=== PATIENT | male | born 1965 | race Caucasian/White ===

== ENCOUNTER 2019-05-13 14:09 | Emergency (ER) | payer BC, SELFPAY ==
[2019-05-13 14:10] VITALS: BP 140/105; PULSE 79; RESP 15; TEMP 36.8; O2SAT 96; BMI 26.4
[2019-05-13 14:17] VITALS: BP 140/105; PULSE 73; RESP 15; O2SAT 98
--- NOTE | 2019-05-13 14:34 | ED.VIS.GEN ---
History of Present Illness Chief Complaint: Laceration Informant: Patient Onset: Today Narrative: Patient presents to the ED with scalp laceration. Prior to arrival, he was mowing his lawn when the top of his head was hit with a tree branch. He denies LOC. He denies any pain. Tetanus status is unknown. He denies any other injury. Denies any headache or neck pain. Past Medical History - Allergies and Home Meds Allergies/Adverse Reactions: Allergies No Known Allergies Allergy (Verified 05/13/19 14:17) Primary Care Physician: Jeet Prince MD [Primary Care Provider] - Smoking Status: Never smoker Review of Systems General: Denies: Chills, Fever, Sweats Eyes: Denies: Visual changes - bilaterally, Diplopia ENT: Denies: Rhinorrhea, Sore throat Cardiovascular: Denies: Chest pain, Palpitations Respiratory: Denies: Dyspnea, Cough, Dyspnea on exertion Gastrointestinal: Denies: Abdominal pain, Nausea, Vomiting, Diarrhea, Melena, Hematochezia Genitourinary: Denies: Dysuria, Hematuria, Frequency Musculoskeletal: Denies: Back pain, Extremity Pain Skin: Reports: Wounds. Denies: Rash, Abscess, Abrasions Neurological: Denies: Headache, Weakness, Numbness Physical Exam Vital Signs/Narrative: Vital Signs Temp Pulse Resp BP Pulse Ox 05/13/19 14:17 73 15 140/105 H 98 05/13/19 14:10 98.2 F 79 15 140/105 H 96 General: Well nourished, Well developed, No Acute Distress Head: Normocephalic, Atraumatic Eyes: Perrl, EOMI ENT: Moist mucous membranes, No rhinorrhea Neck: Supple, Nontender Cardiovascular: Regular rate, Regular rhythm, No murmurs Respiratory: No distress, CTA bilaterally, Chest nontender Abdomen: Soft, Nontender, Nondistended, Normal bowel sounds Back: Nontender, Normal Inspection Extremities: Nontender, No edema Skin: Normal color, No rash, - - 4 cm linear laceration to the scalp. No evidence of foreign body. No active bleeding. Neurological: Alert, Oriented x3, Cranial nerves II-XII grossly intact, Normal Strength, Normal Sensation Psychological: Normal affect, Normal Mood Diagnostic/Tx/Re-eval - Medical Decision Making Patient presents to the ED with scalp laceration. Physical exam indicates 4 cm laceration to the scalp. Patient has no focal neurological deficits. Tetanus is updated. I did discuss various repair options including suture versus staple with the patient and his and patient elected staple repair. Procedure note: Approximately 5 mL of lidocaine 1% with epinephrine was locally infiltrated into the wound for anesthesia. Wound was irrigated with normal saline and cleansed with Betadine. 4 astrid were placed. Patient tolerated procedure well. Nonadherent dressing was placed over the wound. Patient and were educated on signs/symptoms to return to the ED. Provided discharge instructions. They were agreeable to plan Impression: Scalp laceration. Tetanus updated. Closed head injury. Disposition: Home stable. ED Disposition - Plan for ED Patient: Disposition: Home or Assisted Living Diagnosis: Laceration of scalp Instructions: LACERATION, Scalp Referrals: Jeet Prince MD [Primary Care Provider] -
[2019-05-13] MEDS: Diphth,Pertuss(Acell),Tet Vac 0.5 ML Vial IM (14:52)
[2019-05-13 15:36] VITALS: BP 135/94; PULSE 62; RESP 15
== END 2019-05-13 15:38 | disposition home or self-care (01) ==
LOC: ED 15:13
PROVIDERS: Emergency Provider Physician Assistant; Family Provider Family Medicine; PCP Family Medicine
DX: S01.01XA Laceration without foreign body of scalp, initial encounter (principal); W22.8XXA Striking against or struck by other objects, initial encounter; Y93.H9 Activity, other involving exterior property and land maintenance, building and construction; Y92.007 Garden or yard of unspecified non-institutional (private) residence as the place of occurrence of the external cause
CPT/HCPCS: 12002; 90715; 99282

== ENCOUNTER 2020-06-01 08:50 | Inpatient (IN) | payer BC, SELFPAY ==
[2020-06-01] VITALS (14 sets, daily range): BP systolic 111–184; BP diastolic 81–112; PULSE 57–72; RESP 16–20; TEMP 36.3–36.9; O2SAT 96–100; BMI 26.8
--- NOTE | 2020-06-01 08:53 | NURSING ---
NO OLD EKGS
--- NOTE | 2020-06-01 08:57 | EKG12_ITS ---
Test Reason : REPEAT Blood Pressure : / mmHG Vent. Rate : 062 BPM Atrial Rate : 062 BPM P-R Int : 172 ms QRS Dur : 106 ms QT Int : 398 ms P-R-T Axes : 052 -07 042 degrees QTc Int : 403 ms Normal sinus rhythm Inferior infarct , age undetermined , cannot be excluded Abnormal ECG Confirmed by LEEANN ALDANA, CHARLEEN ([id number]), general expeditor JOSIE GALINDO ([id number]) on 06/05/2020 10:02:04 AM Referred By: JAMES Confirmed By:CHARLEEN BRADSHAW MD
--- NOTE | 2020-06-01 08:57 | RAD_ITS ---
STUDY: X-RAY CHEST REASON FOR EXAM: Male, 55 years old. Chest pain TECHNIQUE: Single AP portable view of the chest. COMPARISON: None. FINDINGS: The lungs are clear and expanded. There is no demonstrated pleural abnormality. Normal size heart. Normal mediastinum and kostas. Normal visualized pulmonary arteries. Normal visualized aortic arch and descending thoracic aorta. Normal visualized thoracic spine. Normal visualized ribs, clavicles, and shoulders. There is no demonstrated abnormality of the visualized soft tissue structures of the upper abdomen. RAD/Chest 1 View (Portable) IMPRESSION: No active pulmonary disease. Electronically Signed: Tyler Alvarado MD at 9:41 EDT Tel , Service support ,
--- NOTE | 2020-06-01 09:00 | ED.DCSUM_ITS ---
History of Present Illness Informant: Patient Onset: Days Context: Gradual Onset Timing: Intermittent Current Severity: Moderate Maximum Severity: Severe Worsened by: walking, deep breathing Narrative: 55-year-old male with no significant past medical history presents with intermittent chest pain over the last week. Pain is substernal and sometimes radiates to his right shoulder. Denies nausea, vomiting, or diaphoresis. It can be worse with deep breathing or with exertion. His right shoulder pain is worse with movement. No cardiopulmonary history. Non-smoker. He has extensive family history of CAD/[place]. No recent surgery or travel, leg pain or swelling, cough, hemoptysis, or history of DVT/PE. Prior similar symptoms: No <Katarzyna Cuevas - Last Filed: 06/01/20 11:56> <Hiral Mota - Last Filed: 06/01/20 17:07> Chief Complaint: Chest Pain Past Medical History Past Medical History: - - kidney stones Surgical History: noncontributory Smoking Status: Never smoker - Family History Maternal Family History: Reports: No pertinent history Paternal Family History: Reports: Heart Disease, - - Father because of massive heart attack at age of 70. <Katarzyna Cuevas - Last Filed: 06/01/20 11:56> <Hiral Mota - Last Filed: 06/01/20 17:07> - Allergies and Home Meds Allergies/Adverse Reactions: Allergies shellfish derived Allergy (Verified 06/01/20 08:51) Hives Review of Systems General: Denies: Chills, Fever, Sweats Eyes: Denies: Visual changes - bilaterally, Diplopia ENT: Denies: Rhinorrhea, Sore throat Cardiovascular: Reports: Chest pain. Denies: Palpitations Respiratory: Denies: Dyspnea, Cough, Dyspnea on exertion Gastrointestinal: Denies: Abdominal pain, Nausea, Vomiting, Diarrhea, Melena, Hematochezia Genitourinary: Denies: Dysuria, Hematuria, Frequency Musculoskeletal: Denies: Back pain, Extremity Pain Skin: Denies: Rash, Wounds Neurological: Denies: Headache, Weakness, Numbness <Katarzyna Cuevas - Last Filed: 06/01/20 11:56> Physical Exam Vital Signs/Narrative: Vital Signs Temp Pulse Resp BP Pulse Ox 06/01/20 08:52 97.6 F L 63 17 184/108 H 99 General: Well nourished, Well developed, No Acute Distress Head: Normocephalic, Atraumatic Eyes: Perrl, EOMI ENT: Moist mucous membranes, No rhinorrhea Neck: Supple, Nontender Cardiovascular: Regular rate, Regular rhythm, No murmurs Respiratory: No distress, CTA bilaterally, Chest nontender Abdomen: Soft, Nontender, Nondistended, Normal bowel sounds Back: - - tender over right trapezius muscle, no bony tenderness of the shoulder, full ROM Extremities: Nontender, No edema Skin: Normal color, No rash Neurological: Alert, Oriented x3, Cranial nerves II-XII grossly intact, Normal Strength, Normal Sensation Psychological: Normal affect, Normal Mood <Katarzyna Cuevas - Last Filed: 06/01/20 11:56> Diagnostic/Tx/Re-eval Clinical Impression(s) from Imaging Studies Chest X-Ray 06/01/20 08:57 IMPRESSION: No active pulmonary disease. Electronically Signed: Tyler Alvarado MD at 9:41 EDT Tel , Service support , Laboratory Data 06/01/20 06/01/20 06/01/20 08:58 08:58 08:58 WBC 7.5 RBC 5.05 Hgb 15.8 Hct 45.1 MCV 89.3 MCH 31.3 MCHC 35.0 RDW Std Deviation 39.0 RDW Coeff of Caesar 12.0 Plt Count 212 MPV 9.4 Immature Gran % (Auto) 0.300 Neut % (Auto) 59.9 Lymph % (Auto) 27.6 [place] % (Auto) 9.9 Eos % (Auto) 1.6 Baso % (Auto) 0.7 Absolute Neuts (auto) 4.5 Absolute Lymphs (auto) 2.06 Nucleated RBC % 0 D-Dimer Quant (PE/DVT) <= 0.27 Sodium 140 Potassium 4.4 Chloride 107 Carbon Dioxide 30.0 Anion Gap 3 L BUN 11 Creatinine 0.93 Estim Creat Clear Calc 103.81 Est GFR (MDRD) Af Amer 109 Est GFR (MDRD) Non-Af 90 BUN/Creatinine Ratio 11.8 Glucose 97 Calcium 8.8 Troponin I 2.490 H* - Rhythm Strip Rhythm Strip: Sinus Rhythm Rate: 60 Ectopy: None - EKG Initial EKG Interpretation: Sinus Rhythm, - - AK interval 176 ms QRS duration 110 ms QTc [address] changes Follow-up EKG Interpretation: Sinus Rhythm, No Acute Injury Pattern Prior: Unchanged - Medical Decision Making Patient presented with intermittent chest pain x5-6 days. Vital signs remarkable for BP of 168/112, otherwise within normal limits. EKG shows NSR with no signs of ischemia. Initial troponin is 2.5. Other labs and d-dimer are normal. Chest x-ray shows no acute process. Repeat EKG unchanged. 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 Case was discussed with hospitalist and he was admitted to PCU. OSWALDO score -2 <Katarzyna Cuevas - Last Filed: 06/01/20 11:56> - Medical Decision Making Patient seen and evaluated with PA. I perform my own independent HPI and physical exam. Patient has presenting with intermittent chest pain as well as right shoulder pain however it was radiating down his left arm last night. He is a poor historian and cannot really give me a good story about the exact timing of onset of his symptoms. Patient has a strong family history of coronary artery disease and is hypertensive in the emergency room. The pain is not reproducible with any palpation of the muscle groups. EKG is largely normal. Troponin significantly elevated 2.5. Case is discussed with cardiology on-call, Dr. Harris, who recommends Brilinta, heparin drip and will evaluate the patient on the floor. Patient does not require emergent cath at this time. Patient is informed of these findings multiple times however he seems to be c onfused about his plan of care despite multiple discussions with him. He is neuro vastly intact. Admit to hospital service. Patient is agreeable with plan. Hemodynamically stable in the emergency room. <Hiral Mota - Last Filed: 06/01/20 17:07> ED Disposition <Katarzyna Cuevas - Last Filed: 06/01/20 11:56> <Hiral Mota - Last Filed: 06/01/20 17:07> - Plan for ED Patient: Disposition: Acute Care Hospital [facility] Diagnosis: NSTEMI (non-ST elevated myocardial infarction), Chest pain
[2020-06-01] MEDS: Aspirin 81 MG TAB.CHEW 324 MG PO (09:09)
--- NOTE | 2020-06-01 09:10 | ED.RN ---
IV ATTEMPT UNSUCCESSFUL. BLOOD DRAWN
[2020-06-01 09:15] LABS: Absolute Lymphocyte Count 2.06 X10^3/uL (0.83-4.51); Absolute Neutrophil Count 4.5 X10^3/uL (2.0-7.7); Basophil# 0.05 X10^3/uL; Basophil% 0.7 % (0-1); Eosinophil# 0.12 X10^3/uL; Eosinophils% 1.6 % (0-5); Hematocrit 45.1 % (40-54); Hemoglobin 15.8 g/dL (13.0-16.5); Lymphocyte # 2.06 X10^3/ul (4.0); Lymphocyte % 27.6 % (19-41); Mean Corpuscular Hgb 31.3 pg (27.0-32.0); Mean Corpuscular Volume 89.3 fL (80-94); Mean Platelet Vol. 9.4 fl (6.2-12.0); Monocyte# 0.74 X10^3/uL; Monocyte% 9.9 % (0-10); NRBC Flagged by Analyzer 0 % (0-5); Neutrophil # 4.48 X10^3/uL (2.7-7.7); Neutrophil % 59.9 % (47-70); Platelet Count 212 K/mm3 (150-450); Red Blood Count 5.05 M/mm3 (4.6-6.2); White Blood Count 7.5 K/mm3 (4.4-11.0)
[2020-06-01 09:36] LABS: D-Dimer Quantitative (DVT/PE) <= 0.27 FEU/ug/m (0.27-0.49)
[2020-06-01] MEDS: Ibuprofen 600 MG Tablet PO (10:33)
[2020-06-01 11:01] LABS: Anion Gap 3 (5-15); BUN 11 mg/dL (7-18); BUN/Creat Ratio 11.8 RATIO (10-20); Calcium,Total 8.8 mg/dL (8.5-10.1); Chloride 107 mmol/L (98-107); Creatinine, Serum 0.93 mg/dL (0.70-1.30); EST Glomerular Filtration Rate 90 mL/min (>60); Est Glom Filt Rate - Afr Amer 109 mL/min (>60); Estimated Creatinine Clearance 103.81 ml/min; Glucose 97 mg/dL (74-106); Potassium 4.4 mmol/L (3.5-5.1); Sodium Level 140 mmol/L (136-145)
[2020-06-01] MEDS: TICAGRELOR 90 MG TABLET 180 MG PO (11:17)
[2020-06-01] MEDS: Morphine 4 MG/ML Syringe IV (11:18)
--- NOTE | 2020-06-01 11:26 | EKG12_ITS ---
Test Reason : CP Blood Pressure : / mmHG Vent. Rate : 060 BPM Atrial Rate : 060 BPM P-R Int : 176 ms QRS Dur : 110 ms QT Int : 390 ms P-R-T Axes : 056 011 081 degrees QTc Int : 390 ms Normal sinus rhythm Normal ECG Confirmed by LEEANN ALDANA, CHARLEEN ([id number]), editor department JOSIE GALINDO ([id number]) on 06/05/2020 10:02:25 AM Referred By: JAMES Confirmed By:CHARLEEN BRADSHAW MD
[2020-06-01 11:27] LABS: Partial Thromboplast Time 29.2 Seconds (24.1-36.2)
--- NOTE | 2020-06-01 11:42 | PCM.HP.STD ---
Problem List (1) Depression Status: Chronic (2) NSTEMI (non-ST elevated myocardial infarction) Status: Acute History of Present Illness Date of Admission: 06/01/20 Chief Complaint: Chest pain. The patient is a 55 year old M with no significant past medical history apart from depression presented to the emergency room because of chest pain. Her symptoms started this past Wednesday which is 7 days ago with chest pain, right-sided chest pain, dull aching pain, intermittent, brought up by exertion, 8 out of 10 in severity when it comes up, radiates to the right shoulder and sometimes aggravated by taking a deep breath. He mentioned that on Wednesday, he feels better and pain is almost gone. This morning, he woke up and shortly after, his pain got worse, was more constant and he decided to come to the emergency department. He denied diaphoresis, nausea or vomiting. He denied dizziness, syncope or presyncope. In the emergency department, his blood pressure was slight elevated, other vital signs were stable. Routine blood work was unremarkable. Chest x-ray showed no acute findings. EKG revealed normal sinus rhythm, normal CT interval, normal QRS, normal QTC, no acute segment changes. Troponin was elevated at 2.49. D-dimer was negative. Patient is being admitted for acute non-ST elevation MO. Past Medical History Past Medical History (Chronic Problems): Chronic Problems Depression (Chronic) Allergies shellfish derived Allergy (Verified 06/01/20 08:51) Hives Home Medications: Ambulatory Orders Medication Instructions Recorded NK 06/01/20 Surgical History: no surgical history Psychiatric History: No pertinent psych hx Lives: Spouse/ Significant Other Smoking Status: Never smoker Tobacco Use: Non-smoker Alcohol: None Drugs: None - *Family History Maternal History Items: No pertinent history Paternal History Items: Heart Disease, - - Father because of massive heart attack at age of 70. Review of Systems Constitutional: Denies: Anorexia, Chills, Fever, Weakness Eyes: Denies: Blurred vision, Double vision, Drainage, Redness HEENT: Denies: Ear Pain, Eye Pain, Nasal Congestion, Sore Throat Cardiovascular: Reports: Chest Pain. Denies: Edema, Heaviness, Light Headedness, Palpitations, Syncope Respiratory: Reports: Shortness of Breath. Denies: Cough, Hemoptysis, Pleuritic Pain, Sputum production, Wheezing Gastrointestinal: Denies: Abdominal Pain, Constipation, Diarrhea, Nausea, Vomiting Genitourinary: Denies: Dysuria, Frequency, Hematuria Musculoskeletal: Reports: Shoulder Pain. Denies: Arm Pain, Back Pain, Foot Pain Skin: Denies: Dryness, Rash Neurological: Denies: Balance problems, Double vision, Change in Speech, Confusion, Headaches, Incoordination, Numbness Psychiatric: Reports: Depression. Denies: Anxiety Endocrine: Denies: Change in Body Habitus, Polydipsia, Polyuria VTE Information - Inpt Only VTE Present on Admission: No VTE Mechan Device Prophylaxis: None VTE Pharm Prophylaxis ordered?: No Patient Problems: Active and Suspected Problems NSTEMI (non-ST elevated myocardial infarction) (Acute) - Physical Exam Vitals/I&O's: Vital Signs Temp Pulse Resp BP Pulse Ox 97.6 F L 72 17 168/112 H 98 06/01/20 08:52 06/01/20 11:02 06/01/20 11:02 06/01/20 11:02 06/01/20 11:02 Oxygen Delivery Method Room Air Weight: 203 lb 4.259 oz Body Mass Index (BMI) 26.8 General: Alert, Oriented x3, Cooperative, No apparent distress HEENT: Atraumatic, PERRLA, EOMI, Normocephalic Oral: Moist Mucosa, No Gingival or Mucosal Lesions/ Ulcerations Neck: Supple, No JVD, Negative Carotid Bruits Lungs: Clear to auscultation, Normal air movement, No rhonchi, No wheeze, No rales Cardiovascular: Regular rate, Regular Rhythm, Normal S1, Normal S2, No murmurs, PMI Normal Abdomen: Bowel Sounds Present, Soft, Non Tender, Non-Distended, No Hepato-splenomegaly Extremities: No clubbing, No cyanosis, No edema Skin: No rashes, No breakdown Lymphatic: No Cervical, Supraclavicular, or Inguinal Adenopathy Neurological: Cranial nerves II-XII grossly intact, Motor Exam 5/5 strength throughout Psych/Mental Status: Normal Affect, Appropriate, Alert and oriented to time, place, person, mood and affect Laboratory Results 06/01/20 08:58: WBC 7.5, RBC 5.05, Hgb 15.8, Hct 45.1, MCV 89.3, MCH 31.3, MCHC 35.0, RDW Std Deviation 39.0, RDW Coeff of Caesar 12.0, Plt Count 212, MPV 9.4, Immature Gran % (Auto) 0.300, Neut % (Auto) 59.9, Lymph % (Auto) 27.6, [place] % (Auto) 9.9, Eos % (Auto) 1.6, Baso % (Auto) 0.7, Absolute Neuts (auto) 4.5, Absolute Lymphs (auto) 2.06, Nucleated RBC % 0 06/01/20 08:58: Sodium 140, Potassium 4.4, Chloride 107, Carbon Dioxide 30.0, Anion Gap 3 L, BUN 11, Creatinine 0.93, Estim Creat Clear Calc 103.81, Est GFR (MDRD) Af Amer 109, Est GFR (MDRD) Non-Af 90, BUN/Creatinine Ratio 11.8, Glucose 97, Calcium 8.8, Troponin I 2.490 H* 06/01/20 08:58: D-Dimer Quant (PE/DVT) <= 0.27 06/01/20 09:58: APTT 29.2 Clinical Impression(s) from Imaging Studies Chest X-Ray 06/01/20 08:57 IMPRESSION: No active pulmonary disease. Electronically Signed: Tyler Alvarado MD at 9:41 EDT Tel , Service support , Current Medications Heparin Sodium (Porcine) (Heparin Na) 0 unit IV UD PRN; Protocol PRN Reason: DOSAGE ADJUSTMENT NOMOGRAM Heparin Sodium/Sodium Chloride () 25,000 unit in 250 mls @ 10 mls/hr IV .Q[facility]H [facility]; Protocol Last Admin: 06/01/20 11:41 Dose: 10 mls/hr Documented by: Assessment/Plan All Active Problems NSTEMI (non-ST elevated myocardial infarction) (Acute) This is a 55 years old male patient presented to the emergency room because of chest pain, found to have elevated troponin without acute ischemic changes on EKG consistent with acute non-ST elevation MO and he is being admitted for evaluation and treatment. #1 acute non-ST elevation MO: EKG reviewed, no acute ischemic changes. Troponin is 2.49. Chest x-ray showed no acute findings. D-dimer was normal. Patient was given IV morphine and started on IV heparin drip and received loading dose of Brilinta. Currently, still complaining of right shoulder pain, chest pain eased up a little bit. Plan: Admit to PCU, cardiac monitoring, serial cardiac enzymes, repeat EKG tomorrow morning, lipid profile, LFT, pro time with INR, TSH, continue IV heparin drip, 2D echocardiogram, cardiology consult, start aspirin, Coreg, Lipitor and lisinopril, gentle IV fluids for hydration, IV morphine PRN for pain, sublingual nitro as needed, repeat CBC and BMP tomorrow morning. #2 depression: Continue home medication 1 home medication list updated. #3 DVT prophylaxis: He is on IV heparin drip. This note was generated with [employer] dictation software. It may contain incorrect words, spelling, and punctuation that were not noted in checking the note before signing. Inpatient E&M: [id number] Init Hosp L3
[2020-06-01] MEDS: Nitroglycerin SL (ED/IMG/CATH) 0.4 MG TABLET SUBLINGUAL (11:43)
[2020-06-01 12:37] LABS: International Normalized Ratio 1.1; Prothrombin Time (Protime)PT. 13.3 SECONDS (11.7-14.9)
[2020-06-01] MEDS: Nitroglycerin (INPATIENT USE) 0.4 MG TAB.SUBL SUBLINGUAL ×2 (12:38→12:52)
[2020-06-01 13:27] LABS: AST(SGOT) 40 U/L (15-37); Alanine Aminotransfer ALT/SGPT 29 U/L (16-61); Albumin, Serum 3.7 g/dL (3.2-5.0); Alkaline Phosphatase 81 U/L (45-117); Bilirubin, Direct 0.15 mg/dL (0.00-0.30); Cholesterol 188 mg/dL (200); Globulin 3.5 g/dL (2.2-4.2); High Density Lipoprotein 26 mg/dL; Protein, Total 7.2 g/dL (6.4-8.2); Thyroid Stim Hormone (TSH) 1.69 uIU/mL (0.358-3.74); Triglycerides 131 mg/dL; Very Low Density Lipoprotein 26 mg/dL (5-40)
--- NOTE | 2020-06-01 14:44 | CON.PCM_ITS ---
Reason for Consult Date of Consultation: 06/01/20 Reason for Consultation: Non-STEMI History of Present Illness: The patient is a 55 year old M with no significant past medical history apart from depression presented to the emergency room because of chest pain. Her symptoms started this past Wednesday which is 7 days ago with chest pain, right- sided chest pain, dull aching pain, intermittent, brought up by exertion, 8 out of 10 in severity when it comes up, radiates to the right shoulder and sometimes aggravated by taking a deep breath. He mentioned that on Wednesday, he feels better and pain is almost gone. This morning, he woke up and shortly after, his pain got worse, was more constant and he decided to come to the emergency department. He denied diaphoresis, nausea or vomiting. He denied dizziness, syncope or presyncope. In the emergency department, his blood pressure was slight elevated, other vital signs were stable. Routine blood work was unremarkable. Chest x-ray showed no acute findings. EKG revealed normal sinus rhythm, normal MN interval, normal QRS, normal QTC, no acute segment changes. Troponin was elevated at 2.49. D-dimer was negative. Patient is being admitted for acute non-ST elevation [place]. Patient's troponin is trending down. His chest pain has improved since arrival. Review of systems: All systems reviewed. All this is negative except that in the HPI Past Medical History Allergies/Adverse Reactions: Allergies shellfish derived Allergy (Verified 06/01/20 08:51) Hives Home Medications: Ambulatory Orders Medication Instructions Recorded Citalopram Hydrobromide 40 mg PO DAILY 06/01/20 [Citalopram HBr] Past Medical History (Chronic Problems): Chronic Problems Depression (Chronic) Surgical History: no surgical history Psychiatric History: No pertinent psych hx - *Family History Maternal History Items: No pertinent history Paternal History Items: Heart Disease, - - Father because of massive heart attack at age of 70. Lives: Spouse/ Significant Other Smoking Status: Never smoker Tobacco Use: Non-smoker Alcohol: None Drugs: None Objective: Vital Signs Temp Pulse Resp BP Pulse Ox 97.4 F L 61 16 131/84 H 100 06/01/20 13:18 06/01/20 13:18 06/01/20 13:18 06/01/20 13:18 06/01/20 13:18 Oxygen Flow Rate (L/min) 2 Oxygen Delivery Method Nasal Cannula Weight: 203 lb 4.259 oz Body Mass Index (BMI) 26.8 Intake and Output for Last 24 Hours 05/30/20 05/31/20 06/01/20 23:59 23:59 23:59 Intake Total 7.33 / 7.33 Balance 7.33 / 7.33 General: Awake, Alert, Oriented x 3 HEENT: Atraumatic Oral: Moist Mucosa Neck: Supple Lungs: Clear to auscultation Cardiovascular: Regular Rhythm Abdomen: Soft Extremities: No edema Skin: No Rashes Psych/Mental Status: Appropriate 06/01/20 08:58: WBC 7.5, RBC 5.05, Hgb 15.8, Hct 45.1, MCV 89.3, MCH 31.3, MCHC 35.0, Plt Count 212, MPV 9.4, Immature Gran % (Auto) 0.300, Neut % (Auto) 59.9, Lymph % (Auto) 27.6, [place] % (Auto) 9.9, Eos % (Auto) 1.6, Baso % (Auto) 0.7, Absolute Neuts (auto) 4.5, Nucleated RBC % 0 06/01/20 08:58: Sodium 140, Potassium 4.4, Chloride 107, Carbon Dioxide 30.0, Anion Gap 3 L, BUN 11, Creatinine 0.93, Est GFR (MDRD) Af Amer 109, Est GFR (MDRD) Non-Af 90, BUN/Creatinine Ratio 11.8, Glucose 97, Calcium 8.8, Troponin I 2.490 H* 06/01/20 08:58: D-Dimer Quant (PE/DVT) <= 0.27 06/01/20 09:58: APTT 29.2 06/01/20 12:16: Troponin I 1.690 H* 06/01/20 12:16: PT 13.3, INR 1.1 06/01/20 12:16: Total Bilirubin 0.60, Direct Bilirubin 0.15, Triglycerides 131, Cholesterol 188, LDL Cholesterol 136 H, VLDL Cholesterol 26, HDL Cholesterol 26 L Rhythm: EKG: ECHO: Stress Test: Cardiac Cath: PCI: CT Surgery: Holter monitor: EPS: PPM: CXR: Chest CT Scan: Assessment/Plan 1. Non-STEMI: We will keep the patient on dual antiplatelet therapy, statin, beta-bobby and heparin. Possible heart cath tomorrow.
[2020-06-01] MEDS: Acetaminophen 325 MG Tablet 650 MG PO ×2 (16:27→23:09)
--- NOTE | 2020-06-01 16:38 | CM.UR ---
RAYNA MACIAS assessment: Face to Face with patient for initial transition planning/care coordination assessment. RAYNA MACIAS introduced self and role at [facility], pt voices understanding and consents to assessment at this time. Pt is lying in bed in no distress at this time. is at bedside. Pt is A/Ox3 at this time and answers questions appropriately at this time. Care providers, pharmacy, and demographics verified/updated at this time at this time. Presentation: Chest pain Admitting dx: NSTEMI PCP: Jeet Prince Specialists: Pt states no current specialists. [facility]erred [facility] Insurance: [employer] Prescription Benefit: [employer] Living Will/HPOA: States has both LW and HCPOA however they are not on file. Joana is HCPOA LNOK: Joana Living Arrangements: Lives in 2 story home. Steps to get in and out however denies any problems with accessibility. Transportation: Self DME: None HHC/SNF: Denies Pt Goal: Home, denies any needs. Herminio Hong RN, CCM.
--- NOTE | 2020-06-01 16:45 | CM.UR ---
In-network providers according to sheri BC/BS website noted on scanned insurance card (not limited to): [facility] Contact Case mgmt department with any additional questions.
[2020-06-01 18:53] LABS: Partial Thromboplast Time 58.6 Seconds (24.1-36.2)
[2020-06-01] MEDS: Carvedilol 6.25 MG Tablet PO (21:49)
[2020-06-01] MEDS: oxyCODONE 5 MG Tablet PO (21:49)
[2020-06-01] MEDS: Atorvastatin Calcium 40 MG Tablet PO (21:49)
[2020-06-01] MEDS: TICAGRELOR 90 MG TABLET PO (21:49)
[2020-06-02] VITALS (16 sets, daily range): BP systolic 95–142; BP diastolic 60–87; PULSE 65–87; RESP 12–18; TEMP 36.6–36.9; O2SAT 94–100
[2020-06-02 00:59] LABS: Partial Thromboplast Time 61.2 Seconds (24.1-36.2)
[2020-06-02] MEDS: oxyCODONE 5 MG Tablet PO (03:53)
--- NOTE | 2020-06-02 05:55 | EKG12_ITS ---
Test Reason : POST CATH Blood Pressure : / mmHG Vent. Rate : 068 BPM Atrial Rate : 068 BPM P-R Int : 172 ms QRS Dur : 100 ms QT Int : 378 ms P-R-T Axes : 052 -29 021 degrees QTc Int : 401 ms Normal sinus rhythm Inferior infarct , age undetermined Abnormal ECG When compared with ECG of 02-JUN-2020 05:06, MANUAL COMPARISON REQUIRED, DATA IS UNCONFIRMED Confirmed by MARIELA ALDANA, MICHELLE ([id number]), marketing editor JOSIE GALINDO ([id number]) on 06/06/2020 9:42:13 AM Referred By: OLIVIA Confirmed By:MICHELLE SIERRA MD
[2020-06-02] MEDS: Carvedilol 6.25 MG Tablet PO (06:36)
[2020-06-02] MEDS: Aspirin E.C. 81 MG Tablet PO (06:36)
[2020-06-02] MEDS: TICAGRELOR 90 MG TABLET PO (06:36)
[2020-06-02] MEDS: Lisinopril 20 MG Tablet PO (06:36)
[2020-06-02 07:19] LABS: Absolute Lymphocyte Count 1.26 X10^3/uL (0.83-4.51); Absolute Neutrophil Count 5.6 X10^3/uL (2.0-7.7); Basophil# 0.04 X10^3/uL; Basophil% 0.5 % (0-1); Eosinophil# 0.08 X10^3/uL; Hematocrit 38.2 % (40-54); Hemoglobin 13.3 g/dL (13.0-16.5); Lymphocyte # 1.26 X10^3/ul (4.0); Lymphocyte % 15.8 % (19-41); Mean Corp Hgb Conc 34.8 g/dL (32-36); Mean Platelet Vol. 9.8 fl (6.2-12.0); Monocyte# 0.95 X10^3/uL; Monocyte% 11.9 % (0-10); NRBC Flagged by Analyzer 0 % (0-5); Neutrophil # 5.64 X10^3/uL (2.7-7.7); Neutrophil % 70.5 % (47-70); Platelet Count 196 K/mm3 (150-450); RBC Distribution Width CV 12.2 % (11.6-14.6); RBC Distribution Width SD 39.3 fl (35.1-43.9); Red Blood Count 4.29 M/mm3 (4.6-6.2)
[2020-06-02 07:41] LABS: Anion Gap 5 (5-15); BUN 11 mg/dL (7-18); Calcium,Total 8.2 mg/dL (8.5-10.1); Chloride 107 mmol/L (98-107); Creatinine, Serum 0.74 mg/dL (0.70-1.30); EST Glomerular Filtration Rate 119 mL/min (>60); Est Glom Filt Rate - Afr Amer 143 mL/min (>60); Estimated Creatinine Clearance 130.47 ml/min; Glucose 118 mg/dL (74-106); Potassium 3.9 mmol/L (3.5-5.1); Sodium Level 138 mmol/L (136-145)
--- NOTE | 2020-06-02 07:46 | PCM.PROGNOTE ---
Patient Problems: Active and Suspected Problems Chest pain (Acute) NSTEMI (non-ST elevated myocardial infarction) (Acute) Subjective: Chief complaint: Follow-up after admission for acute non-ST elevation SD. Patient seen and examined. No acute events overnight. Today, he is feeling better. Chest pain improved as well as right shoulder pain. No shortness of breath, dizziness or lightheadedness. His vital signs are stable. - Physical Exam Vitals/I&O's: Vital Signs Temp Pulse Resp BP Pulse Ox 97.9 F 65 16 131/78 H 94 06/02/20 06:35 06/02/20 07:39 06/02/20 06:35 06/02/20 06:35 06/02/20 06:35 Oxygen Flow Rate (L/min) 2 Oxygen Delivery Method Room Air Weight: 203 lb 4.259 oz Body Mass Index (BMI) 26.8 Intake and Output for Last 24 Hours 05/31/20 06/01/20 06/02/20 23:59 23:59 23:59 Intake Total 987.33 / 987.33 122.5 / 122.5 Balance 987.33 / 987.33 122.5 / 122.5 General: Alert, Oriented x3, Cooperative, No apparent distress HEENT: Atraumatic, PERRLA, EOMI, Normocephalic Oral: Moist Mucosa, No Gingival or Mucosal Lesions/ Ulcerations Neck: Supple, No JVD, Negative Carotid Bruits, Trachea Midline, Thyroid Normal Size and Texture Lungs: Clear to auscultation, Normal air movement, No rhonchi, No wheeze, No rales Cardiovascular: Regular rate, Regular Rhythm, Normal S1, Normal S2, PMI Normal Abdomen: Bowel Sounds Present, Soft, Non Tender, Non-Distended, No Hepato-splenomegaly Extremities: No clubbing, No cyanosis, No edema Skin: No rashes, No breakdown Lymphatic: No Cervical, Supraclavicular, or Inguinal Adenopathy Neurological: Cranial nerves II-XII grossly intact, Neuro grossly intact Psych/Mental Status: Normal Affect, Appropriate, Alert and oriented to time, place, person, mood and affect Laboratory Results 06/01/20 08:58: WBC 7.5, RBC 5.05, Hgb 15.8, Hct 45.1, MCV 89.3, MCH 31.3, MCHC 35.0, RDW Std Deviation 39.0, RDW Coeff of Caesar 12.0, Plt Count 212, MPV 9.4, Immature Gran % (Auto) 0.300, Neut % (Auto) 59.9, Lymph % (Auto) 27.6, Swisher % (Auto) 9.9, Eos % (Auto) 1.6, Baso % (Auto) 0.7, Absolute Neuts (auto) 4.5, Absolute Lymphs (auto) 2.06, Nucleated RBC % 0 06/01/20 08:58: Sodium 140, Potassium 4.4, Chloride 107, Carbon Dioxide 30.0, Anion Gap 3 L, BUN 11, Creatinine 0.93, Estim Creat Clear Calc 103.81, Est GFR (MDRD) Af Amer 109, Est GFR (MDRD) Non-Af 90, BUN/Creatinine Ratio 11.8, Glucose 97, Calcium 8.8, Troponin I 2.490 H* 06/01/20 08:58: D-Dimer Quant (PE/DVT) <= 0.27 06/01/20 09:58: APTT 29.2 06/01/20 12:16: Troponin I 1.690 H* 06/01/20 12:16: PT 13.3, INR 1.1 06/01/20 12:16: Total Bilirubin 0.60, Direct Bilirubin 0.15, AST 40 H, ALT 29, Alkaline Phosphatase 81, Total Protein 7.2, Albumin 3.7, Globulin 3.5, Triglycerides 131, Cholesterol 188, LDL Cholesterol 136 H, VLDL Cholesterol 26, HDL Cholesterol 26 L, TSH 1.69 06/01/20 15:00: Troponin I 2.690 H* 06/01/20 18:37: APTT 58.6 H 06/02/20 00:40: APTT 61.2 H 06/02/20 06:17: WBC 8.0, RBC 4.29 L, Hgb 13.3, Hct 38.2 L, MCV 89.0, MCH 31.0, MCHC 34.8, RDW Std Deviation 39.3, RDW Coeff of Caesar 12.2, Plt Count 196, MPV 9.8, Immature Gran % (Auto) 0.300, Neut % (Auto) 70.5 H, Lymph % (Auto) 15.8 L, Swisher % (Auto) 11.9 H, Eos % (Auto) 1.0, Baso % (Auto) 0.5, Absolute Neuts (auto) 5.6, Absolute Lymphs (auto) 1.26, Nucleated RBC % 0 06/02/20 06:17: Sodium 138, Potassium 3.9, Chloride 107, Carbon Dioxide 26.0, Anion Gap 5, BUN 11, Creatinine 0.74, Estim Creat Clear Calc 130.47, Est GFR (MDRD) Af Amer 143, Est GFR (MDRD) Non-Af 119, BUN/Creatinine Ratio 15.0, Glucose 118 H, Calcium 8.2 L 06/02/20 06:17: APTT Pending Current Medications Acetaminophen (Tylenol) 650 mg PO Q6H PRN PRN PRN Reason: Pain Score 1-10/Temp > 100.7 F Last Admin: 06/01/20 23:09 Dose: 650 mg Documented by: Aspirin (Ecotrin) 81 mg PO DAILY@0800 [facility] Last Admin: 06/02/20 06:36 Dose: 81 mg Documented by: Atorvastatin Calcium (Lipitor) 40 mg PO QHS [facility] Last Admin: 06/01/20 21:49 Dose: 40 mg Documented by: Carvedilol (Coreg) 6.25 mg PO BID [facility] Last Admin: 06/02/20 06:36 Dose: 6.25 mg Documented by: Heparin Sodium (Porcine) (Heparin Na) 0 unit IV UD PRN; Protocol PRN Reason: DOSAGE ADJUSTMENT NOMOGRAM Heparin Sodium/Sodium Chloride () 25,000 unit in 250 mls @ 10 mls/hr IV .Q25H [facility]; Protocol Last Titration: 06/02/20 00:40 Dose: 10 mls/hr Documented by: Lisinopril (Zestril) 20 mg PO DAILY [facility] Last Admin: 06/02/20 06:36 Dose: 20 mg Documented by: Morphine Sulfate () 2 mg IV Q4H PRN PRN PRN Reason: Pain Score 6-10/10 Nitroglycerin (Nitrostat) 0.4 mg SUBLINGUAL Q5M PRN PRN Reason: CHEST PAIN Last Admin: 06/01/20 12:52 Dose: 0.4 mg Documented by: Ondansetron HCl (Zofran) 4 mg IV Q8H PRN PRN PRN Reason: NAUSEA/VOMITING Oxycodone HCl (Oxyir) 5 mg PO Q6H PRN PRN PRN Reason: Pain Score 6-10/10 Last Admin: 06/02/20 03:53 Dose: 5 mg Documented by: Senna/Docusate Sodium (Senokot-S, Irene-Colace) 2 tablet PO BID PRN PRN PRN Reason: Constipation Sodium Chloride () 10 - 40 ml IV UD PRN PRN Reason: SALINE FLUSH Ticagrelor (Brilinta) 90 mg PO BID [facility] Last Admin: 06/02/20 06:36 Dose: 90 mg Documented by: Zolpidem Tartrate (Ambien (Generic)) 5 mg PO QHS PRN PRN PRN Reason: INSOMNIA Medical Necessity - Tobacco Use Smoking Status: Never smoker Tobacco Use: Non-smoker Assessment/Plan All Active Problems Chest pain (Acute) NSTEMI (non-ST elevated myocardial infarction) (Acute) This is a 55 years old male patient presented to the emergency room because of chest pain, found to have elevated troponin without acute ischemic changes on EKG consistent with acute non-ST elevation SD and he is being admitted for evaluation and treatment. #1 acute non-ST elevation SD: He is on aspirin, Brilinta, statins, Coreg and lisinopril as well as IV heparin drip. Chest pain improved. Troponins was elevated, trended down and then went back up again. Chest x-ray showed no acute findings. D-dimer was normal. Lipid profile revealed total cholesterol of 188, LDL cholesterol of 136 and HDL cholesterol of 26. TSH was normal. LFT was unremarkable. Cardiology on the case, plan for possible cardiac catheterization today. #2 depression: Continue citalopram. #3 DVT prophylaxis: Continue IV heparin drip. This note was generated with [employer] dictation software. It may contain incorrect words, spelling, and punctuation that were not noted in checking the note before signing. Inpatient E&M: 92170 Subs Hosp L2
[2020-06-02 08:26] LABS: Partial Thromboplast Time 46.7 Seconds (24.1-36.2)
--- NOTE | 2020-06-02 13:30 | EKG12_ITS ---
Test Reason : MORNING EKG Blood Pressure : / mmHG Vent. Rate : 066 BPM Atrial Rate : 066 BPM P-R Int : 176 ms QRS Dur : 100 ms QT Int : 382 ms P-R-T Axes : 052 -33 -06 degrees QTc Int : 400 ms Normal sinus rhythm Left axis deviation Inferior infarct , age undetermined Abnormal ECG When compared with ECG of 01-JUN-2020 11:07, MANUAL COMPARISON REQUIRED, DATA IS UNCONFIRMED Confirmed by MARIELA ALDANA, MICHELLE ([id number]), photo editor JOSIE GALINDO ([id number]) on 06/06/2020 9:42:48 AM Referred By: RAJIV Confirmed By:MICHELLE SIERRA MD
[2020-06-02] MEDS: Acetaminophen 325 MG Tablet 650 MG PO (13:44)
--- NOTE | 2020-06-02 13:50 | CL.I_ITS ---
Patient Name: DEJAN LAZCANO Study Date: 06/02/2020 Performing: Radha Harris MD Ht: 73 inches 185 cm : 1965 Wt: 203.1 lbs 92 kg Age: 55 Gender: male BSA: 2.16 PROCEDURE(S) PERFORMED IX24-AVM/COR/LV [id number], SINGLE CORONARY ARTERY CLINICAL PROFILE AND CO-MORBIDITIES Indications: ACS > 24 hrs Heart Failure: None Stress/Imaging Stress/Image Study Performed: No CAD Presentations: Non-STEMI. Symptom onset Date/Time: 05/26/20 Time Not Available. Pt. was having ongoing CP on and off. Last episode was on the way to the senior label specialist CONCLUSIONS Multivessel CAD as described. EF is 50-55% with inferior hypokinesis. No significant or MR. Succes sful PTCA alone of mRCA. RECOMMENDATIONS Refer for possible CABG. DESCRIPTION OF PROCEDURE The patient arrived to the procedure lab. The risks and benefits of the procedure as well as a full d escription of our services here and lack of surgical backup were fully explained to the patient and/o r their significant other prior to the catheterization. The Timeout was completed, verifying the guanako ect patient and procedure. The patient's procedural site was prepped and draped in the usual fashion. Local anesthetic was given subcutaneously to right radial region with Lidocaine 2%. Using a modified Seldinger technique, arterial access was obtained via the right radial artery, a 6Fr sheath was inse rted.. Left Coronary Artery selective angiography was performed in multiple views using a 5 Fr. JL3. 5 catheter. Left Ventriculography was performed in CAMPBELL projection using a 5 Fr. JR4. LV to AO pullbac k pressures were then recorded. Right Coronary Artery selective angiography was then performed in mul tiple views using a 5 Fr. JR 4 catheterThe images were reviewed and options discussed. A decision was then made to proceed with an Intervention, IVUS or other adjunct procedure. JR4 Guide catheter was inserted and engaged into the RCA. [employer] [place] Guide wire was advanced t o the RCA. Priority One inserted Pass # 1 Priority One Removed Euphora 2.5 x 12 Balloon catheter was inserted. Balloon catheter was advanced across lesion in the right coronary, mid. PTCA balloon inflat ed at 8 atms for 19 secs. Priority One inserted Pass # 2 Priority One Removed The arterial sheath w as pulled and a TR Band was applied for hemostasis CORONARY ANGIOGRAPHY DOMINANCE: Right Dominant LEFT HEART ASSESSMENT Left Ventricular Ejection Fraction: by LV Gram 50-55 % Inferior Hypokinesis - Mild LEFT MAIN: No significant disease noted LEFT ANTERIOR DESCENDING ARTERY: PROX LAD: 70 % Stenosis DIAGONAL 1: Ostial - 80 % Stenosis (small vessel) DIAGONAL 2: Ostial - 80 % Stenosis (small vessel) CIRCUMFLEX ARTERY: OSTIAL CIRC: 95 % Stenosis PROX CIRC: 80 % Stenosis OM 1: Proximal - 80 % Stenosis RIGHT CORONARY ARTERY: MID RCA: 99 % Stenosis VALVE FINDINGS: No Aortic Valve Stenosis No Mitral Insufficency INTERVENTION INFORMATION LESION SITE: RCA (Mid) Lesion Complexity: High/C, chronic total occlusion: No, lesion at bifurcation: No, thrombus present: Yes, lesion length: 12 mm, culprit lesion: Yes, Previously treated lesion: No Pre Stenosis: 99 % Pre intervention OSWALDO flow: 2 PROCEDURE: Thrombectomy, Balloon Angioplasty PTCA alone was done to improve flow a patient had CP on his way to the lab. We didn't stent the lesio n as he may be better treated with CABG due to the disease in his other vessels. Post Stenosis: 70 % Post intervention OSWALDO flow: 3 Lesion Devices: Cardinal 6 Fr JR4 100cm Guide Catheter Smith .014 [employer] [place] Straight 190cm Terumo Priority One Aspiration Catheter [employer]tr[employer] SC EUPHORA RX 2.5x12 BALLOON COMPLICATIONS No Complications PROCEDURE MEDICATIONS Fentanyl 50 mcg IV Versed 1 mg IV Oxygen: 2 L/min via nasal cannula Heparin given IA 06/02/2020 12:10:28 Heparin 4000 unit(s) IV 06/02/2020 12:30:44 Verapamil 2.5mg, Ntg 100mcgs, 3000 units of Heparin given IA 06/02/2020 12:10:28 IV Bolus: .9 NaCl 250 ml total 06/02/2020 12:53:52 SUMMARY OF HEMODYNAMIC DATA Time AIR REST ECG 12:00:43 AO 76/60 (68) SA 12:11:09 AO 81/62 (72) 12:15:11 LV 117/-12, 8 12:19:00 LV 114/0, 1 12:19:07 LV 101/-2, 16 12:20:03 LVp 101/0, 15 12:20:22 AO 93/59 (74) 12:20:27 AO 97/62 (77) 12:20:33 Signed By Radha Harris MD On 06/02/2020 1:49:08 PM Radha Harris MD
[2020-06-02] MEDS: 0.9% Normal Saline 1,000 ML 60 ML IV (14:00)
[2020-06-02] MEDS: Citalopram 40 MG TABLET PO (14:00)
--- NOTE | 2020-06-02 15:08 | DS.PCM_ITS ---
Discharge Date and Diagnosis Date of Admission: 06/01/20 Date of Discharge: 06/02/20 - Primary Discharge Diagnosis Acute Problems: Active Problems #1 acute non-ST elevation ND. #2 multivessel coronary artery disease with 70% stenosis of proximal LAD, 99% stenosis of the mid RCA, 95% stenosis of ostial left circumflex, 80% stenosis of proximal circumflex, CABG indicated. Status post balloon angioplasty of mid RCA. - Secondary Discharge Diagnosis Chronic Problems: Chronic Problems Depression (Chronic) Hospital Course and Treatment Imaging Results: Clinical Impression(s) from Imaging Studies Chest X-Ray 06/01/20 08:57 IMPRESSION: No active pulmonary disease. Electronically Signed: Tyler Alvarado MD at 9:41 EDT Tel , Service support , Dr. Harris, cardiology. Operations: None Procedures: Cardiac catheterization, EKG Summary of Care Provided: The patient is a 55 year old M presented to the emergency room because of 1 week history of intermittent chest pain and he was found to have acute non-ST elevation ND. Initial EKG revealed no acute ischemic changes. Chest x-ray showed no acute findings. Troponin was elevated and highest was 2.69. Patient was treated with IV heparin drip, aspirin, Brilinta, statins, Coreg and lisinopril. His routine blood work was unremarkable. LFT and TSH were unremarkable. Lipid profile revealed triglyceride of 131, total cholesterol of 188, LDL cholesterol of 136 and HDL cholesterol of 26. His pro time and INR were normal. Cardiology consulted and patient underwent cardiac catheterization. Patient was found to have 70% stenosis of the proximal LAD, 80% stenosis of the first and second diagonal branch, 95% stenosis of the ostial circumflex, mid RCA with 99% stenosis, status post balloon angioplasty of the mid RCA. His ejection fraction was 50 to 55%. There was no evidence of acute CHF. Cardiology stated that patient is appropriate for evaluation by cardiothoracic surgery for CABG. I made a call to [facility] cardiology department and they accepted the patient in transfer for evaluation for CABG. Patient transferred to [facility] in a stable condition. - Physical Exam Vitals/I&O's: Vital Signs Temp Pulse Resp BP Pulse Ox 98.4 F 68 16 97/61 95 06/02/20 14:25 06/02/20 14:55 06/02/20 14:55 06/02/20 14:55 06/02/20 14:55 Oxygen Flow Rate (L/min) 2 Oxygen Delivery Method Room Air Weight: 203 lb 4.259 oz Body Mass Index (BMI) 26.8 Intake and Output for Last 24 Hours 05/31/20 06/01/20 06/02/20 23:59 23:59 23:59 Intake Total 987.33 / 987.33 234.63 / 234.63 Balance 987.33 / 987.33 234.63 / 234.63 General: Alert, Oriented x3, Cooperative, No apparent distress HEENT: Atraumatic, PERRLA, EOMI, Normocephalic Oral: Moist Mucosa, No Gingival or Mucosal Lesions/ Ulcerations Neck: Supple, No JVD, Negative Carotid Bruits Lungs: Clear to auscultation, No rhonchi, No wheeze, No rales Cardiovascular: Regular rate, Regular Rhythm, Normal S1, Normal S2, PMI Normal Abdomen: Bowel Sounds Present, Soft, Non Tender, Non-Distended, No Hepato- splenomegaly Extremities: No clubbing, No cyanosis, No edema Skin: No rashes, No breakdown Lymphatic: No Cervical, Supraclavicular, or Inguinal Adenopathy Neurological: Cranial nerves II-XII grossly intact, Motor Exam 5/5 strength throughout Psych/Mental Status: Normal Affect, Appropriate Laboratory Results 06/01/20 15:00: Troponin I 2.690 H* 06/01/20 18:37: APTT 58.6 H 06/02/20 00:40: APTT 61.2 H 06/02/20 06:17: WBC 8.0, RBC 4.29 L, Hgb 13.3, Hct 38.2 L, MCV 89.0, MCH 31.0, MCHC 34.8, RDW Std Deviation 39.3, RDW Coeff of Caesar 12.2, Plt Count 196, MPV 9.8, Immature Gran % (Auto) 0.300, Neut % (Auto) 70.5 H, Lymph % (Auto) 15.8 L, [place] % (Auto) 11.9 H, Eos % (Auto) 1.0, Baso % (Auto) 0.5, Absolute Neuts (auto) 5.6, Absolute Lymphs (auto) 1.26, Nucleated RBC % 0 06/02/20 06:17: Sodium 138, Potassium 3.9, Chloride 107, Carbon Dioxide 26.0, Anion Gap 5, BUN 11, Creatinine 0.74, Estim Creat Clear Calc 130.47, Est GFR (MDRD) Af Amer 143, Est GFR (MDRD) Non-Af 119, BUN/Creatinine Ratio 15.0, Gl ucose 118 H, Calcium 8.2 L 06/02/20 06:17: APTT 46.7 H Current Medications Acetaminophen (Tylenol) 650 mg PO Q6H PRN PRN PRN Reason: Pain Score 1-10/Temp > 100.7 F Last Admin: 06/02/20 13:44 Dose: 650 mg Documented by: Aspirin (Ecotrin) 81 mg PO DAILY@0800 [facility] Last Admin: 06/02/20 06:36 Dose: 81 mg Documented by: Atorvastatin Calcium (Lipitor) 40 mg PO QHS [facility] Last Admin: 06/01/20 21:49 Dose: 40 mg Documented by: Atropine Sulfate () 0.5 mg IV UD PRN PRN Reason: HR <50 bpm Carvedilol (Coreg) 6.25 mg PO BID [facility] Last Admin: 06/02/20 06:36 Dose: 6.25 mg Documented by: Citalopram Hydrobromide (Celexa) 40 mg PO DAILY [facility] Last Admin: 06/02/20 14:00 Dose: 40 mg Documented by: Heparin Sodium (Porcine) (Heparin Na) 0 unit IV UD PRN; Protocol PRN Reason: DOSAGE ADJUSTMENT NOMOGRAM Heparin Sodium/Sodium Chloride () 25,000 unit in 250 mls @ 10 mls/hr IV .Q25H [facility]; Protocol Last Titration: 06/02/20 11:35 Dose: 0 mls/hr Documented by: Sodium Chloride () 1,000 mls @ 60 mls/hr IV .[id number] [facility] Last Admin: 06/02/20 14:00 Dose: 60 mls/hr Documented by: Labetalol HCl (Trandate) 5 mg IV X1 PRN PRN Reason: SBP > 160 when pulling sheath Stop: 06/04/20 13:21 Lisinopril (Zestril) 20 mg PO DAILY [facility] Last Admin: 06/02/20 06:36 Dose: 20 mg Documented by: Morphine Sulfate () 2 mg IV Q4H PRN PRN PRN Reason: Pain Score 6-10/10 Nitroglycerin (Nitrostat) 0.4 mg SUBLINGUAL Q5M PRN PRN Reason: CHEST PAIN Last Admin: 06/01/20 12:52 Dose: 0.4 mg Documented by: Ondansetron HCl (Zofran) 4 mg IV Q8H PRN PRN PRN Reason: NAUSEA/VOMITING Oxycodone HCl (Oxyir) 5 mg PO Q6H PRN PRN PRN Reason: Pain Score 6-10/10 Last Admin: 06/02/20 03:53 Dose: 5 mg Documented by: Senna/Docusate Sodium (Senokot-S, Irene-Colace) 2 tablet PO BID PRN PRN PRN Reason: Constipation Sodium Chloride () 10 - 40 ml IV UD PRN PRN Reason: SALINE FLUSH Sodium Chloride () 500 ml IV BOLUS PRN PRN Reason: VASO-VAGAL PROTOCOL Zolpidem Tartrate (Ambien (Generic)) 5 mg PO QHS PRN PRN PRN Reason: INSOMNIA Home Medications: Medications to take at Discharge Citalopram Hydrobromide [Citalopram HBr] 40 mg PO DAILY 06/01/20 Primary Care Physician: Jeet Prince MD [Primary Care Provider] - Disposition: Acute care Hospital Minutes spent on discharge:: 32 Medical Necessity - Tobacco Use Smoking Status: Never smoker Tobacco Use: Non-smoker Meaningful Use Info Meaningful Use Diagnoses (Choose all that apply): None applicable Inpatient E&M: [id number] [facility] Hosp
--- NOTE | 2020-06-02 16:48 | NURSING ---
Report called to nurse Reich for pt transfer to [facility].
== END 2020-06-02 18:02 | disposition short-term general hospital (02) | DRG 251 ==
LOC: ED 11:15 → PCU 11:27
PROVIDERS: Physician Assistant; Admitting Provider Hospitalist; Emergency Provider Emergency Medicine; PCP Family Medicine; Visit Provider Hospitalist
DX: I21.4 Non-ST elevation (NSTEMI) myocardial infarction (principal); I25.10 Atherosclerotic heart disease of native coronary artery without angina pectoris; F32.9 Major depressive disorder, single episode, unspecified
CPT/HCPCS: 36415; 71045; 80048; 80061; 80076; 84443; 84484; 85025; 85379; 85610; 85730; 92920; 93005; 93458; 99152; 99153; 99251; 99284; C1757; J7030; J7040; A4216; C1725; C1769; C1887; C1894; G0463; Q9967

== ENCOUNTER → 2020-08-06 07:43 | Outpatient (CLI) | payer BC, SELFPAY ==
[2020-06-01 08:52] VITALS: BMI 26.8
--- NOTE | 2020-08-06 07:50 | PCM.CR.ITP ---
Diagnosis - General Information Admitting Diagnosis: S/P CABG x 5 VESSEL Personal Learning Style:: Written Barriers to Learning: No Barriers Gave educational material for:: Treating Heart Disease, Emotions & Heart Disease, Stress Management & Relaxation, Sleep Disorders & Heart Disease, How The Heart Works, What it means to have Heart Disease, How Coronary Artery Disease is Diagnosed, Heart Procedures, What Heart Medications Do, Risk Factors & Modifications, Living an Active Life, Nutrition - Education/Goals Individual Counseling: Initial Assessment: Abnormal Cholesterol Levels, High Blood Pressure Cardiac Rehabilitation Goals: 1. Maintain the individual as the primary focus of care. 2. To improve the patient's quality of life. 3. Identification of cardiac risk factors and provide cardiac risk factor management. 4. Enhance the psychosocial status of the patient. 5. Reconditioning enough to allow the patient to resume customary activities. 6. Control symptoms of cardiac disease Personal Goals: Initial Assessment: Improve management of stress and emotions, Improve energy level, Participate in home exercise program, Get back to work, or to resume activities faster, Improve muscle strength and endurance Scale for measuring improvement of personal goals: Enter appropriate number in Comments. 2 = Unchanged. 3 = Slightly Better. 4 = Moderate Improvement. 5 = Met my Goal - Diagnosis & Disease Process Outcomes/Goals: Pt IDs own risk factors & lifestyle modifications by Session 10, Verbalizes symptoms of angina & response by session 3., Pt independently manages Plan/Interventions: Assist Pt to ID & engage in lifestyle modification to reduce CVD risk, Instruct on individual risk factors, Review symptoms of angina & emergency actions, Review secondary diagnosis & identify educational needs. - Safety Referral to Physical Therapy: No Referral to [facility] Case Management: No Fall Risk Assessed:: Yes Assistive Devices:: None Exercise - Initial Assessment - Visit Date of Eval: 08/06/20 Session #:: 0 - PRE-CARDIAC REHAB Mets: Pre-: >7 METS for 30 minutes by discharge - Physician Prescribed Exercise Modalities: Treadmill, Airdyne, NuStep Frequency: 3x/week for 12 weeks [36 sessions] Intensity: 60-80% of age predicted maximum heart rate reserve Current METSs:: 4.0 Target Heart Rate:: 108-142 Resting Blood Pressure: 138/86 EKG Type: RESTING EKG TO BE DONE - Outcomes & Goals Goals:: Verbalizes understanding of THR, RPE & goal METS by session 6, Documents in home exercise log/reports 30 min aerobic 5 day/wk by DC, Demonstrates accurate pulse taking by DC - Intervention & Plan Exercise Program Goals: Instruct on personal THR & RPE, Instruct on MET level & personal MET goal, Show patient to take own pulse /validate performance until accurate, Instruct on home exercise - Physical Activity Home Exercise Physical Activity - Home Exercise: Safe Exercise, Warm-up, Self-monitoring, Cool-Down, Home Exercise > 30 min Daily, Sitting Time <3 hours/daily - Outcomes & Goals Outcomes/Goals: Demonstrates correct Warm-up/exercise Cool-Down (S3) if = 2.5 METs, Verbalizes symptoms of exercise intolerance by Session 3 (S3), Demonstrate safe equipment use (S3) & follows exercise prescrition (6) - Intervention & Plan Plan/Intervention: Instruct warm-up & cool-down if exercising at > 2 METs, Instruct on symptoms of exercise intolerance & actions to take, Instruct & monitor on saf, Assess intial functional capacity & safety risk Nutrition - Initial Assessment - Program Goals Nutrition Program Goals: LDL <100 optimal. 100 - 129 Near optimal. 130 - 159 Borderline High. 160 - 189 High. Total Cholesterol <200 desirable. 200 - 239 Borderline High. >/= 240 High. HDL < 40 Low >/=60 High. Triglycerides <150 desirable. <199 optimal. VlDL 5 - 40. HgbA1C <7%. BMI <25 Patient has diagnosis of Hyperlipidemia (ICD E78)?: Yes - Visit Date of Assessment:: 08/06/20 Session #:: 0 - PRE-CARDIAC REHAB - Cholesterol/Lipids Triglycerides (mg/dL): 108 - 07/30/2020 Total Cholesterol (mg/dL): 89 LDL Cholesterol (mg/dL): 43 HDL Cholesterol (mg/dL): 65 Determine presence & major risk factors that modify LDL goal: Hypertension or hypertensive medication, Age men > 45 years; women >/= 55 years Outcomes/Goals: Pt IDs own risk factors & lifestyle modifications by Session 10, Verbalizes symptoms of angina & response by session 3., Pt independently manages Intervention/Plan: Advocate for lipid panel cholesterol medication if applicable, Instruct on personal lipid levels & lipid goals/NCEP guidelines, Instruct on cholesterol Referral to dietitian:: No - Diabetes (Other Core Measures) Diabetes Type: Not Applicable - Weight Mgt (Other Care) Not Applicable: Yes Height: 6 ft 1 in Weight:: 181 lb BMI: 23.8 Diagnosis Overweight/Obesity BMI> 30% ICD-10 E66: No Diagnosis High BMI/Morbid Obesity BMI> 35% ICD-10 Z68: No Intervention/Plan: Instruct on ideal BMI & set weight loss goal w/patient - Healthy Eating Habits Will attend diet classes:: Yes Outcomes/Goals:: Consume diet rich in vegs,fruits,whole grain/high fiber,fish,lean meat, Limit sat/trans fats,cholesterol & added salts & sugars Intervention/Plan:: Assess current eating habits - Education Gave educational materials for:: Healthy eating Medical - Initial Assessment - Visit Date of Eval: 08/06/20 Session #:: 0 - PRE-CARDIAC REHAB - Medication Compliance Preventative Medication(s):: Aspirin, Beta bobby H/O mental health issues: depression, anxiety, or addiction?: No Doesn?t believe in the benefits of treatment?: No Believes medications are unnecessary or harmful?: No Has a concern about medication side effects?: No Expresses concern over the cost of medications?: No Outcomes/Goals: Verbalizes medications,desired effect & common side effects @ DC, Pt self-reports following medication regimen, Keeps card in wallet w/medications listed by DC Interventions/plans: Instruct on medication effects & side effects, Review medication list w/patient every two weeks, Instruct importance of taking meds as ordered & assist problem solving - Tobacco Use Tobacco Use: Non-smoker - Hypertension Hypertension Diagnosis:: Hypertension ICD-10 I10 Resting Blood Pressure:: 138/86 [place] [employer] Hypertension Guidelines: [place] [employer] Hypertension Guidelines. Normal BP Less than 120/80. Elevated BP 120/80. Hypertension Stage 1: BP 130-139/80-89. Hypertesnion Stage 2: BP 140 or higher/90 or higher. Hypertension Crisis: BP higher than 180/120 - Tobacco Cessation Referral Smoking Cessation Referral:: No Individual Education/Counseling:: No Education Schedule Given:: Yes Psychosocial - Initial Assess - VIsit Date of Eval: 08/06/20 Session #:: 0 - PRE-CARDIAC REHAB Not Applicable: Yes History of previous Mental disease:: No - Target Goals Target Goals: Assess presence or absence of depression. Using a valid screening tool, maximizes coping skills. Positive support system - Psychosocial Test phq-9 Severity: Severity. 1-4 Minimal Depression. 5-9 Mild Depression. 10-14 Moderate Depression. 15-19 Moderately Sever Depression. 20-27 Severe Depression. Rule: - Referral to Behavioral Health PS - Interventions: Yes Attend Stress Management Classes, No Referral to Behavioral Health if PHQ-9 score >9:, No Referral to [facility] - Outcomes/Goals: See list Psychosocial Outcomes/Goals:: ID's personal stressors & 2 strategies to manage stress by discharge - Intervention/Plan: See List Interventions/Plan:: Assess stressors,coping strategies & signs of derpression on admission, Instruct/assist pt to develop coping & personal stress Mgt strategies, Instruct patient to recognize signs & symptoms of depression, Instruct patient to recog Patient Health Questionnaire Initial Assessment 1. Little interest or pleasure in doing things: Several days 2. Feeling down, depressed, or hopeless: Several days 3. Trouble falling or staying asleep, or sleeping too much: Not at all 4. Feeling tired or having little energy: Several days 5. Poor appetite or overeating: Not at all 6. Feeling bad about yourself -- or that you are a failure or have let yourself or your family down: Not at all 7. Trouble concentrating on things, such as reading the newspaper or watching television: Not at all 8. Moving or speaking so slowly that other people could have noticed. Or the opposite - being so fidgety or restless that you have been moving around a lot more than usual: Several days 9. Thoughts that you would be better off , or of hurting yourself in some way: Not at all How difficult have these problems made it for you to do your work, take care of things at home, or get along with other people?: Somewhat difficult Total Score: 4 MARCIA-Q SV Test - Statements CAD is a disease of the arteries in the heart: False Examples of risk factors for heart disease: True Angina is chest pain or discomfort: True The benefits of resistance training include: I Don't Know Eating more meat and dairy products: False Anti-platelet medications such as aspirin are important: True The only effective way to manage stress: False An exercise warm-up slowly increases heart rate: I Don't Know Prepared, processed foods usually have high sodium: True Depression is common after a heart attack: I Don't Know The statin medications lower cholesterol: True To control blood pressure, lower the amount of sodium: True If someone gets chest discomfort during walking: I Don't Know Transfats are partially hydrogenated vegetable oils: True Sleep apnea that is not treated increases the risk: False To control cholesterol, one should become a vegetarian: False Someone knows if he/she is exercising at the right level: True Diabetes cannot be prevented with exercise & health eating: False Stress is a large risk for heart attack: I Don't Know A diet that can help lower blood pressure is rich in: True - Total Score Total Correct Responses: 15 Self-Efficacy Initial Assessment We would like to know how confident you are in doing certain activities. Please select your confidence level for:: Select your confidence level for the following using the scale 1-10 where 1 is not at all confident and 10 is totally confident. Your score is the average of all 6 responses. Fatigue: How confident are you that you can keep the fatigue caused by your disease from interfering with the things you want to do? Select Number: 9 Physical Discomfort or Pain: How confident are you that you can keep the physical discomfort or pain of your disease from interfering with the things you want to do? Select Number: 8 Emotional Distress: How confident are you that you can keep the emotional distress caused by your disease from interfering with the things you want to do? Select Number: 9 Other Symptoms or Health Problems: How confident are you that you can keep other symptoms or health problems from interfering with the things you want to do? Select Number: 8 Different Tasks and Activities: How confident are you that you can do the different tasks and activities needed to manage your health condition so as to reduce your need to see a doctor? Select Number: 9 Medication: How confident are you that you can do things other than just taking medication to reduce how much your illness affects your everyday life? Select Number: 9 Total Score:: 8 Nutrition Survey - Nutrition Survey Instructions Scoring Instructions: Scoring is as follows: Yes = 1 points. No = 0 point. Patient score that is >/=12 is considered to be at potential nutritional risk and could benefit from a referral to a registered dietitian. - Nutrition Survey Initial Have you lost >10 lbs over the past 2 months without trying?: Yes Are you following a special diet at home for diabetes, low fat, or low salt?: Yes Are you interested in meeting with a dietitian for help understanding your diet?: No Do you eat less than 3 meals a day?: Yes Do you eat fatty meats (teixeira, sausage, ribs, etc), fried foods, desserts, large amounts of salad dressings, margarine, butter, or cheese most days?: No Do you have food allergies? [Enter types in comment field]: Yes Do you eat in restaurants more than 3 times a week?: No Do you season food with salt, seasoning salt, or garlic salt?: No Do you used canned, boxed, frozen meals, or soups, seasoning packets?: No Total Score:: 4
--- NOTE | 2020-08-06 07:51 | CR.HP_ITS ---
CR - History & Physical - General Arrival date:: 08/06/20 Arrival time:: 07:45 Date of Referral:: 07/26/20 Date of CR Evaluation:: 08/06/20 Referring Physician: DR. MALLORY MCCONNELL @ [facility]; establishing care with Dr. Baker Primary Diagnosis: S/P CABG x 5 vessel - History of Present Cardiac Event Onset Date: Enter Onset Date of cardiac illnesses in Comment field below Coronary Artery Bypass Graft:: Yes - 06/10/2020 Type of Symptoms:: BASIALLY DIZZINESS AND WEAKNESSI NTHE LEGS OVER PERIOD OF T MATTIE, THEN LATER DEVELOPED CHEST PAIN AND THE LEFT SHOULDER, NO SHORTNESS OF BREATH. OCCURRED EVEN AFTER WALKING ON THE SHOP FLOOR ABOUT 100 YARDS BECOME VERY DIZZY AND HAD TO GO BACK TO MY OFFICE. Interventions with present event:: HEART CATH, REMOVED SOME PLAQUE AND SENT TO [facility] Were there any complications?: NONE - Medications Home Medications: Ambulatory Orders Medication Instructions Recorded Citalopram Hydrobromide 40 mg PO DAILY 06/01/20 [Citalopram HBr] Acetaminophen [Tylenol Extra 500 mg PO Q6H PRN PRN 08/06/20 Strength] Amlodipine Besylate [Norvasc] 2.5 mg PO 08/06/20 Aspirin [Aspirin EC] 81 mg PO 08/06/20 Atorvastatin Calcium [Lipitor] 40 mg PO QHS 08/06/20 Citalopram [Celexa] 40 mg PO DAILY 08/06/20 - Allergies Allergies/Adverse Reactions: Allergies shellfish derived Allergy (Verified 06/01/20 08:51) Hives WHITE FISH Allergy (Uncoded 08/06/20 08:13) Hives - Sleep Disorder Evaluation Hx of Sleep Apnea: Yes Do you snore loudly (louder than talking or can be heard through closed doors)?: Yes - REALLY BAD SNORING; CLAIMS SNORING HAS IMPROVED SINCE SURGERY DONE. Do you often feel tired/ fatigued/ sleepy during daytime?: No Has anyone observed you stop breathing during sleep?: No History of Hypertension (for STOP score): Yes STOP Results: Positive Advanced Directives - Advanced Directives Power of Independent Living Advisor: Yes - IS POA FOR HEALTH CARE Living Will: Yes Advance Directives Information Provided: No Advance Directives on File: No DNR Order?:: No - MOLST See MOLST form: No Past Medical History - Covid-19 Screening Fever: No Unexplained muscle aches: No Current respiratory symptoms: No Upper respiratory infections symptoms: No Gastro-intestinal symptoms: No [id number] symptoms: No Has tested positive for COVID-19 in last 30 days: No Had contact w/person w/symptoms or Covid-19 (+) last 14 days: No Has High Risk Exposures ID'd by Health dept/Inf Control team: No 65 years or older:: No Lives in Assisted Living facility:: No Has a chronic lung disease or moderate to severe asthma:: No Has a serious heart condition:: No Immunocompromised:: No Severely obese (Body Mass Index of 40 or higher):: No Diabetic:: No Has chronic kidney disease undergoing dialysis:: No - Past Medical Illness Medical History: Past Medical History (Last Updated 08/06/20 @ 08:15 by Jamie Stone, EAR[employer] OBSERVATIONS CHIEF SCIENTIST, FOOD SELECTOR, BS) Atherosclerosis of coronary artery of [place] heart without angina pectoris (Acute) I25.10 INGUINAL HERNIA - RIGHT - Past Surgical History Surgical History: Past Surgical History (Last Updated 06/10/20 @ 10:25 by Krista Singh) History of left heart catheterization (Acute) Onset Date: 06/02/20 Z98.890 PTCA alone to mRCA Surgical History: no surgical history Social History - Smoking History Smoking Status: Never smoker Hx Tobacco Use: No Hx Smoking Exposure: No - Alcohol Use Alcohol Usage: No - RARELY EVEN SOCIAL DRINK - Substance Abuse Hx Substance Use: No - Occupation Occupation (List type of work in comments):: Employed Hours worked per day:: 8 - Hobbies, Recreation, Social Activities Hobbies: Sports - SNOW MOBILE, 4-WHEEL, HUNTING, FISHING, Other Recreational Activities: I am able to engage in all my recreational activities, I am able to engage in a few activities - BECAUSE OF WEIGHT LIFT RESTRICTIONS Social Environment - Status Marital Status: - Current Living Arrangements Living Environment:: Spouse - Children How many children do you have?: 3 - 1 GRANDSHILD Do any of your children live nearby?: Yes - Safety Do you feel safe in your surroundings?: Yes - Assistance Do you need any assistance at home?: NONE Review of Systems - Review of Systems Hints: Right click = Denies ([place]ash). Left click = Reports ([place]) Review of Present Symptoms: Reports: Operative Discomfort - SOME SORENESS IN THE CHEST REMAINS AND THE LEFT HAND FLEXION, Wound Healing, Appetite - Normal, Appetite - Special Diet - LOW-FAT, LOW SODIUM CARDIAC DIET., Sleep - Normal. Denies: Shortness of Breath at Rest, Shortness of Breath with Exertion - NOT NEARLY LIKE BEFORE, Fatigue, Sexual Changes - Pain Is Patient Pain Free?: Yes Pain Location: none Pain Level: 0/10 Risk Factor Assessment - Chief Complaint Chief Complaint: THIS IS A 55 MALE PATIENT WHO PRESENTS TO CARDIAC REHAB FOLLOWING RECENT S/P CABG x 5 VESSEL AT THE [facility]. THE PATIENT IS LOOKING TO ESTABLISH FOLLOW-UP CARE WITH DR. BAKER IN THE [facility] AND HAS RECENTLY CHANGED HIS PCP. - Vital Signs Temperature: 97.3 F Respiratory Rate: 12 Pulse Ox: 98 Blood Pressure: 138/86 Nailbeds:: PINK - Pulse Pulse Rate: 74 Pulse Rhythm: Regular - Hypertension Blood Pressure Sitting - Left Arm: 138/86 - Stress Stress: Recent - DEALING WITH THE TRANSITION OF CARE FROM THE [facility] HAS BEEN MORE DIFFICULT THAN THE SURGERY ITSELF. - Blood Cholesterol/Lipids Total Cholesterol (mg/dL) Goal = less than 200 mg/dL: 89 - 07/30/2020 HDL Cholesterol (mg/dL) Goal = less than 40 mg/dL: 65 LDL Cholesterol (mg/dL) Goal = less than 70 mg/dL: 43 Triglycerides (mg/dL) Goal = less than 150 mg/dL: 108 - Diabetes Nutrition Referral for Diabetes: No - Obesity Height: 6 ft 1 in Weight:: 181 lb Weight in Pounds: 181.0 lbs Weight Source: Standing Scale Body Mass Index (BMI): 23.8 Nutritional Referral for Obesity: No - Physical Inactivity Physical Inactivity: Reg Exercise 30 min/day - Risk Stratification Risk Guidelines: Lowest Risk: Risk Factor for Smoking, Risk Factor for Dyslipidemia, Risk Factor for Diabetes, Risk Factor for Obesity, Risk Factor for Sedentary Lifestyle, Risk Factor for Depression, Moderate Risk: Risk Factor for Hypertension - For Smoking Smoking Risk Guidelines: Smoking Low Risk: None or quit greater than 6 months ago. Smoking Moderate Risk: Smoker or quit 6 months or less ago. Smoking High Risk: Smoker - For Dyslipidemia Dyslipidemia Risk Guidelines: Low Risk: Moderate Risk: High Risk: 15-25% fat 25.1-29% fat >/= 30% fat. <7% sat fat 7-9% sat fat >9% sat fat. <150 mg chol 150-299 mg chol >/= 300 mg chol. LDL <100 LDL 100-129 LDL >/= 130. Chol/HDL ratio <5.0 Chol/HDL ratio 5.0-6.0 Chol/HDL ratio >6.0. Triglycerides <100 Triglycerides 100- 149 Triglycerides >/= 150 - For Diabetes Mellitus Diabetes Risk Guidelines: Diabetes Low Risk: HgA1c <6.5% and/or FBG <120. Diabetes Moderate Risk: HgA1c 6.6-7.9% and/or FBG 120-180. Diabetes High Risk: HgA1c >/= 8% and/or FBG >180 - For Obesity/Overweight Obesity/Overweight Risk Guidelines: Obesity Low Risk: BMI <25.0. Obesity Moderate Risk: BMI 25-29.9. Obesity High Risk: BMI >/= 30.0 - For Hypertension Hypertension Risk Guidelines: Hypertension Low Risk: Systolic <120 and Diastolic <80. Hypertension Moderate Risk: Systolic 120-139 and Di astolic 80-89. Hypertension High Risk: Systolic >/= 140 and Diastolic >/= 90 - For Sedentary Lifestyle Sedentary Lifestyle Risk Guidelines: Sedentary Lifestyle Low Risk: >/= 1,500 kcal/week. Sedentary Lifestyle Moderate Risk: 700-1,499 kcal/week. Sedentary Lifestyle High Risk: < 700 kcal/week - For Depression Depression Risk Guidelines: Depression Low Risk: Not clinically depressed. Depression Moderate Risk: Mildly depressed. Depression High Risk: Clinically depressed Motivation - Motivation to Participate On a scale of 1 to 10, how prepared are you to commit to attending program?: 10 What do you see as barriers to successfully being able to complete the program?: MAYBE WORK RELATED TRAVEL IN LATE AUGUST. What do you see as the benefits of succesfully completing the program? In other words, what do you hope to get out of participating in the program?: HEALTHIER, REASSURANCE OF BEING ABLE TO PERFORM. Are there issues you are dealing with that will interfere with completing the program?: NONE Do you have a spouse or signficant other, family or friends who will help support you to complete the program?: YES
[2020-08-06 08:20] VITALS: BP 138/86; PULSE 74; RESP 12; TEMP 36.3; O2SAT 98; BMI 23.8
[2020-08-06 08:56] VITALS: BP 138/86; BMI 23.8
== END ==
PROVIDERS: PCP Family Medicine
DX: I25.10 Atherosclerotic heart disease of native coronary artery without angina pectoris (principal); I10 Essential (primary) hypertension; E78.5 Hyperlipidemia, unspecified; Z95.1 Presence of aortocoronary bypass graft

== ENCOUNTER 2020-08-26 15:15 | Outpatient (RCR) | payer BC, SELFPAY ==
[2020-08-06 08:20] VITALS: BMI 23.8
[2020-08-06 08:56] VITALS: BMI 23.8
== END 2020-08-26 23:59 ==
LOC: CR 15:15
PROVIDERS: PCP Family Medicine; Referring Provider Specialist; Visit Provider Specialist
DX: I25.118 Atherosclerotic heart disease of native coronary artery with other forms of angina pectoris (principal)
CPT/HCPCS: 93798

== ENCOUNTER 2020-09-25 15:15 | Outpatient (RCR) | payer BC, SELFPAY ==
[2020-08-06 08:20] VITALS: BMI 23.8
[2020-08-06 08:56] VITALS: BMI 23.8
--- NOTE | 2020-09-04 09:06 | CR.ITP_ITS ---
Exercise - 30-day Assessment - Visit Date of Eval: 09/04/20 Session #:: 5 - Physician Prescribed Exercise Modalities: Treadmill, Airdyne, NuStep Frequency: 3x/week for 12 weeks [36 sessions] Intensity: 60-80% of age predicted maximum heart rate reserve Current METSs:: 5.2 Target Heart Rate:: 108-142 Current RPE:: 12-14.5 Maximum Excercise HR:: 150 Resting Blood Pressure: 98/70 Maximum Exercise Blood Pressure: 128/72 EKG Type: NSR to sinus tachy - Outcomes & Goals Goals:: Verbalizes understanding of THR, RPE & goal METS by session 6, Documents in home exercise log/reports 30 min aerobic 5 day/wk by DC, Demonstrates accurate pulse taking by DC, Other additional outcome/goals: see below - Intervention & Plan Exercise Program Goals: Instruct on personal THR & RPE, Instruct on MET level & personal MET goal, Show patient to take own pulse /validate performance until accurate, Instruct on home exercise, Other additional plan/int - 30-day Reassessments 30 day Reassessments:: Progressing - Physical Activity Home Exercise Physical Activity - Home Exercise: Safe Exercise, Warm-up, Self-monitoring, Cool-Down, Home Exercise > 30 min Daily, Sitting Time <3 hours/daily - Outcomes & Goals Outcomes/Goals: Demonstrates correct Warm-up/exercise Cool-Down (S3) if = 2.5 METs, Verbalizes symptoms of exercise intolerance by Session 3 (S3), Demonstrate safe equipment use (S3) & follows exercise prescrition (6), Other: See below - Intervention & Plan Plan/Intervention: Instruct warm-up & cool-down if exercising at > 2 METs, Instruct on symptoms of exercise intolerance & actions to take, Instruct & monitor on saf, Assess intial functional capacity & safety risk, Other See below - 30-day Reassessments 30 day Reassessments:: Progressing Nutrition - 30-Day Assessment - Program Goals Nutrition Program Goals: LDL <100 optimal. 100 - 129 Near optimal. 130 - 159 Borderline High. 160 - 189 High. Total Cholesterol <200 desirable. 200 - 239 Borderline High. >/= 240 High. HDL < 40 Low >/=60 High. Triglycerides <150 desirable. <199 optimal. VlDL 5 - 40. HgbA1C <7%. BMI <25 Patient has diagnosis of Hyperlipidemia (ICD E78)?: Yes - Visit Date of Assessment:: 09/04/20 Session #:: 5 - Cholesterol/Lipids Determine presence & major risk factors that modify LDL goal: Hypertension or hypertensive medication, Low HDL cholesterol <40 mg/dL*, Family history of premature CHD in Male < 55 years: female <65 yearsFa, Age men > 45 years; women >/= 55 years Outcomes/Goals: Pt IDs own risk factors & lifestyle modifications by Session 10, Verbalizes symptoms of angina & response by session 3., Pt independently manages, Other Additional Outcomes/Goals: Intervention/Plan: Advocate for lipid panel cholesterol medication if applicable, Instruct on personal lipid levels & lipid goals/NCEP guidelines, Instruct on cholesterol, Other additional plan/int 30-day Reassessments:: Progressing - Diabetes (Other Core Measures) Diabetes Type: Not Applicable - Weight Mgt (Other Care) Height: 6 ft 1 in Weight:: 86.409 kg BMI: 25.1 Diagnosis Overweight/Obesity BMI> 30% ICD-10 E66: No Diagnosis High BMI/Morbid Obesity BMI> 35% ICD-10 Z68: No Outcomes/Goals: Pt sets, maintains & shows weight loss goal & trend during rehab, Other additional outcomes/goals Intervention/Plan: Instruct on ideal BMI & set weight loss goal w/patient, Assist pt to ID & incorporate diet changes for weight loss by S9, Refer to Structured Weight Loss program as appropriate, Encourage goal of using 250- 300dcal per session for weight loss, Other additional plan/interventions 30 day Reassessments:: Progressing - Healthy Eating Habits Will attend diet classes:: No Outcomes/Goals:: Consume diet rich in vegs,fruits,whole grain/high fiber,fish,lean meat, Limit sat/trans fats,cholesterol & added salts & sugars, Other additional outcome/goals: 30-day Reassessments:: Progressing - Education Gave educational materials for:: Signs & symptoms of hypoglycemia, Signs & symptoms of hyperglycemia, Relate diabetes to coronary artery disease, Healthy eating Medical- 30-Day Assessment - Visit Date of Eval: 09/04/20 Session #:: 5 - Medication Compliance Preventative Medication(s):: Aspirin, Beta bobby H/O mental health issues: depression, anxiety, or addiction?: No Doesn?t believe in the benefits of treatment?: No Believes medications are unnecessary or harmful?: No Has a concern about medication side effects?: No Expresses concern over the cost of medications?: No Outcomes/Goals: Verbalizes medications,desired effect & common side effects @ DC, Pt self-reports following medication regimen, Keeps card in wallet w/medications listed by DC, Other additional outcome/goals: Interventions/plans: Instruct on medication effects & side effects, Review medication list w/patient every two weeks, Instruct importance of taking meds as ordered & assist problem solving, Other additional 30-day Reassessments:: Progressing - Tobacco Use Tobacco Use: Non-smoker - Hypertension Hypertension Diagnosis:: Hypertension ICD-10 I10 Resting Blood Pressure:: 98/70 [place] [employer] Hypertension Guidelines: [place] [employer] Hypertension Guidelines. Normal BP Less than 120/80. Elevated BP 120/80. Hypertension Stage 1: BP 130-139/80-89. Hypertesnion Stage 2: BP 140 or higher/90 or higher. Hypertension Crisis: BP higher than 180/120 Outcomes/Goals: Able to verbalize/achieve optimal blood pressure <130/80, Incorporates diet changes & exercise for blood pressure control by DC, Other additional outcomes/goals Interventions/plan: Instruct on optimal blood pressure, hypertension & medications, Instruct on effects of sodium, alcohol, stress, exercise &hypertension, Other additional plan/interventions 30 day Reassessments:: Progressing - Tobacco Cessation Referral Smoking Cessation Referral:: No Individual Education/Counseling:: No Education Schedule Given:: Yes Psychosocial - 30-Day Assess - VIsit Date of Eval: 09/04/20 Session #:: 5 History of previous Mental disease:: No - Target Goals Target Goals: Assess presence or absence of depression. Using a valid screening tool, maximizes coping skills. Positive support system - Psychosocial Test phq-9 Severity: Severity. 1-4 Minimal Depression. 5-9 Mild Depression. 10-14 Moderate Depression. 15-19 Moderately Sever Depression. 20-27 Severe Depr ession. Rule: - Outcomes/Goals: See list Psychosocial Outcomes/Goals:: ID's personal stressors & 2 strategies to manage stress by discharge, Other Additional outcome/goals: - Intervention/Plan: See List Interventions/Plan:: Assess stressors,coping strategies & signs of derpression on admission, Instruct/assist pt to develop coping & personal stress Mgt strategies, Refer to Behavioral Health if appropriate, Refer to Physician if appropriate, Instruct patient to recognize signs & symptoms of depression, Instruct patient to recog, Other additional plan/intervention - 30-day Reassessments: 30 day Reassessments:: Progressing Patient Health Questionnaire 30-Day Re-eval Assessment 1. Little interest or pleasure in doing things: Several days 2. Feeling down, depressed, or hopeless: Several days 3. Trouble falling or staying asleep, or sleeping too much: Not at all 4. Feeling tired or having little energy: Several days 5. Poor appetite or overeating: Not at all 6. Feeling bad about yourself -- or that you are a failure or have let yourself or your family down: Not at all 7. Trouble concentrating on things, such as reading the newspaper or watching television: Not at all 8. Moving or speaking so slowly that other people could have noticed. Or the opposite - being so fidgety or restless that you have been moving around a lot more than usual: Several days 9. Thoughts that you would be better off , or of hurting yourself in some way: Not at all How difficult have these problems made it for you to do your work, take care of things at home, or get along with other people?: Somewhat difficult Total Score: 4 Self-Efficacy 30-Day Re-eval Assessment We would like to know how confident you are in doing certain activities. Please select your confidence level for:: Select your confidence level for the following using the scale 1-10 where 1 is not at all confident and 10 is totally confident. Your score is the average of all 6 responses. Fatigue: How confident are you that you can keep the fatigue caused by your disease from interfering with the things you want to do? Select Number: 9 Physical Discomfort or Pain: How confident are you that you can keep the physical discomfort or pain of your disease from interfering with the things you want to do? Select Number: 8 Emotional Distress: How confident are you that you can keep the emotional distress caused by your disease from interfering with the things you want to do? Select Number: 9 Other Symptoms or Health Problems: How confident are you that you can keep other symptoms or health problems from interfering with the things you want to do? Select Number: 8 Different Tasks and Activities: How confident are you that you can do the different tasks and activities needed to manage your health condition so as to reduce your need to see a doctor? Select Number: 9 Medication: How confident are you that you can do things other than just taking medication to reduce how much your illness affects your everyday life? Select Number: 9 Total Score:: 8
[2020-09-04 09:16] VITALS: BP 98/70; BMI 25.1
== END 2020-09-26 23:59 ==
LOC: CR 15:15
PROVIDERS: PCP Family Medicine; Referring Provider Specialist; Visit Provider Specialist
DX: I25.118 Atherosclerotic heart disease of native coronary artery with other forms of angina pectoris (principal)
CPT/HCPCS: 93798

== ENCOUNTER 2020-10-23 15:15 | Outpatient (RCR) | payer BC, SELFPAY ==
[2020-08-06 08:20] VITALS: BMI 23.8
[2020-09-04 09:16] VITALS: BMI 25.1
[2020-09-27 00:34] VITALS: BP 98/70
--- NOTE | 2020-10-04 11:35 | CR.ITP_ITS ---
Exercise - 30-day Assessment - Visit Date of Eval: 10/04/20 Session #:: 16 Comments:: 100% compliance to date - Physician Prescribed Exercise Modalities: Treadmill, Rower, Airdyne, NuStep Frequency: 3x/week for 12 weeks [36 sessions] Intensity: 60-80% of age predicted maximum heart rate reserve Current METSs:: 6.0 increase from 5.0 Target Heart Rate:: 108-142 Current RPE:: 11-12 Maximum Excercise HR:: 136 Resting Blood Pressure: 118/62 Maximum Exercise Blood Pressure: 188/100 EKG Type: NSR to sinus tachycardia without ectopy. - Outcomes & Goals Goals:: Verbalizes understanding of THR, RPE & goal METS by session 6, Documents in home exercise log/reports 30 min aerobic 5 day/wk by DC, Demonstrates accurate pulse taking by DC - Intervention & Plan Exercise Program Goals: Instruct on personal THR & RPE, Instruct on MET level & personal MET goal, Show patient to take own pulse /validate performance until accurate, Instruct on home exercise - 30-day Reassessments 30 day Reassessments:: Progressing - Physical Activity Home Exercise Physical Activity - Home Exercise: Safe Exercise, Warm-up, Self-monitoring, Cool-Down, Home Exercise > 30 min Daily, Sitting Time <3 hours/daily - Outcomes & Goals Outcomes/Goals: Demonstrates correct Warm-up/exercise Cool-Down (S3) if = 2.5 METs, Verbalizes symptoms of exercise intolerance by Session 3 (S3), Demonstrate safe equipment use (S3) & follows exercise prescrition (6) - Intervention & Plan Plan/Intervention: Instruct warm-up & cool-down if exercising at > 2 METs, Instruct on symptoms of exercise intolerance & actions to take, Instruct & monitor on saf, Assess intial functional capacity & safety risk - 30-day Reassessments 30 day Reassessments:: Progressing Nutrition - 30-Day Assessment - Program Goals Nutrition Program Goals: LDL <100 optimal. 100 - 129 Near optimal. 130 - 159 Borderline High. 160 - 189 High. Total Cholesterol <200 desirable. 200 - 239 Borderline High. >/= 240 High. HDL < 40 Low >/=60 High. Triglycerides <150 desirable. <199 optimal. VlDL 5 - 40. HgbA1C <7%. BMI <25 Patient has diagnosis of Hyperlipidemia (ICD E78)?: Yes - Visit Date of Assessment:: 10/04/20 Session #:: 16 - no update labs in the psat 30-days - Cholesterol/Lipids Determine presence & major risk factors that modify LDL goal: Hypertension or hypertensive medication, Family history of premature CHD in Male < 55 years: female <65 yearsFa, Age men > 45 years; women >/= 55 years Outcomes/Goals: Pt IDs own risk factors & lifestyle modifications by Session 10, Verbalizes symptoms of angina & response by session 3., Pt independently manages Intervention/Plan: Instruct on personal lipid levels & lipid goals/NCEP guidelines, Instruct on cholesterol Referral to dietitian:: Yes - Medical Nutrition therapy 30-day Reassessments:: Progressing - Diabetes (Other Core Measures) Diabetes Type: Not Applicable - Weight Mgt (Other Care) Not Applicable: Yes Height: 6 ft 1 in Weight:: 187 lb 8 oz BMI: 24.7 Diagnosis Overweight/Obesity BMI> 30% ICD-10 E66: No Diagnosis High BMI/Morbid Obesity BMI> 35% ICD-10 Z68: No Outcomes/Goals: Pt sets, maintains & shows weight loss goal & trend during rehab Intervention/Plan: Instruct on ideal BMI & set weight loss goal w/patient 30 day Reassessments:: Met Medical- 30-Day Assessment - Visit Date of Eval: 10/04/20 Session #:: 16 - Medication Compliance Preventative Medication(s):: Aspirin, Statin/lipid, Beta bobby H/O mental health issues: depression, anxiety, or addiction?: No Doesn?t believe in the benefits of treatment?: No Believes medications are unnecessary or harmful?: No Has a concern about medication side effects?: No Expresses concern over the cost of medications?: No Outcomes/Goals: Verbalizes medications,desired effect & common side effects @ DC, Pt self-reports following medication regimen, Keeps card in wallet w/medications listed by DC Interventions/plans: Instruct on medication effects & side effects, Review medication list w/patient every two weeks, Instruct importance of taking meds as ordered & assist problem solving 30-day Reassessments:: Progressing - Tobacco Use Tobacco Use: Non-smoker - Hypertension Hypertension Diagnosis:: Hypertension ICD-10 I10 Resting Blood Pressure:: 118/62 [place] [employer] Hypertension Guidelines: [place] [employer] Hypertension Guidelines. Normal BP Less than 120/80. Elevated BP 120/80. Hypertension Stage 1: BP 130-139/80-89. Hypertesnion Stage 2: BP 140 or higher/90 or higher. Hypertension Crisis: BP higher than 180/120 Peak Exercise Blood Pressure:: 188/100 Outcomes/Goals: Able to verbalize/achieve optimal blood pressure <130/80, Incorporates diet changes & exercise for blood pressure control by DC Interventions/plan: Instruct on optimal blood pressure, hypertension & medications, Instruct on effects of sodium, alcohol, stress, exercise &hypertension 30 day Reassessments:: Progressing - Tobacco Cessation Referral Smoking Cessation Referral:: No Individual Education/Counseling:: No Education Schedule Given:: Yes Psychosocial - 30-Day Assess - VIsit Date of Eval: 10/04/20 Session #:: 16 Not Applicable: Yes History of previous Mental disease:: No - Target Goals Target Goals: Assess presence or absence of depression. Using a valid screening tool, maximizes coping skills. Positive support system - Psychosocial Test Tool Used:: PHQ-9 Questionnaire phq-9 Severity: Severity. 1-4 Minimal Depression. 5-9 Mild Depression. 10-14 Moderate Depression. 15-19 Moderately Sever Depression. 20-27 Severe Depression. Rule: - Referral to Behavioral Health PS - Interventions: Yes Attend Stress Management Classes, No Referral to Behavioral Health if PHQ-9 score >9:, No Referral to [facility], No Referral to Physician if PHQ-9 if score is 5-9: - Outcomes/Goals: See list Psychosocial Outcomes/Goals:: ID's personal stressors & 2 strategies to manage stress by discharge - Intervention/Plan: See List Interventions/Plan:: Assess stressors,coping strategies & signs of derpression on admission, Instruct/assist pt to develop coping & personal stress Mgt strategies, Instruct patient to recognize signs & symptoms of depression, Instruct patient to recog - 30-day Reassessments: 30 day Reassessments:: Met Patient Health Questionnaire 30-Day Re-eval Assessment 1. Little interest or pleasure in doing things: Not at all 2. Feeling down, depressed, or hopeless: Not at all 3. Trouble falling or staying asleep, or sleeping too much: Not at all 4. Feeling tired or having little energy: Not at all 5. Poor appetite or overeating: Not at all 6. Feeling bad about yourself -- or that you are a failure or have let yourself or your family down: Not at all 7. Trouble concentrating on things, such as reading the newspaper or watching television: Not at all 8. Moving or speaking so slowly that other people could have noticed. Or the opposite - being so fidgety or restless that you have been moving around a lot more than usual: Not at all 9. Thoughts that you would be better off , or of hurting yourself in some way: Not at all Total Score: 0 Self-Efficacy 30-Day Re-eval Assessment We would like to know how confident you are in doing certain activities. Please select your confidence level for:: Select your confidence level for the following using the scale 1-10 where 1 is not at all confident and 10 is totally confident. Your score is the average of all 6 responses. Fatigue: How confident are you that you can keep the fatigue caused by your disease from interfering with the things you want to do? Select Number: 10 Physical Discomfort or Pain: How confident are you that you can keep the physical discomfort or pain of your disease from interfering with the things you want to do? Select Number: 10 Emotional Distress: How confident are you that you can keep the emotional distress caused by your disease from interfering with the things you want to do? Select Number: 10 Other Symptoms or Health Problems: How confident are you that you can keep other symptoms or health problems from interfering with the things you want to do? Select Number: 10 Different Tasks and Activities: How confident are you that you can do the different tasks and activities needed to manage your health condition so as to reduce your need to see a doctor? Select Number: 10 Medication: How confident are you that you can do things other than just taking medication to reduce how much your illness affects your everyday life? Select Number: 10 Total Score:: 10
[2020-10-04 11:41] VITALS: BP 118/62; BP 188/100; BMI 24.7
== END 2020-10-27 23:59 ==
LOC: CR 15:15
PROVIDERS: PCP Family Medicine; Referring Provider Specialist; Visit Provider Specialist
DX: I25.118 Atherosclerotic heart disease of native coronary artery with other forms of angina pectoris (principal)
CPT/HCPCS: 93798

== ENCOUNTER 2020-11-04 15:15 | Outpatient (RCR) | payer BC, SELFPAY ==
[2020-08-06 08:20] VITALS: BMI 23.8
[2020-10-04 11:41] VITALS: BMI 24.7
[2020-10-28 00:30] VITALS: BP 118/62; BP 188/100
--- NOTE | 2020-11-05 09:54 | PCM.CR.ITP ---
Exercise - 90-day Assessment - Visit Date of Eval: 11/05/20 Session #:: 26 Comments:: Patient's insurance authorization expires on 11/12/2020. - Physician Prescribed Exercise Modalities: Treadmill, Rower, Airdyne Frequency: 3x/week for 12 weeks [36 sessions] Intensity: 60-80% of age predicted maximum heart rate reserve Current METSs:: 7.5 Target Heart Rate:: 108-142 Current RPE:: 13-14 Maximum Excercise HR:: 134 Resting Blood Pressure: 110/84 Maximum Exercise Blood Pressure: 186/92 EKG Type: NSR to sinus tachycardia with rare PVC. - Outcomes & Goals Goals:: Verbalizes understanding of THR, RPE & goal METS by session 6, Documents in home exercise log/reports 30 min aerobic 5 day/wk by DC, Demonstrates accurate pulse taking by DC - Intervention & Plan Exercise Program Goals: Instruct on personal THR & RPE, Instruct on MET level & personal MET goal, Show patient to take own pulse /validate performance until accurate, Instruct on home exercise - 30-day Reassessments 30 day Reassessments:: Met - Physical Activity Home Exercise Physical Activity - Home Exercise: Safe Exercise, Warm-up, Self-monitoring, Cool-Down, Home Exercise > 30 min Daily, Sitting Time <3 hours/daily - Outcomes & Goals Outcomes/Goals: Demonstrates correct Warm-up/exercise Cool-Down (S3) if = 2.5 METs, Verbalizes symptoms of exercise intolerance by Session 3 (S3), Demonstrate safe equipment use (S3) & follows exercise prescrition (6) - Intervention & Plan Plan/Intervention: Instruct warm-up & cool-down if exercising at > 2 METs, Instruct on symptoms of exercise intolerance & actions to take, Instruct & monitor on saf, Assess intial functional capacity & safety risk - 30-day Reassessments 30 day Reassessments:: Met Nutrition - 90-Day Assessment - Program Goals Nutrition Program Goals: LDL <100 optimal. 100 - 129 Near optimal. 130 - 159 Borderline High. 160 - 189 High. Total Cholesterol <200 desirable. 200 - 239 Borderline High. >/= 240 High. HDL < 40 Low >/=60 High. Triglycerides <150 desirable. <199 optimal. VlDL 5 - 40. HgbA1C <7%. BMI <25 Patient has diagnosis of Hyperlipidemia (ICD E78)?: Yes - Visit Date of Assessment:: 11/05/20 Session #:: 26 - Cholesterol/Lipids Determine presence & major risk factors that modify LDL goal: Hypertension or hypertensive medication, Age men > 45 years; women >/= 55 years Outcomes/Goals: Pt IDs own risk factors & lifestyle modifications by Session 10, Verbalizes symptoms of angina & response by session 3., Pt independently manages Intervention/Plan: Instruct on personal lipid levels & lipid goals/NCEP guidelines, Instruct on cholesterol 30-day Reassessments:: Progressing - Diabetes (Other Core Measures) Diabetes Type: Not Applicable - Weight Mgt (Other Care) Not Applicable: Yes Height: 6 ft 1 in Weight:: 186 lb BMI: 24.5 Diagnosis Overweight/Obesity BMI> 30% ICD-10 E66: No Diagnosis High BMI/Morbid Obesity BMI> 35% ICD-10 Z68: No Outcomes/Goals: Pt sets, maintains & shows weight loss goal & trend during rehab Intervention/Plan: Instruct on ideal BMI & set weight loss goal w/patient 30 day Reassessments:: Met - Healthy Eating Habits Will attend diet classes:: Yes Outcomes/Goals:: Consume diet rich in vegs,fruits,whole grain/high fiber,fish,lean meat, Limit sat/trans fats,cholesterol & added salts & sugars Intervention/Plan:: Assess current eating habits 30-day Reassessments:: Met Medical- 90-Day Assessment - Visit Date of Eval: 11/05/20 Session #:: 26 - Medication Compliance Preventative Medication(s):: Aspirin, Statin/lipid, Beta bobby H/O mental health issues: depression, anxiety, or addiction?: No Doesn?t believe in the benefits of treatment?: No Believes medications are unnecessary or harmful?: No Has a concern about medication side effects?: No Expresses concern over the cost of medications?: No Outcomes/Goals: Verbalizes medications,desired effect & common side effects @ DC, Pt self-reports following medication regimen, Keeps card in wallet w/medications listed by DC Interventions/plans: Instruct on medication effects & side effects, Review medication list w/patient every two weeks, Instruct importance of taking meds as ordered & assist problem solving 30-day Reassessments:: Met - Tobacco Use Tobacco Use: Non-smoker - Hypertension Hypertension Diagnosis:: Hypertension ICD-10 I10 Resting Blood Pressure:: 110/84 - well controlled on medications [employer] Hypertension Guidelines: [employer] Association Hypertension Guidelines. Normal BP Less than 120/80. Elevated BP 120/80. Hypertension Stage 1: BP 130-139/80-89. Hypertesnion Stage 2: BP 140 or higher/90 or higher. Hypertension Crisis: BP higher than 180/120 Peak Exercise Blood Pressure:: 186/92 - full exercise Outcomes/Goals: Able to verbalize/achieve optimal blood pressure <130/80, Incorporates diet changes & exercise for blood pressure control by DC Interventions/plan: Instruct on optimal blood pressure, hypertension & medications, Instruct on effects of sodium, alcohol, stress, exercise &hypertension 30 day Reassessments:: Met - Tobacco Cessation Referral Smoking Cessation Referral:: No Individual Education/Counseling:: No Education Schedule Given:: Yes Psychosocial - 90-Day Assess - VIsit Date of Eval: 11/05/20 Session #:: 26 Not Applicable: Yes History of previous Mental disease:: No - Target Goals Target Goals: Assess presence or absence of depression. Using a valid screening tool, maximizes coping skills. Positive support system - Psychosocial Test Tool Used:: PHQ-9 Questionnaire phq-9 Severity: Severity. 1-4 Minimal Depression. 5-9 Mild Depression. 10-14 Moderate Depression. 15-19 Moderately Sever Depression. 20-27 Severe Depression. Rule: - Referral to Behavioral Health PS - Interventions: Yes Attend Stress Management Classes, No Referral to Behavioral Health if PHQ-9 score >9:, No Referral to [facility], No Referral to Physician if PHQ-9 if score is 5-9: - Outcomes/Goals: See list Psychosocial Outcomes/Goals:: ID's personal stressors & 2 strategies to manage stress by discharge - Intervention/Plan: See List Interventions/Plan:: Assess stressors,coping strategies & signs of derpression on admission, Instruct/assist pt to develop coping & personal stress Mgt strategies, Instruct patient to recognize signs & symptoms of depression, Instruct patient to recog - 30-day Reassessments: 30 day Reassessments:: Met Patient Health Questionnaire 90-Day Re-eval Assessment 1. Little interest or pleasure in doing things: Not at all 2. Feeling down, depressed, or hopeless: Not at all 3. Trouble falling or staying asleep, or sleeping too much: Not at all 4. Feeling tired or having little energy: Not at all 5. Poor appetite or overeating: Not at all 6. Feeling bad about yourself -- or that you are a failure or have let yourself or your family down: Not at all 7. Trouble concentrating on things, such as reading the newspaper or watching television: Not at all 8. Moving or speaking so slowly that other people could have noticed. Or the opposite - being so fidgety or restless that you have been moving around a lot more than usual: Not at all 9. Thoughts that you would be better off , or of hurting yourself in some way: Not at all How difficult have these problems made it for you to do your work, take care of things at home, or get along with other people?: Not difficult at all Total Score: 0 Self-Efficacy 90-Day Re-eval Assessment We would like to know how confident you are in doing certain activities. Please select your confidence level for:: Select your confidence level for the following using the scale 1-10 where 1 is not at all confident and 10 is totally confident. Your score is the average of all 6 responses. Fatigue: How confident are you that you can keep the fatigue caused by your disease from interfering with the things you want to do? Select Number: 10 Physical Discomfort or Pain: How confident are you that you can keep the physical discomfort or pain of your disease from interfering with the things you want to do? Select Number: 10 Emotional Distress: How confident are you that you can keep the emotional distress caused by your disease from interfering with the things you want to do? Select Number: 10 Other Symptoms or Health Problems: How confident are you that you can keep other symptoms or health problems from interfering with the things you want to do? Select Number: 10 Different Tasks and Activities: How confident are you that you can do the different tasks and activities needed to manage your health condition so as to reduce your need to see a doctor? Select Number: 10 Medication: How confident are you that you can do things other than just taking medication to reduce how much your illness affects your everyday life? Select Number: 10 Total Score:: 10
[2020-11-05 10:00] VITALS: BP 110/84; BP 186/92; BMI 24.5
== END 2020-11-24 23:59 ==
LOC: CR 15:15
PROVIDERS: PCP Family Medicine; Referring Provider Specialist; Visit Provider Specialist
DX: I25.118 Atherosclerotic heart disease of native coronary artery with other forms of angina pectoris (principal)
CPT/HCPCS: 93798

== ENCOUNTER → 2022-01-13 | Outpatient (CLI) | payer BC, SELFPAY ==
--- NOTE | 2022-01-13 06:57 | ECHOD_ITS ---
Reason For Study: CAD/ASHD Procedure This was a 2D Doppler, Color Flow transthoracic echocardiogram. The study was technically difficult. Exam performed in department. Left Ventricle Normal LV size. Segmental dysfunction with preserved ejection fraction (see wall motion). The estimated ejection fraction is 65 %. Diastolic function is indeterminate. Infero-Basal: Hypokinetic. Right Ventricle Normal RV size. Normal systolic function. Atria Normal left atrium. Normal right atrium. No doppler evidence for ASD. Mitral Valve There is mild mitral annular calcification. Extension of the mitral annular calcification onto the base of the posterior mitral valve leaflet. Mild-Moderate (1-2+) mitral valve insufficiency. Tricuspid Valve Normal tricuspid valve. Mild tricuspid valve insufficiency. Unable to estimate RV systolic pressure/pulmonary artery pressure due to technically difficult study. Aortic Valve Trisinus/trileaflet aortic valve. Mild focal aortic valve calcification. Pulmonic Valve The pulmonic valve is not well visualized. Great Vessels The aortic root is not well visualized. Pericardium/Pleural No pericardial effusion. MMode/2D Measurements & Calculations LVIDd: 4.0 cm IVSd: 1.4 cm LAV(MOD-sp4): 35.0 ml LVIDs: 2.8 cm LVPWd: 0.83 cm FS: 31.1 % LVAd ap4: 28.8 cm2 SV(MOD-sp4): 43.6 ml SV(sp4-el): 50.4 ml LVLd ap4: 8.0 cm EDV(MOD-sp4): 82.8 ml EDV(sp4-el): 87.4 ml LVAs ap4: 17.7 cm2 LVLs ap4: 7.2 cm ESV(MOD-sp4): 39.2 ml ESV(sp4-el): 37.1 ml EF(MOD-sp4): 52.6 % EF(sp4-el): 57.6 % LA A4 area: 13.5 cm2 LA dimension(2D): 3.8 cm RA A4 area: 15.0 cm2 Doppler Measurements & Calculations MV E max kaushik: 78.2 cm/sec Lat Peak E' Kaushik: 9.7 cm/sec Med Peak E' Kaushik: 6.3 cm/sec MV A max kaushik: 66.6 cm/sec E/E' lat: 8.0 E/E' med: 12.5 MV E/A: 1.2 Ao V2 max: 111.7 cm/sec LV V1 max: 102.4 cm/sec PA V2 max: 83.6 cm/sec Ao max P.0 mmHg LV V1 max P.2 mmHg ECHO/Echo Complete Interpretation Summary The study was technically difficult. Segmental dysfunction with preserved ejection fraction (see wall motion). The estimated ejection fraction is 65 %. There is mild mitral annular calcification. Extension of the mitral annular calcification onto the base of the posterior mi tral valve leaflet. Mild-Moderate (1-2+) mitral valve insufficiency. Mild tricuspid valve insufficiency. Mild focal aortic valve calcification. Unable to estimate RV systolic pressure/pulmonary artery pressure due to techni marielos difficult study. Diastolic function is indeterminate. Ordering Physician: Sushil Forrest Referring Physician: Sushil Forrest Performed By: Jelly Chu RCS
--- NOTE | 2022-01-13 08:24 | STRESSREP_ITS ---
Stress Test Report Date: 01-13-2022 Procedure: Exercise tolerance test/imaging study Indications: Chest pain; CAD; PCI; CABG Consent: Per the patient Procedure: The patient exercised on a Octaviano protocol for 9 minutes completing Stage III achieving a peak heart rate of 148 bpm (89% predicted maximal heart rate) with a peak blood pressure 150/84 mmHg and a peak MET capacity of 10 METs. The baseline ECG demonstrated normal sinus rhythm; incomplete right bundle branch block pattern; inferior MD of indeterminate age cannot be excluded. The peak exercise ECG demonstrated no obvious ECG changes. There was an isolated PVC during recovery. The functional capacity was considered good. There was no complaint of chest discomfort during exercise or recovery. The examination was discontinued secondary to dyspnea. Impression: 1. Technically adequate (percent predicted maximal heart rate greater than 85%) exercise tolerance test 2. Peak exercise ECG no obvious ECG changes 3. There was an isolated PVC during recovery 4. Nuclear images pending Myocardial perfusion imaging study: Technique: The patient was injected with 12.0 mCi of technetium 99m Cardiolite and subsequently rest SPECT Cardiolite nuclear imaging was obtained in the horizontal long, vertical long, and short axis views. The patient exercised on a Octaviano protocol for 9 minutes completing Stage III achieving a peak heart rate of 148 bpm (89% predicted maximal heart rate) with a peak blood pressure 150/84 mmHg and a peak MET capacity of 10 METs. The patient was injected with 32.5 mCi of technetium 99m Cardiolite and subsequently stress SPECT Cardiolite nuclear imaging was obtained in the horizontal long, vertical long, and short axis views. A gated Cardiolite study at peak stress was obtained. Interpretation: Rest and stress SPECT Cardiolite nuclear imaging status post realignment, normalization, and attenuation correction, demonstrates status post-rest the appearance of diminished absence of myocardial perfusion/tracer uptake in portions of the basal to distal inferior/inferoapical segments. There are similar type findings on the stress polar map images. There is diminished end- systolic thickening and brightening in the aforementioned area. The gated Cardiolite study demonstrates myocardial thickening and inward wall motion. The reported LVEF is 61%. Impression: 1. Rest and stress SPECT Cardiolite nuclear imaging demonstrate myocardial perfusion changes concerning for an area of stress-induced myocardial ischemia in the inferior/inferoapical segments. 2. The gated Cardiolite study reports an LVEF of 61%. This note was generated with Dragon dictation software. It may contain incorrect words, spelling, and punctuation that were not noted in checking the note before signing.
== END | disposition home or self-care (01) ==
LOC: CVS 06:56
PROVIDERS: PCP Family Medicine; Referring Provider Nurse Practitioner Family; Visit Provider Nurse Practitioner Family
DX: I25.10 Atherosclerotic heart disease of native coronary artery without angina pectoris (principal); I10 Essential (primary) hypertension; E78.5 Hyperlipidemia, unspecified; Z98.61 Coronary angioplasty status; Z95.1 Presence of aortocoronary bypass graft
CPT/HCPCS: 78452; 93017; 93306; A9500; A4216

== ENCOUNTER 2022-02-10 08:27 | Day surgery (SDC) | payer BC, SELFPAY ==
--- NOTE | 2022-02-04 15:50 | RAD_ITS ---
STUDY: X-RAY CHEST REASON FOR EXAM: Male, 56 years old. Pre-op. TECHNIQUE: PA and lateral views of the chest. COMPARISON: 06/01/2020. FINDINGS: The lungs are clear and expanded. There is no demonstrated pleural abnormality. Sternal cerclage wires are present from a prior sternotomy. The heart is normal in size. Normal mediastinum and kostas. Normal visualized pulmonary arteries. There is atherosclerotic calcification of the aortic arch with tortuosity. There are diffuse degenerative changes of the visualized thoracic spine. There is degenerative osteoarthritis of the bilateral shoulders. There is no demonstrated abnormality of the visualized soft tissue structures of the upper abdomen. RAD/Chest PA and Lateral IMPRESSION: No acute cardiopulmonary disease or major interval change. Electronically Signed: Ralph Worley DO at 23:11 EDT ,
[2022-02-04 16:19] LABS: Absolute Lymphocyte Count 2.22 X10^3/uL (0.83-4.51); Absolute Neutrophil Count 4.2 X10^3/uL (2.0-7.7); Basophil# 0.06 X10^3/uL; Basophil% 0.8 % (0-1); Eosinophil# 0.21 X10^3/uL; Eosinophils% 2.8 % (0-5); Hematocrit 42.4 % (40-54); Hemoglobin 14.7 g/dL (13.0-16.5); Lymphocyte # 2.22 X10^3/ul (0.83-4.51); Mean Corp Hgb Conc 34.7 g/dL (32-36); Mean Corpuscular Hgb 31.9 pg (27.0-32.0); Mean Platelet Vol. 9.3 fl (6.2-12.0); Monocyte# 0.65 X10^3/uL; Monocyte% 8.8 % (0-10); NRBC Flagged by Analyzer 0 % (0-5); Neutrophil # 4.24 X10^3/uL (2.7-7.7); Neutrophil % 57.3 % (47-70); Platelet Count 221 K/mm3 (150-450); RBC Distribution Width CV 12.2 % (11.6-14.6); RBC Distribution Width SD 40.4 fl (35.1-43.9); Red Blood Count 4.61 M/mm3 (4.6-6.2); White Blood Count 7.4 K/mm3 (4.4-11.0)
[2022-02-04 16:37] LABS: Prothrombin Time (Protime)PT. 12.7 SECONDS (11.7-14.9)
[2022-02-04 17:01] LABS: Anion Gap 3 (5-15); BUN 19 mg/dL (7-18); BUN/Creat Ratio 18.4 RATIO (10-20); Calcium,Total 9.1 mg/dL (8.5-10.1); Chloride 108 mmol/L (98-107); Creatinine, Serum 1.03 mg/dL (0.70-1.30); EST Glomerular Filtration Rate 80 mL/min (>60); Est Glom Filt Rate - Afr Amer 97 mL/min (>60); Glucose 83 mg/dL (74-106); Potassium 4.2 mmol/L (3.5-5.1); Sodium Level 143 mmol/L (136-145)
[2022-02-09 09:48] VITALS: BMI 25.2
--- NOTE | 2022-02-09 12:53 | PCM.HP.BLA ---
Documented by User: Sushil Forrest NP, HEAD MILLER-C 02/09/22 13:00 History and Physical Date of Admission: 02/10/22 This is a 56-year-old white male who presents today for a [facility] based upon a history of underlying premature CAD resulting in RCA PTCA (no stent) and subsequent CABG performed at [facility] on 06-10-2020 with a report of a BENÍTEZ to the LAD, a CHARLIE to the OM 1, and a left radial artery to the PDA superimposed upon hyperlipidemia. He states that overall he is not complaining of the same right sided chest discomfort that he did prior to his cardiovascular diagnosis. He has not had orthopnea or PND or peripheral pitting edema. There is been no near syncope or syncope. At last office visit, patient acknowledged chest pain with sudden onset and lasts for minutes. This was located midsternal and does not radiate. This was rated a 6-7/10. Precipitating factors included stretching and moving different positions. Relieving factors included changing position. The pain was not associated with secondary symptoms. On account of such symptoms, he underwent a stress test on 01/13/2022 that showed changes concerning for an area of stress-induced myocardial ischemia in the inferior/inferoapical segments. Thus, he will proceed with heart catheterization to assess further. He denies palpitations, shortness of breath with activity, shortness of breath at rest, orthopnea, or cough. He acknowledges occasional bilateral lower extreme edema when standing for long periods of time. He acknowledges some lightheadedness today that he attributes to diet. He denies dizziness, near-syncope, or CVA. He denies fatigue. Intake Vital Signs: See EMR Intake Visit Reasons: [facility] Pot Maker Required: No Is patient in pain?: No Allergies codeine Allergy (Unknown, Verified 11/19/21 15:24) Unknown shellfish derived Allergy (Verified 11/19/21 15:24) Hives WHITE FISH Allergy (Uncoded 11/19/21 15:24) Hives Medications See EMR Ejection fraction %: 55 to 59 [facility] Medical History Atherosclerosis of coronary artery of [place] heart without angina pectoris Essential hypertension HLD (hyperlipidemia) INGUINAL HERNIA - RIGHT Lung nodule Stenosis of right carotid artery Surgical History History of coronary artery bypass graft x 3 (~06/10/20) History of percutaneous transluminal coronary angioplasty (~06/02/20) Family History Mother Breast cancer Hypertension Father Hypertension Ischemic heart disease Grandfather CAD (coronary artery disease) Grandfather Ischemic heart disease Grandmother CVA (cerebral vascular accident) Social History Smoking Status: Never smoker alcohol intake: never substance use type: does not use caffeine: Yes ROS Const Const: Negative for fatigue, weakness, headache(s), frequent falls, difficulty sleeping or excessive sweating Eyes Eyes: Negative for loss of peripheral vision, transient loss of vision, blurry vision, double vision or tunnel vision ENT ENT: Negative for headache(s), dizziness, Nosebleed/epistaxis or balance problems Cardio Chest Pain: Yes Character: sharp Onset: positional (with stretching and moving different positions) Location: mid sternal Duration: minutes Palpitations: No Edema: Bilateral (Occasionally when on his feet for long periods of time) Muscle aches with walking: None Resp Respiratory: Negative for SOB with activity, SOB at rest, SOB orthopnea\SOB lying down, Cough or paroxysmal nocturnal dyspnea GI GI: Negative nausea, vomiting, heartburn or black,tarry stools : Negative for hematuria Musc Musc: Negative for muscle aches/ myalgia, muscle weakness, joint pain or balance problems Skin Skin: Negative non-healing lesions, rash or unusual bruising Neuro Neuro: Positive for lightheadedness (Some today, feels like he hasn't eaten enough today); Negative for dizziness, near syncope, syncope, frequent falls, headache(s), weakness, blurry vision, double vision or lack of coordination Haroldo Hematologic/Lymphatic: Negative for easy bleeding or easy bruising Endo Endo: Negative for fatigue, excessive sweating or increased thirst/drinking Psych Psych: Negative for anxiety or depression Allergy Allergy/Immunology: Negative for hives and Negative for rash Cardiology Exam Const Appearance: cooperative, healthy appearing, comfortable and no acute distress Nutritional Appearance: well nourished and overweight Orientation: alert, awake and oriented x3 Head Head: normal to inspection Ears: hearing grossly normal bilaterally Nose: external nose normal Face and Sinus: face symmetric Mouth: oral mucosae normal Eyes General: appearance normal, both eyes and all related structures Eyelids: eyelids normal EOM: EOM intact bilaterally Neck Neck: normal visual inspection and no JVD Carotids: normal carotid upstroke Chest Chest inspection: normal inspection of the chest, symmetric chest movement and normal respiratory effort; Negative cough Auscultation: Bilateral: Diminished Lung Sounds Cardio Rate: regular rate Rhythm: regular rhythm Heart sounds: S1 normal and S2 normal; Negative rub, gallop or murmur GI GI: normal to inspection Neuro General: patient alert, patient awake, patient oriented x3 and CN's II-XI intact bilaterally Skin Skin: no rashes or lesions noted Extremities Pulses: Normal: Right Posterior Tibial Pulse, Left Posterior Tibial Pulse, Right Radial Pulse and Left Radial Pulse Lower Extremity Edema: None: Bilateral Psych Psychological: normal affect Supplemental Info Supplemental Information Echocardiogram from 01/13/2022: Interpretation Summary The study was technically difficult. Segmental dysfunction with preserved ejection fraction (see wall motion). The estimated ejection fraction is 65 %. There is mild mitral annular calcification. Extension of the mitral annular calcification onto the base of the posterior mitral valve leaflet. Mild-Moderate (1-2+) mitral valve insufficiency. Mild tricuspid valve insufficiency. Mild focal aortic valve calcification. Unable to estimate RV systolic pressure/pulmonary artery pressure due to technically difficult study. Diastolic function is indeterminate. Echocardiogram from 06/04/2020: Conclusions: ?Exam medication: Chest pain ?The left ventricle is normal in size. There is mild concentric left ventricular perjury. Left ventricular systolic function is normal. EF equal 59?5% (2D biplane) grade 2 left ventricular diastolic dysfunction. ?The right ventricle is normal in size. Right ventricular systolic function is normal. ?The patient has not had a prior CC echocardiographic exam for comparison. Cardiac catheterization/PCI: 06-02-2020 CONCLUSIONS Multivessel CAD as described. EF is 50-55% with inferior hypokinesis. No significant or MR. Successful PTCA alone of mRCA. RECOMMENDATIONS Refer for possible CABG. CORONARY ANGIOGRAPHY DOMINANCE: Right Dominant LEFT HEART ASSESSMENT Left Ventricular Ejection Fraction: by LV Gram 50-55 % Inferior Hypokinesis - Mild LEFT MAIN: No significant disease noted LEFT ANTERIOR DESCENDING ARTERY: PROX LAD: 70 % Stenosis DIAGONAL 1: Ostial - 80 % Stenosis (small vessel) DIAGONAL 2: Ostial - 80 % Stenosis (small vessel) CIRCUMFLEX ARTERY: OSTIAL CIRC: 95 % Stenosis PROX CIRC: 80 % Stenosis OM 1: Proximal - 80 % Stenosis RIGHT CORONARY ARTERY: MID RCA: 99 % Stenosis VALVE FINDINGS: No Aortic Valve Stenosis No Mitral Insufficency INTERVENTION INFORMATION LESION SITE: RCA (Mid) Lesion Complexity: High/C, chronic total occlusion: No, lesion at bifurcation: No, thrombus present: Yes, lesion length: 12 mm, culprit lesion: Yes, Previously treated lesion: No Pre Stenosis: 99 % Pre intervention OSWALDO flow: 2 PROCEDURE: Thrombectomy, Balloon Angioplasty PTCA alone was done to improve flow a patient had CP on his way to the lab. We didn't stent the lesion as he may be better treated with CABG due to the disease in his other vessels. Post Stenosis: 70 % Post intervention OSWALDO flow: 3 Lesion Devices: Cardinal 6 Fr JR4 100cm Guide Catheter Smith .014 [employer] [place] Straight 190cm Terumo Priority One Aspiration Catheter [employer] SC EUPHORA RX 2.5x12 BALLOON Stress Test Report Date: 01-13-2022 Procedure: Exercise tolerance test/imaging study Indications: Chest pain; CAD; PCI; CABG Consent: Per the patient Procedure: The patient exercised on a Octaviano protocol for 9 minutes completing Stage III achieving a peak heart rate of 148 bpm (89% predicted maximal heart rate) with a peak blood pressure 150/84 mmHg and a peak MET capacity of 10 METs. The baseline ECG demonstrated normal sinus rhythm; incomplete right bundle branch block pattern; inferior ID of indeterminate age cannot be excluded. The peak exercise ECG demonstrated no obvious ECG changes. There was an isolated PVC during recovery. The functional capacity was considered good. There was no complaint of chest discomfort during exercise or recovery. The examination was discontinued secondary to dyspnea. Impression: 1. Technically adequate (percent predicted maximal heart rate greater than 85%) exercise tolerance test 2. Peak exercise ECG no obvious ECG changes 3. There was an isolated PVC during recovery 4. Nuclear images pending Myocardial perfusion imaging study: Technique: The patient was injected with 12.0 mCi of technetium 99m Cardiolite and subsequently rest SPECT Cardiolite nuclear imaging was obtained in the horizontal long, vertical long, and short axis views. The patient exercised on a Octaviano protocol for 9 minutes completing Stage III achieving a peak heart rate of 148 bpm (89% predicted maximal heart rate) with a peak blood pressure 150/84 mmHg and a peak MET capacity of 10 METs. The patient was injected with 32.5 mCi of technetium 99m Cardiolite and subsequently stress SPECT Cardiolite nuclear imaging was obtained in the horizontal long, vertical long, and short axis views. A gated Cardiolite study at peak stress was obtained. Interpretation: Rest and stress SPECT Cardiolite nuclear imaging status post realignment, normalization, and attenuation correction, demonstrates status post-rest the appearance of diminished absence of myocardial perfusion/tracer uptake in portions of the basal to distal inferior/inferoapical segments. There are similar type findings on the stress polar map images. There is diminished end-systolic thickening and brightening in the aforementioned area. The gated Cardiolite study demonstrates myocardial thickening and inward wall motion. The reported LVEF is 61%. Impression: 1. Rest and stress SPECT Cardiolite nuclear imaging demonstrate myocardial perfusion changes concerning for an area of stress-induced myocardial ischemia in the inferior/inferoapical segments. 2. The gated Cardiolite study reports an LVEF of 61%. Labs: LDL Cholesterol 136 mg/dL (0-130) H HDL Cholesterol 26 mg/dL (40-) L Triglycerides 131 mg/dL (-199) VLDL Cholesterol 26 mg/dL (5-40) Diagnostics: Electrocardiogram Chest X-Ray Pulmonary: No Data to Display Assessment and Plan Assessment and Plan (1) Atherosclerosis of coronary artery of [place] heart without angina pectoris: Status: Acute Qualifiers: Coronary Disease-Associated Artery/Lesion type: [place] artery Qualified Code(s): I25.10 - Atherosclerotic heart disease of [place] coronary artery without angina pectoris Plan: Given patient's abnormal stress test, he will proceed with heart catheterization. Based on results, further recommendation will be made. (2) History of percutaneous transluminal coronary angioplasty: Status: Acute Comment[facility] Plan: He will continue current medical therapy with aspirin, atorvastatin, and lisinopril. He is currently not on beta-bobby due to preserved ejection fraction and low normal heart rate. We will consider beta-bobby on an ongoing basis. (3) History of coronary artery bypass graft x 3: Status: Acute Comment: BENÍTEZ in situ mammary end to side distal LAD; CHARLIE in situ mammary end to side OM1; Left radial artery ascending aorta end to side PDA 06/10/20 @ [facility] Dr. Tacho Manjarrez Plan: He will continue risk factor and lifestyle modification. (4) HLD (hyperlipidemia): Status: Chronic Qualifiers: Hyperlipidemia type: unspecified Qualified Code(s): E78.5 - Hyperlipidemia, unspecified Plan: He was asked undergo repeat lipid and liver profile at his earliest convenience in a fasting state. He will continue atorvastatin 80 mg p.o. nightly. He was also asked undergo screening laboratory testing to ensure stability as this has not been evaluated recently. This includes a CBC, CMP, and TSH. (5) Essential hypertension: Status: Chronic Plan: Patient's blood pressure is well-controlled. We will continue to monitor. We will not make any medication regimen changes. Plan Details Additional Comments: Thank you for allowing me to participate in the care of your patient. Please don't hesitate to call if any issues arise. This note was generated using a voice recognition system and there may be incorrect words, spelling or punctuation that were not noted when reviewing the office note prior to saving. Documented by User: Dr. Arturo Masterson MD 02/10/22 08:55 Assessment & Plan Addt'l Comments I have re-examined the patient. There are no clinical changes since date of exam
--- NOTE | 2022-02-10 11:29 | CL.D_ITS ---
Patient Name: DEJAN LAZCANO Study Date: 02/10/2022 Performing: Arturo Masterson MD Ht: 74.01 inches 188 cm : 1965 Wt: 196.21 lbs 89 kg Age: 56 Gender: male BSA: 2.16 PROCEDURE(S) PERFORMED DC03-([id number])LHC/COR/LV/CABG CLINICAL PROFILE AND INDICATIONS Indications: Worsening Angina, Suspected CAD Heart Failure: None Stress/Imaging Date: 01/13/2022tress Test with SPECT MPI: Positive Intermediate Risk Angina Classification Anginal Classification w/in 2 Weeks: CCS III CAD Presentations: Stable angina. CONCLUSIONS Elevated Left Ventricular End Diastolic Pressure (mild) Normal LV size, wall motion,and systolic function LVEF: by LV gram 55 % [place] Multivessel CAD BENÍTEZ to LAD: patent CHARLIE to OM1: patent Radial artery graft to RPDA: proximally occluded Left to right collateral flow RECOMMENDATIONS Risk factor modification Medical therapy Case discussed / reviewed with Dr. Harris of interventional cardiology DESCRIPTION OF PROCEDURE The patient arrived to the procedure lab. The risks and benefits of the procedure as well as a full d escription of our services here and current unavailability of surgical backup were fully explained to the patient and/or their significant other prior to the catheterization. The Timeout was completed, verifying the correct patient and procedure. The patient's procedural site was prepped and draped in the usual fashion. Local anesthetic was given subcutaneously to right groin region with Lidocaine 2%. Using a modified Seldinger technique, arterial access was obtained via the right femoral artery, a 4 Fr sheath was inserted Left Coronary Artery selective angiography was performed in multiple views us ing a 4 Fr. JL5 catheter. Right Coronary Artery selective angiography was then performed in multiple views using a 4 Fr. 3DRC catheter. Right internal mammary artery graft to the OM 1 selective angiogra phy was performed in multiple views using a 4 Fr. 3DRC catheter. Left internal mammary artery graft to the LAD selective angiography was performed in multiple views using a 4 Fr. 3DRC cath eter. Lt radial arterial graft to the RPDA selective angiography was performed in multiple views usin g a 4 Fr. JR4 catheter, unable to engage. Lt radial arterial graft to the RPDA selective angiography was performed in multiple views using a 4 Fr. MPA 2 catheter, occluded. Left Ventriculography was per formed in CAMPBELL projection using a 5 Fr. Pigtail catheter. LV to AO pullback pressures were then record ed.The arterial sheath was pulled and manual compression applied until hemostasis is achieved. CORONARY ANGIOGRAPHY DOMINANCE: Right Dominant LEFT HEART ASSESSMENT Left Ventricular Ejection Fraction: by LV Gram 55 % Normal LV wall motion Elevated Left Ventricular End Diastolic Pressure LVEDP: 13 mmHg LEFT MAIN: Angiographically normal LEFT ANTERIOR DESCENDING ARTERY: PROX LAD: Mild calcification, 50 % Stenosis MID LAD: subtotally occluded and fills predominantly from BENÍTEZ graft flow DIAGONAL 1: Ostial - very small caliber vessel with ostial 85 % Stenosis DIAGONAL 2: Ostial - small caliber vessel with ostial 90 % Stenosis CIRCUMFLEX ARTERY: OSTIAL CIRC: 90 % Stenosis PROX CIRC: 85 % Stenosis OM 1: Proximal - 90 % Stenosis RIGHT CORONARY ARTERY: PROX RCA: is occluded GRAFTS: BENÍTEZ graft to the Mid LAD is patent with no angiogrraphically significant appearing disease distal t o the graft attachment CHARLIE graft to the CHARLIE to the OM1 is patent with no angiographically significant appearing disease di stal to the graft attachment Radial graft to the RPDA is totally occluded COLLATERAL FLOW: Collateral flow from Left to Right AORTIC ROOT: Angiographically normal COMPLICATIONS No Complications PROCEDURE MEDICATIONS Fentanyl 50 mcg IV Versed 1 mg IV Fentanyl 50 mcg IV Versed 1 mg IV Oxygen: 2 L/min via nasal cannula SUMMARY OF HEMODYNAMIC DATA Time AIR REST ECG 08:51:24 AO 127/82 (105) SA 10:05:44 LV 117/-8, 15 10:33:22 LV 117/-10, 13 10:33:29 LV 115/-6, 16 10:34:21 LVp 118/-8, 13 10:34:27 AOp 120/70 (92) 10:34:32 AO 131/68 (92) 10:35:28 RM AIR REST 11:15:57 Arturo Masterson MD
== END 2022-02-10 15:15 | disposition home or self-care (01) ==
PROVIDERS: Nurse Practitioner Family; PCP Family Medicine; Referring Provider Internal Medicine Cardiovascular Disease; Visit Provider Internal Medicine Cardiovascular Disease
DX: I25.118 Atherosclerotic heart disease of native coronary artery with other forms of angina pectoris (principal); E78.5 Hyperlipidemia, unspecified; I10 Essential (primary) hypertension; Z79.82 Long term (current) use of aspirin; Z79.899 Other long term (current) drug therapy; Z95.5 Presence of coronary angioplasty implant and graft
CPT/HCPCS: 36415; 71046; 80048; 85025; 85610; 85730; 93459; 99152; J7030; Q9967; C1769; C1894

== ENCOUNTER → 2022-11-20 | Outpatient (CLI) | payer BC, SELFPAY | END | disposition home or self-care (01) | LOC: SL 20:54 | PROVIDERS: PCP Family Medicine; Referring Provider Nurse Practitioner Family; Visit Provider Nurse Practitioner Family | DX: G47.10 Hypersomnia, unspecified (principal) | CPT/HCPCS: 95810 ==

== ENCOUNTER → 2023-01-01 | Outpatient (CLI) | payer BC, SELFPAY | END | disposition home or self-care (01) | LOC: SL 10:56 | PROVIDERS: PCP Family Medicine; Visit Provider Nurse Practitioner Acute Care | DX: Z46.89 Encounter for fitting and adjustment of other specified devices (principal) ==

== ENCOUNTER → 2024-02-25 | Outpatient (CLI) | payer BC, SELFPAY ==
--- NOTE | 2024-02-25 15:55 | STRESSREP ---
Stress Test Report Treadmill myocardial perfusion study/Octaviano protocol Indication; 58-year-old patient with symptoms of chest pain fatigue described intermittent chest pressure Cardiac history with prior KY/non-ST elevation [place] in 2019 Last nuclear stress test was in December 2021. Patient has extensive cardiac history with CABG in 2019. With the PTCA at [facility] Last echocardiogram in 2019 showed EF around 59%. Stress protocol: Patient exercised according to standard Octavaino protocol, resting EKG revealed normal sinus Q waves noted in the inferior leads with ST change As well as Q waves noted in V1 for R wave progression across the chest. Patient exercised for a total of 7 minutes and 10 seconds Achieving a work level of maximum METS 10.10 The resting heart rate of 66 bpm, ayah to a maximum heart rate of 139 bpm This value represented 84% of the maximal age-predicted heart rate. Resting blood pressure of 122/82 mmHg. Rest of maximal blood pressure of 140/72 mmHg. Exercise test was stopped due to target heart rate achieved patient complained of mild symptoms of chest pain described as pressure and heaviness in the chest. 14.7 mCi of sestamibi was given at rest Following maximal stress patient received 44.2 mCi. Stress EKG showed[, no significant change from the resting EKG, with maximum heart rate of 139 bpm. Arrhythmia: No arrhythmia demonstrated Symptoms: Patient had no symptoms of chest pain Blood pressure at rest: 122/82 mmHg blood pressure at the end of stress: 140/72 mmHg Myocardial perfusion protocol. 14.7 mCi ]of Technetium 99m Sestamibi was injected at rest. Following maximal stress, 44.2 mCi ]of Technetium 99m sestamibi was injected. Stress images were obtained stress and rest images were reconstructed and compared in the short axis vertical and horizontal long axis. Gated images were also obtained Perfusion SPECT analysis: Review of the images demonstrate normal uptake of sestamibi at rest, post stress images demonstrate similar uptake of sestamibi to the resting images, homogeneous tracer uptake With no evidence of reversible myocardial ischemia. Gated SPECT analysis: The gated ejection fraction is 70%. Hyperdynamic left ventricle with no wall motion abnormality noted. Conclusion: Negative treadmill sestamibi myocardial perfusion study for reversible myocardial ischemia Hyperdynamic left ventricle. Aisha Carranza MD,FACC,[facility]
== END | disposition home or self-care (01) ==
LOC: CVS 06:13
PROVIDERS: PCP Family Medicine; Referring Provider Internal Medicine Cardiovascular Disease; Visit Provider Internal Medicine Cardiovascular Disease
DX: R07.9 Chest pain, unspecified (principal)
CPT/HCPCS: 78452; 93017; A9500; A4216

== ENCOUNTER → 2025-05-21 | Outpatient (CLI) | payer BC, SELFPAY ==
[2025-05-21 15:08] LABS: Hematocrit 41.1 % (40-54); Hemoglobin 14.5 g/dL (13.0-16.5); Immature Granulocytes Count 0.020 X10^3/uL (0.0-0.0); Mean Corp Hgb Conc 35.3 g/dL (32-36); Mean Corpuscular Volume 90.5 fL (80-94); Mean Platelet Vol. 9.6 fl (6.2-12.0); NRBC Flagged by Analyzer 0 % (0-5); Platelet Count 182 K/mm3 (150-450); RBC Distribution Width CV 12.1 % (11.6-14.6); RBC Distribution Width SD 39.7 fl (35.1-43.9); Red Blood Count 4.54 M/mm3 (4.6-6.2); White Blood Count 5.2 K/mm3 (4.4-11.0)
[2025-05-21 16:16] LABS: Anion Gap 10 (5-15); BUN 10 mg/dL (4-19); BUN/Creat Ratio 10.1 RATIO (10-20); Calcium,Total 8.9 mg/dL (7.6-11.0); Carbon Dioxide 25.7 mmol/L (21.0-32.0); Chloride 106 mmol/L (98-108); Glucose 87 mg/dL (70-99); Potassium 4.5 mmol/L (3.3-5.1); Pro- Brain NATRIURETIC PEPTIDE 56 pg/mL (<=900)
== END | disposition home or self-care (01) ==
LOC: LAB 13:51
PROVIDERS: PCP Family Medicine; Referring Provider Nurse Practitioner Gerontology; Visit Provider Nurse Practitioner Gerontology
DX: R06.09 Other forms of dyspnea (principal); R53.83 Other fatigue
CPT/HCPCS: 36415; 80048; 83880; 84443; 85025

== ENCOUNTER → 2025-06-22 | Outpatient (CLI) | payer BC, SELFPAY ==
--- NOTE | 2025-06-22 06:13 | ECHOCS_ITS ---
Reason For Study Reason For Study: GORE Procedure This was a 2D Doppler, Color Flow transthoracic echocardiogram. Contrast injection was performed. Exam performed in department. Left Ventricle Normal LV size. Segmental dysfunction with preserved ejection fraction (see wall motion). The left ventricular ejection fraction is 60 %. Stage 1 diastolic dysfunction. Infero-Basal: Hypokinetic. Basal inferoseptal: Hypokinetic. The rest of the wall segments are normal. Right Ventricle Normal RV size. Normal systolic function. Atria Normal left atrium. Normal right atrium. Mitral Valve The mitral valve is structurally normal. No prolapse or stenosis seen. Mild- Moderate (1-2+) mitral valve insufficiency. Tricuspid Valve Normal tricuspid valve. Trivial tricuspid valve insufficiency. Pulmonary artery systolic pressure is 14 mmHg. Aortic Valve Trisinus/trileaflet aortic valve. Mild focal aortic valve thickening. There is no aortic stenosis. Pulmonic Valve Normal pulmonic valve. Mild (1+) pulmonic valve insufficiency. Great Vessels Normal sized aortic root. Pericardium/Pleural No pericardial effusion. Medication Diluted definity 1.5ml given slow IV push to enhance endocardial definition. MMode/2D Measurements & Calculations LVIDd: 4.6 cm IVSd: 0.90 cm Ao root diam: 3.3 cm LVIDs: 2.5 cm LVPWd: 0.97 cm RVDd: 3.4 cm FS: 45.5 % LAV(MOD-bp): 30.2 ml LVAd ap4: 32.2 cm2 SV(MOD-sp4): 63.8 ml LAV(MOD-bp) Indexed: 13.9 ml/m2 LVLd ap4: 8.7 cm SI(MOD-sp4): 29.4 ml/m2 LAV(MOD-sp2): 36.4 ml EDV(MOD-sp4): 97.1 ml LAV(MOD-sp4): 23.3 ml EDV(sp4-el): 101.8 ml LVAs ap4: 17.0 cm2 LVLs ap4: 7.2 cm ESV(MOD-sp4): 33.3 ml ESV(sp4-el): 33.9 ml EF(MOD-sp4): 65.7 % EF(sp4-el): 66.7 % SV(sp4-el): 67.9 ml LA A4 area: 11.2 cm2 LA dimension(2D): 3.8 cm RA A4 area: 10.3 cm2 TAPSE: 1.6 cm Time Measurements MV dec time: 0.25 sec Doppler Measurements & Calculations MV E max kaushik: 88.2 cm/sec Lat Peak E' Kaushik: 8.7 cm/sec Med Peak E' Kaushik: 4.8 cm/sec MV A max kaushik: 69.8 cm/sec E/E' lat: 10.1 E/E' med: 18.3 MV E/A: 1.3 MV dec slope: 358.7 cm/sec2 Ao V2 max: 155.0 cm/sec LV V1 max: 134.8 cm/sec Ao max P.6 mmHg LV V1 max P.3 mmHg Ao V2 mean: 115.7 cm/sec LV V1 mean P.8 mmHg Ao mean P.0 mmHg LV V1 mean: 104.7 cm/sec Ao V2 VTI: 36.4 cm LV V1 VTI: 30.3 cm AV (velocity ratio): 0.83 PA V2 max: 134.3 cm/sec PI end-d kaushik: 105.2 cm/sec TR max kaushik: 168.8 cm/sec TR max P.4 mmHg ECHO/Echo Complete W/ Contrast Interpretation Summary The left ventricular ejection fraction is 60 %. Stage 1 diastolic dysfunction. Segmental dysfunction with preserved ejection fraction (see wall motion). Mild-Moderate (1-2+) mitral valve insufficiency. Contrast injection was performed. Compared to prior study, there is no signific ant change. Ordering Physician: Sandhya García Referring Physician: Lambert Paniagua Performed By: Malena Forrest, YEN, RVT
--- OUTSIDE RECORDS SUMMARY | 2025-06-22 06:14 | XMS RPT_ITS | CCD ---
Author Organization [facility] Care Team Providers Care Visitor Service Assistant Name Role Phone Dr. Mike Paniagua Primary Care Provider Dr. Mike Paniagua Referring Provider [facility], SUDHA Campbell Attending Provider Dr. Arturo Masterson Attending Provider Dr. Arturo Masterson Referring Provider Dr. Arturo Masterson Other Provider Dr. Mike Paniagua Primary Care Provider [phone] Dr. Mike Paniagua Referring Provider [facility], SUDHA Campbell Attending Provider No, Referral Unavailable Unavailable Moy Paniagua MD Primary Care Provider Moy Paniauga MD Primary Care Provider Podlogar DIRECTOR ENVIRONMENTAL.Sarai LAN Unavailable Knoble DIRECTOR ENVIRONMENTAL.Anu LAN Unavailable MOY PANIAGUA Primary Care Unavailab MOY Looney Attending Unavailab MOY Looney Referring Unavailab MOY Looney Primary Care Unavailab MOY Looney Attending Unavailab MOY Looney Primary Care Unavailab le Knoble DIRECTOR ENVIRONMENTAL.Anu LAN Unavailable Knoble DIRECTOR ENVIRONMENTAL.Anu LAN Unavailable Dr. Mike Paniagua MD Primary Care Provider Dr. Mike Paniagua MD Referring Provider Sandhya Ni Attending Provider Sandhya Ni Referring Provider [phone] Mike Paniagua Primary Care Unavailable Ricky SIDDIQI, Sandhya Attending Unavailable Sandhya García NP Referring Unavailable Sandhya García NP Referring Unavailable Mike Paniagua Primary Care Unavailable Ricky SIDDIQI, Sandhya Attending Unavailable Mike Paniagua Primary Care Unavailable Mike Paniagua Referring Unavailable Sandhya García NP Attending Unavailable Mike Paniagua Primary Care Unavailable Mike Paniagua Referring Unavailable Sylvie Willis Attending Unavail able Allergies Allergy Classification Reported Allergen(s) Allergy Type Date of Onset Reaction(s) Facility (20 sources) Codeine; Translations: [CODEINE] Drug Allergy 02-17-2008 GI Upset [facility] (5 sources) Shellfish; Translations: [shellfish derived] Allergy to substance 02-09-2022 [facility] (2 sources) White fish Allergy to substance 02-09-2022 [facility] (2 sources) Fish Containing Products Allergy to substance 05-21-2025 [facility] (1 source) Codeine Drug Allergy 05-21-2025 [facility] (1 source) Fish Containing Products Drug allergy (disorder) 05-21-2025 [facility] Medications Current Medications Medication Drug Class(es) Dates Sig (Normalized) Sig (Original) acetaminophen 500 mg oral tablet (20 sources) Start: 06-15-2020 take 1 tablet by mouth every six hours as needed Acetaminophen 500 MG tablet Active 500 mg PO EVERY 6 HOURS NEEDED as needed for Not Specified August 06, 2020 1:00am Comment on above: Take 1-2 tablets by mouth every 6 hours as needed. [id number] 200 actuat albuterol 0.09 mg/actuat metered dose inhaler (16 sources) beta2-Adrenergic Agonist Start: 10-23-2020 take 2 puff(s) by inhalation every four hours as needed for wheezing albuterol HFA (VENTOLIN HFA) 90 mcg/actuation inhaler Inhale 2 Puffs as instructed every 4 hours as needed for Wheezing/Shortness of Breath. 18 g 1 10/23/2020 Active Comment on above: Inhale 2 Puffs as in structed every 4 hours as needed for Wheezing/Shortness of Breath. aspirin 81 mg delayed release oral tablet (19 sources) Platelet Aggregation Inhibitor, Nonsteroidal Anti-inflammatory Drug Start: 08-06-2020 take 1 tablet by mouth once daily Aspirin 81 MG tablet,delayed release (DR/EC) Active 81 mg PO DAILY August 06, 2020 1:00am Start: 06-16-2020 take 1 tablet by milly once daily aspirin 81 mg chewable tablet 1 tablet by ORAL/FEEDING TUBE route once daily. 30 tablet 06/16/2020 Active Comment on above: 1 tablet by ORAL/FEE DING TUBE route once daily. nitroglycerin 0.4 mg sublingual tablet (8 sources) Nitrate Vasodilator Start: 12-15-2024 nitroglycerin sublingual (NITROQUICK) 0.4 mg SL tablet Indications: Coronary artery disease of [place] artery of [place] heart with stable angina pectoris Take 1 tablet by mouth every 5 minutes as needed for chest pain. FOR CHEST PAIN. IF NO PAIN RELIEF, CALL 911 25 tablet 12/15/2024 Active Start: 01-19-2022 Nitroglycerin (Nitrostat) 0.4 mg tablet, sublingual Active 0.4 mg SL every 5 to 15 minutes as needed for chest pain 19 12January 19, 2022 12:00am do not exceed 3 doses per episode Start: 01-19-2022 Nitroglycerin (Nitrostat) 0.4 mg tablet, sublingual Active 0.4 MG SL every 5 to 15 minutes January 19, 2022 4:44pm do not exceed 3 doses per episode valACYclovir 1000 mg oral tablet (1 source) Herpesvirus Nucleoside Analog DNA Polymerase Inhibitor, Herpes Simplex Virus Nucleoside Analog DNA Polymerase Inhibitor, Herpes Zoster Virus Nucleoside Analog DNA Polymerase Inhibitor Start: 04-11-2024 End: 04-18-2024 take 1 tablet by mouth three times daily valACYclovir (VALTREX) 1 gram tablet Indications: Herpes zoster without complication Take 1 tablet by mouth three times a day for 7 days. 21 tablet 0 04/11/2024 04/18/2024 Active Completed/Discontinued Medications Medication Drug Class(es) Dates Sig (Normalized) Sig (Original) amLODIPine 2.5 mg oral tablet (4 sources) Dihydropyridine Calcium Channel Geo Start: 08-06-2020 End: 05-16-2021 Amlodipine 2.5 MG tablet Discontinued 2.5 mg PO August 06, 2020 1:00am May 16, 2021 11:37am atorvastatin 80 mg oral tablet (20 sources) HMG-CoA Reductase Inhibitor Start: 05-16-2021 End: 12-11-2025 take 1 tablet by mouth at bedtime Atorvastatin 80 mg tablet Discontinued 80 mg PO AT BEDTIME 90 September 04, 2022 9:43am May 21, 2025 1:31pm Start: 08-06-2020 End: 05-16-2021 take 1 tablet by mouth at bedtime Atorvastatin 40 MG tablet Discontinued 40 mg PO AT BEDTIME August 06, 2020 1:00am May 16, 2021 11:36am Comment on above: Take 1 tablet by milly th daily at bedtime. citalopram 40 mg oral tablet (20 sources) Serotonin Reuptake Inhibitor Start: 0 End: take 1 tablet by mouth once daily Citalopram 40 MG tablet Discontinued 40 mg PO DAILY August 06, 2020 1:00am May 16, 2021 11:36am Comment on above: Take 1 tablet by milly th once daily. 24 hr isosorbide mononitrate 60 mg extended release oral tablet (20 sources) Nitrate Vasodilator Start: 3 End: 5 take 1 tablet by mouth once daily, then take 1 tablet by mouth every twenty-four hours Isosorbide Mononitrate 60 mg tablet extended release 24 hr Discontinued 60 mg PO DAILY 90 March 26, 2025 12:52pm May 21, 2025 1:31pm Start: 02-10-2022 End: 11-06-2022 take 1 tablet by mouth once daily, then take 1 tablet by mouth every twenty-four hours Isosorbide Mononitrate 30 mg tablet extended release 24 hr Discontinued 30 mg PO DAILY 30 February 10, 2022 12:07pm November 06, 2022 1:15pm Comment on above: Take 1 tablet by milly th every afternoon. lisinopril 5 mg oral tablet (20 sources) Angiotensin Converting Enzyme Inhibitor Start: End: 6 take 1 tablet by mouth once daily Lisinopril 5 mg tablet Discontinued 5 mg PO DAILY 90 May 17, 2023 11:42am May 21, 2025 1:31pm Comment on above: Take 1 tablet by milly th once daily. metoprolol tartrate 25 mg oral tablet (20 sources) beta-Adrenergic Geo Start: End: Metoprolol Tartrate 25 mg tablet Discontinued 0 .ROUTE daily July 17, 2024 11:44am July 17, 2024 11:49am daily; Start: 07-17-2024 End: 05-21-2025 take 1 tablet by mouth once daily Metoprolol Succinate 25 mg tablet extended release 24 hr Active 25 mg PO daily 90 3 May 21, 2025 1:31pm Start: 04-26-2023 End: 12-15-2024 take 1 tablet by mouth once daily metoprolol tartrate, short acting, (LOPRESSOR) 25 mg tablet Take 1 tablet by mouth once daily. 04/26/2023 12/15/2024 Discontinued (Course of therapy completed) Start: 04-26-2023 take 1 tablet by milly th every twelve hours metoprolol tartrate, short acting, (LOPRESSOR) 25 mg tablet Take 1 tablet by mouth every 12 hours. 0 04/26/2023 Active Start: 02-10-2022 End: 07-17-2024 take 1 tablet by mouth twice daily Metoprolol Tartrate 25 mg tablet Discontinued 0 .ROUTE .COMPLEX 180 3 February 14, 2024 12:01pm July 17, 2024 11:45am TAKE 1 TABLET BY MOUTH TWICE A DAY Start: 08-06-2020 End: 08-06-2020 take 1 tablet by mouth twice daily Metoprolol Tartrate 50 MG tablet Discontinued 50 mg PO TWICE A DAY August 06, 2020 1:00am August 06, 2020 9:12am Comment on above: Take 1 tablet by milly th every 12 hours. Problems Active Problems Problem Classification Problem Date Documented Da te Episodic/Chronic Acute myocardial infarction (19 sources) Myocardial infarction; Translations: [Non-ST elevation (NSTEMI) myocardial infarction] Onset: 06-04-2020 Resolved: 06-10-2020 06-01-2020 Chronic Asthma (16 sources) Asthma; Translations: [Unspecified asthma, uncomplicated] 06-15-2020 Chronic Coronary atherosclerosis and other heart disease (20 sources) Coronary atherosclerosis; Translations: [Atherosclerotic heart disease of [place] coronary artery without angina pectoris] Onset: 06-02-2020 Chronic Coronary atherosclerosis and other heart disease (4 sources) Presence of aortocoronary bypass graft; Translations: [Personal history of surgery to heart and great vessels, presenting hazards to health] Onset: 05-28-2020 Episodic Disorders of lipid metabolism (11 sources) Hyperlipidemia; Translations: [Hyperlipidemia, unspecified] Onset: 10-21-2024 Chronic Essential hypertension (20 sources) Essential hypertension; Translations: [Essential (primary) hypertension] Onset: 06-10-2020 Chronic Malaise and fatigue (4 sources) Fatigue; Translations: [Other fatigue] Onset: 05-21-2025 08-27-2023 Episodic Mood disorders (19 sources) Depressive disorder; Translations: [Depression] Onset: 04-11-2024 06-01-2020 Chronic Nonspecific chest pain (5 sources) Chest pain; Translations: [Chest pain, unspecified] Onset: 05-21-2025 06-01-2020 Episodic Comment on above: The patient's chest discomfort is somewhat atypical and it seems to be times when he is stressed. We did like coronary artery with an occluded graft. He does have collaterals from the left system to the right ejection fraction of 55% on cath in 2021. He has not had much of a change in his exercise tolerance although he is limited himself by direction. He has been walking still without significant restrictions he denies any anginal type symptoms when he is exerting himself. He is concerned about his coronary anatomy. Occlusion or stenosis of precerebral arteries (20 sources) Right carotid artery stenosis; Translations: [Occlusion and stenosis of right carotid artery] Onset: 06-06-2020 05-16-2021 Chronic Open wounds of head; neck; and trunk (4 sources) Scalp laceration; Translations: [Laceration without foreign body of scalp, initial encounter] 05-14-2019 Episodic Other lower respiratory disease (4 sources) Nodule of lung; Translations: [Solitary pulmonary nodule] 05-16-2021 Episodic Comment on above: Smooth non calcified 3mm nodule right middle lung lobe Other lower respiratory disease (5 sources) Dyspnea on exertion; Translations: [Other forms of dyspnea] 11-06-2022 Episodic Other lower respiratory disease (3 sources) Other forms of dyspnea; Translations: [Other respiratory abnormalities] Onset: 05-25-2025 11-06-2022 Episodic Other nutritional; endocrine; and metabolic disorders (2 sources) Overweight in adulthood with body mass index of 25 or more but less than 30; Translations: [Body mass index (BMI) 25.0-25.9, adult] 12-25-2022 Episodic Other screening for suspected conditions (not mental disorders or infectious disease) (7 sources) Cardiovascular stress test abnormal; Translations: [Abnormal result of other cardiovascular function study] Onset: 12-15-2024 01-19-2022 Episodic Other upper respiratory disease (16 sources) Allergic rhinitis; Translations: [Other allergic rhinitis] 12-03-2008 Chronic Residual codes; unclassified (3 sources) Hypersomnia; Translations: [Hypersomnia, unspecified] 11-06-2022 Chronic Residual codes; unclassified (1 source) Hypersomnia, unspecified; Translations: [Hypersomnia, unspecified] 11-06-2022 Chronic Residual codes; unclassified (16 sources) Obstructive sleep apnea syndrome; Translations: [Obstructive sleep apnea (adult) (pediatric)] Onset: 04-11-2024 04-11-2024 Chronic Residual codes; unclassified (1 source) Obstructive sleep apnea (adult) (pediatric); Translations: [BEE on CPAP] Onset: 04-11-2024 Chronic Residual codes; unclassified (2 sources) Sleep apnea; Translations: [Sleep apnea, unspecified] 12-25-2022 Chronic Comment on above: AHI noted to be 38.6 Unclassified (1 source) Patient encounter status 12-17-2024 Past or Other Problems Problem Classification Problem Date Documented Date Episodic/Chronic Administrative/socia l admission (16 sources) Patient encounter status; Translations: [Persons encountering health services in other specified circumstances] Onset: 06-13-2020 06-15-2020 Episodic Diabetes mellitus without complication (15 sources) Metabolic stress hyperglycemia; Translations: [Hyperglycemia, unspecified] Onset: 06-10-2020 Resolved: 06-13-2020 06-13-2020 Episodic Fluid and electrolyte disorders (15 sources) Respiratory acidosis; Translations: [Respiratory acidosis] Onset: 06-11-2020 Resolved: 06-13-2020 06-13-2020 Episodic Other nervous system disorders (16 sources) Postoperative pain ; Translations: [Other acute postprocedural pain] Onset: 06-11-2020 06-15-2020 Episodic Residual codes; unclassified (4 sources) History of cardiac catheterization; Translations: [Other specified postprocedural states] Onset: 01-25-2022 02-10-2022 Episodic Comment on above: LEFT MAIN: Angiograp hically normal; LEFT ANTERIOR DESCENDING ARTERY: PROX LAD: Mild calcification, 50 % Stenosis; MID LAD: subtotally occluded and fills predominantly from BENÍTEZ graft flow; DIAGONAL 1: Ostial - very small caliber vessel with ostial 85 % StenosisDIAGONAL 2: Ostial - small caliber vessel with ostial 90 % Stenosis; CIRCUMFLEX ARTERY:OSTIAL CIRC: 90 % Stenosis; PROX CIRC: 85 % Stenosis; OM 1: Proximal - 90 % Stenosis; RIGHT CORONARY ARTERY: PROX RCA: is occluded; GRAFTS: BENÍTEZ graft to the Mid LAD is patent with no angiogrraphically significant appearing disease distal to the graft attachmentRIMA graft to the CHARLIE to the OM1 is patent with no angiographically significant appearing disease distal to the graft attachmentRadial graft to the RPDA is totally occluded; COLLATERAL FLOW: Collateral flow from Left to Right; AORTIC ROOT: Angiographically normal per cardiac cath Dr. Masterson 02/10/22 Unclassified (3 sources) INGUINAL HERNIA - RIGHT 04-26-2022 Viral infection (2 sources) Herpes zoster without complication; Translations: [Zoster without complications] Onset: 04-11-2024 04-11-2024 Episodic Results Test Name Value Interpretation Reference Range Facility Absolute lymphocyte countOrd ered By: Sandhya García on 05-21-2025 Lymphocytes Auto (Unsp spec) [#/Vol] 1.97 10*3/uL 0.83-4.51 [facility] Absolute neutrophil countOrd ered By: Sandhya García on 05-21-2025 Neutrophils (Bld) [#/Vol] 2.4 10*3/uL 2.0-7.7 [facility] Anion gap in Serum or Plasma Ordered By: Sandhya García on 05-21-2025 Anion gap [Moles/Vol] 10 mmol/L 5-15 [facility] Automated lymphocyte count a s percentage of total leukocytesOrdered By: Sandhya García on 05-21-2025 Lymphocytes/100 WBC Auto (Unsp spec) 38.1 % - [facility] BUN/creatinine ratioOrdered By: Sandhya García on 05-21-2025 Urea nitrogen/Creatinine [Mass ratio] 10.1 mg/mg 10- [facility] Basic Metabolic Profile (BMP )on 05-21-2025 BUN/CRE 10.1 RATIO Normal -20 [facility] Comment on above: Performed By: #### L 100.0100, L501.9520, L500.2500, [id number] #### [facility] [address] [place], [address] Calcium [Mass/Vol] 8.9 mg/dL Normal 7.6-11.0 [facility] Comment on above: Performed By: #### L 100.0100, L501.9520, L500.2500, [id number] #### [facility] [address] [place], [address] Chloride [Moles/Vol] 106 mmol/L Normal 98-108 [facility] Comment on above: Performed By: #### L 100.0100, L501.9520, L500.2500, [id number] #### [facility] [address] [place], [address] CO2 [Moles/Vol] 25.7 mmol/L Normal 21.0-32.0 [facility] Comment on above: Performed By: #### L 100.0100, L501.9520, L500.2500, [id number] #### [facility] [address] [place], [address] Creatinine [Mass/Vol] 0.98 mg/dL Normal 0.70-1.20 [facility] Comment on above: Performed By: #### L 100.0100, L501.9520, L500.2500, [id number] #### [facility] [address] [place], [address] GAP 10 Normal 5-15 [facility] Comment on above: Performed By: #### L 100.0100, L501.9520, L500.2500, [id number] #### [facility] [address] [place], [address] GFR/1.73 sq M.predicted among non-blacks MDRD (S/P/Bld) [Vol rate/Area] 90 mL/min/{1.73_m2} Normal >60 [facility] Comment on above: Result Comment: mL/m in/1.73m2 CKD-EPI Creatinine Equation (2020) Performed By: #### L 100.0100, L501.9520, L500.2500, [id number] #### [facility] [address] [place], [address] Glucose [Mass/Vol] 87 mg/dL Normal 70-99 [facility] Comment on above: Performed By: #### L 100.0100, L501.9520, L500.2500, [id number] #### [facility] [address] [place], [address] Potassium [Moles/Vol] 4.5 mmol/L Normal 3.3-5.1 [facility] Comment on above: Performed By: #### L 100.0100, L501.9520, L500.2500, [id number] #### [facility] [address] [place], [address] Sodium [Moles/Vol] 141 mmol/L Normal 133-145 [facility] Comment on above: Performed By: #### L 100.0100, L501.9520, L500.2500, [id number] #### [facility] [address] [place], [address] Urea nitrogen [Mass/Vol] 10 mg/dL Normal 4-19 [facility] Comment on above: Performed By: #### L 100.0100, L501.9520, L500.2500, [id number] #### [facility] [address] [place], [address] Basophil percentageOrdered B y: Sandhya García on 05-21-2025 Basophils/100 WBC (Bld) 1.2 % High 0-1 [facility] CBC W/Diff, Automatedon 04-28 Absolute Lymph 1.97 X10 3/uL Normal 0.83-4.51 [facility] Comment on above: Performed By: #### L 100.0100, L501.9520, L500.2500, [id number] #### [facility] [address] [place], [address] Absolute Neut 2.4 X10 3/uL Normal 2.0-7.7 [facility] Comment on above: Performed By: #### L 100.0100, L501.9520, L500.2500, [id number] #### [facility] [address] [place], [address] Basophils/100 WBC (Bld) 1.2 % High 0-1 [facility] Comment on above: Performed By: #### L 100.0100, L501.9520, L500.2500, [id number] #### [facility] [address] [place], [address] Eosinophils/100 WBC (Bld) 3.3 % Normal 0-5 [facility] Comment on above: Performed By: #### L 100.0100, L501.9520, L500.2500, [id number] #### [facility] [address] [place], [address] Erythrocyte distribution width (RBC) [Ratio] 12.1 % Normal 11.6-14.6 [facility] Comment on above: Performed By: #### L 100.0100, L501.9520, L500.2500, [id number] #### [facility] [address] [place], [address] Hematocrit (Bld) [Volume fraction] 41.1 % Normal 40-54 [facility] Comment on above: Performed By: #### L 100.0100, L501.9520, L500.2500, [id number] #### [facility] [address] [place], [address] Hemoglobin (Bld) [Mass/Vol] 14.5 g/dL Normal 13.0-16.5 [facility] Comment on above: Performed By: #### L 100.0100, L501.9520, L500.2500, [id number] #### [facility] [address] [place], [address] IG% 0.400 Normal 0.0-0.9 [facility] Comment on above: Result Comment: IG% - Immature Granulocytes (promyelocytes, myelocytes and metamyelocytes) > 1% indicates that a LEFT SHIFT is Present. Performed By: #### L 100.0100, L501.9520, L500.2500, [id number] #### [facility] [address] [place], [address] Lymphocytes/100 WBC (Bld) 38.1 % Normal 19-41 [facility] Comment on above: Performed By: #### L 100.0100, L501.9520, L500.2500, [id number] #### [facility] [address] [place], [address] MCH (RBC) [Entitic mass] 31.9 pg Normal 27.0-32.0 [facility] Comment on above: Performed By: #### L 100.0100, L501.9520, L500.2500, [id number] #### [facility] [address] [place], [address] MCHC (RBC) [Mass/Vol] 35.3 g/dL Normal 32-36 [facility] Comment on above: Performed By: #### L 100.0100, L501.9520, L500.2500, [id number] #### [facility] [address] [place] [place], [address] MCV (RBC) [Entitic vol] 90.5 fL Normal 80-94 [facility] Comment on above: Performed By: #### L 100.0100, L501.9520, L500.2500, [id number] #### [facility] [address] [place], [address] Monocytes/100 WBC (Bld) 11.6 % High 0-10 [facility] Comment on above: Performed By: #### L 100.0100, L501.9520, L500.2500, [id number] #### [facility] [address] [place], [address] Neutrophils/100 WBC (Bld) 45.4 % Low 47-70 [facility] Comment on above: Performed By: #### L 100.0100, L501.9520, L500.2500, [id number] #### [facility] [address] [place], [address] Nucleated RBC (Bld) [#/Vol] 0 10*3/uL Normal 0-5 [facility] Comment on above: Performed By: #### L 100.0100, L501.9520, L500.2500, [id number] #### [facility] [address] [place], [address] Platelet mean volume (Bld) [Entitic vol] 9.6 fL Normal 6.2-12.0 [facility] Comment on above: Performed By: #### L 100.0100, L501.9520, L500.2500, [id number] #### [facility] [address] [place], [address] Platelets (Bld) [#/Vol] 182 10*3/uL Normal 150-450 [facility] Comment on above: Performed By: #### L 100.0100, L501.9520, L500.2500, [id number] #### [facility] [address] [place], [address] RBC (Bld) [#/Vol] 4.54 10*6/uL Low 4.6-6.2 [facility] Comment on above: Performed By: #### L 100.0100, L501.9520, L500.2500, [id number] #### [facility] [address] [place], [address] RDW SD 39.7 fl Normal 35.1-43.9 [facility] Comment on above: Performed By: #### L 100.0100, L501.9520, L500.2500, [id number] #### [facility] [address] [place], [address] WBC (Bld) [#/Vol] 5.2 10*3/uL Normal 4.4-11.0 [facility] Comment on above: Performed By: #### L 100.0100, L501.9520, L500.2500, [id number] #### [facility] [address] [place], [address] Carbon dioxide, total [Moles /volume] in Central venous bloodOrdered By: Sandhya García on 05-21-2025 CO2 [Moles/Vol] 25.7 mmol/L 21.0-32.0 [facility] Cardiology Visit Reporton Cardiology Visit Report [facility] [address] [place] [address] OFFICE VISIT Date of Service: 05/21/25 MR#: [id number] Acct: [id number] Name: DEJAN LAZCANO TRACY Rep #: [id number] : 1965 Provider: SUDHA murphy Age/Sex: 60/M Location: [facility] Status: Signed HPI HPI History of Present Illness Details: Dejan Lazcano is a 60-year-old white male who presents today for an outpatient cardiovascular follow-up visit. He has a history of underlying premature CAD resulting in RCA PTCA (no stent) and subsequent CABG performed at [facility] on 06-10-2020 with a report of a BENÍTEZ to the LAD, a CHARLIE to the OM 1, and a left radial artery to the PDA superimposed upon hyperlipidemia. I cannot find documentation this was a free CHARLIE. Patient's cardiac catheterization from January 2022 demonstrated ejection fraction of 55%, [place] multivessel coronary artery disease, BENÍTEZ to the LAD is patent, CHARLIE to OM1 is patent, radial artery graft to RPDA proximately occluded, and tcto-xd-[id number] collateral flow. From a cardiac standpoint, the patient is doing well. He does acknowledge occasional palpitations. He does acknowledge occasional right sided chest pain with exertion and at rest. He denies pressure or heaviness. He does acknowledge SOB with exertion-climbing up steps. He states this is newer. He denies Orthopnea, and PND. He does not have bleeding issues; no blood in urine, stool, or nosebleeds. He denies any decrease in energy level, myalgias, or claudication. He does not have edema, or sudden weight gain. He does acknowledge weight gain-feels like his upper abdomen is distended, and tight. He denies lightheadedness, dizziness, syncopal or near syncopal episodes, and headaches. Intake Vital Signs 07/17/24 11:13 05/21/25 10:34 05/21/25 13:13 Height 6 ft 2 in 6 ft 2 in 6 ft 2 in Weight: 217 lb BMI 27.8 BP 125/79 H Blood Pressure Location Lt brachial Position Sitting Respiration 18 Pulse 67 Pulse Source Monitor Pulse Oximetry (%) 97 Intake Visit Reasons: SOB, hx CABG w collaterals. 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 Is patient in pain?: No Allergies codeine Allergy (Unknown, Verified 05/21/25 13:19) Unknown Fish Containing Products Allergy (Verified 05/21/25 13:19) Hives shellfish derived Allergy (Verified 05/21/25 13:19) Hives Medications ???Medication ???Instructions ???Recorded ???Confirmed ???Type citalopram 40 mg tablet 40 mg PO DAILY Depression 06/01/20 05/21/25 History acetaminophen 500 mg tablet 500 mg PO Q6H PRN PRN Not Specifie d 08/06/20 05/21/25 History aspirin 81 mg tablet,delayed 81 mg PO DAILY 08/06/20 05/21/25 H istory release nitroglycerin 0.4 mg sublingual 0.4 mg sublingual Q5-15M PRN chest 01/19/22 05/21/25 Rx tablet (Nitrostat) pain #25 tabs atorvastatin 80 mg tablet 80 mg PO QHS #90 tabs 05/21/25 Rx isosorbide mononitrate 60 mg 60 mg PO DAILY #90 tabs 05/21/25 0 05/21/25 Rx tablet,extended release 24 hr lisinopril 5 mg tablet 5 mg PO DAILY #90 tabs 05/21/25 Rx metoprolol succinate 25 mg 25 mg PO QDAY #90 tabs 05/21/25 Rx tablet,extended release 24 hr Have you fallen in the past year?: No PFSH Medical History History of left heart catheterization (LHC) ( 02/10/22) HLD (hyperlipidemia) Essential hypertension Stenosis of right carotid artery Lung nodule INGUINAL HERNIA - RIGHT Atherosclerosis of coronary artery of [place] heart without angina pectoris Surgical History History of percutaneous transluminal coronary angioplasty ( 06/02/20) History of coronary artery bypass graft x 3 ( 06/10/20) Family History Mother Breast cancer Hypertension Father Hypertension Ischemic heart disease Grandfather CAD (coronary artery disease) Grandfather Ischemic heart disease Grandmother CVA (cerebral vascular accident) Social History Smoking Status: Never smoker alcohol intake: never substance use type: does not use caffeine: Yes ROS Const Const: Positive for fatigue; Negative for weakness, headache(s) or frequent falls Eyes Eyes: Negative for blurry vision ENT ENT: Negative for headache(s), dizziness or Nosebleed/epistaxis Cardio Chest Pain: Yes Frequency: other Location: right chest Palpitations: Yes Edema: None Muscle aches with walking: None Resp Respiratory: Positive for SOB with activity and SOB at rest; Negative for SOB orthopnea SOB lying down GI GI: Negative nausea, vomiting, heartburn, bright, red blood in stools or black,tarry stools : Negative for hematuria Neur (more content not included)... Normal [facility] Chloride assayOrdered By: Sim García on 05-21-2025 Chloride [Moles/Vol] 106 mmol/L 98-108 [facility] Eosinophil percentageOrdered By: Sandhya García on 05-21-2025 Eosinophils/100 WBC (Bld) 3.3 % 0-5 [facility] Erythrocyte distribution wid th ratioOrdered By: Sandhya García on 05-21-2025 Erythrocyte distribution width (RBC) [Ratio] 12.1 % 11.6-14.6 [facility] Erythrocyte distribution wid th standard deviationOrdered By: Sandhya García on 05-21-2025 Erythrocyte distribution width (RBC) [Ratio] 39.7 fl 35.1-43.9 [facility] Glomerular filtration rate ( GFR) estimation/1.73 sq m using serum, plasma, or whole bOrdered By: Sandhya García on 05-21-2025 GFR/1.73 sq M.predicted among non-blacks MDRD (S/P/Bld) [Vol rate/Area] 90 mL/min/{1.73_m2} >60 [facility] Comment on above: mL/min/1.73m2 CKD-EP I Creatinine Equation (2020) Hematocrit Auto (Bld) [Volum e fraction]Ordered By: Sandhya García on 05-21-2025 Hematocrit (Bld) [Volume fraction] 41.1 % 40-54 [facility] Hemoglobin measurementOrdere d By: Sandhya García on 05-21-2025 Hemoglobin (Bld) [Mass/Vol] 14.5 g/dL 13.0-16.5 [facility] Immature granulocytes/100 WB C Auto (Bld)Ordered By: Sandhya García on 05-21-2025 Immature granulocytes/100 WBC (Bld) 0.400 % 0.0-0.9 [facility] Comment on above: IG% - Immature Granu locytes (promyelocytes, myelocytes and metamyelocytes) > 1% indicates that a LEFT SHIFT is Present. MCV (mean corpuscular volume ) determinationOrdered By: Sandhya García on 05-21-2025 MCV (RBC) [Entitic vol] 90.5 fL 80-94 [facility] Mean corpuscular hemoglobin (MCH) determinationOrdered By: Sandhya García on 05-21-2025 MCH (RBC) [Entitic mass] 31.9 pg 27.0-32.0 [facility] Mean corpuscular hemoglobin concentration (MCHC) determinationOrdered By: Sandhya García on 05-21-2025 MCHC (RBC) [Mass/Vol] 35.3 g/dL 32-36 [facility] Mean platelet volume determi nationOrdered By: Sandhya García on 05-21-2025 Platelet mean volume (Bld) [Entitic vol] 9.6 fL 6.2-12.0 [facility] Monocyte percentageOrdered B y: Sandhya García on 05-21-2025 Monocytes/100 WBC (Bld) 11.6 % High 0-10 [facility] Natriuretic peptide.B prohor kerrie N-Terminal [Mass/volume] in Serum or PlasmaOrdered By: Sandhya García on 05-21-2025 Natriuretic peptide.B prohormone N-Terminal [Mass/Vol] 56 pg/mL <900 [facility] Comment on above: Heart Failure Unlike ly: < 300 pg/mLHeart Failure Likely< 50 Years: > 450 pg/mL50-75 Years: > 900 pg/mL>75 Years: > 1800 pg/mL Neutrophil percentageOrdered By: Sandhya García on 05-21-2025 Neutrophils/100 WBC (Bld) 45.4 % Low 47-70 [facility] Nucleated red blood cell per centageOrdered By: Sandhya García on 05-21-2025 Nucleated RBC/100 WBC (Bld) [Ratio] 0 % 0-5 [facility] Platelet countOrdered By: Sim García on 05-21-2025 Platelets (Bld) [#/Vol] 182 10*3/uL 150-450 [facility] Potassium measurement (mass/ volume)Ordered By: Sandhya García on 05-21-2025 Potassium (Unsp spec) [Mass/Vol] 4.5 mmol/L 3.3-5.1 [facility] Pro- Brain NATRIURETIC PEPTI Danny 05-21-2025 Natriuretic peptide B (Bld) [Mass/Vol] 56 pg/mL Normal <=900 [facility] Comment on above: Result Comment: Hear t Failure Unlikely: < 300 pg/mL Heart Failure Likely < 50 Years: > 450 pg/mL 50-75 Years: > 900 pg/mL >75 Years: > 1800 pg/mL Performed By: #### L 100.0100, L501.9520, L500.2500, L503.7505 #### [facility] [address] [place], [address] RBC Auto (Bld) [#/Vol]Ordere d By: Sandhya García on 05-21-2025 RBC (Bld) [#/Vol] 4.54 10*6/uL Low 4.6-6.2 [facility] Serum creatinine measurement (mass/volume)Ordered By: Sandhya García on 05-21-2025 Creatinine [Mass/Vol] 0.98 mg/dL 0.70-1.20 [facility] Serum glucose measurement (m ass/volume)Ordered By: Sandhya García on 05-21-2025 Glucose [Mass/Vol] 87 mg/dL 70-99 [facility] Serum or plasma calcium sheryl urement (mass/volume)Ordered By: Sandhya García on 05-21-2025 Calcium [Mass/Vol] 8.9 mg/dL 7.6-11.0 [facility] Serum or plasma urea nitroge n measurement (mass/volume)Ordered By: Sandhya García on 05-21-2025 Urea nitrogen [Mass/Vol] 10 mg/dL 4-19 [facility] Sodium levelOrdered By: Kylee García on 05-21-2025 Sodium [Moles/Vol] 141 mmol/L 133-145 [facility] TSH DL <= 0.005 mIU/L QnOrde red By: Sandhya García on 05-21-2025 TSH Qn 2.000 uIU/mL 0.300-4.200 [facility] Thyroid Stim Hormone (TSH)on 05-21-2025 TSH 2.000 uIU/mL Normal 0.300-4.200 [facility] Comment on above: Performed By: #### L 100.0100, L501.9595, L500.2500, L503.7505 #### [facility] [address] [place], [address] White blood cell (WBC) count Ordered By: Sandhay García on 05-21-2025 WBC (Bld) [#/Vol] 5.2 10*3/uL 4.4-11.0 [facility] CNOVon 12-15-2024 CNOV Office Visit (FAMPWS) ---- DEJAN LAZCANO ([id number]) 1965 M Date Time Provider Department 12/15/24 8:00 AM [facility] During your visit today, we recorded the following information about you: Pulse Respiration Blood pressure Weight 66/minute 16/minute 114/82 96.9 kg Moy Paniagua MD 12/17/2024 7:05 AM Signed Chief Complaint Patient presents with: Physical: Refills for all medications HPI Dejan Lazcano is a 59 year old male who presents here today for annual physical. Patient has been in good health without recent hospitalizations, ER visits. No concerns today. CAD s/p CABG x 3: managed by [facility] cardiology with last OV in June. Changed his metoprolol to ER because he was only taking it once per day. Had recent stress test in January 2024 which was negative. Recommended f/u in 1 year. Notes that he has only 2 pills of nitro at home and needs a refill. Gets some mild pain in his chest when stressed, but not with exertion. Denies radiation to neck/jaw, SOB, palpitations, LE, nausea, sweating, lightheadedness. LDL at goal <70. Asthma: has albuterol inhaler which he has not needed in more than 1 year. Usually gets symptoms with exertion, but is able to rest and symptoms resolve. Celexa working well to control depression symptoms and has improved anger. Denies SI/HI. BEE: Patient only using his CPAP about 3 times per week. Attributes this to his dog wanting him to sleep on the couch instead of in bed. On the nights when he uses it, his apneic episodes are almost 0, but still feels tired during the day. Denies snoring or apneic episodes. Refusing vaccinations today. Past medical history, appointments, medications, allergies reviewed. Previous Medical History PAST MEDICAL HISTORY Diagnosis Date Allergic rhinitis due to other allergen Asthma History: Dx'd in elementary school; Mild, intermittent Assessment: Intubated Plan: WTE, add PRN albuterol CAD (coronary artery disease) 06/02/2020 3 vessel CAD, sp POBA RCA 06/01/20 Last dose Ticagrelor 06/02/20 Awaiting CABG evaluation w Dr Manjarrez 06/07/20 Depression BEE on CPAP Unspecified asthma(493.90) Previous Surgical History PAST SURGICAL HISTORY Procedure Laterality Date CABG (3) VEIN GRAFTS AND ARTERIAL GRAFT(S) 05/2020 MIDLINE INSERTION/CONSULT 06/05/2020 PAST SURGICAL HISTORY OF 2004 inguinal hernia, right; [facility] Family History FAMILY HISTORY Problem Relation Age of Onset Breast Cancer Mother Hypertension Mother Hypertension Father Ischemic Heart Disease Father Coronary Artery Disease Paternal Grandfather age 72 Multiple Sclerosis Sister Ischemic Heart Disease Maternal Grandfather other (black lung) Maternal Grandfather other (CVA) Paternal Grandmother Patient Allergies ALLERGIES Allergen Reactions Codeine GI Upset Severe vomiting Current Medications Current Outpatient Medications on File Prior to Visit Medication Sig atorvastatin (LIPITOR) 80 mg tablet Take 1 tablet by mouth daily at bedtime. atorvastatin (LIPITOR) 80 mg tablet Take 1 tablet by mouth daily at bedtime. citalopram (CELEXA) 40 mg tablet Take 1 tablet by mouth once daily. lisinopril (ZESTRIL) 5 mg tablet Take 1 tablet by mouth once daily. isosorbide mononitrate ER (IMDUR) 60 mg 24 hr tablet Take 1 tablet by mouth every afternoon. metoprolol tartrate, short acting, (LOPRESSOR) 25 mg tablet Take 1 tablet by mouth once daily. albuterol HFA (VENTOLIN HFA) 90 mcg/actuation inhaler Inhale 2 Puffs as instructed every 4 hours as needed for Wheezing/Shortness of Breath. acetaminophen (TYLENOL) 500 mg tablet Take 1-2 tablets by mouth every 6 hours as needed. aspirin 81 mg chewable tablet 1 tablet by ORAL/FEEDING TUBE route once daily. (Patient taking differently: Take 81 mg by mouth once daily.) No current facility-administer ed medications on file prior to visit. Social History Social History Tobacco Use Smoking status: Never Smokeless tobacco: Never Vaping Use Vaping status: Never Used Substance Use Topics Alcohol use: No Drug use: No Review of Symptoms REVIEW OF SYSTEMS GENERAL: No weight loss, malaise or fevers HEENT: Negative for frequent or significant headaches, No changes in hearing or vision, no nose bleeds or other nasal problems NECK: Negative for lumps, goiter, pain and significant neck swelling RESPIRATORY: Negative for cough, hemoptysis, wheezing, COPD, dyspnea or shortness of breath CARDIOVASCULAR: See HPI GI: No nausea, vomiting, or diarrhea : No history of dysuria, frequency or incontinence, No difficulty urinating, nocturia > 1 time per night or hematuria MUSCULOSKELETAL: Negative for joint pain or swelling, back pain or muscle pain SKIN: Negative for lesions, rash, and itching PSYCH: See HPI HEMATOLOGY/LYMPHOLO GY: Negative for prolonged bleeding, bruising easily or swollen node (more content not included)... Normal [facility] CNPNon 10-30-2024 RIKYN Telephone (MERVAT) ---- DEJAN LAZCANO ([id number]) 1965 M Date Time Provider Department 10/30/24 SARAI SHAH During your visit today, we recorded the following information about you: Mar Rubin MA 10/30/2024 10:50 AM Signed ----- Message from Sarai Shah APRN.[employer] sent at 10/30/2024 7:13 AM EST ----- Blood work is in acceptable ranges. Continue medication, diet and exercise. Recommend rescheduling appointment since he canceled. Sarai Hammerloggloria, DIRECTOR ENVIRONMENTAL.Mar Choudhury MA 10/30/2024 10:50 AM Signed Pt notified of results via [employer]. Mar Rubin Ma Allergies As of Date: 10/30/2024 Noted Allergy Reaction CODEINE 02/17/2008 8 - GI Upset Comments: Severe vomiting Date Reviewed: 04/11/2024 Reviewed by: Lor Garcia LPN - Fully Assessed Reason for Visit: Results [95] Prescriptions as of 10/30/2024 - lisinopril (ZESTRIL) 5 mg tablet Take 1 tablet by mouth once daily. - citalopram (CELEXA) 40 mg tablet Take 1 tablet by mouth once daily. - atorvastatin (LIPITOR) 80 mg tablet Take 1 tablet by mouth daily at bedtime. - isosorbide mononitrate ER (IMDUR) 60 mg 24 hr tablet Take 1 tablet by mouth every afternoon. - metoprolol tartrate, short acting, (LOPRESSOR) 25 mg tablet Take 1 tablet by mouth once daily. - albuterol HFA (VENTOLIN HFA) 90 mcg/actuation inhaler Inhale 2 Puffs as instructed every 4 hours as needed for Wheezing/Shortness of Breath. - acetaminophen (TYLENOL) 500 mg tablet Take 1-2 tablets by mouth every 6 hours as needed. - aspirin 81 mg chewable tablet 1 tablet by ORAL/FEEDING TUBE route once daily. Problem List As Of Date 10/30/2024 Noted Resolved Asthma [J45.909] ALLERGIC RHINITIS NEC [J30.89] Coronary artery disease involving [place] ko*06/02/2020 NSTEMI (non-ST elevated myocardial infarction) *06/04/2020 06/10/2020 Pre-op testing [Z01.818] 06/04/2020 Stenosis of right carotid artery [I65.21] 06/06/2020 Hypertension [I10] 06/10/2020 Stress hyperglycemia [R73.9] 06/10/2020 06/13/2020 Respiratory acidosis [E87.29] 06/11/2020 06/13/2020 Post-op pain [G89.18] 06/11/2020 Encounter for support and coordination of trans*06/13/2020 Depression [F32.A] 04/11/2024 BEE on CPAP [G47.33] 04/11/2024 Encounter Status:Closed by MAR RUBIN on 10/30/24 Normal [facility] CBC W Auto Differential pane l (Bld)on 10-21-2024 Basophils (Bld) [#/Vol] 0.05 10*3/uL Normal <0.11 [facility] Comment on above: Order Comment: Speci men Type: BLOOD SPECIMEN Ordering Facility: [facility] Address: [address] [place] [address] Performed By: #### 5 7021-8 #### [facility] CLIA [id number] [address] [place] [address] [place] Basophils/100 WBC (Bld) 0.8 % Normal [facility] Comment on above: Order Comment: Speci men Type: BLOOD SPECIMEN Ordering Facility: [facility] Address: [address] [place] [address] Performed By: #### 5 7021-8 #### [facility] CLIA [id number] [address] [place] [address] [place] Differential cell count method Nom (Bld) Auto Normal [facility] Comment on above: Order Comment: Speci men Type: BLOOD SPECIMEN Ordering Facility: [facility] Address: [address] [place] [address] Performed By: #### 5 7021-8 #### [facility] CLIA [id number] [address] [place] [address] [place] Eosinophils (Bld) [#/Vol] 0.16 10*3/uL Normal <0.46 [facility] Comment on above: Order Comment: Speci men Type: BLOOD SPECIMEN Ordering Facility: [facility] Address: [address] [place] [address] Performed By: #### 5 7021-8 #### [facility] CLIA [id number] [address] [place] [place] [address] [place] Eosinophils/100 WBC (Bld) 2.6 % Normal [facility] Comment on above: Order Comment: Speci men Type: BLOOD SPECIMEN Ordering Facility: [facility] Address: [address] [place] [address] Performed By: #### 5 7021-8 #### [facility] CLIA [id number] [address] [place] [address] [place] Erythrocyte distribution width (RBC) [Ratio] 12.3 % Normal 11.5-15.0 [facility] Comment on above: Order Comment: Speci men Type: BLOOD SPECIMEN Ordering Facility: [facility] Address: [address] [place] [address] Performed By: #### 5 7021-8 #### [facility] CLIA [id number] [address] [place] [address] [place] Hematocrit (Bld) [Volume fraction] 46.1 % Normal 39.0-51.0 [facility] Comment on above: Order Comment: Speci men Type: BLOOD SPECIMEN Ordering Facility: [facility] Address: [address] [place] [address] Performed By: #### 5 7021-8 #### [facility] CLIA [id number] [address] [place] [address] [place] Hemoglobin (Bld) [Mass/Vol] 15.8 g/dL Normal 13.0-17.0 [facility] Comment on above: Order Comment: Speci men Type: BLOOD SPECIMEN Ordering Facility: [facility] Address: [address] [place] [address] Performed By: #### 5 7021-8 #### [facility] CLIA [id number] [address] [place] [address] [place] Immature granulocytes (Bld) [#/Vol] 10*3/uL Normal <0.10 [facility] Comment on above: Order Comment: Speci men Type: BLOOD SPECIMEN Ordering Facility: [facility] Address: [address] [place] [address] Performed By: #### 5 7021-8 #### [facility] CLIA [id number] [address] [place] [address] [place] Immature granulocytes/100 WBC (Bld) 0.2 % Normal [facility] Comment on above: Order Comment: Speci men Type: BLOOD SPECIMEN Ordering Facility: [facility] Address: [address] [place] [address] Performed By: #### 5 7021-8 #### [facility] CLIA [id number] [address] [place] [address] [place] Lymphocytes (Bld) [#/Vol] 1.95 10*3/uL Normal 1.00-4.0 0 [facility] Comment on above: Order Comment: Speci men Type: BLOOD SPECIMEN Ordering Facility: [facility] Address: [address] [place] [address] Performed By: #### 5 7021-8 #### [facility] CLIA [id number] [address] [place] [address] [place] Lymphocytes/100 WBC (Bld) 31.1 % Normal [facility] Comment on above: Order Comment: Speci men Type: BLOOD SPECIMEN Ordering Facility: [facility] Address: [address] [place] [address] Performed By: #### 5 7021-8 #### [facility] CLIA [id number] [address] [place] [address] [place] MCH (RBC) [Entitic mass] 31.2 pg Normal 26.0-34.0 [facility] Comment on above: Order Comment: Speci men Type: BLOOD SPECIMEN Ordering Facility: [facility] Address: [address] [place] [address] Performed By: #### 5 7021-8 #### [facility] CLIA [id number] [address] [place] [address] [place] MCHC (RBC) [Mass/Vol] 34.3 g/dL Normal 30.5-36.0 [facility] Comment on above: Order Comment: Speci men Type: BLOOD SPECIMEN Ordering Facility: [facility] Address: [address] [place] [address] Performed By: #### 5 7021-8 #### [facility] CLIA [id number] [address] [place] [address] [place] MCV (RBC) [Entitic vol] 90.9 fL Normal 80.0-100.0 [facility] Comment on above: Order Comment: Speci men Type: BLOOD SPECIMEN Ordering Facility: [facility] Address: [address] [place] [address] Performed By: #### 5 7021-8 #### [facility] CLIA [id number] [address] [place] [address] [place] Monocytes (Bld) [#/Vol] 0.73 10*3/uL Normal <0.87 [facility] Comment on above: Order Comment: Speci men Type: BLOOD SPECIMEN Ordering Facility: [facility] Address: [address] [place] [address] Performed By: #### 5 7021-8 #### [facility] CLIA [id number] [address] [place] [address] [place] Monocytes/100 WBC (Bld) 11.6 % Normal [facility] Comment on above: Order Comment: Speci men Type: BLOOD SPECIMEN Ordering Facility: [facility] Address: [address] [place] [address] Performed By: #### 5 7021-8 #### [facility] CLIA [id number] [address] [place] [address] [place] Neutrophils (Bld) [#/Vol] 3.37 10*3/uL Normal 1.45-7.5 0 [facility] Comment on above: Order Comment: Speci men Type: BLOOD SPECIMEN Ordering Facility: [facility] Address: [address] [place] [address] Performed By: #### 5 7021-8 #### [facility] CLIA [id number] [address] [place] [address] [place] Neutrophils/100 WBC (Bld) 53.7 % Normal [facility] Comment on above: Order Comment: Speci men Type: BLOOD SPECIMEN Ordering Facility: [facility] Address: [address] [place] [address] Performed By: #### 5 7021-8 #### [facility] CLIA [id number] [address] [place] [address] [place] Nucleated RBC (Bld) [#/Vol] 10*3/uL Normal <0.01 [facility] Comment on above: Order Comment: Speci men Type: BLOOD SPECIMEN Ordering Facility: [facility] Address: [address] [place] [address] Performed By: #### 5 7021-8 #### [facility] CLIA [id number] [address] [place] [address] [place] Nucleated RBC/100 WBC (Bld) [Ratio] 0.0 /100 WBC Normal [facility] Comment on above: Order Comment: Speci men Type: BLOOD SPECIMEN Ordering Facility: [facility] Address: [address] [place] [address] Performed By: #### 5 7021-8 #### [facility] CLIA [id number] [address] [place] [address] [place] Platelet mean volume (Bld) [Entitic vol] 10.2 fL Normal 9.0-12.7 [facility] Comment on above: Order Comment: Speci men Type: BLOOD SPECIMEN Ordering Facility: [facility] Address: [address] [place] [address] Performed By: #### 5 7021-8 #### [facility] CLIA [id number] [address] [place] [address] [place] Platelets (Bld) [#/Vol] 177 10*3/uL Normal 150-400 [facility] Comment on above: Order Comment: Speci men Type: BLOOD SPECIMEN Ordering Facility: [facility] Address: [address] [place] [address] Performed By: #### 5 7021-8 #### [facility] CLIA [id number] [address] [place] [address] [place] RBC (Bld) [#/Vol] 5.07 10*6/uL Normal 4.20-6.00 [facility] Comment on above: Order Comment: Speci men Type: BLOOD SPECIMEN Ordering Facility: [facility] Address: [address] [place] [address] Performed By: #### 5 7021-8 #### [facility] CLIA [id number] [address] [place] [address] [place] WBC (Bld) [#/Vol] 6.27 10*3/uL Normal 3.70-11.00 [facility] Comment on above: Order Comment: Speci men Type: BLOOD SPECIMEN Ordering Facility: [facility] Address: [address] [place] [address] Performed By: #### 5 7021-8 #### [facility] CLIA [id number] [address] [place] [address] [place] Comprehensive metabolic 2000 panelon 10-21-2024 Albumin [Mass/Vol] 4.4 g/dL Normal 3.9-4.9 [facility] Comment on above: Order Comment: Speci men Type: BLOOD SPECIMEN Ordering Facility: [facility] Address: [address] [place] [address] Performed By: #### 2 4323-8, 03755-6, 3016-3 #### [facility] CLIA [id number] [address] [place] [address] [place] ALP [Catalytic activity/Vol] 95 U/L Normal 38-113 [facility] Comment on above: Order Comment: Speci men Type: BLOOD SPECIMEN Ordering Facility: [facility] Address: [address] [place] [address] Performed By: #### 2 4323-8, 32926-6, 3016-3 #### [facility] CLIA [id number] [address] [place] [address] [place] ALT [Catalytic activity/Vol] 30 U/L Normal 10-54 [facility] Comment on above: Order Comment: Speci men Type: BLOOD SPECIMEN Ordering Facility: [facility] Address: [address] [place] [address] Performed By: #### 2 4323-8, 80513-9, 3015-3 #### [facility] CLIA [id number] [address] [place] [address] [place] Anion gap [Moles/Vol] 8 mmol/L Normal 8-15 [facility] Comment on above: Order Comment: Speci men Type: BLOOD SPECIMEN Ordering Facility: [facility] Address: [address] [place] [address] Performed By: #### 2 4323-8, 72438-9, 3015-3 #### [facility] CLIA [id number] [address] [place] [address] [place] AST [Catalytic activity/Vol] 29 U/L Normal 14-40 [facility] Comment on above: Order Comment: Speci men Type: BLOOD SPECIMEN Ordering Facility: [facility] Address: [address] [place] [address] Performed By: #### 2 4323-8, 74550-0, 3015-3 #### [facility] CLIA [id number] [address] [place] [address] [place] Bilirubin [Mass/Vol] 0.8 mg/dL Normal 0.2-1.3 [facility] Comment on above: Order Comment: Speci men Type: BLOOD SPECIMEN Ordering Facility: [facility] Address: [address] [place] [address] Performed By: #### 2 4323-8, 91196-4, 3015-3 #### [facility] CLIA [id number] [address] [place] [address] [place] Calcium [Mass/Vol] 9.5 mg/dL Normal 8.5-10.2 [facility] Comment on above: Order Comment: Speci men Type: BLOOD SPECIMEN Ordering Facility: [facility] Address: [address] [place] [address] Performed By: #### 2 4323-8, 20566-9, 3 #### [facility] CLIA [id number] [address] [place] [address] [place] Chloride [Moles/Vol] 104 mmol/L Normal 98-107 [facility] Comment on above: Order Comment: Speci men Type: BLOOD SPECIMEN Ordering Facility: [facility] Address: [address] [place] [address] Performed By: #### 2 4323-8, 64616-5, 3 #### [facility] CLIA [id number] [address] [place] [address] [place] CO2 [Moles/Vol] 27 mmol/L Normal 22-30 [facility] Comment on above: Order Comment: Speci men Type: BLOOD SPECIMEN Ordering Facility: [facility] Address: [address] [place] [address] Performed By: #### 2 4323-8, 87848-0, 3 #### [facility] CLIA [id number] [address] [place], [place] [address] [place] Creatinine [Mass/Vol] 0.98 mg/dL Normal 0.73-1.22 [facility] Comment on above: Order Comment: Speci men Type: BLOOD SPECIMEN Ordering Facility: [facility] Address: [address] [place] [address] Performed By: #### 2 4323-8, 34944-5, 3016-3 #### [facility] CLIA [id number] [address] [place] [address] [place] Creatinine and Glomerular filtration rate.predicted panel (S/P/Bld) 90 mL/min/1.73m??? Normal >=60 [facility] Comment on above: Order Comment: Shira argueta Type: BLOOD SPECIMEN Ordering Facility: [facility] Address: [address] [place] [address] Result Comment: Crista mated Glomerular Filtration Rate (eGFR) is calculated using the 2020 CKD-EPI creatinine equation. This equation utilizes serum creatinine, sex, and age as parameters. The creatinine assay has traceable calibration to isotope dilution-mass spectrometry. Refer to KDIGO guidelines for clinical interpretation. In patients with unstable renal function, e.g. those with acute kidney injury, the eGFR may not accurately reflect actual GFR. Performed By: #### 2 4323-8, 76703-5, 3016-3 #### [facility] CLIA [id number] [address] [place] [address] [place] Glucose [Mass/Vol] 91 mg/dL Normal 74-99 [facility] Comment on above: Order Comment: Shira argueta Type: BLOOD SPECIMEN Ordering Facility: [facility] Address: [address] [place] [address] Result Comment: The [place] Diabetes Association (ADA) provides guidance for cutoff values for fasting glucose and random glucose. The ADA defines fasting as no caloric intake for at least 8 hours. Fasting plasma glucose results between 100 to 125 mg/dL indicate increased risk for diabetes (prediabetes). Fasting plasma glucose results greater than or equal to 126 mg/dL meet the criteria for diagnosis of diabetes. In the absence of unequivocal hyperglycemia, results should be confirmed by repeat testing. In a patient with classic symptoms of hyperglycemia or hyperglycemic crisis, random plasma glucose results greater than or equal to 200 mg/dL meet the criteria for diagnosis of diabetes. Reference: Standards of Medical Care in Diabetes 2016, [place] Diabetes Association. Diabetes Care. 2016.39(Suppl 1). Performed By: #### 2 4323-8, 44229-5, 3016-3 #### [facility] CLIA [id number] [address] [place] [address] [place] Potassium [Moles/Vol] 4.4 mmol/L Normal 3.7-5.1 [facility] Comment on above: Order Comment: Speci men Type: BLOOD SPECIMEN Ordering Facility: [facility] Address: [address] [place], [place] [address] Performed By: #### 2 4323-8, 91547-1, 3015-3 #### [facility] CLIA [id number] [address] [place] [address] [place] Protein [Mass/Vol] 7.4 g/dL Normal 6.3-8.0 [facility] Comment on above: Order Comment: Speci men Type: BLOOD SPECIMEN Ordering Facility: [facility] Address: [address] [place], [place] [address] Performed By: #### 2 4323-8, 53728-9, 3015-3 #### [facility] CLIA [id number] [address] [place] [address] [place] Sodium [Moles/Vol] 139 mmol/L Normal 136-144 [facility] Comment on above: Order Comment: Speci men Type: BLOOD SPECIMEN Ordering Facility: [facility] Address: [address] [place] [address] Performed By: #### 2 4323-8, 09278-8, 6-3 #### [facility] CLIA [id number] [address] [place] [address] [place] Urea nitrogen [Mass/Vol] 12 mg/dL Normal 9-24 [facility] Comment on above: Order Comment: Speci men Type: BLOOD SPECIMEN Ordering Facility: [facility] Address: [address] [place] [address] Performed By: #### 2 4323-8, 14179-9, 3016-3 #### [facility] CLIA [id number] [address] [place] [address] [place] Lipid 1996 panelon 5 Cholesterol [Mass/Vol] 103 mg/dL Normal <200 [facility] Comment on above: Order Comment: Speci men Type: BLOOD SPECIMEN Ordering Facility: [facility] Address: [address] [place] [address] Result Comment: <200 mg/dL, Desirable 200-239 mg/dL, Borderline high >239 mg/dL, High Performed By: #### 2 4323-8, 28819-3, 3016-3 #### [facility] CLIA [id number] [address] [place] [address] [place] Cholesterol in HDL [Mass/Vol] 26 mg/dL Low >39 [facility] Comment on above: Order Comment: Speci men Type: BLOOD SPECIMEN Ordering Facility: [facility] Address: [address] [place] [address] Result Comment: 40-5 9 mg/dL, Acceptable >59 mg/dL, High: Negative risk factor for coronary heart disease <40 mg/dL, Low: Positive risk factor for coronary heart disease Performed By: #### 2 4323-8, 96945-1, 3016-3 #### [facility] CLIA [id number] [address] [place] [address] [place] Cholesterol in LDL [Mass/Vol] 59 mg/dL Normal <100 [facility] Comment on above: Order Comment: Speci men Type: BLOOD SPECIMEN Ordering Facility: [facility] Address: [address] [place] [address] Result Comment: <100 mg/dL, Optimal 100-129 mg/dL, Near optimal/above optimal 130-159 mg/dL, Borderline high 160-189 mg/dL, High >189 mg/dL, Very high Secondary prevention optimal LDL Cholesterol levels are recommended to be < 70 mg/dL Performed By: #### 2 4323-8, 12082-0, 3016-3 #### [facility] CLIA [id number] [address] [place] [address] [place] Cholesterol in LDL/Cholesterol in HDL [Mass ratio] 2.27 {ratio} Normal <2.54 [facility] Comment on above: Order Comment: Shira argueta Type: BLOOD SPECIMEN Ordering Facility: [facility] Address: [address] [place] [address] Result Comment: Edilma petersen: 1. National Cholesterol Education Program ATP III Guideline At-A-Glance Quick Desk Reference: National Heart, Lung, and Blood [place]. National Institutes of Health. 2001: NIH Publication No. 01-3305. 2. An International Atherosclerosis Society position paper: global recommendations for the management of dyslipidemia: executive summary, Atherosclerosis. 2014: 232(2):410-413. Performed By: #### 2 4323-8, 62640-9, 3016-3 #### [facility] CLIA [id number] [address] [place] [address] [place] Cholesterol in VLDL [Mass/Vol] 18 mg/dL Normal <30 [facility] Comment on above: Order Comment: Shira argueta Type: BLOOD SPECIMEN Ordering Facility: [facility] Address: [address] [place] [address] Performed By: #### 2 4323-8, 68735-3, 3016-3 #### [facility] CLIA [id number] [address] [place] [address] [place] Cholesterol non HDL [Mass/Vol] 77 mg/dL Normal <130 [facility] Comment on above: Order Comment: Shira argueta Type: BLOOD SPECIMEN Ordering Facility: [facility] Address: [address] [place] [address] Result Comment: <130 mg/dL, Optimal 130-159 mg/dL, Near optimal/above optimal 160-189 mg/dL, Borderline high 190-219 mg/dL, High >219 mg/dL, Very high Secondary prevention optimal non HDL Cholesterol levels are recommended to be <100 mg/dL Performed By: #### 2 4323-8, 42262-7, 3016-3 #### [facility] CLIA [id number] [address] [place] [address] [place] Cholesterol.total/Cholest kaitlynn in HDL [Mass ratio] 3.96 {ratio} Normal <5.10 [facility] Comment on above: Order Comment: Speci men Type: BLOOD SPECIMEN Ordering Facility: [facility] Address: [address] [place] [address] Performed By: #### 2 4323-8, 82541-9, 6-3 #### [facility] CLIA [id number] [address] [place] [address] [place] FASTING TIME 13 hrs Normal [facility] Comment on above: Order Comment: Speci men Type: BLOOD SPECIMEN Ordering Facility: [facility] Address: [address] [place] [address] Performed By: #### 2 4323-8, 10970-7, 6-3 #### [facility] CLIA [id number] [address] [place] [address] [place] Triglyceride [Mass/Vol] 91 mg/dL Normal <150 [facility] Comment on above: Order Comment: Speci men Type: BLOOD SPECIMEN Ordering Facility: [facility] Address: [address] [place] [address] Result Comment: <150 mg/dL, Normal 150-199 mg/dL, Borderline high 200-499 mg/dL, High >499 mg/dL, Very high Performed By: #### 2 4323-8, 97861-6, 6-3 #### [facility] CLIA [id number] [address] [place] [address] [place] TSH SerPl-aCncon 10-21-2024 TSH Qn 2.140 m[IU]/L Normal 0.270-4.200 [facility] Comment on above: Order Comment: Speci men Type: BLOOD SPECIMEN Ordering Facility: [facility] Address: [address] [place] [address] Performed By: #### 2 4323-8, 42509-0, 3016-3 #### [facility] CLIA [id number] [address] [place] [address] [place] [address] [place] Nova 10-19-2024 CNPN Telephone (FAMJonathanWS) ---- DEJAN LAZCANO ([id number]) 1965 M Date Time Provider Department 10/19/24 MOY PANIAGUA During your visit today, we recorded the following information about you: Dipika Spence, RN 10/19/2024 3:05 PM Signed Pt calling in and states he is having a problem getting his Lisinopril. States his contacted [facility] pharmacy and they told her he has no refills. He states his talked with his cardiology office [facility] and they said he should have a refill. Per med list, pt should have enough Lisinopril until November. Pt states he used to only get his Citalopram from Dr. Paniagua and Sarai Shah and then somehow now half of his heart meds are with the service specialist and some are from PCP office. He doesn't know which office to call when needs refills on his meds. He thought all of his BP, cholesterol and heart meds were started when he was in the hospital when he had a heart attack in 2019. It appears his service specialist was ordering his Lisinopril and his Atorvastatin but 06/2023 pt saw Sarai Shah and she sent in prescription renewals for both the Atorvastatin and Lisinopril. His Metoprolol and Isosorbide are still being prescribed by cardiology office. Pt would like all of his heart/BP meds to be prescribed by his service specialist so it is easier for him to remember who to call when he needs refills. He will call and confirm with their office that they will prescribe all of those meds. He states his Joana works for [employer] [employer] and will follow up. Called [facility] and pt has 69 Lisinopril tablets left from previous prescription. 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 Per last OV note with Dr. Paniagua in March, pt is due for annual exam. Pt booked with Sarai Podlogar for 10/30/24. Pt due for labwork. Orders pended. Note added to fax results to [facility] as well. Pt will come and get fasting labs drawn next week. Pt is also going to speak with [facility] about seeing them in the fall of 2024 to monitor heart and BP meds as he would like to see PCP once a year in the spring and service specialist once a year in the fall to cover every 6 months. He usually sees Cardiology in the spring as well. Moy Paniagua MD 10/20/2024 8:47 AM Signed Agree with having same provider managed chronic meds. Appropriate labs ordered as requested to be completed prior to physical. Kayla Layne [facility] 10/20/2024 9:43 AM Signed TC to patient who verbalized understanding of providers message below. Patient will have lab work completed prior to appointment. CARLY Canales Allergies As of Date: 10/19/2024 Noted Allergy Reaction CODEINE 02/17/2008 8 - GI Upset Comments: Severe vomiting Date Reviewed: 04/11/2024 Reviewed by: Lor Garcia LPN - Fully Assessed Reason for Visit: Medication Problem [65] Appointment [186] Orders [681] Primary Visit Diagnosis:Hyperlipi demia, unspecified hyperlipidemia type [E78.5] Other Visit Diagnoses:Primary hypertension [I10] Routine physical examination [Z00.00] Screening for prostate cancer [Z12.5] Order(s):LIPID PANEL BASIC [SQLIPB] Order #: [id number] FUTURE COMPREHENSIVE METABOLIC PANEL [SQCMP] Order #: [id number] FUTURE THYROID STIMULATING HORMONE [SQTSH] Order #: [id number] FUTURE COMPLETE BLOOD COUNT AND DIFFERENTIAL [SQCBCDIF] Order #: [id number] FUTURE Prescriptions as of 10/20/2024 - lisinopril (ZESTRIL) 5 mg tablet Take 1 tablet by mouth once daily. - citalopram (CELEXA) 40 mg tablet Take 1 tablet by mouth once daily. - atorvastatin (LIPITOR) 80 mg tablet Take 1 tablet by mouth daily at bedtime. - isosorbide mononitrate ER (IMDUR) 60 mg 24 hr tablet Take 1 tablet by mouth every afternoon. - metoprolol tartrate, short acting, (LOPRESSOR) 25 mg tablet Take 1 tablet by mouth once daily. - albuterol HFA (VENTOLIN HFA) 90 mcg/actuation inhaler Inhale 2 Puffs as instructed every 4 hours as needed for Wheezing/Shortness of Breath. - acetaminophen (TYLENOL) 500 mg tablet Take 1-2 tablets by mouth every 6 hours as needed. - aspirin 81 mg chewable tablet 1 tablet by ORAL/FEEDING TUBE route once daily. Problem List As Of Date 10/19/2024 Noted Resolved Asthma [J45.909] ALLERGIC RHINITIS NEC [J30.89] Coronary artery disease involving [place] ko*06/02/2020 NSTEMI (non-ST elevated myocardial infarction) *06/04/2020 06/10/2020 Pre-op testing [Z01.818] 06/04/2020 Stenosis of right carotid artery [I65.21] 06/06/2020 Hypertension [I10] 06/10/2020 Stress hyperglycemia [R73.9] 06/10/2020 06/13/2020 Respiratory acidosis [E87.29] 06/11/2020 06/13/2020 Post-op pain [G89.18] 06/11/2020 Encounter for support and coordination of trans*06/13/2020 Depression [F32.A] 04/11/2024 BEE on CPAP [G47.33] 04/11/2024 Encounter Status:Closed by STRAIT, GI (more content not included)... Normal [facility] Cardiology Visit Reporton Cardiology Visit Report [facility] [address] [place] [address] OFFICE VISIT Date of Service: 07/17/24 MR#: [id number] Acct: [id number] Name: DEJAN LAZCANO III Rep #: [id number] 13 : 1965 Provider: GRECIA Tovar Age/Sex: 59/M Location: [facility] Status: Signed HPI [facility] History of Present Illness Details: Dejan Lazcano is a 59-year-old white male who presents today for an outpatient cardiovascular follow-up based upon a history of underlying premature CAD resulting in RCA PTCA (no stent) and subsequent CABG performed at [facility] on 06-10-2020 with a report of a BENÍTEZ to the LAD, a CHARLIE to the OM 1, and a left radial artery to the PDA superimposed upon hyperlipidemia. I cannot find documentation this was a free CHARLIE. The patient was test in 2021 with radial artery graft to the right he had collaterals documented. BENÍTEZ and BENÍTEZ widely patent. Pt continues to have right sided chest discomfort, this is brought on by stress. It can last up to an hour, it depends on his stress. He is active and does not have any issues with activity. He has not needed to use any NTG. He does not have any palpitations. Sometimes he feels that it may beat harder. He does not have any worsening SOB. He does not have any claudication. 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 Is patient in pain?: No Allergies codeine Allergy (Unknown, Verified 07/17/24 11:14) Unknown Fish Containing Products Allergy (Verified 07/17/24 11:14) Hives shellfish derived Allergy (Verified 07/17/24 11:14) Hives Medications ???Medication ???Instructions ???Recorded ???Confirmed ???Type citalopram 40 mg tablet 40 mg PO DAILY Depression 06/01/20 07/17/24 History acetaminophen 500 mg tablet 500 mg PO Q6H PRN PRN Not Specified 08/06/20 07/17/24 History aspirin 81 mg tablet,delayed 81 mg PO DAILY 08/06/20 07/17/24 History release nitroglycerin 0.4 mg sublingual 0.4 mg sublingual Q5-15M PRN chest 01/19/22 07/17/24 Rx tablet (Nitrostat) pain #25 tabs atorvastatin 80 mg tablet 80 mg PO QHS #90 tabs 09/04/22 07/17/24 Rx lisinopril 5 mg tablet 5 mg PO DAILY #90 tabs 05/17/23 07/17/24 Rx isosorbide mononitrate 60 mg 60 mg PO DAILY #90 tabs 06/29/23 07/17/24 Rx tablet,extended release 24 hr metoprolol succinate 25 mg 25 mg PO QDAY #90 tabs 07/17/24 07/17/24 Rx tablet,extended release 24 hr Nurse's Note: patient does not know all of medications [facility] Medical History History of left heart catheterization (LHC) ( 02/10/22) HLD (hyperlipidemia) Essential hypertension Stenosis of right carotid artery Lung nodule INGUINAL HERNIA - RIGHT Atherosclerosis of coronary artery of [place] heart without angina pectoris Surgical History History of percutaneous transluminal coronary angioplasty ( 06/02/20) History of coronary artery bypass graft x 3 ( 06/10/20) Family History Mother Breast cancer Hypertension Father Hypertension Ischemic heart disease Grandfather CAD (coronary artery disease) Grandfather Ischemic heart disease Grandmother CVA (cerebral vascular accident) Social History Smoking Status: Never smoker alcohol intake: never substance use type: does not use caffeine: Yes ROS Const Const: Positive for fatigue ENT ENT: Positive for dizziness; Negative for balance problems Cardio Chest Pain: Yes Palpitations: No Edema: Bilateral Muscle aches with walking: None Resp Respiratory: Negative for SOB with activity, SOB at rest or SOB orthopnea SOB lying down GI GI: Negative nausea, vomiting or heartburn Musc Musc: Negative for muscle weakness or balance problems Neuro Neuro: Positive for dizziness; Negative for lightheadedness, near syncope or syncope Endo Endo: Positive for fatigue Supplemental Info Supplemental Information Stress test 01/2024: Negative treadmill sestamibi myocardial perfusion study for reversible myocardial ischemia Hyperdynamic left ventricle. Cardiac Catheterization 02/10/2022 CONCLUSIONS Elevated Left Ventricular End Diastolic Pressure (mild) Normal LV size, wall motion,and systolic function LVEF: by LV gram 55 % [place] Multivessel CAD BENÍTEZ to LAD: patent CHARLIE to OM1: patent Radial artery graft to RPDA: pro (more content not included)... Normal [facility] CNOVon 04-11-2024 CNOV Office Visit (FAMPWS) ---- DEJAN LAZCANO ([id number]) 1965 M Date Time Provider Department 04/11/24 4:40 PM [facility]AGUA [facility] During your visit today, we recorded the following information about you: Pulse Respiration Blood pressure Weight 68/minute 16/minute 108/64 93.4 kg Moy Paniagua MD 04/11/2024 6:26 PM Signed Chief Complaint Patient presents with: Follow Up: 6 month HPI Dejan Lazcano is a 58 year old male who presents here today for Above Complaints. Patient complaining of itchy rash on his right lower back which started about 4-5 days ago. Treating with calamine lotion which has taken away the itching today. Did travel to [place] and stayed in a hotel last week about 2 days before rash showed up. Has pets at home which have been treated with flea and tick medications. No plant contact, change in medication, lotion, detergents. Denies sick contacts, similar rash, pain, fever/chills, blistering. Gradually improving. Patient needs refill on citalopram for his history of depression. Working well to control his symptoms without side effects. CAD s/p CABG x3 in 2019 which is managed by [facility] cardiology. Last OV 2-3 months ago. Stress test obtained at the end of January which was negative. BEE on CPAP through pulmonology. Still has fatigue despite use. Has not contacted their office about this yet. Refusing additional workup for fatigue since symptoms have not changed since we la nena labs in June 2023. Past medical history, appointments, medications, allergies reviewed. Previous Medical History PAST MEDICAL HISTORY Diagnosis Date Allergic rhinitis due to other allergen Asthma History: Dx'd in elementary school; Mild, intermittent Assessment: Intubated Plan: WTE, add PRN albuterol CAD (coronary artery disease) 06/02/2020 3 vessel CAD, sp POBA RCA 06/01/20 Last dose Ticagrelor 06/02/20 Awaiting CABG evaluation w Dr Manjarrez 06/07/20 Unspecified asthma(493.90) Previous Surgical History PAST SURGICAL HISTORY Procedure Laterality Date CABG (3) VEIN GRAFTS AND ARTERIAL GRAFT(S) 05/2020 MIDLINE INSERTION/CONSULT 06/05/2020 PAST SURGICAL HISTORY OF 2004 inguinal hernia, right; [facility] Family History FAMILY HISTORY Problem Relation Age of Onset Breast Cancer Mother Hypertension Mother Hypertension Father Ischemic Heart Disease Father Coronary Artery Disease Paternal Grandfather age 72 Multiple Sclerosis Sister Ischemic Heart Disease Maternal Grandfather other (black lung) Maternal Grandfather other (CVA) Paternal Grandmother Patient Allergies ALLERGIES Allergen Reactions Codeine GI Upset Severe vomiting Current Medications Current Outpatient Medications on File Prior to Visit Medication Sig citalopram (CELEXA) 40 mg tablet Take 1 tablet by mouth once daily. atorvastatin (LIPITOR) 80 mg tablet Take 1 tablet by mouth daily at bedtime. metoprolol tartrate, short acting, (LOPRESSOR) 25 mg tablet Take 1 tablet by mouth once daily. albuterol HFA (VENTOLIN HFA) 90 mcg/actuation inhaler Inhale 2 Puffs as instructed every 4 hours as needed for Wheezing/Shortness of Breath. isosorbide mononitrate ER (IMDUR) 60 mg 24 hr tablet Take 1 tablet by mouth every afternoon. lisinopril (ZESTRIL) 5 mg tablet Take 1 tablet by mouth once daily. acetaminophen (TYLENOL) 500 mg tablet Take 1-2 tablets by mouth every 6 hours as needed. aspirin 81 mg chewable tablet 1 tablet by ORAL/FEEDING TUBE route once daily. (Patient taking differently: Take 81 mg by mouth once daily.) No current facility-administer ed medications on file prior to visit. Social History Social History Tobacco Use Smoking status: Never Smokeless tobacco: Never Vaping Use Vaping Use: Never used Substance Use Topics Alcohol use: No Drug use: No Review of Symptoms REVIEW OF SYSTEMS GENERAL: No weight loss, malaise or fevers RESPIRATORY: Negative for cough, hemoptysis, wheezing, COPD, dyspnea or shortness of breath CARDIOVASCULAR: Negative for chest pain, leg swelling, hypertension, CHF or palpitations GI: No nausea, vomiting, or diarrhea SKIN: See HPI EXAM: BP 108/64 Pulse 68 Resp 16 Wt 93.4 kg (206 lb) SpO2 95% BMI 27.18 kg/m? General Appearance: Well appearing, alert, in no acute distress, well-hydrated, well nourished.. Skin: clustered shingles rash on right lower back in L5 to S1 dermatome without radiation down his legs, vesicles, pustules, cellulitis or abscess. Non tender to palpation. Lungs: Lungs clear to auscultation. No wheezing, rhonchi, rales.. Heart: RRR without murmur, gallop, or rubs. No ectopy. Abdomen: Normal abdominal exam, Abdomen soft, non-tender. Bowel sounds normal. No masses, organomegaly. Extremities: No deformities, edema, skin discoloration, clubbing or cyanosis. Good capillary refill. Health Maintenance List Hepatitis C Screening Ne (more content not included)... Normal [facility] 03-22-2024 [facility] Telephone (FAMJonathanWS) ---- DEJAN LAZCANO ([id number]) 1965 M Date Time Provider Department 03/22/24 [facility]AGUA [facility] During your visit today, we recorded the following information about you: Allergies As of Date: 03/22/2024 Noted Allergy Reaction CODEINE 02/17/2008 8 - GI Upset Comments: Severe vomiting Date Reviewed: 10/11/2023 Reviewed by: Berna Gamboa MA - Fully Assessed Prescriptions as of 03/23/2024 - citalopram (CELEXA) 40 mg tablet Take 1 tablet by mouth once daily. - atorvastatin (LIPITOR) 80 mg tablet Take 1 tablet by mouth daily at bedtime. - isosorbide mononitrate ER (IMDUR) 60 mg 24 hr tablet Take 1 tablet by mouth every afternoon. - metoprolol tartrate, short acting, (LOPRESSOR) 25 mg tablet Take 1 tablet by mouth every 12 hours. - lisinopril (ZESTRIL) 5 mg tablet Take 1 tablet by mouth once daily. - albuterol HFA (VENTOLIN HFA) 90 mcg/actuation inhaler Inhale 2 Puffs as instructed every 4 hours as needed for Wheezing/Shortness of Breath. - acetaminophen (TYLENOL) 500 mg tablet Take 1-2 tablets by mouth every 6 hours as needed. - aspirin 81 mg chewable tablet 1 tablet by ORAL/FEEDING TUBE route once daily. Problem List As Of Date 03/22/2024 Noted Resolved Asthma [J45.909] ALLERGIC RHINITIS NEC [J30.89] Coronary artery disease involving chefornak ko*06/02/2020 NSTEMI (non-ST elevated myocardial infarction) *06/04/2020 06/10/2020 Pre-op testing [Z01.818] 06/04/2020 Stenosis of right carotid artery [I65.21] 06/06/2020 Hypertension [I10] 06/10/2020 Stress hyperglycemia [R73.9] 06/10/2020 06/13/2020 Respiratory acidosis [E87.29] 06/11/2020 06/13/2020 Post-op pain [G89.18] 06/11/2020 Encounter for support and coordination of trans*06/13/2020 Encounter Status:Closed by MOY PANIAGUA on 03/23/24 Normal [facility] Absolute lymphocyte counton 02-04-2022 Lymphocytes Auto (Unsp spec) [#/Vol] 2.22 10*3/uL 0.83-4.51 [facility] Work Phone: Basophil percentageon 2021 Basophils/100 WBC (Bld) 0.8 % 0-1 [facility] Work Phone: Chloride [Moles/Vol] 108 mmol/L 98-107 [facility]: Eosinophils/100 WBC (Bld) 2.8 % 0-5 [facility] Work Phone: Glucose [Mass/Vol] 83 mg/dL 74-106 [facility] Work Phone: Neutrophils (Bld) [#/Vol] 4.2 10*3/uL 2.0-7.7 [facility] Work Phone: Neutrophils/100 WBC (Bld) 57.3 % 47-70 [facility] Work Phone: Potassium [Moles/Vol] 4.2 mmol/L 3.5-5.1 [facility] Work Phone: Comment on above: Slight Hemolysis, Re sult may be falsely increased. Sodium [Moles/Vol] 143 mmol/L 136-145 [facility] Work Phone: WBC (Bld) [#/Vol] 7.4 10*3/uL 4.4-11.0 [facility] Work Phone: Blood erythrocytes count (nu mber/volume)on 02-04-2022 RBC (Bld) [#/Vol] 4.61 10*6/uL 4.6-6.2 [facility] Work Phone: Blood hemoglobin measurement (mass/volume)on 02-04-2022 Hemoglobin (Bld) [Mass/Vol] 14.7 g/dL 13.0-16.5 [facility] Work Phone: Blood lymphocytes/100 leukoc yteson 02-04-2022 Lymphocytes/100 WBC (Bld) 30.0 % 19-41 [facility] Work Phone: Blood monocytes/100 leukocyt eson 02-04-2022 Monocytes/100 WBC (Bld) 8.8 % 0-10 [facility] Work Phone: [phone] Blood platelet mean volumeon 02-04-2022 Platelet mean volume (Bld) [Entitic vol] 9.3 fL 6.2-12.0 [facility] Work Phone: Determination of erythrocyte mean corpuscular volume (MCV)on 02-04-2022 MCV (RBC) [Entitic vol] 92.0 fL 80-94 [facility] Work Phone: Hematocrit Auto (Bld) [Volum e fraction]on 02-04-2022 Hematocrit (Bld) [Volume fraction] 42.4 % 40-54 [facility] Work Phone: INR in Blood by Coagulation assayon 02-04-2022 INR Coag (Bld) [Relative time] 1.0 {INR} [facility] Work Phone: Laboratory - Chemistry and C hemistry - challengeon 02-04-2022 CO2 [Moles/Vol] 32.0 mmol/L 21.0-32.0 [facility] Work Phone: Urea nitrogen/Creatinine [Mass ratio] 18.4 mg/mg 10-20 [facility] Work Phone: Laboratory - Coagulationon 0 02-04-2022 aPTT Coag (Bld) [Time] 31.0 s 24.1-36.2 [facility] Work Phone: PT Coag (PPP) [Time] 12.7 s 11.7-14.[address] [facility] Work Phone: Laboratory - Hematology and Cell countson 02-04-2022 Erythrocyte distribution width (RBC) [Entitic vol] 40.4 fL 35.1-43.9 [facility] Work Phone: Erythrocyte distribution width (RBC) [Ratio] 12.2 % 11.6-14.6 [facility] Work Phone: Immature granulocytes/100 WBC (Bld) 0.300 % 0.0-0.9 [facility] Work Phone: Comment on above: IG% - Immature Granu locytes (promyelocytes, myelocytes and metamyelocytes) > 1% indicates that a LEFT SHIFT is Present. MCH (RBC) [Entitic mass] 31.9 pg 27.0-32.0 [facility] Work Phone: Nucleated RBC/100 WBC (Bld) [Ratio] 0 % 0-5 [facility] Work Phone: MCHC Auto (RBC) [Mass/Vol]on 02-04-2022 MCHC (RBC) [Mass/Vol] 34.7 g/dL 32-36 [facility] Work Phone: No Panel Informationon 02-04 Estimated GFR (MDRD) Amer 97 mL/min >60 [facility] Work Phone: Comment on above: GFR Calc Estimated GFR (MDRD) Non-Af Amer 80 mL/min >60 [facility] Work Phone: Comment on above: Non- GFR Calc Platelets bldon 02-04-2022 Platelets (Bld) [#/Vol] 221 10*3/uL 150-450 [facility] Work Phone: Serum or plasma calcium sheryl urement (mass/volume)on 02-04-2022 Calcium [Mass/Vol] 9.1 mg/dL 8.5-10.1 [facility] Work Phone: Serum or plasma creatinine m easurement (mass/volume)on 02-04-2022 Creatinine [Mass/Vol] 1.03 mg/dL 0.70-1.30 [facility] Work Phone: Comment on above: The validity of the calculated GFR & GFRAA in patients over 70 years has not been determined. Clinical correlation is essential. Serum or plasma urea nitroge n measurement (mass/volume)on 02-04-2022 Urea nitrogen [Mass/Vol] 19 mg/dL 7-18 [facility] Work Phone: Thin prep Papanicolaou smear with manual screeningon 02-04-2022 Thin prep Papanicolaou smear with manual screening 3 5-15 [facility] Work Phone: Vital Signs Date Time Vital Sign Value Performing Clinician Gunner gallego 05-21-2025 13:13-0400 Body height 187.[address] Mike Paniagua MD Work Phone: [facility] 05-21-2025 10:34-0400 Body mass index (BMI) [Ratio] 27.8 kg/m2 Dr. Mike Paniagua MD Work Phone: [facility] 05-21-2025 10:34-0400 Body weight 98.[address] Mike Paniagua MD Work Phone: [phone] [address] 05-21-2025 10:34-0400 Diastolic blood pressure 79 mm[Hg] Dr. Mike Paniagua MD Work Phone: [facility] 05-21-2025 10:34-0400 Heart rate 67 /min Dr. Mike Paniagua MD Work Phone: [phone] [place] [address] 05-21-2025 10:34-0400 Respiratory rate 18 /min Dr. Mike Paniagua MD Work Phone: [facility] 05-21-2025 10:34-0400 SaO2% (BldA) [Mass fraction] 97 % Dr. Mike Paniagua MD Work Phone: [facility] 05-21-2025 10:34-0400 Systolic blood pressure 125 mm[Hg] Dr. Mike Paniagua MD Work Phone: [facility] 12-15-2024 07:52-0400 Body mass index (BMI) [Ratio] 28.18 kg/m2 Moy Paniagua MD Work Phone: [facility] 12-15-2024 07:52-0400 Body weight 96.89 kg Moy Paniagua MD Work Phone: [facility] 12-15-2024 07:52-0400 Diastolic blood pressure 82 mm[Hg] Moy Paniagua MD Work Phone: [facility] 12-15-2024 07:52-0400 Heart rate 66 /min Moy Paniagua MD Work Phone: [facility] 12-15-2024 07:52-0400 Respiratory rate 16 /min Moy Paniagua MD Work Phone: [facility] 12-15-2024 07:52-0400 SaO2% (BldA) [Mass fraction] 97 % Moy Paniagua MD Work Phone: [facility] 12-15-2024 07:52-0400 Systolic blood pressure 114 mm[Hg] Moy Paniagua MD Work Phone: [facility] 04-11-2024 16:36-0400 Body mass index (BMI) [Ratio] 27.18 kg/m2 Moy Paniagua MD Work Phone: [facility] 04-11-2024 16:36-0400 Body weight 93.44 kg Moy Paniagua MD Work Phone: [facility] 04-11-2024 16:36-0400 Diastolic blood pressure 64 mm[Hg] Moy Paniagua MD Work Phone: [facility] 04-11-2024 16:36-0400 Heart rate 68 /min Moy Paniagua MD Work Phone: [facility] 04-11-2024 16:36-0400 Respiratory rate 16 /min Moy Paniagua MD Work Phone: [facility] 04-11-2024 16:36-0400 SaO2% (BldA) [Mass fraction] 95 % Moy Paniagua MD Work Phone: [facility] 04-11-2024 16:36-0400 Systolic blood pressure 108 mm[Hg] Moy Paniagua MD Work Phone: [facility] 08-27-2023 07:28-0500 Body weight 94.89 kg Sarai Shah DIRECTOR ENVIRONMENTAL.SUPER[employer]OR [employer] Work Phone: [facility] 08-27-2023 07:28-0500 Diastolic blood pressure 82 mm[Hg] Sarai Podlogar DIRECTOR ENVIRONMENTAL.SUPER[employer]OR [employer] Work Phone: [facility] 08-27-2023 07:28-0500 Heart rate 58 /min Sarai Podlogar DIRECTOR ENVIRONMENTAL.SUPER[employer]OR [employer] Work Phone: [facility] 08-27-2023 07:28-0500 Respiratory rate 16 /min Sarai Podlogar DIRECTOR ENVIRONMENTAL.SUPER[employer]OR [employer] Work Phone: [facility] 08-27-2023 07:28-0500 SaO2% (BldA) [Mass fraction] 93 % Sarai Podlogar DIRECTOR ENVIRONMENTAL.SUPER[employer]OR [employer] Work Phone: [facility] 08-27-2023 07:28-0500 Systolic blood pressure 124 mm[Hg] Sarai Podlogar DIRECTOR ENVIRONMENTAL.SUPER[employer]OR [employer] Work Phone: [facility] 11-06-2022 11:32-0500 Body height 187.[address] Mike Paniagua Work Phone: [facility] 11-06-2022 11:32-0500 Body mass index (BMI) [Ratio] 25.7 kg/m2 Dr. Mike Paniagua Work Phone: [phone] [place] [address] 11-06-2022 11:32-0500 Body weight 90.[address] Mike Paniagua Work Phone: [facility] 11-06-2022 11:32-0500 Diastolic blood pressure 80 mm[Hg] Dr. Mike Paniagua Work Phone: [facility] 11-06-2022 11:32-0500 Heart rate 56 /min Dr. Mike Paniagua Work Phone: [facility] 11-06-2022 11:32-0500 Respiratory rate 16 /min Dr. Mike Paniagua Work Phone: [facility] 11-06-2022 11:32-0500 Systolic blood pressure 122 mm[Hg] Dr. Mike Paniagua Work Phone: [facility] 02-10-2022 08:50-0400 Body height 187.[address] Mike Paniagua Work Phone: [facility] Work Phone: 02-10-2022 08:50-0400 Body weight 89.[address] Mike Paniagua Work Phone: [facility] Work Phone: 02-09-2022 09:48-0400 Body mass index (BMI) [Ratio] 25.2 kg/m2 Dr. Mike Paniagua Work Phone: [facility] Work Phone: 11-19-2021 14:21-0500 Body mass index (BMI) [Ratio] 25.2 kg/m2 Dr. Mike Paniagua Work Phone: [facility] Work Phone: 11-19-2021 14:21-0500 Body weight 89.[address] Mike Paniagua Work Phone: [facility] Work Phone: 11-19-2021 14:21-0500 Diastolic blood pressure 73 mm[Hg] Dr. Mike Paniagua Work Phone: [facility] Work Phone: 11-19-2021 14:21-0500 Heart rate 74 /min Dr. Mike Paniagua Work Phone: [facility] Work Phone: 11-19-2021 14:21-0500 Respiratory rate 16 /min Dr. Mike Paniagua Work Phone: [facility] Work Phone: 11-19-2021 14:21-0500 Systolic blood pressure 115 mm[Hg] Dr. Mike Paniagua Work Phone: [facility] Work Phone: Encounters Encounter Date Encounter Type Care Provider Facility Start: 06-22-2025 ambulatory Mike Martino lity:[facility] Start: 05-21-2025 End: 05-21-2025 Patient encounter procedure Sandhya García [facility]AMP[facility] AIDE-C [facility] Work Phone: Start: 05-21-2025 End: 05-21-[address] Mike Paniagua MD Work Phone: [facility] Start: 05-21-2025 End: 05-21-2025 ambulatory Sandhya García NP Facility:[facility] Start: 03-26-2025 End: 03-27-2025 Refill Moy Paniagua MD Work Phone: [address] [place] [address] Comment on above: Refill Request Start: 01-09-2025 End: 01-09-2025 Refill Moy Paniagua MD Work Phone: [facility] Comment on above: Refill Request Start: 12-25-2024 End: 12-26-2024 Refill Moy Paniagua MD Work Phone: [facility] Comment on above: Refill Request Start: 12-15-2024 End: 12-15-2024 ambulatory MOY PANIAGUA Facility:[facility] Start: 12-15-2024 End: 12-15-2024 Patient encounter procedure Moy Paniagua MD Work Phone: [facility] Comment on above: Annual physical exam (Primary Dx); 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); Primary hypertension; Hyperlipidemia, unspecified hyperlipidemia type; BEE on CPAP; Screening for colon cancer; Major depressive disorder with current active episode, unspecified depression episode severity, unspecified whether recurrent Start: 12-09-2024 End: 12-11-2024 Refill Sarai Shah APRN.CNP Work Phone: [facility] Comment on above: Refill Request Start: 12-07-2024 End: 12-11-2024 Refill Moy Paniagua MD Work Phone: [facility] Comment on above: Refill Request Start: 11-07-2024 End: 11-07-2024 Refill Moy Paniagua MD Work Phone: [address] [place] [address] Comment on above: Refill Request Start: 10-30-2024 End: 10-30-2024 Telephone encounter Sarai Shah APRN.CNP Work Phone: [facility] Comment on above: Results Start: 10-21-2024 End: 10-21-2024 ambulatory MOY PANIAGUA Facility:[facility] Start: 10-21-2024 Physical examination MOY GRIDER [facility] Start: 10-19-2024 End: 10-20-2024 Physical examination Moy Paniagua MD Work Phone: [facility] Start: 10-19-2024 End: 10-20-2024 Telephone encounter Moy Paniagua MD Work Phone: [facility] Comment on above: Medication Problem; Appointment; Orders Start: 10-17-2024 End: 10-18-2024 Refill Moy Paniagua MD Work Phone: [facility] Comment on above: Refill Request Start: 07-17-2024 End: 07-17-2024 ambulatory Mike Paniagua Facility:[facility] Start: 06-19-2024 End: 06-19-2024 Refill Moy Paniagua MD Work Phone: [facility] Comment on above: Refill Request Start: 04-11-2024 End: 04-11-2024 Patient encounter procedure Moy Paniagua MD Work Phone: [facility] Comment on above: Herpes zoster withou t complication (Primary Dx); Major depressive disorder with current active episode, unspecified depression episode severity, unspecified whether recurrent; Primary hypertension; Coronary artery disease involving chefornak coronary artery of chefornak heart with unstable angina pectoris (HCC); BEE on CPAP Start: 04-11-2024 End: 04-11-2024 ambulatory MOY PANIAGUA Facility:[facility] Start: 03-22-2024 Telephone encounter Mike Paniagua MD Work Phone: [facility] Start: 03-20-2024 Refill Moy Paniagua MD Work Phone: [facility] Comment on above: Refill Request Start: 02-28-2024 Refill Moy Paniagua MD Work Phone: [facility] Start: 08-27-2023 End: 08-27-2023 Patient encounter procedure Sarai Alyssa AGUIRRESUPERVISOR TREE TRIMMING Work Phone: [facility] Comment on above: Fatigue, unspecified type (Primary Dx) Start: 11-20-2022 End: 11-20-[address] Mike Paniagua Work Phone: [facility] Work Phone: Start: 11-20-2022 End: 11-20-[address] Mike Paniagua Work Phone: [facility] Start: 11-06-2022 End: 11-06-[address] Mike Paniagua Work Phone: [facility] Start: 02-10-2022 End: 02-10-2022 Admission to same day surgery center Dr. Mike Paniagua Work Phone: [facility] Director/Special Procedures Start: 02-09-2022 Non-patient / Non-visit Dr. Samy Paniagua Work Phone: [facility] Start: 01-19-[address] Dariana Paniagua Work Phone: [facility] Start: 01-13-2022 Non-patient / Non-visit Dr. Samy Paniagua Work Phone: [facility] Start: 01-13-2022 End: 01-13-[address] Mike Paniagua Work Phone: [facility] Start: 11-19-2021 End: 11-19-[address] Mike Paniagua Work Phone: [facility] Start: 06-09-2020 Patient encounter status Sarai Shah DIRECTOR ENVIRONMENTAL.SUPERVISOR [employer] Work Phone: [facility] Work Phone: Procedures Date Procedure Procedure Detail Performing Clinician Start: 10-21-2024 Lipid 1996 panel - Serum or Plasma Sarai Hammerloggloria DIRECTOR ENVIRONMENTAL.SUPER[employer]OR [employer] Work Phone: Start: 06-28-2023 Lipid 1996 panel - Serum or Plasma Sarai Hammerloggloria DIRECTOR ENVIRONMENTAL.SUPER[employer]OR [employer] Work Phone: Start: 02-04-2022 Plain chest X-ray Dr. Dariana Paniagua Work Phone: Start: 01-13-2022 Radionuclide imaging of perfusion of myocardium under exercise stress Dr. Mike Paniagua Work Phone: Start: 05-28-2020 History of coronary artery bypass grafting History of coronary artery bypass graft x 3 Sandhya HALEY Comment on above: BENÍTEZ in situ mammary end to side distal LAD; CHARLIE in situ mammary end to side OM1; Left radial artery ascending aorta end to side PDA 06/10/20 @ [facility] Dr. 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 Start: 05-28-2020 History of percutane ous transluminal coronary angioplasty History of percutaneous transluminal coronary angioplasty Sandhya HALEY Comment on above: Successful PTCA alvino e of mRCA 06/02/20 Plan of Treatment Date Care Activity Detail Author Start: 11-12-2031 Urine microalbumin profile DTaP,Tdap,Td Vaccine (3 - Td or Tdap) [facility] Start: 10-21-2029 Lipid panel Lipid Screening [facility] Start: 06-28-2028 Lipid 1996 panel - Serum or Plasma Lipid Screening [facility] Start: 06-28-2028 Lipid panel Lipid Screening [facility] Start: 10-21-2027 Diabetes Screening Diabetes Screenin [facility] Start: 06-28-2026 Diabetes Screening Diabetes Screenin [facility] Start: 12-15-2025 Annual PCP Team Lab Aide ignacio Disease Visit Annual PCP Team Chronic Disease Visit [facility] Start: 12-15-2025 Covid-19 Vaccine ( season) Covid-19 Vaccine ( season) [facility] Comment on above: Postponed from 05/28 (Declined at this time) Start: 12-15-2025 Hepatitis B Vaccine (1 of 3 - 19+ 3-dose series) Hepatitis B Vaccine (1 of 3 - 19+ 3-dose series) [facility] Comment on above: Postponed from 05/20 (Declined at this time) Start: 12-15-2025 Pneumococcal Vaccine : 50+ (1 of 2 - PCV) Pneumococcal Vaccine: 50+ (1 of 2 - PCV) [facility] Comment on above: Postponed from 05/20 (Declined at this time) Start: 10-21-2025 Hepatitis B surface antibody level LDL Cholesterol [facility] Start: 05-28-2025 Influenza vaccination Influenza Vacc ine (#1) [facility] Start: 05-21-2025 Evaluation of diagnostic study results [facility] Start: 04-11-2025 Annual PCP Team Lab Aide ignacio Disease Visit Annual PCP Team Chronic Disease Visit [facility] Start: 04-11-2025 BP Controlled (<130/80) BP Controlle d (<130/80) [facility] Start: 04-11-2025 Covid-19 Vaccine ( season) Covid-19 Vaccine ( season) [facility] Comment on above: Postponed from 05/28 (Declined at this time) Start: 04-11-2025 Shingrix Vaccine (1 of 2) Shingrix Vaccine (1 of 2) [facility] Comment on above: Postponed from 05/20 (Declined at this time) Start: 03-26-2025 Influenza vaccination Influenza Vacc ine (#1) [facility] Comment on above: Postponed from 05/28 (Declined at this time) Start: 10-30-2024 End: 10-30-2024 Patient encounter procedure 10/30/2024 2:20 PM EST Office Visit [facility] [place] [address] [place] [id number] Sarai Shah APRN.SUPERVISOR [employer] [address] [place] [address] annual physical [facility] Comment on above: annual physical Start: 10-20-2024 End: 01-19-2025 CBC W Auto Differential panel - Blood COMPLETE BLOOD COUNT AND DIFFERENTIAL Lab Routine Routine physical examination Expected: 10/20/2024, Expires: 01/19/2025 [facility] Comment on above: Expected: 10/20/2024 , Expires: 01/19/2025 Start: 10-20-2024 End: 01-19-2025 Comprehensive metabolic 2000 panel - Serum or Plasma COMPREHENSIVE METABOLIC PANEL Lab Routine Hyperlipidemia, unspecified hyperlipidemia type Primary hypertension Routine physical examination Expected: 10/20/2024, Expires: 01/19/2025 [facility] Comment on above: Expected: 10/20/2024 , Expires: 01/19/2025 Start: 10-20-2024 End: 01-19-2025 Lipid 1996 panel - Serum or Plasma LIPID PANEL BASIC Lab Routine Hyperlipidemia, unspecified hyperlipidemia type Routine physical examination Expected: 10/20/2024, Expires: 01/19/2025 [facility] Work Phone: Comment on above: Expected: 10/20/2024 , Expires: 01/19/2025 Start: 10-20-2024 End: 01-19-2025 Thyrotropin [Units/volume] in Serum or Plasma THYROID STIMULATING HORMONE Lab Routine Routine physical examination Expected: 10/20/2024, Expires: 01/19/2025 [facility] Comment on above: Expected: 10/20/2024 , Expires: 01/19/2025 Start: 10-11-2024 BP Controlled (<130/80) BP Controlle d (<130/80) [facility] Start: 08-27-2024 Annual PCP Team Lab Aide ignacio Disease Visit Annual PCP Team Chronic Disease Visit [facility] Start: 06-28-2024 Hepatitis B surface antibody level LDL Cholesterol [facility] Start: 05-28-2024 Covid-19 Vaccine () Covid-19 Vaccine () [facility] Start: 05-28-2024 Influenza vaccination [facility] Start: 04-11-2024 End: 04-11-2024 Patient encounter procedure 04/11/2024 4:40 PM EDT Office Visit [facility] [address] [place] [address] Moy Paniagua MD [address] [place] [address] 6 month follow up Family [facility] Comment on above: 6 month follow up Start: 03-26-2024 Influenza vaccination Influenza Vacc ine (#1) [facility] Comment on above: Postponed from 05/28 (Declined at this time) Start: 09-27-2023 Behavioral Health Screening Behavioral Health Screening [facility] Start: 05-28-2023 Covid-19 Vaccine ( season) Covid-19 Vaccine () [facility] Start: 09-27-2022 Depression Assessment Depression Ass essment [facility] Start: 2022 Prostate Cancer Screening Discussion Prostate Cancer Screening Discussion [facility] Start: 2022 Prostate specific antigen measurement Prostate Cancer Screening Discussion [facility] Start: 2017 Pneumococcal Vaccine : 50+ (1 of 1 - PCV) Pneumococcal Vaccine: 50+ (1 of 1 - PCV) [facility] Start: 2017 Shingrix Vaccine (1 of 2) Shingrix Vaccine (1 of 2) [facility] Start: 2012 Cologuard (FIT-DNA) Cologuard (FIT-D NA) [facility] Start: 2012 Colonoscopy Colonoscopy [facility] Start: 2012 Colorectal Cancer Screening Colorectal Cancer Screening [facility] Start: [address] Colonography [facility] Start: 2012 Fecal Occult Blood Fecal Occult Bloo d [facility] Start: 2012 Prostate specific antigen measurement Prostate Cancer Screening Discussion [facility] Start: 2012 Screening for malign ant neoplasm of colon [facility] Start: 2012 Sigmoidoscopy Sigmoidoscopy [facility] Start: 1986 Hepatitis B Vaccine (1 of 3 - 19+ 3-dose series) Hepatitis B Vaccine (1 of 3 - 19+ 3-dose series) [facility] Start: 1985 Anxiety Screening Anxiety Screening [facility] Start: 1985 BP Controlled (<130/80) BP Controlle d (<130/80) [facility] Start: 1985 Hepatitis C Screening Hepatitis C [facility] Start: 1985 Hepatitis C screening Hepatitis C [facility] Start: 1985 HIV Screening HIV Screening [facility] Start: 1985 HIV screening HIV Screening [facility] Start: 1973 Pneumococcal vaccination Pneumococcal Vaccine (1 - PCV) [facility] Start: 1967 Hepatitis B Vaccine (1 of 3 - 3-dose series) Hepatitis B Vaccine (1 of 3 - 3-dose series) [facility] Basic metabolic 2008 panel with ionized calcium - Serum or Plasma [facility] CBC W Auto Different ial panel - Blood [facility] Natriuretic peptide. B prohormone N-Terminal [Mass/volume] in Serum or Plasma [facility] Radionuclide imaging of perfusion of myocardium under exercise stress [facility] Thyroid stimulating hormone measurement [facility] Immunizations Immunization Date Immunization Notes Care Provider Fa cility 11-12-2021 Seasonal, quadrivalent, recombinant, injectable influenza vaccine, preservative free Moy Paniagua MD Work Phone: [facility] 11-12-2021 tetanus toxoid, reduced diphtheria toxoid, and acellular pertussis vaccine, adsorbed Moy Paniagua MD Work Phone: [facility] 11-12-2021 influenza virus vaccine, unspecified formulation Sarai Hammerloggloria DIRECTOR ENVIRONMENTAL.[employer]PER[employer]OR [employer] Work Phone: [facility] 07-22-2020 influenza, injectabl e, quadrivalent, contains preservative Sarai Podlogar DIRECTOR ENVIRONMENTAL.[employer]OR [employer] Work Phone: [facility] 05-13-2019 tetanus toxoid, reduced diphtheria toxoid, and acellular pertussis vaccine, adsorbed Dr. Mike Paniagua Work Phone: [facility] 09-11-2009 novel [id number], preservative-free, injectable Sarai Podlogar DIRECTOR ENVIRONMENTAL.[employer]OR [employer] Work Phone: [facility] 08-13-2009 novel [id number], preservative-free, injectable Sarai Podlogar DIRECTOR ENVIRONMENTAL.[employer] Work Phone: [facility] 09-02-2002 measles, mumps and rubella virus vaccine Sarai Podlogar DIRECTOR ENVIRONMENTAL.SUPER[employer]OR [employer] Work Phone: [facility] NEGATED: Highlighted row has not occurred!06-16-2020 pneumococcal polysaccharide vaccine, 23 valent Sarai Podlogar DIRECTOR ENVIRONMENTAL.[employer]PER[employer]OR [employer] Work Phone: [facility] Comment on above: Deferred: Patient Re fused Payers Date Payer Category Payer Self-pay [id number] 2020 [employer] BLUE CARD PPO OOS [id number] 2020 Unknown [employer] BLUE CARD PPO OOS [id number] 2020-Present [phone] [place], [place] [id number] PPO [id number] 2012 Unknown [id number] Unknown [facility] PACKAGE PLAN [id number] Unknown [id number] Unknown [id number] Unknown [id number] Unknown [id number] Social History Date Type Detail Facility Start: 02-10-2022 End: 11-06-2022 Tobacco smoking status NHIS Unknown if ever smoked [facility] Start: 06-01-2020 None [facility] Start: 06-01-2020 Spouse/ Significant Other [facility] Start: 06-01-2020 Non-smoker [facility] Start: 1965 Sex Assigned At Male [facility] Start: 12-24-2022 End: 06-28-2023 Tobacco smoking status NHIS Never smoked tobacco [facility] Start: 06-28-2023 Tobacco use and exposure Smokeless tobacco non-user [facility] Start: 08-27-2023 End: 12-15-2024 Alcohol intake Current non-drinker of alcohol (finding) [facility] Start: 08-27-2023 End: 04-11-2024 History of Social function [facility] ignacio Work Phone: Start: 08-27-2023 End: 04-11-2024 Tobacco use panel [facility] Work Phone: (I/We) worried wheth er (my/our) food would run out before (I/we) got money to buy more. Never true [facility] Work Phone: In the past 12 month s, has lack of transportation kept you from medical appointments or from getting medications? No [facility] Work Phone: Start: 1965 Sex Assigned At Not on file [facility] Functional Status Date Assessment Result Facility 06-16-2020 Are you deaf, or do you have serious difficulty hearing No 06/16/2020 1:10 PM Denny Noyola RN No [facility] 06-16-2020 Are you blind, or do you have serious difficulty seeing, even when wearing glasses No 06/16/2020 1:10 PM EDT Denny Vera RN No [facility] 06-16-2020 Do you have serious difficulty walking or climbing stairs No 06/16/2020 1:10 PM EDT Denny Vera RN No [facility] 06-16-2020 Do you have difficul ty dressing or bathing No 06/16/2020 1:10 PM EDT Denny Vera RN No [facility] 06-16-2020 Because of a physica l, mental, or emotional condition, do you have difficulty doing errands alone such as visiting a physician's office or shopping No 06/16/2020 1:10 PM EDT Denny Vera RN No [facility] Mental Status Date Assessment Result Facility 06-16-2020 Because of a physica l, mental, or emotional condition, do you have serious difficulty concentrating, remembering, or making decisions No 06/16/2020 1:10 PM EDT Denny Vera RN No [facility] Clinical Notes 05-28-2020 to 05-21-2025 Note Date & Type Note Facility 05-21-2025 Evaluation note Diagnosis Onset Date Resolution Dyspnea on exertion acute Augus t 2024 1:00pm History of percutaneous transluminal coronary angioplasty May, acute May 21, 2025 1:00pm Essential hypertension chronic May 21, 2025 1:00pm History of coronary artery bypass graft x 3 May, chronic May 21, 2025 1:00pm HLD (hyperlipidemia) chronic May 21, 2025 1:00pm [facility] Work Phone: 1(116) 871-459106-30-2025 Telephone encounter Note* Telephone Encounter - Baldomero Rosas LPN - 03/26/2025 7:18 PM EDT Isosorbide Mononitrate ER 60mg is rx'd by Cardiology. Per Pharm dispense report, a 90 day supply was most recently dispensed on 02/21/25. Pt needs to contact Cardiology ([facility]) for medication. Lisinopril 5mg was written 12/26/24 #90 with 1 refill. Pt is not due for refill. Request for Citalopram 40mg has been forwarded to provider for further review. Baldomero Rosas LPN [facility]06-30-2025 Miscellaneous Notes* Telephone Encounter - Baldomero Rosas LPN - 03/26/2025 7:18 PM EDT Isosorbide Mononitrate ER 60mg is rx'd by Cardiology. Per Pharm dispense report, a 90 day supply was most recently dispensed on 02/21/25. Pt needs to contact Cardiology ([facility]) for medication. Lisinopril 5mg was written 12/26/24 #90 with 1 refill. Pt is not due for refill. Request for Citalopram 40mg has been forwarded to provider for further review. Baldomero Rosas LPN * Telephone Encounter - Sherice Garcia - 03/26/2025 12:37 PM EDT Prescription Refill Information The patient has been identified by name and date of : Yes Caregiver verified no other encounters exist for this prescription request: Yes Caregiver confirmed with patient/requestor that no other refills are due, in the near future, with this provider at this time: Yes The last office visit in the department: 12/15/24 Does the patient have a future office visit with this provider/department:No Requested Prescriptions Pending Prescriptions Disp Refills isosorbide mononitrate ER (IMDUR) 60 mg 24 hr tablet 90 tablet Sig: Take 1 tablet by mouth every afternoon. lisinopril (ZESTRIL) 5 mg tablet 90 tablet 1 Sig: Take 1 tablet by mouth once daily. citalopram (CELEXA) 40 mg tablet 90 tablet 1 Sig: Take 1 tablet by mouth once daily. Sherice Garcia March 26, 2025 12:37 PM [facility] Telephone encounter Note * Telephone Encounter - Sherice Garcia - 03/26/2025 12:37 PM EDT Prescription Refill Information The patient has been identified by name and date of : Yes Caregiver verified no other encounters exist for this prescription request: Yes Caregiver confirmed with patient/requestor that no other refills are due, in the near future, with this provider at this time: Yes The last office visit in the department: 12/15/24 Does the patient have a future office visit with this provider/department:No Requested Prescriptions Pending Prescriptions Disp Refills isosorbide mononitrate ER (IMDUR) 60 mg 24 hr tablet 90 tablet Sig: Take 1 tablet by mouth every afternoon. lisinopril (ZESTRIL) 5 mg tablet 90 tablet 1 Sig: Take 1 tablet by mouth once daily. citalopram (CELEXA) 40 mg tablet 90 tablet 1 Sig: Take 1 tablet by mouth once daily. Sherice Garcia March 26, 2025 12:37 PM T [facility]04-15-2025 Telephone encounter Note* Telephone Encounter - Verónica Fong - 01/09/2025 10:18 AM EDT Prescription Refill Information The patient has been identified by name and date of : Yes Caregiver verified no other encounters exist for this prescription request: Yes Caregiver confirmed with patient/requestor that no other refills are due, in the near future, with this provider at this time: Yes The last office visit in the department: 12/15/24 Does the patient have a future office visit with this provider/department: No Requested Prescriptions Pending Prescriptions Disp Refills atorvastatin (LIPITOR) 80 mg tablet 30 tablet 0 Sig: Take 1 tablet by mouth daily at bedtime. Verónica Fong January 09, 2025 10:18 AM T [facility]04-15-2025 Miscellaneous Notes* Telephone Encounter - Verónica Fong - 01/09/2025 10:18 AM EDT Prescription Refill Information The patient has been identified by name and date of : Yes Caregiver verified no other encounters exist for this prescription request: Yes Caregiver confirmed with patient/requestor that no other refills are due, in the near future, with this provider at this time: Yes The last office visit in the department: 12/15/24 Does the patient have a future office visit with this provider/department: No Requested Prescriptions Pending Prescriptions Disp Refills atorvastatin (LIPITOR) 80 mg tablet 30 tablet 0 Sig: Take 1 tablet by mouth daily at bedtime. Verónica Fong January 09, 2025 10:18 AM documented in [facility] encounterK[facility] Telephone encounter Note * Telephone Encounter - Baldomero Rosas LPN - 12/25/2024 5:14 PM EDT Prescription Refill Information The patient has been identified by name and date of : Yes Caregiver verified no other encounters exist for this prescription request: Yes Caregiver confirmed with patient/requestor that no other refills are due, in the near future, with this provider at this time: Yes The last office visit in the department: 12/15/24 Does the patient have a future office visit with this provider/department: No Requested Prescriptions Pending Prescriptions Disp Refills lisinopril (ZESTRIL) 5 mg tablet 90 tablet 1 Sig: Take 1 tablet by mouth once daily. Baldomero Rosas LPN December 25, 2024 5:14 PM [facility]03-31-2025 Miscellaneous Notes* Telephone Encounter - Baldomero Rosas LPN - 12/25/2024 5:14 PM EDT Prescription Refill Information The patient has been identified by name and date of : Yes Caregiver verified no other encounters exist for this prescription request: Yes Caregiver confirmed with patient/requestor that no other refills are due, in the near future, with this provider at this time: Yes The last office visit in the department: 12/15/24 Does the patient have a future office visit with this provider/department: No Requested Prescriptions Pending Prescriptions Disp Refills lisinopril (ZESTRIL) 5 mg tablet 90 tablet 1 Sig: Take 1 tablet by mouth once daily. Baldomero Rosas LPN December 25, 2024 5:14 PM documented in this encounterK[facility]03-21-2025 NoteHNO ID: [id number] Author: MOY PANIAGUA MD Service: ? Author Type: Physician Type: Progress Notes Filed: 12/17/2024 07:05 Note Text: Chief Complaint Patient presents with: Physical: Refills for all medications HPI Dejan Lazcano is a 59 year old male who presents here today for annual physical. Patient has been in good health without recent hospitalizations, ER visits. No concerns today. CAD s/p CABG x 3: managed by [facility] cardiology with last OV in June. Changed his metoprolol to ER because he was only taking it once per day. Had recent stress test in January 2024 which was negative. Recommended f/u in 1 year. Notes that he has only 2 pills of nitro at home and needs a refill. Gets some mild pain in his chest when stressed, but not with exertion. Denies radiation to neck/jaw, SOB, palpitations, LE, nausea, sweating, lightheadedness. LDL at goal <70. Asthma: has albuterol inhaler which he has not needed in more than 1 year. Usually gets symptoms with exertion, but is able to rest and symptoms resolve. Celexa working well to control depression symptoms and has improved anger. Denies SI/HI. BEE: Patient only using his CPAP about 3 times per week. Attributes this to his dog wanting him to sleep on the couch instead of in bed. On the nights when he uses it, his apneic episodes are almost 0, but still feels tired during the day. Denies snoring or apneic episodes. Refusing vaccinations today. Past medical history, appointments, medications, allergies reviewed. Previous Medical History PAST MEDICAL HISTORY Diagnosis Date Allergic rhinitis due to other allergen Asthma History: Dx'd in elementary school; Mild, intermittent Assessment: Intubated Plan: WTE, add PRN albuterol CAD (coronary artery disease) 06/02/2020 3 vessel CAD, sp POBA RCA 06/01/20 Last dose Ticagrelor 06/02/20 Awaiting CABG evaluation w Dr Manjarrez 06/07/20 Depression BEE on CPAP Unspecified asthma(493.90) Previous Surgical History PAST SURGICAL HISTORY Procedure Laterality Date CABG (3) VEIN GRAFTS AND ARTERIAL GRAFT(S) 05/2020 MIDLINE INSERTION/CONSULT 06/05/2020 PAST SURGICAL HISTORY OF 2005 inguinal hernia, right; [facility] Family History FAMILY HISTORY Problem Relation Age of Onset Breast Cancer Mother Hypertension Mother Hypertension Father Ischemic Heart Disease Father Coronary Artery Disease Paternal Grandfather age 72 Multiple Sclerosis Sister Ischemic Heart Disease Maternal Grandfather other (black lung) Maternal Grandfather other (CVA) Paternal Grandmother Patient Allergies ALLERGIES Allergen Reactions Codeine GI Upset Severe vomiting Current Medications Current Outpatient Medications on File Prior to Visit Medication Sig atorvastatin (LIPITOR) 80 mg tablet Take 1 tablet by mouth daily at bedtime. atorvastatin (LIPITOR) 80 mg tablet Take 1 tablet by mouth daily at bedtime. citalopram (CELEXA) 40 mg tablet Take 1 tablet by mouth once daily. lisinopril (ZESTRIL) 5 mg tablet Take 1 tablet by mouth once daily. isosorbide mononitrate ER (IMDUR) 60 mg 24 hr tablet Take 1 tablet by mouth every afternoon. metoprolol tartrate, short acting, (LOPRESSOR) 25 mg tablet Take 1 tablet by mouth once daily. albuterol HFA (VENTOLIN HFA) 90 mcg/actuation inhaler Inhale 2 Puffs as instructed every 4 hours as needed for Wheezing/Shortness of Breath. acetaminophen (TYLENOL) 500 mg tablet Take 1-2 tablets by mouth every 6 hours as needed. aspirin 81 mg chewable tablet 1 tablet by ORAL/FEEDING TUBE route once daily. (Patient taking differently: Take 81 mg by mouth once daily.) No current facility-administered medications on file prior to visit. Social History Social History Tobacco Use Smoking status: Never Smokeless tobacco: Never Vaping Use Vaping status: Never Used Substance Use Topics Alcohol use: No Drug use: No Review of Symptoms REVIEW OF SYSTEMS GENERAL: No weight loss, malaise or fevers HEENT: Negative for frequent or significant headaches, No changes in hearing or vision, no nose bleeds or other nasal problems NECK: Negative for lumps, goiter, pain and significant neck swelling RESPIRATORY: Negative for cough, hemoptysis, wheezing, COPD, dyspnea or shortness of breath CARDIOVASCULAR: See HPI GI: No nausea, vomiting, or diarrhea : No history of dysuria, frequency or incontinence, No difficulty urinating, nocturia > 1 time per night or hematuria MUSCULOSKELETAL: Negative for joint pain or swelling, back pain or muscle pain SKIN: Negative for lesions, rash, and itching PSYCH: See HPI HEMATOLOGY/LYMPHOLOGY: Negative for prolonged bleeding, bruising easily or swollen nodes ENDOCRINE: Negative for cold or heat intolerance, polyuria, polydipsia and goiter NEURO: No history of headaches, syncope, paralysis, seizures or tremors EXAM: BP 114/82 Pulse 66 Resp 16 Wt 96.9 kg (213 lb 9.6 oz) SpO2 97% BMI 28.18 kg/m? General Appearan (more content not included)...[facility] 12-15-2024 History of Present illness Narrative* Moy Paniagua MD - 12/15/2024 8:05 AM EDT Chief Complaint Patient presents with: Physical: Refills for all medications HPI Dejan Lazcano is a 59 year old male who presents here today for annual physical. Patient has been in good health without recent hospitalizations, ER visits. No concerns today. CAD s/p CABG x 3: managed by [facility] cardiology with last OV in June. Changed his metoprolol to ER because he was only taking it once per day. Had recent stress test in January 2024 which was negative. Recommended f/u in 1 year. Notes that he has only 2 pills of nitro at home and needs a refill. Gets some mild pain in his chest when stressed, but not with exertion. Denies radiation to neck/jaw, SOB, palpitations, LE, nausea, sweating, lightheadedness. LDL at goal <70. Asthma: has albuterol inhaler which he has not needed in more than 1 year. Usually gets symptoms with exertion, but is able to rest and symptoms resolve. Celexa working well to control depression symptoms and has improved anger. Denies SI/HI. BEE: Patient only using his CPAP about 3 times per week. Attributes this to his dog wanting him to sleep on the couch instead of in bed. On the nights when he uses it, his apneic episodes are almost 0, but still feels tired during the day. Denies snoring or apneic episodes. Refusing vaccinations today. Past medical history, appointments, medications, allergies reviewed. Previous Medical History PAST MEDICAL HISTORY Diagnosis Date Allergic rhinitis due to other allergen Asthma History: Dx'd in elementary school; Mild, intermittent Assessment: Intubated Plan: WTE, add PRN albuterol CAD (coronary artery disease) 06/02/2020 3 vessel CAD, sp POBA RCA 06/01/20 Last dose Ticagrelor 06/02/20 Awaiting CABG evaluation w Dr Manjarrez 06/07/20 Depression BEE on CPAP Unspecified asthma(493.90) Previous Surgical History PAST SURGICAL HISTORY Procedure Laterality Date CABG (3) VEIN GRAFTS & ARTERIAL GRAFT(S) 05/2020 MIDLINE INSERTION/CONSULT 06/05/2020 PAST SURGICAL HISTORY OF 2004 inguinal hernia, right; [facility] Family History FAMILY HISTORY Problem Relation Age of Onset Breast Cancer Mother Hypertension Mother Hypertension Father Ischemic Heart Disease Father Coronary Artery Disease Paternal Grandfather age 72 Multiple Sclerosis Sister Ischemic Heart Disease Maternal Grandfather other (black lung) Maternal Grandfather other (CVA) Paternal Grandmother Patient Allergies ALLERGIES Allergen Reactions Codeine GI Upset Severe vomiting Current Medications Current Outpatient Medications on File Prior to Visit Medication Sig atorvastatin (LIPITOR) 80 mg tablet Take 1 tablet by mouth daily at bedtime. atorvastatin (LIPITOR) 80 mg tablet Take 1 tablet by mouth daily at bedtime. citalopram (CELEXA) 40 mg tablet Take 1 tablet by mouth once daily. lisinopril (ZESTRIL) 5 mg tablet Take 1 tablet by mouth once daily. isosorbide mononitrate ER (IMDUR) 60 mg 24 hr tablet Take 1 tablet by mouth every afternoon. metoprolol tartrate, short acting, (LOPRESSOR) 25 mg tablet Take 1 tablet by mouth once daily. albuterol HFA (VENTOLIN HFA) 90 mcg/actuation inhaler Inhale 2 Puffs as instructed every 4 hours asneeded for Wheezing/Shortness of Breath. acetaminophen (TYLENOL) 500 mg tablet Take 1-2 tablets by mouth every 6 hours as needed. aspirin 81 mg chewable tablet 1 tablet by ORAL/FEEDING TUBE route once daily. (Patient taking differently: Take 81 mg by mouth once daily.) No current facility-administered medications on file prior to visit. Social History Social History Tobacco Use Smoking status: Never Smokeless tobacco: Never Vaping Use Vaping status: Never Used Substance Use Topics Alcohol use: No Drug use: No Review of Symptoms REVIEW OF SYSTEMS GENERAL: No weight loss, malaise or fevers HEENT: Negative for frequent or significant headaches, No changes in hearing or vision, no nose bleeds or other nasal problems NECK: Negative for lumps, goiter, pain and significant neck swelling RESPIRATORY: Negative for cough, hemoptysis, wheezing, COPD, dyspnea or shortness of breath CARDIOVASCULAR: See HPI GI: No nausea, vomiting, or diarrhea : No history of dysuria, frequency or incontinence, No difficulty urinating, nocturia > 1 timeper night or hematuria MUSCULOSKELETAL: Negative for joint pain or swelling, back pain or muscle pain SKIN: Negative for lesions, rash, and itching PSYCH: See HPI HEMATOLOGY/LYMPHOLOGY: Negative for prolonged bleeding, bruising easily or swollen nodes ENDOCRINE: Negative for cold or heat intolerance, polyuria, polydipsia and goiter NEURO: No history of headaches, syncope, paralysis, seizures or tremors EXAM: BP 114/82 Pulse 66 Resp 16 Wt 96.9 kg (213 lb 9.6 oz) SpO2 97% BMI 28.18 kg/m General Appearance: Well appearing, alert, in no acute distress, well-hydrated, well nourished.. Skin: Skin color, texture, turgor normal, no suspicious rashes or lesions. Head: Normocephalic, no masses, lesions, tenderness or abnormalities. Eyes: Anicteric sclera. Pupils are equally round and reactive to light. Extraocular movements are intact. . Ears: External ears normal, canals clear. Nose/Sinuses: Nares normal, septum midline, mucosa normal, no drainage or sinus tenderness. Oropharynx: Lips, mucosa, and tongue normal, teeth and gums normal, oropharynx normal. Neck: Supple, no adenopathy; thyroid symmetric, normal size, no bruits. Lungs: Lungs clear to auscultation. No wheezing, rhonchi, rales.. Heart: RRR without murmur, gallop, or rubs. No ectopy. Abdomen: Normal abdominal exam, Abdomen soft, non-tender. Bowel sounds normal. No masses, organomegaly. Extremities: No deformities, edema, skin discoloration, clubbing or cyanosis. Good capillary refill. . Peripheral Pulses: Left radial pulse barely palpable with history of removal from CABG . Right radial pulse 2+. Neurologic: Gait normal. Reflexes normal and symmetric. Sensation grossly intact.. Lymph Nodes: No cervical lymphadenopathy and No supraclavicular lymphadenopathy. Health Maintenance List Anxiety Screening Never done Hepatitis C Screening Never done HIV Screening Never done Hepatitis B Vaccine(1 of 3 - 19+ 3-dose series) Never done Colorectal Cancer Screening Never done Pneumococcal Vaccine: 50+(1 of 1 - PCV) Never done Prostate Cancer Screening Discussion Never done Influenza Vaccine(1) due on 05/28/2024 Covid-19 Vaccine(3 - 2023- season) due on 05/28/2024 Shingrix Vaccine(1 of 2) due on 04/11/2025 Annual PCP Team Chronic Disease Visit due on 04/11/2025 BP Controlled (<130/80) due on 04/11/2025 LDL Cholesterol due on 10/21/2025 Diabetes Screening due on 10/21/2027 Lipid Screening due on 10/21/2029 DTaP,Tdap,Td Vaccine(3 - Td or Tdap) due on 11/12/2031 Spirometry Completed Data reviewed Latest Ref Rng 06/28/2023 10/21/2024 WBC 3.70 - 11.00 k/uL 5.82 6.27 RBC 4.20 - 6.00 m/uL 4.72 5.07 Hemoglobin 13.0 - 17.0 g/dL 15.0 15.8 Hematocrit 39.0 - 51.0 % 43.6 46.1 MCV 80.0 - 100.0 fL 92.4 90.9 MCH 26.0 - 34.0 pg 31.8 31.2 MCHC 30.5 - 36.0 g/dL 34.4 34.3 RDW-CV 11.5 - 15.0 % 12.3 12.3 Platelet Count 150 - 400 k/uL 181 177 MPV 9.0 - 12.7 fL 10.1 10.2 Neut% % 50.8 53.7 Abs Neut (ANC) 1.45 - 7.50 k/uL 2.96 3.37 Lymph% % 33.2 31.1 Abs Lymph 1.00 - 4.00 k/uL 1.93 1.95 [place]% % 10.0 11.6 Abs [place] <0.87 k/uL 0.58 0.73 Eosin% % 4.5 2.6 Abs Eosin <0.46 k/uL 0.26 0.16 Baso% % 1.2 0.8 Abs Baso <0.11 k/uL 0.07 0.05 Immature Gran % % 0.3 0.2 IMMATURE GRANS (ABS) <0.10 k/uL <0.03 <0.03 NRBC /100 WBC 0.0 0.0 Absolute nRBC <0.01 k/uL <0.01 <0.01 DTYPE Auto Auto Protein, Total 6.3 - 8.0 g/dL 7.0 7.4 Albumin 3.9 - 4.9 g/dL 4.3 4.4 Calcium 8.5 - 10.2 mg/dL 9.1 9.5 Bilirubin, Total 0.2 - 1.3 mg/dL 0.6 0.8 Alkaline Phosphatase 38 - 113 U/L 83 95 AST 14 - 40 U/L 26 29 ALT 10 - 54 U/L 26 30 Glucose 74 - 99 mg/dL 95 91 BUN 9 - 24 mg/dL 17 12 Creatinine 0.73 - 1.22 mg/dL 0.96 0.98 Sodium 136 - 144 mmol/L 140 139 Potassium 3.7 - 5.1 mmol/L 4.5 4.4 Chloride 98 - 107 mmol/L 104 104 CO2 22 - 30 mmol/L 27 27 Anion Gap 8 - 15 mmol/L 9 8 eGFR >=60 mL/min/1.73m 93 90 Cholesterol, Total <200 mg/dL 99 103 Triglyceride <150 mg/dL 94 91 HDL Cholesterol >39 mg/dL 28 (L) 26 (L) Non HDL Cholesterol <130 mg/dL 71 77 Fasting Time hrs 12 13 VLDL Cholesterol <30 mg/dL 19 18 TC:HDL Ratio <5.10 3.54 3.96 LDL Cholesterol <100 mg/dL 52 59 LDL:HDL Ratio <2.54 1.86 2.27 TSH 0.270 - 4.200 mIU/L 2.000 2.140 Legend: (L) Low ASSESSMENT/PLAN: 1. Annual physical exam - ICD9: V70.0, ICD10: Z00.00 (primary diagnosis) - Counseled on healthy diet and regular exercise - Discussed need for and benefit of weight loss. BMI 28.18 kg/(m^2) - Counseled on alcohol intake and health risks - Follow up for annual exam in one year 2. 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) - ICD9: 414.01, 413.9, ICD10: I25.118 Patient with occasional mild chest pain with stress. Refill nitro. Continue regimen per cardiology and f/u with their office as scheduled. Red flags for re- assessment reviewed with patient in detail. - METOPROLOL SUCCINATE ER 25 MG TABLET,EXTENDED RELEASE 24 HR - NITROGLYCERIN 0.4 MG SUBLINGUAL TABLET 3. Primary hypertension - ICD9: 401.9, ICD10: I10 - Controlled - Continue current medications - Recommend home blood pressure monitoring, to bring results to next visit - Encouraged sodium restriction, DASH or Mediterranean diet - Recommend regular aerobic exercise 4. Hyperlipidemia, unspecified hyperlipidemia type - ICD9: 272.4, ICD10: E78.5 - Controlled - Continue current medications - Counseled on healthy diet and regular exercise 5. BEE on CPAP - ICD9: 327.23, ICD10: G47.33 Non compliant with CPAP. Discussed importance of nightly use and increased risks of: SC, CVA, DM, HTN, memory loss without compliance. 6. Screening for colon cancer - ICD9: V76.51, ICD10: Z12.11 Referral to surgery for screening colonoscopy. - CONSULT TO GENERAL SURGERY 7. Major depressive disorder with current active episode, unspecified depression episode severity, unspecified whether recurrent - ICD9: 296.30, ICD10: F32.9 Improved with Celexa. Moy Paniagua MD [facility] Telephone encounter Note * Telephone Encounter - Moy Paniagua MD - 12/11/2024 10:33 AM EDT Overdue for annual physical and needs to schedule OV. Will send 30 day rx. [facility]03-17-[facility]25 Miscellaneous Notes* Telephone Encounter - Moy Paniagua MD - 12/11/2024 10:33 AM EDT Overdue for annual physical and needs to schedule OV. Will send 30 day rx. * Telephone Encounter - Verónica Fong - 12/07/2024 4:32 PM EDT Prescription Refill Information The patient has been identified by name and date of : Yes Caregiver verified no other encounters exist for this prescription request: Yes Caregiver confirmed with patient/requestor that no other refills are due, in the near future, with this provider at this time: Yes The last office visit in the department: 04/11/24 Does the patient have a future office visit with this provider/department: No Requested Prescriptions Pending Prescriptions Disp Refills atorvastatin (LIPITOR) 80 mg tablet 90 tablet 1 Sig: Take 1 tablet by mouth daily at bedtime. Verónica Fong December 07, 2024 4:32 PM documented in this encounterK[facility]03-[facility]-2025 Telephone encounter Note * Telephone Encounter - Dipika Mera LPN - 12/11/2024 10:17 AM EDT Prescription Refill Information The patient has been identified by name and date of : Yes Caregiver verified no other encounters exist for this prescription request: Yes Caregiver confirmed with patient/requestor that no other refills are due, in the near future, with this provider at this time: Yes The last office visit in the department: 04/11/24 Does the patient have a future office visit with this provider/department: No My chart message sent Requested Prescriptions Pending Prescriptions Disp Refills atorvastatin (LIPITOR) 80 mg tablet 30 tablet 0 Sig: Take 1 tablet by mouth daily at bedtime. Dipika Mera LPN December 11, 2024 10:17 AM [facility]03-17-2025 Miscellaneous Notes* Telephone Encounter - Dipika Mera LPN - 12/11/2024 10:17 AM EDT Prescription Refill Information The patient has been identified by name and date of : Yes Caregiver verified no other encounters exist for this prescription request: Yes Caregiver confirmed with patient/requestor that no other refills are due, in the near future, with this provider at this time: Yes The last office visit in the department: 04/11/24 Does the patient have a future office visit with this provider/department: No My chart message sent Requested Prescriptions Pending Prescriptions Disp Refills atorvastatin (LIPITOR) 80 mg tablet 30 tablet 0 Sig: Take 1 tablet by mouth daily at bedtime. Dipika Mera LPN December 11, 2024 10:17 AM documented in this encounterK[facility]03-13-2025 Telephone encounter Note * Telephone Encounter - Verónica Fong - 12/07/2024 4:32 PM EDT Prescription Refill Information The patient has been identified by name and date of : Yes Caregiver verified no other encounters exist for this prescription request: Yes Caregiver confirmed with patient/requestor that no other refills are due, in the near future, with this provider at this time: Yes The last office visit in the department: 04/11/24 Does the patient have a future office visit with this provider/department: No Requested Prescriptions Pending Prescriptions Disp Refills atorvastatin (LIPITOR) 80 mg tablet 90 tablet 1 Sig: Take 1 tablet by mouth daily at bedtime. Verónica Fong December 07, 2024 4:32 PM [facility]02-[facility] Telephone encounter Note* Telephone Encounter - Sherice Garcia - 11/07/2024 12:16 PM EST Prescription Refill Information The patient has been identified by name and date of : Yes Caregiver verified no other encounters exist for this prescription request: Yes Caregiver confirmed with patient/requestor that no other refills are due, in the near future, with this provider at this time: Yes The last office visit in the department: 04/11/24 Does the patient have a future office visit with this provider/department: No Requested Prescriptions Pending Prescriptions Disp Refills citalopram (CELEXA) 40 mg tablet 90 tablet 1 Sig: Take 1 tablet by mouth once daily. Sherice Garcia November 07, 2024 12:17 PM [facility]02-11-2025 Miscellaneous Notes* Telephone Encounter - Sherice Garcia - 11/07/2024 12:16 PM EST Prescription Refill Information The patient has been identified by name and date of : Yes Caregiver verified no other encounters exist for this prescription request: Yes Caregiver confirmed with patient/requestor that no other refills are due, in the near future, with this provider at this time: Yes The last office visit in the department: 04/11/24 Does the patient have a future office visit with this provider/department: No Requested Prescriptions Pending Prescriptions Disp Refills citalopram (CELEXA) 40 mg tablet 90 tablet 1 Sig: Take 1 tablet by mouth once daily. Sherice Garcia November 07, 2024 12:17 PM documented in this encounterK[facility]02-[facility]-2025 Telephone encounter Note * Telephone Encounter - Mar Rubin MA - 10/30/2024 10:50 AM EST Pt notified of results via [employer]. Mar Rubin Ma [facility]02-03-2025 Miscellaneous Notes* Telephone Encounter - Mar Rubin MA - 10/30/2024 10:50 AM EST Pt notified of results via [employer]. Mar Rubin Ma * Telephone Encounter - Mar Rubin MA - 10/30/2024 10:50 AM EST ----- Message from Sarai Shah APRN.CNP sent at 10/30/2024 7:13 AM EST ----- Blood work is in acceptable ranges. Continue medication, diet and exercise. Recommend rescheduling appointment since he canceled. Sarai Podlogar, DIRECTOR ENVIRONMENTAL.[employer]PER[employer]OR [employer] documented in this encounterK[facility]02-03-2025 Telephone encounter Note * Telephone Encounter - Mar Rubin MA - 10/30/2024 10:50 AM EST ----- Message from Sarai Shah APRN.SUPER[employer]OR [employer] sent at 10/30/2024 7:13 AM EST ----- Blood work is in acceptable ranges. Continue medication, diet and exercise. Recommend rescheduling appointment since he canceled. Sarai Shah APRN.SUPER[employer]OR [employer] [facility]01-24-2025 Telephone encounter Note* Telephone Encounter - Kayla Layne OCCA - 10/20/2024 9:42 AM EST TC to patient who verbalized understanding of providers message below. Patient will have lab work completed prior to appointment. CARLY Canales [facility]01-24-2025 Miscellaneous Notes* Telephone Encounter - Kayla Layne OCCA - 10/20/2024 9:42 AM EST TC to patient who verbalized understanding of providers message below. Patient will have lab work completed prior to appointment. CARLY Canales * Telephone Encounter - Moy Paniagua MD - 10/20/2024 8:43 AM EST Agree with having same provider managed chronic meds. Appropriate labs ordered as requested to be completed prior to physical. * Telephone Encounter - Dipika Spence RN - 10/19/2024 2:40 PM EST Pt calling in and states he is having a problem getting his Lisinopril. States his contacted [facility] pharmacy and they told her he has no refills. He states his talked with his cardiology office [facility] and they said he should have a refill. Per med list, pt should have enough Lisinopril until November. Pt states he used to only get his Citalopram from Dr. Paniagua and Sarai Shah and then somehow now half of his heart meds are with the service specialist and some are from PCP office. He doesn't know which office to call when needs refills on his meds. He thought all of his BP, cholesterol and heart meds were started when he was in the hospital when he had a heart attack in 2019.It appears his service specialist was ordering his Lisinopril and his Atorvastatin but 06/2023 pt saw Sarai Shah and she sent in prescription renewals for both the Atorvastatin and Lisinopril. His Metoprolol and Isosorbide are still being prescribed by cardiology office. Pt would like all of his heart/BP meds to be prescribed by his service specialist so it is easier for him to remember who to call when he needs refills. He will call and confirm with their office that they will prescribe all of those meds. He states his Joana works for [facility] and will follow up. Called [facility] and pt has 69 Lisinopril tablets left from previous prescription. 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 Per last OV note with Dr. Paniagua in March, pt is due for annual exam. Pt booked with Sarai Irwinor 10/30/24. Pt due for labwork. Orders pended. Note added to fax results to [facility] as well. Pt will come and get fasting labs drawn next week. Pt is also going to speak with [facility] about seeing them in the fall of 2024 to monitorheart and BP meds as he would like to see PCP once a year in the spring and service specialist once a year in the fall to cover every 6 months. He usually sees Cardiology in the spring as well. documented in this encounterK[facility]01-24-2025 Telephone encounter Note * Telephone Encounter - Moy Paniagua MD - 10/20/2024 8:43 AM EST Agree with having same provider managed chronic meds. Appropriate labs ordered as requested to be completed prior to physical. [facility]01-23-[facility] Telephone encounter Note* Telephone Encounter - Dipika Spence RN - 10/19/2024 2:40 PM EST Pt calling in and states he is having a problem getting his Lisinopril. States his contacted [facility] pharmacy and they told her he has no refills. He states his talked with his cardiology office [facility] and they said he should have a refill. Per med list, pt should have enough Lisinopril until November. Pt states he used to only get his Citalopram from Dr. Paniagua and Sarai Shah and then somehow now half of his heart meds are with the service specialist and some are from PCP office. He doesn't know which office to call when needs refills on his meds. He thought all of his BP, cholesterol and heart meds were started when he was in the hospital when he had a heart attack in 2019.It appears his service specialist was ordering his Lisinopril and his Atorvastatin but 06/2023 pt saw Sarai Shah and she sent in prescription renewals for both the Atorvastatin and Lisinopril. His Metoprolol and Isosorbide are still being prescribed by cardiology office. Pt would like all of his heart/BP meds to be prescribed by his service specialist so it is easier for him to remember who to call when he needs refills. He will call and confirm with their office that they will prescribe all of those meds. He states his Joana works for [employer] and will follow up. Called [facility] and pt has 69 Lisinopril tablets left from previous prescription. 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 Per last OV note with Dr. Paniagua in March, pt is due for annual exam. Pt booked with Sarai Irwinor 10/30/24. Pt due for labwork. Orders pended. Note added to fax results to [facility] as well. Pt will come and get fasting labs drawn next week. Pt is also going to speak with [facility] about seeing them in the fall of 2024 to monitorheart and BP meds as he would like to see PCP once a year in the spring and service specialist once a year in the fall to cover every 6 months. He usually sees Cardiology in the spring as well. [facility]09-[facility] Telephone encounter Note* Telephone Encounter - Felicia Holguin MA - 06/19/2024 5:40 PM EDT The following approved medication requests have been transmitted electronically. Requested Prescriptions Signed Prescriptions Disp Refills lisinopril (ZESTRIL) 5 mg tablet 90 tablet 1 Sig: Take 1 tablet by mouth once daily. Authorizing Provider: MOY PANIAGUA MA [facility]09-23-2024 Miscellaneous Notes* Telephone Encounter - Felicia Holguin MA - 06/19/2024 5:40 PM EDT The following approved medication requests have been transmitted electronically. Requested Prescriptions Signed Prescriptions Disp Refills lisinopril (ZESTRIL) 5 mg tablet 90 tablet 1 Sig: Take 1 tablet by mouth once daily. Authorizing Provider: MOY PANIAGUA MA * Telephone Encounter - Malena Howell - 06/19/2024 12:32 PM EDT Prescription Refill Information Per pharmacy there is no valid script at the pharmacy for this. Please advise The patient has been identified by name and date of : Yes Caregiver verified no other encounters exist for this prescription request: Yes Caregiver confirmed with patient/requestor that no other refills are due, in the near future, with this provider at this time: Yes The last office visit in the department: 04/11/24 Does the patient have a future office visit with this provider/department: Yes Requested Prescriptions Pending Prescriptions Disp Refills lisinopril (ZESTRIL) 5 mg tablet 90 tablet 2 Sig: Take 1 tablet by mouth once daily. Malena Jauregui June 19, 2024 12:33 PM documented in this encounterK[facility]09-23-2024 Telephone encounter Note * Telephone Encounter - Malena Howell - 06/19/2024 12:32 PM EDT Prescription Refill Information Per pharmacy there is no valid script at the pharmacy for this. Please advise The patient has been identified by name and date of : Yes Caregiver verified no other encounters exist for this prescription request: Yes Caregiver confirmed with patient/requestor that no other refills are due, in the near future, with this provider at this time: Yes The last office visit in the department: 04/11/24 Does the patient have a future office visit with this provider/department: Yes Requested Prescriptions Pending Prescriptions Disp Refills lisinopril (ZESTRIL) 5 mg tablet 90 tablet 2 Sig: Take 1 tablet by mouth once daily. Malena Soler [facility] June 19, 2024 12:33 PM [facility]07-16-2024 History of Present illness Narrative* Moy Paniagua MD - 04/11/2024 4:46 PM EDT Chief Complaint Patient presents with: Follow Up: 6 month HPI Dejan Lazcano is a 58 year old male who presents here today for Above Complaints. Patient complaining of itchy rash on his right lower back which started about 4- 5 days ago. Treating with calamine lotion which has taken away the itching today. Did travel to [place] and stayed in a hotel last week about 2 days before rash showed up. Has pets at home which have been treated with flea and tick medications. No plant contact, change in medication, lotion, detergents. Denies sick contacts, similar rash, pain, fever/chills, blistering. Gradually improving. Patient needs refill on citalopram for his history of depression. Working well to control his symptoms without side effects. CAD s/p CABG x3 in 2019 which is managed by [facility] cardiology. Last OV 2-3 months ago. Stress test obtained at the end of January which was negative. BEE on CPAP through pulmonology. Still has fatigue despite use. Has not contacted their office about this yet. Refusing additional workup for fatigue since symptoms have not changed since we la nena labs in June 2023. Past medical history, appointments, medications, allergies reviewed. Previous Medical History PAST MEDICAL HISTORY Diagnosis Date Allergic rhinitis due to other allergen Asthma History: Dx'd in elementary school; Mild, intermittent Assessment: Intubated Plan: WTE, add PRN albuterol CAD (coronary artery disease) 06/02/2020 3 vessel CAD, sp POBA RCA 06/01/20 Last dose Ticagrelor 06/02/20 Awaiting CABG evaluation w Dr Manjarrez 06/07/20 Unspecified asthma(493.90) Previous Surgical History PAST SURGICAL HISTORY Procedure Laterality Date CABG (3) VEIN GRAFTS & ARTERIAL GRAFT(S) 05/2020 MIDLINE INSERTION/CONSULT 06/05/2020 PAST SURGICAL HISTORY OF 2004 inguinal hernia, right; [facility] Family History FAMILY HISTORY Problem Relation Age of Onset Breast Cancer Mother Hypertension Mother Hypertension Father Ischemic Heart Disease Father Coronary Artery Disease Paternal Grandfather age 72 Multiple Sclerosis Sister Ischemic Heart Disease Maternal Grandfather other (black lung) Maternal Grandfather other (CVA) Paternal Grandmother Patient Allergies ALLERGIES Allergen Reactions Codeine GI Upset Severe vomiting Current Medications Current Outpatient Medications on File Prior to Visit Medication Sig citalopram (CELEXA) 40 mg tablet Take 1 tablet by mouth once daily. atorvastatin (LIPITOR) 80 mg tablet Take 1 tablet by mouth daily at bedtime. metoprolol tartrate, short acting, (LOPRESSOR) 25 mg tablet Take 1 tablet by mouth once daily. albuterol HFA (VENTOLIN HFA) 90 mcg/actuation inhaler Inhale 2 Puffs as instructed every 4 hours asneeded for Wheezing/Shortness of Breath. isosorbide mononitrate ER (IMDUR) 60 mg 24 hr tablet Take 1 tablet by mouth every afternoon. lisinopril (ZESTRIL) 5 mg tablet Take 1 tablet by mouth once daily. acetaminophen (TYLENOL) 500 mg tablet Take 1-2 tablets by mouth every 6 hours as needed. aspirin 81 mg chewable tablet 1 tablet by ORAL/FEEDING TUBE route once daily. (Patient taking differently: Take 81 mg by mouth once daily.) No current facility-administered medications on file prior to visit. Social History Social History Tobacco Use Smoking status: Never Smokeless tobacco: Never Vaping Use Vaping Use: Never used Substance Use Topics Alcohol use: No Drug use: No Review of Symptoms REVIEW OF SYSTEMS GENERAL: No weight loss, malaise or fevers RESPIRATORY: Negative for cough, hemoptysis, wheezing, COPD, dyspnea or shortness of breath CARDIOVASCULAR: Negative for chest pain, leg swelling, hypertension, CHF or palpitations GI: No nausea, vomiting, or diarrhea SKIN: See HPI EXAM: BP 108/64 Pulse 68 Resp 16 Wt 93.4 kg (206 lb) SpO2 95% BMI 27.18 kg/m General Appearance: Well appearing, alert, in no acute distress, well-hydrated, well nourished.. Skin: clustered shingles rash on right lower back in L5 to S1 dermatome without radiation down his legs, vesicles, pustules, cellulitis or abscess. Non tender to palpation. Lungs: Lungs clear to auscultation. No wheezing, rhonchi, rales.. Heart: RRR without murmur, gallop, or rubs. No ectopy. Abdomen: Normal abdominal exam, Abdomen soft, non-tender. Bowel sounds normal. No masses, organomegaly. Extremities: No deformities, edema, skin discoloration, clubbing or cyanosis. Good capillary refill. Health Maintenance List Hepatitis C Screening Never done HIV Screening Never done Hepatitis B Vaccine(1 of 3 - 19+ 3-dose series) Never done Colorectal Cancer Screening Never done Shingrix Vaccine(1 of 2) Never done Prostate Cancer Screening Discussion Never done Covid-19 Vaccine( - 2022-24 season) due on 05/28/2023 Behavioral Health Screening Never done Influenza Vaccine(1) due on 05/28/2024 LDL Cholesterol due on 06/28/2024 Annual PCP Team Chronic Disease Visit due on 08/27/2024 BP Controlled (<130/80) due on 10/11/2024 Diabetes Screening due on 06/28/2026 Lipid Screening due on 06/28/2028 DTaP,Tdap,Td Vaccine(3 - Td or Tdap) due on 11/12/2031 Spirometry Completed Data reviewed Latest Ref Rng 06/28/2023 WBC 3.70 - 11.00 k/uL 5.82 RBC 4.20 - 6.00 m/uL 4.72 Hemoglobin 13.0 - 17.0 g/dL 15.0 Hematocrit 39.0 - 51.0 % 43.6 MCV 80.0 - 100.0 fL 92.4 MCH 26.0 - 34.0 pg 31.8 MCHC 30.5 - 36.0 g/dL 34.4 RDW-CV 11.5 - 15.0 % 12.3 Platelet Count 150 - 400 k/uL 181 MPV 9.0 - 12.7 fL 10.1 Neut% % 50.8 Abs Neut (ANC) 1.45 - 7.50 k/uL 2.96 Lymph% % 33.2 Abs Lymph 1.00 - 4.00 k/uL 1.93 [place]% % 10.0 Abs [place] <0.87 k/uL 0.58 Eosin% % 4.5 Abs Eosin <0.46 k/uL 0.26 Baso% % 1.2 Abs Baso <0.11 k/uL 0.07 Immature Gran % % 0.3 IMMATURE GRANS (ABS) <0.10 k/uL <0.03 NRBC /100 WBC 0.0 Absolute nRBC <0.01 k/uL <0.01 DTYPE Auto Protein, Total 6.3 - 8.0 g/dL 7.0 Albumin 3.9 - 4.9 g/dL 4.3 Calcium 8.5 - 10.2 mg/dL 9.1 Bilirubin, Total 0.2 - 1.3 mg/dL 0.6 Alkaline Phosphatase 38 - 113 U/L 83 AST 14 - 40 U/L 26 ALT 10 - 54 U/L 26 Glucose 74 - 99 mg/dL 95 BUN 9 - 24 mg/dL 17 Creatinine 0.73 - 1.22 mg/dL 0.96 Sodium 136 - 144 mmol/L 140 Potassium 3.7 - 5.1 mmol/L 4.5 Chloride 97 - 105 mmol/L 104 CO2 22 - 30 mmol/L 27 Anion Gap 9 - 18 mmol/L 9 eGFR >=60 mL/min/1.73m 93 Cholesterol, Total <200 mg/dL 99 Triglyceride <150 mg/dL 94 HDL Cholesterol >39 mg/dL 28 (L) Non HDL Cholesterol <130 mg/dL 71 Fasting Time hrs 12 VLDL Cholesterol <30 mg/dL 19 TC:HDL Ratio <5.10 3.54 LDL Cholesterol <100 mg/dL 52 LDL:HDL Ratio <2.54 1.86 TSH 0.270 - 4.200 mIU/L 2.000 Legend: (L) Low ASSESSMENT/PLAN: 1. Herpes zoster without complication - ICD9: 053.9, ICD10: B02.9 (primary diagnosis) More then 72 hours out from start of symptoms. Discussed starting on Valtrex despite this. Not having pain now, but will call if he has pain uncontrolled with OTC tylenol. Discussed PHN. Discussed transmission of chicken pox to others through contact with open lesions. Red flags for re-assessment reviewed with patient in detail. - VALACYCLOVIR 1 GRAM TABLET 2. Major depressive disorder with current active episode, unspecified depression episode severity, unspecified whether recurrent - ICD9: 296.30, ICD10: F32.9 Controlled on current regimen. 3. Primary hypertension - ICD9: 401.9, ICD10: I10 - Controlled - Continue current medications - Recommend home blood pressure monitoring, to bring results to next visit - Encouraged sodium restriction, DASH or Mediterranean diet - Recommend regular aerobic exercise 4. Coronary artery disease involving [place] coronary artery of [place] heart with unstable angina pectoris (HCC) - ICD9: 414.01, 411.1, ICD10: I25.110 Asymptomatic on current regimen. Managed by [facility] cardiology. Recent stress test negative. F/u cardiology recommendations. Moy Paniagua MD documented in [facility] NoteHNO ID: [id number] Author: MOY PANIAGUA MD Service: ? Author Type: Physician Type: Progress Notes Filed: 04/11/2024 18:26 Note Text: Chief Complaint Patient presents with: Follow Up: 6 month HPI Dejan Lazcano is a 58 year old male who presents here today for Above Complaints. Patient complaining of itchy rash on his right lower back which started about 4-5 days ago. Treating with calamine lotion which has taken away the itching today. Did travel to [place] and stayed in a hotel last week about 2 days before rash showed up. Has pets at home which have been treated with flea and tick medications. No plant contact, change in medication, lotion, detergents. Denies sick contacts, similar rash, pain, fever/chills, blistering. Gradually improving. Patient needs refill on citalopram for his history of depression. Working well to control his symptoms without side effects. CAD s/p CABG x3 in 2019 which is managed by [facility] cardiology. Last OV 2-3 months ago. Stress test obtained at the end of January which was negative. BEE on CPAP through pulmonology. Still has fatigue despite use. Has not contacted their office about this yet. Refusing additional workup for fatigue since symptoms have not changed since we la nena labs in June 2023. Past medical history, appointments, medications, allergies reviewed. Previous Medical History PAST MEDICAL HISTORY Diagnosis Date Allergic rhinitis due to other allergen Asthma History: Dx'd in elementary school; Mild, intermittent Assessment: Intubated Plan: WTE, add PRN albuterol CAD (coronary artery disease) 06/02/2020 3 vessel CAD, sp POBA RCA 06/01/20 Last dose Ticagrelor 06/02/20 Awaiting CABG evaluation w Dr Manjarrez 06/07/20 Unspecified asthma(493.90) Previous Surgical History PAST SURGICAL HISTORY Procedure Laterality Date CABG (3) VEIN GRAFTS AND ARTERIAL GRAFT(S) 05/2020 MIDLINE INSERTION/CONSULT 06/05/2020 PAST SURGICAL HISTORY OF 2004 inguinal hernia, right; [facility] Family History FAMILY HISTORY Problem Relation Age of Onset Breast Cancer Mother Hypertension Mother Hypertension Father Ischemic Heart Disease Father Coronary Artery Disease Paternal Grandfather age 72 Multiple Sclerosis Sister Ischemic Heart Disease Maternal Grandfather other (black lung) Maternal Grandfather other (CVA) Paternal Grandmother Patient Allergies ALLERGIES Allergen Reactions Codeine GI Upset Severe vomiting Current Medications Current Outpatient Medications on File Prior to Visit Medication Sig citalopram (CELEXA) 40 mg tablet Take 1 tablet by mouth once daily. atorvastatin (LIPITOR) 80 mg tablet Take 1 tablet by mouth daily at bedtime. metoprolol tartrate, short acting, (LOPRESSOR) 25 mg tablet Take 1 tablet by mouth once daily. albuterol HFA (VENTOLIN HFA) 90 mcg/actuation inhaler Inhale 2 Puffs as instructed every 4 hours as needed for Wheezing/Shortness of Breath. isosorbide mononitrate ER (IMDUR) 60 mg 24 hr tablet Take 1 tablet by mouth every afternoon. lisinopril (ZESTRIL) 5 mg tablet Take 1 tablet by mouth once daily. acetaminophen (TYLENOL) 500 mg tablet Take 1-2 tablets by mouth every 6 hours as needed. aspirin 81 mg chewable tablet 1 tablet by ORAL/FEEDING TUBE route once daily. (Patient taking differently: Take 81 mg by mouth once daily.) No current facility-administered medications on file prior to visit. Social History Social History Tobacco Use Smoking status: Never Smokeless tobacco: Never Vaping Use Vaping Use: Never used Substance Use Topics Alcohol use: No Drug use: No Review of Symptoms REVIEW OF SYSTEMS GENERAL: No weight loss, malaise or fevers RESPIRATORY: Negative for cough, hemoptysis, wheezing, COPD, dyspnea or shortness of breath CARDIOVASCULAR: Negative for chest pain, leg swelling, hypertension, CHF or palpitations GI: No nausea, vomiting, or diarrhea SKIN: See HPI EXAM: BP 108/64 Pulse 68 Resp 16 Wt 93.4 kg (206 lb) SpO2 95% BMI 27.18 kg/m? General Appearance: Well appearing, alert, in no acute distress, well-hydrated, well nourished.. Skin: clustered shingles rash on right lower back in L5 to S1 dermatome without radiation down his legs, vesicles, pustules, cellulitis or abscess. Non tender to palpation. Lungs: Lungs clear to auscultation. No wheezing, rhonchi, rales.. Heart: RRR without murmur, gallop, or rubs. No ectopy. Abdomen: Normal abdominal exam, Abdomen soft, non-tender. Bowel sounds normal. No masses, organomegaly. Extremities: No deformities, edema, skin discoloration, clubbing or cyanosis. Good capillary refill. Health Maintenance List Hepatitis C Screening Never done HIV Screening Never done Hepatitis B Vaccine(1 of 3 - 19+ 3-dose series) Never done Colorectal Cancer Screening Never done Shingrix Vaccine(1 of 2) Never done Prostate Cancer Screening Discussion Never done Covid-19 Vaccine( season) due on (more content not included)...[facility]06-24-2024 Telephone encounter Note* Telephone Encounter - Kayla Layne OCCA - 03/20/2024 11:57 AM EDT TC to patient who is now scheduled. CARLY Canales [facility]06-24-2024 Miscellaneous Notes* Telephone Encounter - Kayla Layne OCCA - 03/20/2024 11:57 AM EDT TC to patient who is now scheduled. CARLY Canales * Telephone Encounter - Moy Paniagua MD - 03/20/2024 11:54 AM EDT Due for 6 month follow up. Needs to schedule OV in next 1 month. * Telephone Encounter - Malena Howell - 03/20/2024 9:14 AM EDT Prescription Refill Information The patient has been identified by name and date of : Yes Caregiver verified no other encounters exist for this prescription request: Yes Caregiver confirmed with patient/requestor that no other refills are due, in the near future, with this provider at this time: Yes The last office visit in the department: 08/27/23 Does the patient have a future office visit with this provider/department: Yes Requested Prescriptions Pending Prescriptions Disp Refills citalopram (CELEXA) 40 mg tablet 90 tablet 2 Sig: Take 1 tablet by mouth once daily. Malena Jauregui March 20, 2024 9:15 AM documented in this [facility]06-24-2024 Telephone encounter Note * Telephone Encounter - Moy Paniagua MD - 03/20/2024 11:54 AM EDT Due for 6 month follow up. Needs to schedule OV in next 1 month. T [facility]06-24-[facility] Telephone encounter Note* Telephone Encounter - Malena Howell - 03/20/2024 9:14 AM EDT Prescription Refill Information The patient has been identified by name and date of : Yes Caregiver verified no other encounters exist for this prescription request: Yes Caregiver confirmed with patient/requestor that no other refills are due, in the near future, with this provider at this time: Yes The last office visit in the department: 08/27/23 Does the patient have a future office visit with this provider/department: Yes Requested Prescriptions Pending Prescriptions Disp Refills citalopram (CELEXA) 40 mg tablet 90 tablet 2 Sig: Take 1 tablet by mouth once daily. Malena Jauregui March 20, 2024 9:15 AM [facility] Work Phone: 1(774) 827-533306-03-2024 Telephone encounter Note* Telephone Encounter - Kayla Layne OCCA - 02/28/2024 4:01 PM EDT TC to patient who verbalized understanding of below. Patient stating he needs a refill of Atorvastatin. Patient has been identified by name and date of : Yes Patient phones for refill(s): Requested Prescriptions Pending Prescriptions Disp Refills atorvastatin (LIPITOR) 80 mg tablet 90 tablet 1 Sig: Take 1 tablet by mouth daily at bedtime. Date of last office visit in primary care: 08/27/2023 Date of next office visit in primary care: Visit date not found Please advise. Thank you. CARLY Canales. [facility]06-03-2024 Miscellaneous Notes* Telephone Encounter - Kayla Layne OCCA - 02/28/2024 4:01 PM EDT TC to patient who verbalized understanding of below. Patient stating he needs a refill of Atorvastatin. Patient has been identified by name and date of : Yes Patient phones for refill(s): Requested Prescriptions Pending Prescriptions Disp Refills atorvastatin (LIPITOR) 80 mg tablet 90 tablet 1 Sig: Take 1 tablet by mouth daily at bedtime. Date of last office visit in primary care: 08/27/2023 Date of next office visit in primary care: Visit date not found Please advise. Thank you. CARLY Canales. * Telephone Encounter - Kayla Layne OCCA - 02/28/2024 3:58 PM EDT ----- Message from Moy Paniagua MD sent at 02/28/2024 8:07 AM EDT ----- Stress test negative for signs of ischemia or blockage in his heart. F/u with cardiology as recommended. documented in this encounterK[facility]06-03-2024 Telephone encounter Note * Telephone Encounter - Kayla Layne OCCA - 02/28/2024 3:58 PM EDT ----- Message from Moy Paniagua MD sent at 02/28/2024 8:07 AM EDT ----- Stress test negative for signs of ischemia or blockage in his heart. F/u with cardiology as recommended. [facility]12-[facility] History of Present illness Narrative* Sarai Shah APRN.[employer] - 08/27/2023 7:10 AM EST 08/27/2023 Patient presents with: Follow Up: Lab review SUBJECTIVE: This is a 58 year old that is here today for Above Complaints. Would like to discuss recent lab results. Still feeling fatigued and doesn't really want to do much. Denies SOB, dyspnea, chest pain, palpitations or leg swelling PAST MEDICAL HISTORY Diagnosis Date Allergic rhinitis due to other allergen Asthma History: Dx'd in elementary school; Mild, intermittent Assessment: Intubated Plan: WTE, add PRN albuterol CAD (coronary artery disease) 06/02/2020 3 vessel CAD, sp POBA RCA 06/01/20 Last dose Ticagrelor 06/02/20 Awaiting CABG evaluation w Dr Manjarrez 06/07/20 Unspecified asthma(493.90) ALLERGIES Codeine MEDICATIONS Current Outpatient Medications Medication Sig isosorbide mononitrate ER (IMDUR) 60 mg 24 hr tablet Take 1 tablet by mouth every afternoon. metoprolol tartrate, short acting, (LOPRESSOR) 25 mg tablet Take 1 tablet by mouth every 12 hours. citalopram (CELEXA) 40 mg tablet Take 1 tablet by mouth once daily. lisinopril (ZESTRIL) 5 mg tablet Take 1 tablet by mouth once daily. atorvastatin (LIPITOR) 80 mg tablet Take 1 tablet by mouth daily at bedtime. albuterol HFA (VENTOLIN HFA) 90 mcg/actuation inhaler Inhale 2 Puffs as instructed every 4 hours asneeded for Wheezing/Shortness of Breath. acetaminophen (TYLENOL) 500 mg tablet Take 1-2 tablets by mouth every 6 hours as needed. aspirin 81 mg chewable tablet 1 tablet by ORAL/FEEDING TUBE route once daily. (Patient taking differently: Take 81 mg by mouth once daily.) No current facility-administered medications for this visit. Medications and allergies reviewed by this provider. SOCIAL HISTORY Social History Tobacco Use Smoking status: Never Smokeless tobacco: Never Vaping Use Vaping Use: Never used Substance Use Topics Alcohol use: No Drug use: No REVIEW OF SYSTEMS All other reviewed and negative other than HPI. OBJECTIVE: BP 124/82 Pulse (!) 58 Resp 16 Wt 94.9 kg (209 lb 3.2 oz) SpO2 93% BMI 27.60 kg/m . Vitalsigns reviewed by this provider. APPEARANCE Well appearing, alert, in no acute distress, well-hydrated, well nourished. Component Latest Ref Rng & Units 06/28/2023 WBC 3.70 - 11.00 k/uL 5.82 RBC 4.20 - 6.00 m/uL 4.72 Hemoglobin 13.0 - 17.0 g/dL 15.0 Hematocrit 39.0 - 51.0 % 43.6 MCV 80.0 - 100.0 fL 92.4 MCH 26.0 - 34.0 pg 31.8 MCHC 30.5 - 36.0 g/dL 34.4 RDW-CV 11.5 - 15.0 % 12.3 Platelet Count 150 - 400 k/uL 181 MPV 9.0 - 12.7 fL 10.1 Neut% % 50.8 Abs Neut (ANC) 1.45 - 7.50 k/uL 2.96 Lymph% % 33.2 Abs Lymph 1.00 - 4.00 k/uL 1.93 [place]% % 10.0 Abs [place] <0.87 k/uL 0.58 Eosin% % 4.5 Abs Eosin <0.46 k/uL 0.26 Baso% % 1.2 Abs Baso <0.11 k/uL 0.07 Immature Gran % % 0.3 IMMATURE GRANS (ABS) <0.10 k/uL <0.03 NRBC /100 WBC 0.0 Absolute nRBC <0.01 k/uL <0.01 DTYPE Auto Protein, Total 6.3 - 8.0 g/dL 7.0 Albumin 3.9 - 4.9 g/dL 4.3 Calcium 8.5 - 10.2 mg/dL 9.1 Bilirubin, Total 0.2 - 1.3 mg/dL 0.6 Alkaline Phosphatase 38 - 113 U/L 83 AST 14 - 40 U/L 26 ALT 10 - 54 U/L 26 Glucose 74 - 99 mg/dL 95 BUN 9 - 24 mg/dL 17 Creatinine 0.73 - 1.22 mg/dL 0.96 Sodium 136 - 144 mmol/L 140 Potassium 3.7 - 5.1 mmol/L 4.5 Chloride 97 - 105 mmol/L 104 CO2 22 - 30 mmol/L 27 Anion Gap 9 - 18 mmol/L 9 eGFR >=60 mL/min/1.73m 93 Cholesterol, Total <200 mg/dL 99 Triglyceride <150 mg/dL 94 HDL Cholesterol >39 mg/dL 28 (L) Non HDL Cholesterol <130 mg/dL 71 Fasting Time hrs 12 VLDL Cholesterol <30 mg/dL 19 TC:HDL Ratio <5.10 3.54 LDL Cholesterol <100 mg/dL 52 LDL:HDL Ratio <2.54 1.86 TSH 0.270 - 4.200 mIU/L 2.000 Hepatitis B Vaccine(1 of 3 - 3-dose series) Never done Pneumococcal Vaccine(1 - PCV) Never done Hepatitis C Screening Never done HIV Screening Never done BP Controlled (<130/80) Never done Colorectal Cancer Screening Never done Shingrix Vaccine(1 of 2) Never done Prostate Cancer Screening Discussion Never done Depression Assessment Never done Covid-19 Vaccine(3 - 2022- season) due on 05/28/2023 Influenza Vaccine(1) due on 03/26/2024 LDL Cholesterol due on 06/28/2024 Annual PCP Team Chronic Disease Visit due on 08/27/2024 Diabetes Screening due on 06/28/2026 Lipid Screening due on 06/28/2028 DTaP,Tdap,Td Vaccine(3 - Td or Tdap) due on 11/12/2031 Spirometry Completed ASSESSMENT/PLAN: 1. Fatigue, unspecified type - ICD9: 780.79, ICD10: R53.83 - discussed recent labs looks good- no anemia and TSH normal - discussed the possibility related to depression- patient not really sure. He wants to see his service specialist to make sure it is not related to his heart - he will follow-up with me after he sees service specialist Sarai Shah APRN.[employer] Prescription instructions reviewed with patient as applicable. Patient advised if symptoms do not improve or if symptoms worsen sooner, to contact their primary care physician. Potential red flag symptoms discussed with the patient. Reviewed appropriate action plan to take if red flag symptoms occur. Patient agreeable to treatment plan. I spent a total of 20 minutes on the date of the service which included preparing to see the patient, [id number] patient care, completing clinical documentation, obtaining and/or reviewing separately obtained history, performing a medically appropriate examination, and counseling and educating the patient/family/caregiver. documented in this encounterK[facility]09-[facility] History of Past illness Narrative* Problem Noted Date Diagnosed Date Resolved Date Respiratory acidosis 06/11/2020 020 Overview: See coordination of care note Stress hyperglycemia 06/10/2020 020 Overview: History: No known history of diabetes Assessment: Mild post-operative stress hyperglycemia Plan: SSI per protocol NSTEMI (non-ST elevated myoc ardial infarction) 06/04/2020 06/10/2020 Overview: History: RCA POBA 06/01/20; 06/02/2020 NSTEMI, cath with multivessel CAD; Assessment: 06/10/2020: CABG x 3 (BENÍTEZ-LAD, CHARLIE-OM1, R-PDA), radial graft Plan: NTG for radial graft, MAP goal 65-75, Levo if becomes hypotensive, normothermia, normogylcemia, fast track, WTE; statin/ASA/BB when appropriate documented as of this encounter (statuses as of 08/27/2023) [facility] Evaluation note* Diagnosis Onset Date Resolution Status Atherosclerosis of coronary artery of [place] heart without angina pectoris acute History of coronary artery bypass graft x May, acute History of percutaneous huggins sluminal coronary angioplasty May, acute Essential hypertension chron ic HLD (hyperlipidemia) [facility] Work Phone: [phone]) 314-215109-01-2020 Evaluation note* Diagnosis Onset Date Resolution Status Dyspnea on exertion acute Hypersomnolence acute Essential hypertension chron ic History of coronary artery bypass graft x 3 May, chronic HLD (hyperlipidemia) [facility] Work Phone: 1(909) 181-947109-01-2020 Evaluation note* Diagnosis Onset Date Resolution Status Admit Date Dyspnea on exertion acute Augus t 2024 1:00pm History of percutaneous transluminal coronary angioplasty May, acute May 21 1:00pm Essential hypertension chronic [place] 2024 1:00pm History of coronary artery bypass graft x May, chronic May 21 1:00pm HLD (hyperlipidemia) chronic Augu st 2024 1:00pm [facility] Work Phone: Evaluation note* Diagnosis Fatigue, unspecified type- Primary [facility] Diagnosis 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) [facility]* Diagnosis Herpes zoster without complication- Primary Herpes zoster without mention of complication Major depressive disorder with current active episode, unspecified depression episode severity, unspecified whether recurrent Primary hypertension Unspecified essential hypertension Coronary artery disease involving [place] coronary artery of [place] heart with unstable angina pectoris (HCC) BEE on CPAP Obstructive sleep apnea (adult) (pediatric) [facility] Diagnosis 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) [facility] Diagnosis 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) [facility] Diagnosis Hyperlipidemia, unspecified hyperlipidemia type- Primary Primary hypertension Unspecified essential hypertension Routine physical examination Routine general medical examination at a health care facility Screening for prostate cancer Special screening for malignant neoplasm of prostate [facility] Diagnosis 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) [facility] Diagnosis 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) [facility] Diagnosis Annual physical exam- Primary Routine general medical examination at a health care facility 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) Primary hypertension Unspecified essential hypertension Hyperlipidemia, unspecified hyperlipidemia type BEE on CPAP Obstructive sleep apnea (adult) (pediatric) Screening for colon cancer Special screening for malignant neoplasms, colon Major depressive disorder with current active episode, unspecified depression episode severity, unspecified whether recurrent [facility] Diagnosis Coronary artery disease of [place] artery of [place] heart with stable angina pectoris [facility] Diagnosis Coronary artery disease of [place] artery of [place] heart with stable angina pectoris documented in this encounter [facility] for referral (narrative)No reason for referral information availableR[facility] Work Phone: Chief Complaint and Reason for Visit Chief Complaint 6 M FU PCI CABG ABN STRESS TEST ABN STRESS TEST Reason for Visit Atherosclerosis of c oronary artery of [place] heart without angina pectoris History of coronary artery bypass graft x 3 History of percutaneous transluminal coronary angioplasty Essential hypertension HLD (hyperlipidemia) Chief Complaint pt concerns about fa tigue HYPERSOMNOLENCE Reason for Visit Dyspnea on exertion Hypersomnolence Essential hypertension History of coronary artery bypass graft x 3 HLD (hyperlipidemia) Chief Complaint Admit Date SOB, hx CABG w collaterals. May 21, 2025 1:00pm Reason for Visit Admit Date Dyspnea on exertion May 21, 2025 1: 00pm History of percutaneous transluminal cor onary angioplasty May 21, 2025 1:00pm Essential hypertension May 21, 2025 1:00pm History of coronary artery bypass graft x 3 May 21, 2025 1:00pm HLD (hyperlipidemia) May 21, 2025 1 :00pm Family History No Family History Records Found Relationship Condition Age at Onset Recorded Date/T subha mother Malignant neoplasm of breast Unknown Hypertension Unknown father Hypertension Unknown Ischemic heart disease Unknown grandfather Coronary artery disease Unknown grandfather Ischemic heart disease Unknown grandmother Cerebrovascular accident (CVA) Unknown Advance Directives No Advanced Directives Records Found Advance Directive Response Recorded Date/ Time Advance Directives No February 09 9:55am Living Will No February 09, 2022 9 :55am Power of Green Building Design Specialist No February 09, 2022 9:55am Advance Directive Response Recorded Date/ Time Advance Directives No February 09 8:55am Living Will No February 09, 2022 8 :55am Power of Green Building Design Specialist No February 09, 2022 8:55am Advance Directive Response Recorded Date/ Time Advance Directives No February 09 9:55am Summary Purpose Additional Source Comments Goals (unrecognized section and content) Goals may be documented in a n alternate sectionGoals may be documented in an alternate sectionGoals may be documented in an alternate sectionGoals may be documented in an alternate section Care Teams (unrecognized sec tion and content) Team Status: Active Member Role Status Dates Dr. Jeet Prince MD Family Provider Active Dr. Mike Paniagua MD Primary Care Provider Acti ve Team Status: Inactive Member Role Status Dates Dr. Mike Paniagua MD Primary Care Provider, Ref erring Provider Active Dejan Forrest CAMPUS AIDE, CAMPUS AIDE-C Attending Provider Active Team Status: Inactive Member Role Status Dates Dr. Mike Paniagua MD Primary Care Provider Acti ve Dejan Forrest CAMPUS AIDE, CAMPUS AIDE-C Attending Provider, Referring Pro vider Active Visitor Service Assistant Relationship Specialty Start Date End Date Moy Paniagua MD [address] [place] [address] PCP - General Family Medicine 1/17/23 No, Referral Referring Cardiology 07/26/20 Visitor Service Assistant Relationship Specialty Start Date End Date Moy Paniagua MD [address] [facility] [address] PCP - General Family Medicine 10/13/22 No, Referral Referring Cardiology 07/26/20 Visitor Service Assistant Relationship Specialty Start Date End Date Moy Paniagua MD [address] [facility] [address] PCP - General Family Medicine 10/13/22 No, Referral Referring Cardiology 07/26/20 Visitor Service Assistant Relationship Specialty Start Date End Date Moy Paniagua MD [address] [facility] [address] PCP - General Family Medicine 10/13/22 No, Referral Referring Cardiology 07/26/20 Visitor Service Assistant Relationship Specialty Start Date End Date Moy Paniagua MD [address] [facility] [address] PCP - General Family Medicine 10/13/22 No, Referral Referring Cardiology 07/26/20 Visitor Service Assistant Relationship Specialty Start Date End Date Moy Paniagua MD [address] [facility] [address] PCP - General Family Medicine 10/13/22 No, Referral Referring Cardiology 07/26/20 PodlogSarai castro APRN.SUPERVISOR TREE TRIMMING [address] [facility] [address] Car Sales Representative Family Medicine 09/02/24 Visitor Service Assistant Relationship Specialty Start Date End Date Moy Paniagua MD [address] [facility] [address] PCP - General Family Medicine 10/13/22 No, Referral Referring Cardiology 07/26/20 Podlogar, ANABELLA Mcfadden.SUPERVISOR TREE TRIMMING [address] [place] [address] [facility] 09/02/24 Visitor Service Assistant Relationship Specialty Start Date End Date Moy Paniagua MD [address] [place] [address] PCP - General Family Medicine 10/13/22 No, Referral Referring Cardiology 07/26/20 Podlogar, ANABELLA Mcfadden.SUPERVISOR TREE TRIMMING [address] [place] [address] [facility] 09/02/24 Visitor Service Assistant Relationship Specialty Start Date End Date Moy Paniagua MD [address] [place] [address] PCP - General Family Medicine 10/13/22 No, Referral Referring Cardiology 07/26/20 Podlogar, Sarai DIRECTOR ENVIRONMENTAL.SUPERVISOR TREE TRIMMING [address] [place] [address] [facility] 09/02/24 Visitor Service Assistant Relationship Specialty Start Date End Date Moy Paniagua MD [address] [place] [address] PCP - General Family Medicine 10/13/22 No, Referral Referring Cardiology 07/26/20 Podlogar, Sarai DIRECTOR ENVIRONMENTAL.SUPERVISOR TREE TRIMMING [address] [facility] [place] [address] [facility] 09/02/24 Anu Barr APRN.SUPERVISOR [employer] TRIMMING [address] [place] [address] [facility] 12/08/24 Visitor Service Assistant Relationship Specialty Start Date End Date Moy Paniagua MD [address] [facility] [address] PCP - General Family Medicine 10/13/22 No, Referral Referring Cardiology 07/26/20 Podlogar, Sarai, DIRECTOR ENVIRONMENTAL.SUPERVISOR TREE TRIMMING [address] [facility] [address] [facility] 09/02/24 Anu Barr DIRECTOR ENVIRONMENTAL.SUPERVISOR TREE TRIMMING [address] [place] [address] [facility] 12/08/24 Visitor Service Assistant Relationship Specialty Start Date End Date Moy Paniagua MD [address] [facility] [address] PCP - General Family Medicine 10/13/22 No, Referral Referring Cardiology 07/26/20 Podlogar, Sarai, DIRECTOR ENVIRONMENTAL.SUPERVISOR TREE TRIMMING [address] [facility] [address] [facility] Medicine 09/02/24 Anu Barr DIRECTOR ENVIRONMENTAL.SUPERVISOR TREE TRIMMING [address] [facility] [place], [place] [id number] [facility] 12/08/24 Visitor Service Assistant Relationship Specialty Start Date End Date Moy Paniagua MD [address] [facility] [address] PCP - General Family Medicine 10/13/22 No, Referral Referring Cardiology 07/26/20 Podlogar, Sarai, DIRECTOR ENVIRONMENTAL.SUPERVISOR TREE TRIMMING [address] [place], [place] [address] [facility] 09/02/24 Anu Barr DIRECTOR ENVIRONMENTAL.SUPERVISOR TREE TRIMMING [address] [place], [place] [id number] [facility] 12/18/24 Visitor Service Assistant Relationship Specialty Start Date End Date Moy Paniagua MD [address] [facility], [place] [address] PCP - General Family Medicine 10/13/22 No, Referral Referring Cardiology 07/26/20 Podlogar, Sarai, DIRECTOR ENVIRONMENTAL.SUPERVISOR TREE TRIMMING [address] [place], [place] [address] [facility] 09/02/24 Anu Barr, DIRECTOR ENVIRONMENTAL.SUPERVISOR TREE TRIMMING [address] [place], [place] [id number] [facility] 03/08/25 Team Status: Active Member Role/Relationship Status Dates Dr. Jeet Prince MD Family Provider Active Dr. Mike Paniagua MD Primary Care Provider Acti ve Team Status: Inactive Member Role/Relationship Status Dates Dr. Mike Paniagua MD Primary Care Provider Acti ve Start: May 21, 2025 End: May 21, 2025 Dr. Mike Paniagua MD Referring Provider Active Start: May 21, 2025 End: May 21, 2025 Sandhya García CAMPUS AIDE, CAMPUS AIDE-C Attending Provider Active Start: May 21, 2025 End: May 21, 2025 Team Status: Active Member Role/Relationship Status Dates Dr. Mike Paniagua MD Primary Care Provider Acti ve Team Status: Inactive Member Role/Relationship Status Dates Dr. Mike Paniagua MD Primary Care Provider Acti ve Start: May 21, 2025 End: May 21, 2025 Sandhya García NP, NP-C Attending Provider Active Start: May 21, 2025 End: May 21, 2025 Sandhya García NP, NP-C Referring Provider Active Start: May 21, 2025 End: May 21, 2025 Source Comments (unrecognize d section and content) In the event this informatio n is protected by the Federal Confidentiality of Alcohol and Drug Abuse Patient Records regulations: The Federal rules restrict any use of the information to criminally investigate or prosecute any alcohol or drug abuse patient.[facility] the event this information is protected by the Federal Confidentiality of Alcohol and Drug Abuse Patient Records regulations: The Federal rules restrict any use of the information to criminally investigate or prosecute any alcohol or drug abuse patient.[facility] the event this information is protected by the Federal Confidentiality of Alcohol and Drug Abuse Patient Records regulations: The Federal rules restrict any use of the information to criminally investigate or prosecute any alcohol or drug abuse patient.[facility] the event this information is protected by the Federal Confidentiality of Alcohol and Drug Abuse Patient Records regulations: The Federal rules restrict any use of the information to criminally investigate or prosecute any alcohol or drug abuse patient.[facility] the event this information is protected by the Federal Confidentiality of Alcohol and Drug Abuse Patient Records regulations: The Federal rules restrict any use of the information to criminally investigate or prosecute any alcohol or drug abuse patient.[facility] the event this information is protected by the Federal Confidentiality of Alcohol and Drug Abuse Patient Records regulations: The Federal rules restrict any use of the information to criminally investigate or prosecute any alcohol or drug abuse patient.[facility] the event this information is protected by the Federal Confidentiality of Alcohol and Drug Abuse Patient Records regulations: The Federal rules restrict any use of the information to criminally investigate or prosecute any alcohol or drug abuse patient.[facility] the event this information is protected by the Federal Confidentiality of Alcohol and Drug Abuse Patient Records regulations: The Federal rules restrict any use of the information to criminally investigate or prosecute any alcohol or drug abuse patient.[facility] the event this information is protected by the Federal Confidentiality of Alcohol and Drug Abuse Patient Records regulations: The Federal rules restrict any use of the information to criminally investigate or prosecute any alcohol or drug abuse patient.[facility] Campus[facility] the event this information is protected by the Federal Confidentiality of Alcohol and Drug Abuse Patient Records regulations: The Federal rules restrict any use of the information to criminally investigate or prosecute any alcohol or drug abuse patient.[facility] Campus[facility] the event this information is protected by the Federal Confidentiality of Alcohol and Drug Abuse Patient Records regulations: The Federal rules restrict any use of the information to criminally investigate or prosecute any alcohol or drug abuse patient.[facility] Campus[facility] the event this information is protected by the Federal Confidentiality of Alcohol and Drug Abuse Patient Records regulations: The Federal rules restrict any use of the information to criminally investigate or prosecute any alcohol or drug abuse patient.[facility] Campus[facility] the event this information is protected by the Federal Confidentiality of Alcohol and Drug Abuse Patient Records regulations: The Federal rules restrict any use of the information to criminally investigate or prosecute any alcohol or drug abuse patient.[facility] the event this information is protected by the Federal Confidentiality of Alcohol and Drug Abuse Patient Records regulations: The Federal rules restrict any use of the information to criminally investigate or prosecute any alcohol or drug abuse patient.[facility] the event this information is protected by the Federal Confidentiality of Alcohol and Drug Abuse Patient Records regulations: The Federal rules restrict any use of the information to criminally investigate or prosecute any alcohol or drug abuse patient.[facility] Campus[facility] the event this information is protected by the Federal Confidentiality of Alcohol and Drug Abuse Patient Records regulations: The Federal rules restrict any use of the information to criminally investigate or prosecute any alcohol or drug abuse patient.[facility] Reason for Visit (unrecogniz ed section and content) Reason Comments Follow Up Lab review Reason Onset Date Comments Refill Request 03/20/2024 Reason Comments Follow Up 6 month Reason Onset Date Comments Refill Request 06/19/2024 Reason Onset Date Comments Refill Request 10/17/2024 Reason Comments Medication Problem Appointment Orders Reason Comments Results Reason Onset Date Comments Refill Request 11/07/2024 Reason Onset Date Comments Refill Request 12/09/2024 Reason Onset Date Comments Refill Request 12/07/2024 Reason Comments Physical Refills for all medi cations Reason Onset Date Comments Refill Request 12/25/2024 Reason Onset Date Comments Refill Request 01/09/2025 Reason Onset Date Comments Refill Request 03/26/2025 (unrecognized sect ion and content) No Status Records FoundNo Status Records Found INFORMATION SOURCE (unrecogn ized section and content) DATE CREATED AUTHOR 12/19/2024 [facility] DATE CREATED AUTHOR AUTHOR'S ORGANIZ ATION 06/21/[address] [facility] FOR RECORDS PERTAINING TO PATIENTS WHO ARE OR HAVE BEEN ENROLLED IN A CHEMICAL DEPENDENCY/SUBSTANCEABUSE PROGRAM, SOME INFORMATION MAY BE OMITTED. This clinical summary was aggregated from multiple sources. Caution should be exercised in using it in the provision of clinical care. This summary normalizes information from multiple sources, and as a consequence, information in this document may materially change the coding, format and clinical context of patient data. In addition, data may be omitted in some cases. CLINICAL DECISIONS SHOULD BE BASED ON THE PRIMARY CLINICAL RECORDS. [email or web address] [facility]. provides no warranty or guarantee of the accuracy or completeness of information in this document.
--- OUTSIDE RECORDS SUMMARY | 2025-06-22 06:14 | XMS RPT_ITS | CCD ---
Author Organization [facility] Care Team Providers Care Broke Worker Name Role Phone Dr. Mike Paniagua Primary Care Provider Dr. Mike Paniagua Referring Provider Roof RETAIL INVENTORY CONTROL CLERK, SUDHA Campbell Attending Provider Dr. Arturo Masterson Attending Provider Dr. Arturo Masterson Referring Provider Dr. Arturo Masterson Other Provider Dr. Mike Paniagua Primary Care Provider Dr. Mike Paniagua Referring Provider Roof RETAIL INVENTORY CONTROL CLERK, SUDHA Campbell Attending Provider No, Referral Unavailable Unavailable Moy Paniagua MD Primary Care Provider Moy Paniagua MD Primary Care Provider Podlogar PEANUT SEPARATOR.Sarai LAN Unavailable Knoble PEANUT SEPARATOR.Anu LAN Unavailable MOY PANIAGUA Primary Care Unavailab MOY Looney Attending Unavailab MOY Looney Referring Unavailab MOY Looney Primary Care Unavailab MOY Looney Attending Unavailab MOY Looney Primary Care Unavailab le Knoble PEANUT SEPARATOR.Anu LAN Unavailable Knoble PEANUT SEPARATOR.Anu LAN Unavailable Dr. Mike Paniagua MD Primary Care Provider Dr. Mike Paniagua MD Referring Provider 1( [phone] Sandhya Ni Attending Provider Sandhya Ni Referring Provider Mike Paniagua Primary Care Unavailable Ricky SIDDIQI, [...] Translations: [CODEINE] Drug Allergy 02-17-2008 GI Upset [facility] (5 sources) Shellfish; Translations: [shellfish derived] Allergy to substance 02-09-2022 [facility] (2 sources) White fish Allergy to substance 02-09-2022 [facility] (2 sources) Fish Containing Products Allergy to substance 05-21-2025 [facility] (1 source) Codeine Drug Allergy 05-21-2025 [facility] (1 source) Fish Containing Products Drug allergy (disorder) 05-21-2025 [facility] Medications Current Medications Medication Drug Class(es) [...] by mouth every 6 hours as needed. [id number] 200 actuat albuterol 0.09 mg/actuat metered dose [...] SL tablet Indications: 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 Take 1 [...] Coronary atherosclerosis; Translations: [Atherosclerotic heart disease of unga coronary artery without angina pectoris] Onset: 06-02-2020 [...] Auto (Unsp spec) [#/Vol] 1.97 10*3/uL 0.83-4.51 [facility] Absolute neutrophil countOrd ered By: Sandhya García on 05-21-2025 Neutrophils (Bld) [#/Vol] 2.4 10*3/uL 2.0-7.7 [facility] Anion gap in Serum or Plasma Ordered By: Sandhya García on 05-21-2025 Anion gap [Moles/Vol] 10 mmol/L 5-[address] [facility] Automated lymphocyte count a s percentage of total leukocytesOrdered By: Sandhya García on 05-21-2025 Lymphocytes/100 WBC Auto (Unsp spec) 38.1 % - [facility] BUN/creatinine ratioOrdered By: Sandhya García on 05-21-2025 Urea nitrogen/Creatinine [Mass ratio] 10.1 mg/mg 10- [facility] Basic Metabolic Profile (BMP )on 05-21-2025 BUN/CRE 10.1 RATIO Normal -20 [facility] Comment on above: Performed By: #### L 100.0100, L501.9520, L500.2500, L503.7505 #### [facility] [address] [place], [address] Calcium [Mass/Vol] 8.9 mg/dL Normal 7.6-11.0 [facility] Comment on above: Performed By: #### L 100.0100, L501.9520, L500.2500, L503.7505 #### [facility] [address] [place], [address] Chloride [Moles/Vol] 106 mmol/L Normal 98-108 [facility] Comment on above: Performed By: #### L 100.0100, L501.9520, L500.2500, L503.7505 #### [facility] [address] [place], [address] CO2 [Moles/Vol] 25.7 mmol/L Normal 21.0-32.0 [facility] Comment on above: Performed By: #### L 100.0100, L501.9520, L500.2500, L503.7505 #### [facility] [address] [place], [address] Creatinine [Mass/Vol] 0.98 mg/dL Normal 0.70-1.[address] [facility] Comment on above: Performed By: #### L 100.0100, L501.9520, L500.2500, L503.7505 #### [facility] [address] [place], [address] GAP 10 Normal 5-15 [facility] Comment on above: Performed By: #### L 100.0100, L501.9520, L500.2500, L503.7505 #### [facility] [address] [place], [address] GFR/1.73 sq M.predicted among non-blacks MDRD (S/P/Bld) [Vol rate/Area] 90 mL/min/{1.73_m2} Normal >60 [facility] Comment on above: Result Comment: mL/m in/1.73m2 CKD-EPI Creatinine Equation (2020) Performed By: #### L 100.0100, L501.9520, L500.2500, L503.7505 #### [facility] [address] [place], [address] Glucose [Mass/Vol] 87 mg/dL Normal 70-99 [facility] Comment on above: Performed By: #### L 100.0100, L501.9520, L500.2500, L503.7505 #### [facility] [address] [place], [address] Potassium [Moles/Vol] 4.5 mmol/L Normal 3.3-5.[address] [facility] Comment on above: Performed By: #### L 100.0100, L501.9520, L500.2500, L503.7505 #### [facility] [address] [place], [address] Sodium [Moles/Vol] 141 mmol/L Normal 133-145 [facility] Comment on above: Performed By: #### L 100.0100, L501.9520, L500.2500, L503.7505 #### [facility] [address] [place], [address] Urea nitrogen [Mass/Vol] 10 mg/dL Normal 4-19 [facility] Comment on above: Performed By: #### L 100.0100, L501.9520, L500.2500, L503.7505 #### [facility] [address] [place], [address] Basophil percentageOrdered B y: Sandhya García on 05-21-2025 Basophils/100 WBC (Bld) 1.2 % High 0-1 [facility] CBC W/Diff, Automatedon 04-28 Absolute Lymph 1.97 X10 3/uL Normal 0.83-4.51 [facility] Comment on above: Performed By: #### L 100.0100, L501.9520, L500.2500, L503.7505 #### [facility] [address] [place], [address] Absolute Neut 2.4 X10 3/uL Normal 2.0-7.7 [facility] Comment on above: Performed By: #### L 100.0100, L501.9520, L500.2500, L503.7505 #### [facility] [address] [place], [address] Basophils/100 WBC (Bld) 1.2 % High 0-1 [facility] Comment on above: Performed By: #### L 100.0100, L501.9520, L500.2500, L503.7505 #### [facility] [address] [place], [address] Eosinophils/100 WBC (Bld) 3.3 % Normal 0-5 [facility] Comment on above: Performed By: #### L 100.0100, L501.9520, L500.2500, L503.7505 #### [facility] [address] [place], [address] Erythrocyte distribution width (RBC) [Ratio] 12.1 % Normal 11.6-14.6 [facility] Comment on above: Performed By: #### L 100.0100, L501.9520, L500.2500, L503.7505 #### [facility] [address] [place], [address] Hematocrit (Bld) [Volume fraction] 41.1 % Normal 40-54 [facility] Comment on above: Performed By: #### L 100.0100, L501.9520, L500.2500, L503.7505 #### [facility] [address] [place], [address] Hemoglobin (Bld) [Mass/Vol] 14.5 g/dL Normal 13.0-16.5 [facility] Comment on above: Performed By: #### L 100.0100, L501.9520, L500.2500, L503.7505 #### [facility] [address] [place], [address] IG% 0.400 Normal 0.0-0.9 [facility] Comment on above: Result Comment: IG% - Immature Granulocytes (promyelocytes, myelocytes and metamyelocytes) > 1% indicates that a LEFT SHIFT is Present. Performed By: #### L 100.0100, L501.9520, L500.2500, L503.7505 #### [facility] [address] [place], [address] Lymphocytes/100 WBC (Bld) 38.1 % Normal 19-41 [facility] Comment on above: Performed By: #### L 100.0100, L501.9520, L500.2500, L503.7505 #### [facility] [address] [place], [address] MCH (RBC) [Entitic mass] 31.9 pg Normal 27.0-32.0 [facility] Comment on above: Performed By: #### L 100.0100, L501.9520, L500.2500, L503.7505 #### [facility] [address] [place], [address] MCHC (RBC) [Mass/Vol] 35.3 g/dL Normal 32-[address] [facility] Comment on above: Performed By: #### L 100.0100, L501.9520, L500.2500, L503.7505 #### [facility] [address] [place], [address] MCV (RBC) [Entitic vol] 90.5 fL Normal 80-94 [facility] Comment on above: Performed By: #### L 100.0100, L501.9520, L500.2500, L503.7505 #### [facility] [address] [place], [address] Monocytes/100 WBC (Bld) 11.6 % High 0-10 [facility] Comment on above: Performed By: #### L 100.0100, L501.9520, L500.2500, L503.7505 #### [facility] [address] [place], [address] Neutrophils/100 WBC (Bld) 45.4 % Low 47-70 [facility] Comment on above: Performed By: #### L 100.0100, L501.9520, L500.2500, L503.7505 #### [facility] [address] [place], [address] Nucleated RBC (Bld) [#/Vol] 0 10*3/uL Normal 0-5 [facility] Comment on above: Performed By: #### L 100.0100, L501.9520, L500.2500, L503.7505 #### [facility] [address] [place], [address] Platelet mean volume (Bld) [Entitic vol] 9.6 fL Normal 6.2-12.0 [facility] Comment on above: Performed By: #### L 100.0100, L501.9520, L500.2500, L503.7505 #### [facility] [address] [place], [address] Platelets (Bld) [#/Vol] 182 10*3/uL Normal 150-450 [facility] Comment on above: Performed By: #### L 100.0100, L501.9520, L500.2500, L503.7505 #### [facility] [address] [place], [address] RBC (Bld) [#/Vol] 4.54 10*6/uL Low 4.6-6.2 [facility] Comment on above: Performed By: #### L 100.0100, L501.9520, L500.2500, L503.7505 #### [facility] [address] [place], [address] RDW SD 39.7 fl Normal 35.1-43.9 [facility] Comment on above: Performed By: #### L 100.0100, L501.9520, L500.2500, L503.7505 #### [facility] [address] [place], [address] WBC (Bld) [#/Vol] 5.2 10*3/uL Normal 4.4-11.0 [facility] Comment on above: Performed By: #### L 100.0100, L501.9520, L500.2500, L503.7505 #### [facility] [address] [place], [address] Carbon dioxide, total [Moles /volume] in Central venous bloodOrdered By: Sandhya García on 05-21-2025 CO2 [Moles/Vol] 25.7 mmol/L 21.0-32.0 [facility] Cardiology Visit Reporton Cardiology Visit Report [facility] [address] [place] [address] OFFICE VISIT Date of Service: 05/21/25 MR#: [id number] Acct: [id number] Name: DEJAN LAZCANO TRACY Rep #: [id number] : 1965 Provider: SUDHA murphy Age/Sex: 60/M Location: [facility] Status: Signed HPI HPI History of Present Illness Details: Dejan Lazcano is a 60-year-old white male who presents today for an outpatient cardiovascular follow-up visit. He has a history of underlying premature CAD resulting in RCA PTCA (no stent) and subsequent CABG performed at [facility] on 06-10-2020 with a report of a BENÍTEZ to the LAD, a CHARLIE to the OM 1, and a left radial artery to the PDA superimposed upon hyperlipidemia. I cannot find documentation this was a free CHARLIE. Patient's cardiac catheterization from January 2022 demonstrated ejection fraction of 55%, unga multivessel coronary artery disease, BENÍTEZ to the LAD is patent, CHARLIE to OM1 is patent, radial artery graft to RPDA proximately occluded, and [id number] collateral flow. From a cardiac standpoint, the [...] Visit Reasons: SOB, hx CABG w collaterals. Chrome Plater Required: No Is patient in pain?: No [...] the past year?: No PFSH Medical History (Reviewed 05/21/25 @ 13:12 by Sandhya García RETAIL INVENTORY CONTROL CLERK, RETAIL INVENTORY CONTROL CLERK-C) History of left heart catheterization (LHC) ( 02/10/22) HLD (hyperlipidemia) Essential hypertension Stenosis of right carotid artery Lung nodule INGUINAL HERNIA - RIGHT Atherosclerosis of coronary artery of unga heart without angina pectoris Surgical History (Reviewed 05/21/25 @ 13:12 by Sandhya García RETAIL INVENTORY CONTROL CLERK, RETAIL INVENTORY CONTROL CLERK-C) History of percutaneous transluminal coronary angioplasty ( 06/02/20) History of coronary artery bypass graft x 3 ( 06/10/20) Family History (Reviewed 05/21/25 @ 13:13 by Sandhya García RETAIL INVENTORY CONTROL CLERK, RETAIL INVENTORY CONTROL CLERK-C) Mother Breast cancer Hypertension Father Hypertension Ischemic [...] hematuria Neur (more content not included)... Normal [facility] Chloride assayOrdered By: Sim García on 05-21-2025 Chloride [Moles/Vol] 106 mmol/L 98-108 [facility] Eosinophil percentageOrdered By: Sandhya García on 05-21-2025 Eosinophils/100 WBC (Bld) 3.3 % 0-5 [facility] Erythrocyte distribution wid th ratioOrdered By: Sandhya García on 05-21-2025 Erythrocyte distribution width (RBC) [Ratio] 12.1 % 11.6-14.6 [facility] Erythrocyte distribution wid th standard deviationOrdered By: Sandhya García on 05-21-2025 Erythrocyte distribution width (RBC) [Ratio] 39.7 fl 35.1-43.9 [facility] Glomerular filtration rate ( GFR) estimation/1.73 sq m using serum, plasma, or whole bOrdered By: Sandhya García on 05-21-2025 GFR/1.73 sq M.predicted among non-blacks MDRD (S/P/Bld) [Vol rate/Area] 90 mL/min/{1.73_m2} >60 [facility] Comment on above: mL/min/1.73m2 CKD-EP I Creatinine Equation (2020) Hematocrit Auto (Bld) [Volum e fraction]Ordered By: Sandhya García on 05-21-2025 Hematocrit (Bld) [Volume fraction] 41.1 % 40-54 [facility] Hemoglobin measurementOrdere d By: Sandhya García on 05-21-2025 Hemoglobin (Bld) [Mass/Vol] 14.5 g/dL 13.0-16.5 [facility] Immature granulocytes/100 WB C Auto (Bld)Ordered By: Sandhya García on 05-21-2025 Immature granulocytes/100 WBC (Bld) 0.400 % 0.0-0.9 [facility] Comment on above: IG% - Immature Granu locytes (promyelocytes, myelocytes and metamyelocytes) > 1% indicates that a LEFT SHIFT is Present. MCV (mean corpuscular volume ) determinationOrdered By: Sandhya García on 05-21-2025 MCV (RBC) [Entitic vol] 90.5 fL 80-94 [facility] Mean corpuscular hemoglobin (MCH) determinationOrdered By: Sandhya García on 05-21-2025 MCH (RBC) [Entitic mass] 31.9 pg 27.0-32.0 [facility] Mean corpuscular hemoglobin concentration (MCHC) determinationOrdered By: Sandhya García on 05-21-2025 MCHC (RBC) [Mass/Vol] 35.3 g/dL 32-[address] [facility] Mean platelet volume determi nationOrdered By: Sandhya Garcaí on 05-21-2025 Platelet mean volume (Bld) [Entitic vol] 9.6 fL 6.2-12.0 [facility] Monocyte percentageOrdered B y: Sandhya García on 05-21-2025 Monocytes/100 WBC (Bld) 11.6 % High 0-10 [facility] Natriuretic peptide.B prohor kerrie N-Terminal [Mass/volume] in Serum or PlasmaOrdered By: Sandhya García on 05-21-2025 Natriuretic peptide.B prohormone N-Terminal [Mass/Vol] 56 pg/mL <900 [facility] Comment on above: Heart Failure Unlike ly: < 300 pg/mLHeart Failure Likely< 50 Years: > 450 pg/mL50-75 Years: > 900 pg/mL>75 Years: > 1800 pg/mL Neutrophil percentageOrdered By: Sandhya García on 05-21-2025 Neutrophils/100 WBC (Bld) 45.4 % Low 47-70 [facility] Nucleated red blood cell per centageOrdered By: Sandhya García on 05-21-2025 Nucleated RBC/100 WBC (Bld) [Ratio] 0 % 0-5 [facility] Platelet countOrdered By: Sim García on 05-21-2025 Platelets (Bld) [#/Vol] 182 10*3/uL 150-450 [facility] Potassium measurement (mass/ volume)Ordered By: Sandhya García on 05-21-2025 Potassium (Unsp spec) [Mass/Vol] 4.5 mmol/L 3.3-5.1 [facility] Pro- Brain NATRIURETIC PEPTI Danny 05-21-2025 Natriuretic peptide B (Bld) [Mass/Vol] 56 pg/mL Normal <=900 [facility] Comment on above: Result Comment: Hear t Failure Unlikely: < 300 pg/mL Heart Failure Likely < 50 Years: > 450 pg/mL 50-75 Years: > 900 pg/mL >75 Years: > 1800 pg/mL Performed By: #### L 100.0100, L501.9520, L500.2500, L503.7505 #### [facility] [address] [place], [address] RBC Auto (Bld) [#/Vol]Ordere d By: Sandhya García on 05-21-2025 RBC (Bld) [#/Vol] 4.54 10*6/uL Low 4.6-6.2 [facility] Serum creatinine measurement (mass/volume)Ordered By: Sandhya García on 05-21-2025 Creatinine [Mass/Vol] 0.98 mg/dL 0.70-1.[address] [facility] Serum glucose measurement (m ass/volume)Ordered By: Sandhya García on 05-21-2025 Glucose [Mass/Vol] 87 mg/dL 70-99 [facility] Serum or plasma calcium sheryl urement (mass/volume)Ordered By: Sandhya García on 05-21-2025 Calcium [Mass/Vol] 8.9 mg/dL 7.6-11.0 [facility] Serum or plasma urea nitroge n measurement (mass/volume)Ordered By: Sandhya García on 05-21-2025 Urea nitrogen [Mass/Vol] 10 mg/dL 4-19 [facility] Sodium levelOrdered By: Kylee García on 05-21-2025 Sodium [Moles/Vol] 141 mmol/L 133-145 [facility] TSH DL <= 0.005 mIU/L QnOrde red By: Sandhya García on 05-21-2025 TSH Qn 2.000 uIU/mL 0.300-4.200 [facility] Thyroid Stim Hormone (TSH)on 05-21-2025 TSH 2.000 uIU/mL Normal 0.300-4.200 [facility] Comment on above: Performed By: #### L 100.0100, L501.9539, L500.2500, L503.7505 #### [facility] [address] [place], [address] White blood cell (WBC) count Ordered By: Sandhya García on 05-21-2025 WBC (Bld) [#/Vol] 5.2 10*3/uL 4.4-11.0 [facility] CNOVon 12-15-2024 CNOV Office Visit (FAMPWS) ---- DEJAN LAZCANO ([id number]) 1965 M Date Time Provider Department 12/15/24 8:00 AM [facility] During your visit today, we recorded the [...] swollen node (more content not included)... Normal [facility] CNPNon 10-30-2024 RIKYN Telephone (MERVAT) ---- DEJAN LAZCANO ([id number]) 1965 M Date Time Provider Department 10/30/24 SARAI SHAH During your visit today, we recorded the following information about you: Mar Rubin MA 10/30/2024 10:50 AM Signed ----- Message from Sarai Shah APRN.TECHNICAL ADMINISTRATIVE ASSISTANT sent at 10/30/2024 7:13 AM EST ----- Blood work is in acceptable ranges. Continue medication, diet and exercise. Recommend rescheduling appointment since he canceled. Sarai Hammerloggloria, PEANUT SEPARATOR.Mar Choudhury MA 10/30/2024 10:50 AM Signed Pt notified of results via Sqeeqee. Mar Rubin Ma Allergies As of Date: [...] RHINITIS NEC [J30.89] Coronary artery disease involving unga ko*06/02/2020 NSTEMI (non-ST elevated myocardial infarction) *06/04/2020 06/10/2020 Pre-op testing [Z01.818] 06/04/2020 Stenosis of right carotid artery [I65.21] 06/06/2020 Hypertension [I10] 06/10/2020 Stress hyperglycemia [R73.9] 06/10/2020 06/13/2020 Respiratory acidosis [E87.29] 06/11/2020 06/13/2020 Post-op pain [G89.18] 06/11/2020 Encounter for support and coordination of trans*06/13/2020 Depression [F32.A] 04/11/2024 BEE on CPAP [G47.33] 04/11/2024 Encounter Status:Closed by MAR RUBIN on 10/30/[address] [facility] CBC W Auto Differential pane l (Bld)on 10-21-2024 Basophils (Bld) [#/Vol] 0.05 10*3/uL Normal <0.[address] [facility] Comment on above: Order Comment: Speci men Type: BLOOD SPECIMEN Ordering Facility: [facility] Address: [address] [place] [address] Performed By: #### 5 7021-8 #### [facility] CLIA [id number] [address] [place] [address] [place] Basophils/100 WBC (Bld) 0.8 % Normal C [facility] Comment on above: Order Comment: Speci men Type: BLOOD SPECIMEN Ordering Facility: [facility] Address: [address] [place] [address] Performed By: #### 5 7021-8 #### [facility] CLIA [id number] [address] [place] [address] [place] Differential cell count method Nom (Bld) Auto Normal [facility] Comment on above: Order Comment: Speci men Type: BLOOD SPECIMEN Ordering Facility: [facility] Address: [address] [place] [address] Performed By: #### 5 7021-8 #### [facility] CLIA [id number] [address] [place] [address] [place] Eosinophils (Bld) [#/Vol] 0.16 10*3/uL Normal <0.[address] [facility] Comment on above: Order Comment: Speci men Type: BLOOD SPECIMEN Ordering Facility: [facility] Address: [address] [place] [address] Performed By: #### 5 7021-8 #### [facility] CLIA [id number] [id number] [address] [place] Eosinophils/100 WBC (Bld) 2.6 % Normal [facility] Comment on above: Order Comment: Speci men Type: BLOOD SPECIMEN Ordering Facility: [facility] Address: [address] [place] [address] Performed By: #### 5 7021-8 #### [facility] CLIA [id number] [address] [place] [address] [place] Erythrocyte distribution width (RBC) [Ratio] 12.3 % Normal 11.5-15.[address] [facility] Comment on above: Order Comment: Speci men Type: BLOOD SPECIMEN Ordering Facility: [facility] Address: [address] [place] [address] Performed By: #### 5 7021-8 #### [facility] CLIA [id number] [address] [place] [address] [place] Hematocrit (Bld) [Volume fraction] 46.1 % Normal 39.0-51.[address] [facility] Comment on above: Order Comment: Speci men Type: BLOOD SPECIMEN Ordering Facility: [facility] Address: [address] [place] [address] Performed By: #### 5 7021-8 #### [facility] CLIA [id number] [address] [place] [address] [place] Hemoglobin (Bld) [Mass/Vol] 15.8 g/dL Normal 13.0-17.[address] [facility] Comment on above: Order Comment: Speci men Type: BLOOD SPECIMEN Ordering Facility: [facility] Address: [address] [place] [address] Performed By: #### 5 7021-8 #### [facility] CLIA [id number] [address] [place] [address] [place] Immature granulocytes (Bld) [#/Vol] 10*3/uL Normal <0.[address] [facility] Comment on above: Order Comment: Speci men Type: BLOOD SPECIMEN Ordering Facility: [facility] Address: [address] [place] [address] Performed By: #### 5 7021-8 #### [facility] CLIA [id number] [address] [place] [address] [place] Immature granulocytes/100 WBC (Bld) 0.2 % Normal [facility] Comment on above: Order Comment: Speci men Type: BLOOD SPECIMEN Ordering Facility: [facility] Address: [address] [place] [address] Performed By: #### 5 7021-8 #### [facility] CLIA [id number] [address] [place] [address] [place] Lymphocytes (Bld) [#/Vol] 1.95 10*3/uL Normal 1.00-4.[address] [facility] Comment on above: Order Comment: Speci men Type: BLOOD SPECIMEN Ordering Facility: [facility] Address: [address] [place] [address] Performed By: #### 5 7021-8 #### [facility] CLIA [id number] [address] [place] [address] [place] Lymphocytes/100 WBC (Bld) 31.1 % Normal [facility] Comment on above: Order Comment: Speci men Type: BLOOD SPECIMEN Ordering Facility: [facility] Address: [address] [place] [address] Performed By: #### 5 7021-8 #### [facility] CLIA [id number] [address] [place] [address] [place] MCH (RBC) [Entitic mass] 31.2 pg Normal 26.0-34.[address] [facility] Comment on above: Order Comment: Speci men Type: BLOOD SPECIMEN Ordering Facility: [facility] Address: [address] [place] [address] Performed By: #### 5 7021-8 #### [facility] CLIA [id number] [address] [place] [address] [place] MCHC (RBC) [Mass/Vol] 34.3 g/dL Normal 30.5-36.0 [facility] Comment on above: Order Comment: Speci men Type: BLOOD SPECIMEN Ordering Facility: [facility] Address: [address] [place] [address] Performed By: #### 5 7021-8 #### [facility] CLIA [id number] [address] [place] [address] [place] MCV (RBC) [Entitic vol] 90.9 fL Normal 80.0-100.0 [facility] Comment on above: Order Comment: Speci men Type: BLOOD SPECIMEN Ordering Facility: [facility] Address: [address] [place] [address] Performed By: #### 5 7021-8 #### [facility] CLIA [id number] [address] [place] [address] [place] Monocytes (Bld) [#/Vol] 0.73 10*3/uL Normal <0.[address] [facility] Comment on above: Order Comment: Speci men Type: BLOOD SPECIMEN Ordering Facility: [facility] Address: [address] [place] [address] Performed By: #### 5 7021-8 #### [facility] CLIA [id number] [address] [place] [address] [place] Monocytes/100 WBC (Bld) 11.6 % Normal [facility] Comment on above: Order Comment: Speci men Type: BLOOD SPECIMEN Ordering Facility: [facility] Address: [address] [place] [address] Performed By: #### 5 7021-8 #### [facility] CLIA [id number] [address] [place] [address] [place] Neutrophils (Bld) [#/Vol] 3.37 10*3/uL Normal 1.45-7.[address] [facility] Comment on above: Order Comment: Speci men Type: BLOOD SPECIMEN Ordering Facility: [facility] Address: [address] [place] [address] Performed By: #### 5 7021-8 #### [facility] CLIA [id number] [address] [place] [address] [place] Neutrophils/100 WBC (Bld) 53.7 % Normal [facility] Comment on above: Order Comment: Speci men Type: BLOOD SPECIMEN Ordering Facility: [facility] Address: [address] [place] [address] Performed By: #### 5 7021-8 #### [facility] CLIA [id number] [address] [place] [address] [place] Nucleated RBC (Bld) [#/Vol] 10*3/uL Normal <0.[address] [facility] Comment on above: Order Comment: Speci men Type: BLOOD SPECIMEN Ordering Facility: [facility] Address: [address] [place] [address] Performed By: #### 5 7021-8 #### [facility] CLIA [id number] [address] [place] [address] [place] Nucleated RBC/100 WBC (Bld) [Ratio] 0.0 /100 WBC Normal [facility] Comment on above: Order Comment: Speci men Type: BLOOD SPECIMEN Ordering Facility: [facility] Address: [address] [place] [address] Performed By: #### 5 7021-8 #### [facility] CLIA [id number] [address] [place] [address] [place] Platelet mean volume (Bld) [Entitic vol] 10.2 fL Normal 9.0-12.[address] [facility] Comment on above: Order Comment: Speci men Type: BLOOD SPECIMEN Ordering Facility: [facility] Address: [address] [place] [address] Performed By: #### 5 7021-8 #### [facility] CLIA [id number] [address] [place] [address] [place] Platelets (Bld) [#/Vol] 177 10*3/uL Normal 150-[address] [facility] Comment on above: Order Comment: Speci men Type: BLOOD SPECIMEN Ordering Facility: [facility] Address: [address] [place] [address] Performed By: #### 5 7021-8 #### [facility] CLIA [id number] [address] [place] [address] [place] RBC (Bld) [#/Vol] 5.07 10*6/uL Normal 4.20-6.00 [facility] Comment on above: Order Comment: Speci men Type: BLOOD SPECIMEN Ordering Facility: [facility] Address: [address] [place] [address] Performed By: #### 5 7021-8 #### [facility] CLIA [id number] [address] [place] [address] [place] WBC (Bld) [#/Vol] 6.27 10*3/uL Normal 3.70-11.00 [facility] Comment on above: Order Comment: Speci men Type: BLOOD SPECIMEN Ordering Facility: [facility] Address: [address] [place] [address] Performed By: #### 5 7021-8 #### [facility] CLIA [id number] [address] [place] [address] [place] Comprehensive metabolic 2000 panelon 10-21-2024 Albumin [Mass/Vol] 4.4 g/dL Normal 3.9-4.9 [facility] Comment on above: Order Comment: Speci men Type: BLOOD SPECIMEN Ordering Facility: [facility] Address: [address] [place] [address] Performed By: #### 2 4323-8, 47697-4, 3016-3 #### [facility] CLIA [id number] [address] [place] [address] [place] ALP [Catalytic activity/Vol] 95 U/L Normal 38-[address] [facility] Comment on above: Order Comment: Speci men Type: BLOOD SPECIMEN Ordering Facility: [facility] Address: [address] [place] [address] Performed By: #### 2 4323-8, 65761-5, 3016-3 #### [facility] CLIA [id number] [address] [place] [address] [place] ALT [Catalytic activity/Vol] 30 U/L Normal 10-[address] [facility] Comment on above: Order Comment: Speci men Type: BLOOD SPECIMEN Ordering Facility: [facility] Address: [address] [place] [address] Performed By: #### 2 4323-8, 89135-7, 3015-3 #### [facility] CLIA [id number] [address] [place] [address] [place] Anion gap [Moles/Vol] 8 mmol/L Normal 8-15 [facility] Comment on above: Order Comment: Speci men Type: BLOOD SPECIMEN Ordering Facility: [facility] Address: [address] [place] [address] Performed By: #### 2 4323-8, 64146-7, 3015-3 #### [facility] CLIA [id number] [address] [place] [address] [place] AST [Catalytic activity/Vol] 29 U/L Normal 14-[address] [facility] Comment on above: Order Comment: Speci men Type: BLOOD SPECIMEN Ordering Facility: [facility] Address: [address] [place] [address] Performed By: #### 2 4323-8, 44387-2, 3015-3 #### [facility] CLIA [id number] [address] [place] [address] [place] Bilirubin [Mass/Vol] 0.8 mg/dL Normal 0.2-1.3 [facility] Comment on above: Order Comment: Speci men Type: BLOOD SPECIMEN Ordering Facility: [facility] Address: [address] [place] [address] Performed By: #### 2 4323-8, 08545-6, 3015-3 #### [facility] CLIA [id number] [address] [place] [address] [place] Calcium [Mass/Vol] 9.5 mg/dL Normal 8.5-10.2 [facility] Comment on above: Order Comment: Speci men Type: BLOOD SPECIMEN Ordering Facility: [facility] Address: [address] [place] [address] Performed By: #### 2 4323-8, 17360-4, 3 #### [facility] CLIA [id number] [address] [place] [address] [place] Chloride [Moles/Vol] 104 mmol/L Normal 98-107 [facility] Comment on above: Order Comment: Speci men Type: BLOOD SPECIMEN Ordering Facility: [facility] Address: [address] [place] [address] Performed By: #### 2 4323-8, 90788-1, 3 #### [facility] CLIA [id number] [address] [place] [address] [place] CO2 [Moles/Vol] 27 mmol/L Normal 22-[address] [facility] Comment on above: Order Comment: Speci men Type: BLOOD SPECIMEN Ordering Facility: [facility] Address: [address] [place] [address] Performed By: #### 2 4323-8, 36545-8, 3 #### [facility] CLIA [id number] [address] [place], [place] [address] [place] Creatinine [Mass/Vol] 0.98 mg/dL Normal 0.73-1.22 [facility] Comment on above: Order Comment: Speci men Type: BLOOD SPECIMEN Ordering Facility: [facility] Address: [address] [place] [address] Performed By: #### 2 4323-8, 93900-2, 3016-3 #### [facility] CLIA [id number] [address] [place] [address] [place] Creatinine and Glomerular filtration rate.predicted panel (S/P/Bld) 90 mL/min/1.73m??? Normal >=[address] [facility] Comment on above: Order Comment: Shira argueta Type: BLOOD SPECIMEN Ordering Facility: [facility] Address: [address] [place] [address] Result Comment: Crista mated Glomerular Filtration Rate [...] actual GFR. Performed By: #### 2 4323-8, 85406-8, 3016-3 #### [facility] CLIA [id number] [address] [place] [address] [place] Glucose [Mass/Vol] 91 mg/dL Normal 74-99 [facility] Comment on above: Order Comment: Shira argueta Type: BLOOD SPECIMEN Ordering Facility: [facility] Address: [address] [place] [address] Result Comment: The [place] Diabetes Association (ADA) provides guidance for cutoff [...] Standards of Medical Care in Diabetes 2016, [place] [employer]. Diabetes Care. 2016.39(Suppl 1). Performed By: #### 2 4323-8, 75524-8, 3016-3 #### [facility] CLIA [id number] [address] [place] [address] [place] Potassium [Moles/Vol] 4.4 mmol/L Normal 3.7-5.1 [facility] Comment on above: Order Comment: Speci men Type: BLOOD SPECIMEN Ordering Facility: [facility] Address: [address] [place], [place] [address] Performed By: #### 2 4323-8, 14740-9, 3015-3 #### [facility] CLIA [id number] [address] [place] [address] [place] Protein [Mass/Vol] 7.4 g/dL Normal 6.3-8.0 [facility] Comment on above: Order Comment: Speci men Type: BLOOD SPECIMEN Ordering Facility: [facility] Address: [address] [place], [place] [address] Performed By: #### 2 4323-8, 16489-4, 3015-3 #### [facility] CLIA [id number] [address] [place] [address] [place] Sodium [Moles/Vol] 139 mmol/L Normal 136-144 [facility] Comment on above: Order Comment: Speci men Type: BLOOD SPECIMEN Ordering Facility: [facility] Address: [address] [place] [address] Performed By: #### 2 4323-8, 45552-7, 6-3 #### [facility] CLIA [id number] [address] [place] [address] [place] Urea nitrogen [Mass/Vol] 12 mg/dL Normal 9-[address] [facility] Comment on above: Order Comment: Speci men Type: BLOOD SPECIMEN Ordering Facility: [facility] Address: [address] [place] [address] Performed By: #### 2 4323-8, 83977-1, 3016-3 #### [facility] CLIA [id number] [address] [place] [address] [place] Lipid 1996 panelon 5 Cholesterol [Mass/Vol] 103 mg/dL Normal <200 [facility] Comment on above: Order Comment: Speci men Type: BLOOD SPECIMEN Ordering Facility: [facility] Address: [address] [place] [address] Result Comment: <200 mg/dL, Desirable 200-239 mg/dL, Borderline high >239 mg/dL, High Performed By: #### 2 4323-8, 39490-0, 3016-3 #### [facility] CLIA [id number] [address] [place] [address] [place] Cholesterol in HDL [Mass/Vol] 26 mg/dL Low >[address] [facility] Comment on above: Order Comment: Speci men Type: BLOOD SPECIMEN Ordering Facility: [facility] Address: [address] [place] [address] Result Comment: 40-5 9 mg/dL, Acceptable >59 mg/dL, High: Negative risk factor for coronary heart disease <40 mg/dL, Low: Positive risk factor for coronary heart disease Performed By: #### 2 4323-8, 09012-4, 3016-3 #### [facility] CLIA [id number] [address] [place] [address] [place] Cholesterol in LDL [Mass/Vol] 59 mg/dL Normal <[address] [facility] Comment on above: Order Comment: Speci men Type: BLOOD SPECIMEN Ordering Facility: [facility] Address: [address] [place] [address] Result Comment: <100 mg/dL, Optimal 100-129 mg/dL, Near optimal/above optimal 130-159 mg/dL, Borderline high 160-189 mg/dL, High >189 mg/dL, Very high Secondary prevention optimal LDL Cholesterol levels are recommended to be < 70 mg/dL Performed By: #### 2 4323-8, 12756-0, 3016-3 #### [facility] CLIA [id number] [address] [place] [address] [place] Cholesterol in LDL/Cholesterol in HDL [Mass ratio] 2.27 {ratio} Normal <2.[address] [facility] Comment on above: Order Comment: Shira argueta Type: BLOOD SPECIMEN Ordering Facility: [facility] Address: [address] [place] [address] Result Comment: Edilma petersen: 1. National Cholesterol Education Program ATP III Guideline At-A-Glance Quick Desk Reference: National Heart, Lung, and Blood [place]. National Institutes of Health. 2001: NIH Publication No. 01-3305. 2. An International Atherosclerosis Society position paper: global recommendations for the management of dyslipidemia: executive summary, Atherosclerosis. 2014: 232(2):410-413. Performed By: #### 2 4323-8, 31732-7, 3016-3 #### [facility] CLIA [id number] [address] [place] [address] [place] Cholesterol in VLDL [Mass/Vol] 18 mg/dL Normal <[address] [facility] Comment on above: Order Comment: Shira argueta Type: BLOOD SPECIMEN Ordering Facility: [facility] Address: [address] [place] [address] Performed By: #### 2 4323-8, 11794-1, 3016-3 #### [facility] CLIA [id number] [address] [place] [address] [place] Cholesterol non HDL [Mass/Vol] 77 mg/dL Normal <[address] [facility] Comment on above: Order Comment: Shira argueat Type: BLOOD SPECIMEN Ordering Facility: [facility] Address: [address] [place] [address] Result Comment: <130 mg/dL, Optimal 130-159 mg/dL, Near optimal/above optimal 160-189 mg/dL, Borderline high 190-219 mg/dL, High >219 mg/dL, Very high Secondary prevention optimal non HDL Cholesterol levels are recommended to be <100 mg/dL Performed By: #### 2 4323-8, 13186-2, 3016-3 #### [facility] CLIA [id number] [address] [place] [address] [place] Cholesterol.total/Cholest kaitlynn in HDL [Mass ratio] 3.96 {ratio} Normal <5.10 [facility] Comment on above: Order Comment: Speci men Type: BLOOD SPECIMEN Ordering Facility: [facility] Address: [address] [place] [address] Performed By: #### 2 4323-8, 61239-1, 6-3 #### [facility] CLIA [id number] [address] [place] [address] [place] FASTING TIME 13 hrs Normal [facility] Comment on above: Order Comment: Speci men Type: BLOOD SPECIMEN Ordering Facility: [facility] Address: [address] [place] [address] Performed By: #### 2 4323-8, 34619-3, 6-3 #### [facility] CLIA [id number] [address] [place] [address] [place] Triglyceride [Mass/Vol] 91 mg/dL Normal <150 [facility] Comment on above: Order Comment: Speci men Type: BLOOD SPECIMEN Ordering Facility: [facility] Address: [address] [place] [address] Result Comment: <150 mg/dL, Normal 150-199 mg/dL, Borderline high 200-499 mg/dL, High >499 mg/dL, Very high Performed By: #### 2 4323-8, 41700-3, 6-3 #### [facility] CLIA [id number] [address] [place] [address] [place] TSH SerPl-aCncon 10-21-2024 TSH Qn 2.140 m[IU]/L Normal 0.270-4.[address] [facility] Comment on above: Order Comment: Speci men Type: BLOOD SPECIMEN Ordering Facility: [facility] Address: [address] [place] [address] Performed By: #### 2 4323-8, 36594-5, 3016-3 #### [facility] CLIA [id number] [address] [place] [address] [place] [address] [place] Nova 10-19-2024 CNPN Telephone (FAMJonathanWS) ---- DEJAN LAZCANO ([id number]) 1965 M Date Time Provider Department 10/19/24 MOY PANIAGUA During your visit today, we recorded the following information about you: Dipika Spence, RN 10/19/2024 3:05 PM Signed Pt calling in and states he is having a problem getting his Lisinopril. States his contacted [facility] pharmacy and they told [...] of his heart meds are with the rail switch operator and some are from PCP office. He doesn't know which office to call when needs refills on his meds. He thought all of his BP, cholesterol and heart meds were started when he was in the hospital when he had a heart attack in 2019. It appears his rail switch operator was ordering his Lisinopril and his Atorvastatin but 06/2023 pt saw Sarai Shah and she sent in prescription renewals for both the Atorvastatin and Lisinopril. His Metoprolol and Isosorbide are still being prescribed by cardiology office. Pt would like all of his heart/BP meds to be prescribed by his rail switch operator so it is easier for him to remember who to call when he needs refills. He will call and confirm with their office that they will prescribe all of those meds. He states his Joana works for [employer] and will follow up. Called [facility] and pt has 69 Lisinopril tablets left from previous prescription. They will get those ready for pt to burr picker. Per last OV note with Dr. Paniagua in March, pt is due for annual exam. Pt booked with [facility] for 10/30/24. Pt due for labwork. Orders pended. Note added to fax results to [facility] as well. Pt will come and get fasting labs drawn next week. Pt is also going to speak with [facility] about seeing them in the fall of 2024 to monitor heart and BP meds as he would like to see PCP once a year in the spring and rail switch operator once a year in the fall to [...] [Z12.5] Order(s):LIPID PANEL BASIC [SQLIPB] Order #: [id number] FUTURE COMPREHENSIVE METABOLIC PANEL [SQCMP] Order #: [id number] FUTURE THYROID STIMULATING HORMONE [SQTSH] Order #: [id number] FUTURE COMPLETE BLOOD COUNT AND DIFFERENTIAL [SQCBCDIF] Order #: [id number] FUTURE Prescriptions as of 10/20/2024 - lisinopril [...] RHINITIS NEC [J30.89] Coronary artery disease involving unga ko*06/02/2020 NSTEMI (non-ST elevated myocardial infarction) *06/04/2020 06/10/2020 Pre-op testing [Z01.818] 06/04/2020 Stenosis of right carotid artery [I65.21] 06/06/2020 Hypertension [I10] 06/10/2020 Stress hyperglycemia [R73.9] 06/10/2020 06/13/2020 Respiratory acidosis [E87.29] 06/11/2020 06/13/2020 Post-op pain [G89.18] 06/11/2020 Encounter for support and coordination of trans*06/13/2020 Depression [F32.A] 04/11/2024 BEE on CPAP [G47.33] 04/11/2024 Encounter Status:Closed by STRAIT, GI (more content not included)... Normal [facility] Cardiology Visit Reporton Cardiology Visit Report [facility] [address] [place] [address] OFFICE VISIT Date of Service: 07/17/24 MR#: [id number] Acct: [id number] Name: DEJAN LAZCANO III Rep #: [id number] : 1965 Provider: GRECIA Tovar Age/Sex: 59/M Location: [facility] Status: Signed HPI [facility] History of Present Illness Details: Dejna Lazcano is a 59-year-old white male who presents today for an outpatient cardiovascular follow-up based upon a history of underlying premature CAD resulting in RCA PTCA (no stent) and subsequent CABG performed at [facility] on 06-10-2020 with a report of a [...] (%) 98 Intake Visit Reasons: 6 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 Normal [facility] CNOVon 04-11-2024 CNOV Office Visit (FAMPWS) ---- DEJAN LAZCANO ([id number]) 1965 M Date Time Provider Department 04/11/24 4:40 PM [facility] During your visit today, we recorded the [...] away the itching today. Did travel to [place] and stayed in a hotel last week [...] Screening Ne (more content not included)... Normal [facility] 03-22-2024 [facility] Telephone (FAMJonathanWS) ---- DEJAN LAZCANO ([id number]) 1965 M Date Time Provider Department 03/22/24 [facility] During your visit today, we recorded the [...] RHINITIS NEC [J30.89] Coronary artery disease involving unga ko*06/02/2020 NSTEMI (non-ST elevated myocardial infarction) *06/04/2020 06/10/2020 Pre-op testing [Z01.818] 06/04/2020 Stenosis of right carotid artery [I65.21] 06/06/2020 Hypertension [I10] 06/10/2020 Stress hyperglycemia [R73.9] 06/10/2020 06/13/2020 Respiratory acidosis [E87.29] 06/11/2020 06/13/2020 Post-op pain [G89.18] 06/11/2020 Encounter for support and coordination of trans*06/13/2020 Encounter Status:Closed by MOY PANIAGUA on 03/23/[address] [facility] Absolute lymphocyte counton 02-04-2022 Lymphocytes Auto (Unsp spec) [#/Vol] 2.22 10*3/uL 0.83-4.51 [facility] Work Phone: Basophil percentageon 2021 Basophils/100 WBC (Bld) 0.8 % 0-1 [facility] Work Phone: Chloride [Moles/Vol] 108 mmol/L 98-107 [facility]: Eosinophils/100 WBC (Bld) 2.8 % 0-5 [facility] Work Phone: Glucose [Mass/Vol] 83 mg/dL 74-106 [facility] Work Phone: Neutrophils (Bld) [#/Vol] 4.2 10*3/uL 2.0-7.7 [facility] Work Phone: Neutrophils/100 WBC (Bld) 57.3 % 47-70 [facility] Work Phone: Potassium [Moles/Vol] 4.2 mmol/L 3.5-5.[address] [facility] Work Phone: Comment on above: Slight Hemolysis, Re sult may be falsely increased. Sodium [Moles/Vol] 143 mmol/L 136-145 [facility] Work Phone: WBC (Bld) [#/Vol] 7.4 10*3/uL 4.4-11.0 [facility] Work Phone: [phone] Blood erythrocytes count (nu mber/volume)on 02-04-2022 RBC (Bld) [#/Vol] 4.61 10*6/uL 4.6-6.2 [facility] Work Phone: Blood hemoglobin measurement (mass/volume)on 02-04-2022 Hemoglobin (Bld) [Mass/Vol] 14.7 g/dL 13.0-16.5 [facility] Work Phone: Blood lymphocytes/100 leukoc yteson 02-04-2022 Lymphocytes/100 WBC (Bld) 30.0 % 19-41 [facility] Work Phone: Blood monocytes/100 leukocyt eson 02-04-2022 Monocytes/100 WBC (Bld) 8.8 % 0-10 [facility] Work Phone: Blood platelet mean volumeon 02-04-2022 Platelet mean volume (Bld) [Entitic vol] 9.3 fL 6.2-12.0 [facility] Work Phone: Determination of erythrocyte mean corpuscular volume (MCV)on 02-04-2022 MCV (RBC) [Entitic vol] 92.0 fL 80-94 [facility] Work Phone: Hematocrit Auto (Bld) [Volum e fraction]on 02-04-2022 Hematocrit (Bld) [Volume fraction] 42.4 % 40-54 [facility] Work Phone: INR in Blood by Coagulation assayon 02-04-2022 INR Coag (Bld) [Relative time] 1.0 {INR} [facility] Work Phone: Laboratory - Chemistry and C hemistry - challengeon 02-04-2022 CO2 [Moles/Vol] 32.0 mmol/L 21.0-32.0 [facility] Work Phone: Urea nitrogen/Creatinine [Mass ratio] 18.4 mg/mg 10-20 [facility] Work Phone: Laboratory - Coagulationon 0 02-04-2022 aPTT Coag (Bld) [Time] 31.0 s 24.1-36.2 [facility] Work Phone: PT Coag (PPP) [Time] 12.7 s 11.7-14.[address] [facility] Work Phone: Laboratory - Hematology and Cell countson 02-04-2022 Erythrocyte distribution width (RBC) [Entitic vol] 40.4 fL 35.1-43.9 [facility] Work Phone: Erythrocyte distribution width (RBC) [Ratio] 12.2 % 11.6-14.6 [facility] Work Phone: Immature granulocytes/100 WBC (Bld) 0.300 % 0.0-0.9 [facility] Work Phone: Comment on above: IG% - Immature Granu locytes (promyelocytes, myelocytes and metamyelocytes) > 1% indicates that a LEFT SHIFT is Present. MCH (RBC) [Entitic mass] 31.9 pg 27.0-32.0 [facility] Work Phone: Nucleated RBC/100 WBC (Bld) [Ratio] 0 % 0-5 [facility] Work Phone: MCHC Auto (RBC) [Mass/Vol]on 02-04-2022 MCHC (RBC) [Mass/Vol] 34.7 g/dL 32-[address] [facility] Work Phone: No Panel Informationon 02-04 Estimated GFR (MDRD) Amer 97 mL/min >60 [facility] Work Phone: Comment on above: GFR Calc Estimated GFR (MDRD) Non-Af Amer 80 mL/min >60 [facility] Work Phone: Comment on above: Non- GFR Calc Platelets bldon 02-04-2022 Platelets (Bld) [#/Vol] 221 10*3/uL 150-450 [facility] Work Phone: Serum or plasma calcium sheryl urement (mass/volume)on 02-04-2022 Calcium [Mass/Vol] 9.1 mg/dL 8.5-10.1 [facility] Work Phone: Serum or plasma creatinine m easurement (mass/volume)on 02-04-2022 Creatinine [Mass/Vol] 1.03 mg/dL 0.70-1.[address] [facility] Work Phone: Comment on above: The validity of the calculated GFR & GFRAA in patients over 70 years has not been determined. Clinical correlation is essential. Serum or plasma urea nitroge n measurement (mass/volume)on 02-04-2022 Urea nitrogen [Mass/Vol] 19 mg/dL 7-18 [facility] Work Phone: Thin prep Papanicolaou smear with manual screeningon 02-04-2022 Thin prep Papanicolaou smear with manual screening 3 5-15 [facility] Work Phone: Vital Signs Date Time Vital Sign Value Performing Clinician Gunner gallego 05-21-2025 13:13-0400 Body height 187.[address] Mike Paniagua MD Work Phone: [facility] 05-21-2025 10:34-0400 Body mass index (BMI) [Ratio] 27.8 kg/m2 Dr. Mike Paniagua MD Work Phone: [facility] 05-21-2025 10:34-0400 Body weight 98.[address] Mike Paniagua MD Work Phone: [phone] 05-21-2025 10:34-0400 Diastolic blood pressure 79 mm[Hg] Dr. Mike Paniagua MD Work Phone: [facility] 05-21-2025 10:34-0400 Heart rate 67 /min Dr. Mike Paniagua MD Work Phone: [phone] [place] [address] 05-21-2025 10:34-0400 Respiratory rate 18 /min Dr. Mike Paniagua MD Work Phone: [facility] 05-21-2025 10:34-0400 SaO2% (BldA) [Mass fraction] 97 % Dr. Mike Paniagua MD Work Phone: [facility] 05-21-2025 10:34-0400 Systolic blood pressure 125 mm[Hg] Dr. Mike Paniagua MD Work Phone: [facility] 12-15-2024 07:52-0400 Body mass index (BMI) [Ratio] 28.18 kg/m2 Moy Paniagua MD Work Phone: [facility] 12-15-2024 07:52-0400 Body weight 96.89 kg Moy Paniagua MD Work Phone: [facility] 12-15-2024 07:52-0400 Diastolic blood pressure 82 mm[Hg] Moy Paniagua MD Work Phone: [facility] 12-15-2024 07:52-0400 Heart rate 66 /min Moy Paniagua MD Work Phone: [facility] 12-15-2024 07:52-0400 Respiratory rate 16 /min Moy Paniagua MD Work Phone: [facility] 12-15-2024 07:52-0400 SaO2% (BldA) [Mass fraction] 97 % Moy Paniagua MD Work Phone: [facility] 12-15-2024 07:52-0400 Systolic blood pressure 114 mm[Hg] Moy Paniagua MD Work Phone: [facility] 04-11-2024 16:36-0400 Body mass index (BMI) [Ratio] 27.18 kg/m2 Moy Paniagua MD Work Phone: [facility] 04-11-2024 16:36-0400 Body weight 93.44 kg Moy Paniagua MD Work Phone: [facility] 04-11-2024 16:36-0400 Diastolic blood pressure 64 mm[Hg] Moy Paniagua MD Work Phone: [facility] 04-11-2024 16:36-0400 Heart rate 68 /min Moy Paniagua MD Work Phone: [facility] 04-11-2024 16:36-0400 Respiratory rate 16 /min Moy Paniagua MD Work Phone: [facility] 04-11-2024 16:36-0400 SaO2% (BldA) [Mass fraction] 95 % Moy Paniagua MD Work Phone: [facility] 04-11-2024 16:36-0400 Systolic blood pressure 108 mm[Hg] Moy Paniagua MD Work Phone: [facility] 08-27-2023 07:28-0500 Body weight 94.89 kg Sarai Shah PEANUT SEPARATOR.TECHNICAL ADMINISTRATIVE ASSISTANT Work Phone: [facility] 08-27-2023 07:28-0500 Diastolic blood pressure 82 mm[Hg] Sarai Podlogar PEANUT SEPARATOR.TECHNICAL ADMINISTRATIVE ASSISTANT Work Phone: [facility] 08-27-2023 07:28-0500 Heart rate 58 /min Sarai Podlogar PEANUT SEPARATOR.TECHNICAL ADMINISTRATIVE ASSISTANT Work Phone: [facility] 08-27-2023 07:28-0500 Respiratory rate 16 /min Sarai Podlogar PEANUT SEPARATOR.TECHNICAL ADMINISTRATIVE ASSISTANT Work Phone: [facility] 08-27-2023 07:28-0500 SaO2% (BldA) [Mass fraction] 93 % Sarai Podlogar PEANUT SEPARATOR.TECHNICAL ADMINISTRATIVE ASSISTANT Work Phone: [facility] 08-27-2023 07:28-0500 Systolic blood pressure 124 mm[Hg] Sarai Podlogar PEANUT SEPARATOR.TECHNICAL ADMINISTRATIVE ASSISTANT Work Phone: [facility] 11-06-2022 11:32-0500 Body height 187.[address] Mike Paniagua Work Phone: [facility] 11-06-2022 11:32-0500 Body mass index (BMI) [Ratio] 25.7 kg/m2 Dr. Mike Paniagua Work Phone: [phone] [place] [address] 11-06-2022 11:32-0500 Body weight 90.[address] Mike Paniagua Work Phone: [facility] 11-06-2022 11:32-0500 Diastolic blood pressure 80 mm[Hg] Dr. Mike Paniagua Work Phone: [facility] 11-06-2022 11:32-0500 Heart rate 56 /min Dr. Mike Paniagua Work Phone: [facility] 11-06-2022 11:32-0500 Respiratory rate 16 /min Dr. Mike Paniagua Work Phone: [facility] 11-06-2022 11:32-0500 Systolic blood pressure 122 mm[Hg] Dr. Mike Paniagua Work Phone: [facility] 02-10-2022 08:50-0400 Body height 187.[address] Mike Paniagua Work Phone: [facility] Work Phone: 02-10-2022 08:50-0400 Body weight 89.[address] Mike Paniagua Work Phone: [facility] Work Phone: 02-09-2022 09:48-0400 Body mass index (BMI) [Ratio] 25.2 kg/m2 Dr. Mike Paniagua Work Phone: [facility] Work Phone: 11-19-2021 14:21-0500 Body mass index (BMI) [Ratio] 25.2 kg/m2 Dr. Mike Paniagua Work Phone: [facility] Work Phone: 11-19-2021 14:21-0500 Body weight 89.[address] Mike Paniagua Work Phone: [facility] Work Phone: 11-19-2021 14:21-0500 Diastolic blood pressure 73 mm[Hg] Dr. Mike Paniagua Work Phone: [facility] Work Phone: 11-19-2021 14:21-0500 Heart rate 74 /min Dr. Mike Paniagua Work Phone: [facility] Work Phone: 11-19-2021 14:21-0500 Respiratory rate 16 /min Dr. Mike Paniagua Work Phone: [facility] Work Phone: 11-19-2021 14:21-0500 Systolic blood pressure 115 mm[Hg] Dr. Mike Paniagua Work Phone: [facility] Work Phone: Encounters Encounter Date Encounter Type Care Provider Facility Start: 06-22-2025 ambulatory Mike Martino lity:[facility] Start: 05-21-2025 End: 05-21-2025 Patient encounter procedure Sandhya García RETAIL INVENTORY CONTROL CLERK-C [facility] Work Phone: Start: 05-21-2025 End: 05-21-[address] Mike Paniagua MD Work Phone: [facility] Start: 05-21-2025 End: 05-21-2025 ambulatory Sandhya García NP Facility:[facility] Start: 03-26-2025 End: 03-27-2025 Refill Moy Paniagua MD Work Phone: [address] [place] [address] Comment on above: Refill Request Start: 01-09-2025 End: 01-09-2025 Refill Moy Paniagua MD Work Phone: [facility] Comment on above: Refill Request Start: 12-25-2024 End: 12-26-2024 Refill Moy Paniagua MD Work Phone: [facility] Comment on above: Refill Request Start: 12-15-2024 End: 12-15-2024 ambulatory MOY PANIAGUA Facility:[facility] Start: 12-15-2024 End: 12-15-2024 Patient encounter procedure Moy Paniagua MD Work Phone: [facility] Comment on above: Annual physical exam (Primary Dx); 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); Primary hypertension; Hyperlipidemia, unspecified hyperlipidemia type; BEE on CPAP; Screening for colon cancer; Major depressive disorder with current active episode, unspecified depression episode severity, unspecified whether recurrent Start: 12-09-2024 End: 12-11-2024 Refill Sarai Shah APRN.CNP Work Phone: [facility] Comment on above: Refill Request Start: 12-07-2024 End: 12-11-2024 Refill Moy Paniagua MD Work Phone: [facility] Comment on above: Refill Request Start: 11-07-2024 End: 11-07-2024 Refill Moy Paniagua MD Work Phone: [address] [place] [address] Comment on above: Refill Request Start: 10-30-2024 End: 10-30-2024 Telephone encounter Sarai Shah APRN.CNP Work Phone: [facility] [place] Comment on above: Results Start: 10-21-2024 End: 10-21-2024 ambulatory MOY PANIAGUA Facility:[facility] Start: 10-21-2024 Physical examination MOY GRIDER [facility] Start: 10-19-2024 End: 10-20-2024 Physical examination Moy Paniagua MD Work Phone: [facility] Start: 10-19-2024 End: 10-20-2024 Telephone encounter Moy Paniagua MD Work Phone: [facility] [place] Comment on above: Medication Problem; Appointment; Orders Start: 10-17-2024 End: 10-18-2024 Refill Moy Paniagua MD Work Phone: [facility] [place] Comment on above: Refill Request Start: 07-17-2024 End: 07-17-2024 ambulatory Mike Paniagua Facility:[facility] Start: 06-19-2024 End: 06-19-2024 Refill Moy Paniagua MD Work Phone: [facility] [place] Comment on above: Refill Request Start: 04-11-2024 End: 04-11-2024 Patient encounter procedure Moy Paniagua MD Work Phone: [facility] [place] Comment on above: Herpes zoster withou t complication (Primary Dx); Major depressive disorder with current active episode, unspecified depression episode severity, unspecified whether recurrent; Primary hypertension; 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); BEE on CPAP Start: 04-11-2024 End: 04-11-2024 ambulatory MOY PANIAGUA Facility:[facility] Start: 03-22-2024 Telephone encounter Mike Paniagua MD Work Phone: [facility] [place] Start: 03-20-2024 Refill Moy Paniagua MD Work Phone: [facility] Comment on above: Refill Request Start: 02-28-2024 Refill Moy Paniagua MD Work Phone: [facility] Start: 08-27-2023 End: 08-27-2023 Patient encounter procedure Sarai Alyssa AGUIRRETECHNICAL ADMINISTRATIVE ASSISTANT Work Phone: [facility] Comment on above: Fatigue, unspecified type (Primary Dx) Start: 11-20-2022 End: 11-20-[address] Mike Paniagua Work Phone: [facility] Work Phone: Start: 11-20-2022 End: 11-20-[address] Mike Paniagua Work Phone: [facility]-Sleep Lab Start: 11-06-2022 End: 11-06-[address] Mike Paniagua Work Phone: [facility] Start: 02-10-2022 End: 02-10-2022 Admission to same day surgery center Dr. Mike Paniagua Work Phone: [facility] [place]/Special Procedures Start: 02-09-2022 Non-patient / Non-visit Dr. Samy Paniagua Work Phone: [facility] Start: 01-19-[address] Dariana Paniagua Work Phone: [facility] Start: 01-13-2022 Non-patient / Non-visit Dr. Samy Paniagua Work Phone: [facility] Start: 01-13-2022 End: 01-13-[address] Mike Paniagua Work Phone: [facility]-Cardiovascu lar Services Start: 11-19-2021 End: 11-19-[address] Mike Paniagua Work Phone: [facility] Start: 06-09-2020 Patient encounter status Sarai Shah PEANUT SEPARATOR.TECHNICAL ADMINISTRATIVE ASSISTANT Work Phone: [facility] Work Phone: Procedures Date Procedure Procedure Detail Performing Clinician Start: 10-21-2024 Lipid 1996 panel - Serum or Plasma Sarai Hammerloggloria PEANUT SEPARATOR.TECHNICAL ADMINISTRATIVE ASSISTANT Work Phone: Start: 06-28-2023 Lipid 1996 panel - Serum or Plasma Sarai Hammerloggloria PEANUT SEPARATOR.TECHNICAL ADMINISTRATIVE ASSISTANT Work Phone: Start: 02-04-2022 Plain chest X-ray [...] end to side PDA 06/10/20 @ [facility] Dr. Tacho Manjarrez if the patient was [...] DTaP,Tdap,Td Vaccine (3 - Td or Tdap) [facility] Start: 10-21-2029 Lipid panel Lipid Screening [facility] Start: 06-28-2028 Lipid 1996 panel - Serum or Plasma Lipid Screening [facility] Start: 06-28-2028 Lipid panel Lipid Screening [facility] Start: 10-21-2027 Diabetes Screening Diabetes Screenin [facility] Start: 06-28-2026 Diabetes Screening Diabetes Screenin [facility] Start: 12-15-2025 Annual PCP Team Acls Nurse ignacio Disease Visit Annual PCP Team Chronic Disease Visit [facility] Start: 12-15-2025 Covid-19 Vaccine ( season) Covid-19 Vaccine ( season) [facility] Comment on above: Postponed from 05/28 (Declined at this time) Start: 12-15-2025 Hepatitis B Vaccine (1 of 3 - 19+ 3-dose series) Hepatitis B Vaccine (1 of 3 - 19+ 3-dose series) [facility] Comment on above: Postponed from 05/20 (Declined at this time) Start: 12-15-2025 Pneumococcal Vaccine : 50+ (1 of 2 - PCV) Pneumococcal Vaccine: 50+ (1 of 2 - PCV) [facility] Comment on above: Postponed from 05/20 (Declined at this time) Start: 10-21-2025 Hepatitis B surface antibody level LDL Cholesterol [facility] Start: 05-28-2025 Influenza vaccination Influenza Vacc ine (#1) [facility] Start: 05-21-2025 Evaluation of diagnostic study results [facility] Start: 04-11-2025 Annual PCP Team Acls Nurse ignacio Disease Visit Annual PCP Team Chronic Disease Visit [facility] Start: 04-11-2025 BP Controlled (<130/80) BP Controlle d (<130/80) [facility] Start: 04-11-2025 Covid-19 Vaccine ( season) Covid-19 Vaccine ( season) [facility] Comment on above: Postponed from 05/28 (Declined at this time) Start: 04-11-2025 Shingrix Vaccine (1 of 2) Shingrix Vaccine (1 of 2) [facility] Comment on above: Postponed from 05/20 (Declined at this time) Start: 03-26-2025 Influenza vaccination Influenza Vacc ine (#1) [facility] Comment on above: Postponed from 05/28 (Declined at this time) Start: 10-30-2024 End: 10-30-2024 Patient encounter procedure 10/30/2024 2:20 PM EST Office Visit [facility] [place] [address] [place] [id number] Sarai Shah APRN.TECHNICAL ADMINISTRATIVE ASSISTANT [address] [facility] [place] [address] annual physical [facility] [place] Comment on above: annual physical Start: 10-20-2024 End: 01-19-2025 CBC W Auto Differential panel - Blood COMPLETE BLOOD COUNT AND DIFFERENTIAL Lab Routine Routine physical examination Expected: 10/20/2024, Expires: 01/19/2025 [facility] Comment on above: Expected: 10/20/2024 , Expires: 01/19/2025 Start: 10-20-2024 End: 01-19-2025 Comprehensive metabolic 2000 panel - Serum or Plasma COMPREHENSIVE METABOLIC PANEL Lab Routine Hyperlipidemia, unspecified hyperlipidemia type Primary hypertension Routine physical examination Expected: 10/20/2024, Expires: 01/19/2025 [facility] Comment on above: Expected: 10/20/2024 , Expires: 01/19/2025 Start: 10-20-2024 End: 01-19-2025 Lipid 1996 panel - Serum or Plasma LIPID PANEL BASIC Lab Routine Hyperlipidemia, unspecified hyperlipidemia type Routine physical examination Expected: 10/20/2024, Expires: 01/19/2025 [facility] Work Phone: Comment on above: Expected: 10/20/2024 , Expires: 01/19/2025 Start: 10-20-2024 End: 01-19-2025 Thyrotropin [Units/volume] in Serum or Plasma THYROID STIMULATING HORMONE Lab Routine Routine physical examination Expected: 10/20/2024, Expires: 01/19/2025 [facility] Comment on above: Expected: 10/20/2024 , Expires: 01/19/2025 Start: 10-11-2024 BP Controlled (<130/80) BP Controlle d (<130/80) [facility] Start: 08-27-2024 Annual PCP Team Acls Nurse ignacio Disease Visit Annual PCP Team Chronic Disease Visit [facility] Start: 06-28-2024 Hepatitis B surface antibody level LDL Cholesterol [facility] Start: 05-28-2024 Covid-19 Vaccine () Covid-19 Vaccine () [facility] Start: 05-28-2024 Influenza vaccination [facility] Start: 04-11-2024 End: 04-11-2024 Patient encounter procedure 04/11/2024 4:40 PM EDT Office Visit [facility] [place] [address] [place] [address] Moy Paniagua MD [address] [place] [address] 6 month follow up Family [facility] S[facility] Comment on above: 6 month follow up Start: 03-26-2024 Influenza vaccination Influenza Vacc ine (#1) [facility] Comment on above: Postponed from 05/28 (Declined at this time) Start: 09-27-2023 Behavioral Health Screening Behavioral Health Screening [facility] Start: 05-28-2023 Covid-19 Vaccine ( season) Covid-19 Vaccine () [facility] Start: 09-27-2022 Depression Assessment Depression Ass essment [facility] Start: 2022 Prostate Cancer Screening Discussion Prostate Cancer Screening Discussion [facility] Start: 2022 Prostate specific antigen measurement Prostate Cancer Screening Discussion [facility] Start: 2017 Pneumococcal Vaccine : 50+ (1 of 1 - PCV) Pneumococcal Vaccine: 50+ (1 of 1 - PCV) [facility] Start: 2017 Shingrix Vaccine (1 of 2) Shingrix Vaccine (1 of 2) [facility] Start: 2012 Cologuard (FIT-DNA) Cologuard (FIT-D NA) [facility] Start: 2012 Colonoscopy Colonoscopy [facility] Start: 2012 Colorectal Cancer Screening Colorectal Cancer Screening [facility] Start: [address] Colonography [facility] Start: 2012 Fecal Occult Blood Fecal Occult Bloo d [facility] Start: 2012 Prostate specific antigen measurement Prostate Cancer Screening Discussion [facility] Start: 2012 Screening for malign ant neoplasm of colon [facility] Start: 2012 Sigmoidoscopy Sigmoidoscopy [facility] Start: 1986 Hepatitis B Vaccine (1 of 3 - 19+ 3-dose series) Hepatitis B Vaccine (1 of 3 - 19+ 3-dose series) [facility] Start: 1985 Anxiety Screening Anxiety Screening [facility] Start: 1985 BP Controlled (<130/80) BP Controlle d (<130/80) [facility] Start: 1985 Hepatitis C Screening Hepatitis C [facility] Start: 1985 Hepatitis C screening Hepatitis C [facility] Start: 1985 HIV Screening HIV Screening [facility] Start: 1985 HIV screening HIV Screening [facility] Start: 1973 Pneumococcal vaccination Pneumococcal Vaccine (1 - PCV) [facility] Start: 1967 Hepatitis B Vaccine (1 of 3 - 3-dose series) Hepatitis B Vaccine (1 of 3 - 3-dose series) [facility] Basic metabolic 2008 panel with ionized calcium - Serum or Plasma [facility] CBC W Auto Different ial panel - Blood [facility] Natriuretic peptide. B prohormone N-Terminal [Mass/volume] in Serum or Plasma [facility] Radionuclide imaging of perfusion of myocardium under exercise stress [facility] Thyroid stimulating hormone measurement [facility] Immunizations Immunization Date Immunization Notes Care Provider Fa cility 11-12-2021 Seasonal, quadrivalent, recombinant, injectable influenza vaccine, preservative free Moy Paniagua MD Work Phone: [facility] 11-12-2021 tetanus toxoid, reduced diphtheria toxoid, and acellular pertussis vaccine, adsorbed Moy Paniagua MD Work Phone: [facility] 11-12-2021 influenza virus vaccine, unspecified formulation Sarai Hammerloggloria PEANUT SEPARATOR.TECHNICAL ADMINISTRATIVE ASSISTANT Work Phone: [facility] 07-22-2020 influenza, injectabl e, quadrivalent, contains preservative Sarai Podlogar PEANUT SEPARATOR.TECHNICAL ADMINISTRATIVE ASSISTANT Work Phone: [facility] 05-13-2019 tetanus toxoid, reduced diphtheria toxoid, and acellular pertussis vaccine, adsorbed Dr. Mike Paniagua Work Phone: [facility] 09-11-2009 novel [id number], preservative-free, injectable Sarai Podlogar PEANUT SEPARATOR.TECHNICAL ADMINISTRATIVE ASSISTANT Work Phone: [facility] 08-13-2009 novel [id number], preservative-free, injectable Sarai Podlogar PEANUT SEPARATOR.TECHNICAL ADMINISTRATIVE ASSISTANT Work Phone: [facility] 09-02-2002 measles, mumps and rubella virus vaccine Sarai Podlogar PEANUT SEPARATOR.TECHNICAL ADMINISTRATIVE ASSISTANT Work Phone: [facility] NEGATED: Highlighted row has not occurred!06-16-2020 pneumococcal polysaccharide vaccine, 23 valent Sarai Podlogar PEANUT SEPARATOR.TECHNICAL ADMINISTRATIVE ASSISTANT Work Phone: [facility] Comment on above: Deferred: Patient Re fused Payers Date Payer Category Payer Self-pay [id number] 2020 [employer] BLUE CARD PPO OOS [id number] 2020 Unknown [employer] BLUE CARD PPO OOS [id number] 2020-Present [phone] [place], [place] [address] PPO [id number] 2012 Unknown [id number] Unknown [facility] PACKAGE PLAN [id number] Unknown [id number] Unknown [id number] Unknown [id number] Unknown [id number] Social History Date Type Detail Facility Start: 02-10-2022 End: 11-06-2022 Tobacco smoking status NHIS Unknown if ever smoked [facility] Start: 06-01-2020 None [facility] Start: 06-01-2020 Spouse/ Significant Other [facility] Start: 06-01-2020 Non-smoker [facility] Start: 1965 Sex Assigned At Male [facility] Start: 12-24-2022 End: 06-28-2023 Tobacco smoking status NHIS Never smoked tobacco [facility] Start: 06-28-2023 Tobacco use and exposure Smokeless tobacco non-user [facility] Start: 08-27-2023 End: 12-15-2024 Alcohol intake Current non-drinker of alcohol (finding) [facility] Start: 08-27-2023 End: 04-11-2024 History of Social function [facility] Work Phone: Start: 08-27-2023 End: 04-11-2024 Tobacco use panel [facility] Work Phone: (I/We) worried wheth er (my/our) food would run out before (I/we) got money to buy more. Never true [facility] Work Phone: In the past 12 month s, has lack of transportation kept you from medical appointments or from getting medications? No [facility] Work Phone: Start: 1965 Sex Assigned At Not on file [facility] Functional Status Date Assessment Result Facility 06-16-2020 Are you deaf, or do you have serious difficulty hearing No 06/16/2020 1:10 PM Denny Noyola RN No [facility] 06-16-2020 Are you blind, or do you have serious difficulty seeing, even when wearing glasses No 06/16/2020 1:10 PM EDT Denny Vera RN No [facility] 06-16-2020 Do you have serious difficulty walking or climbing stairs No 06/16/2020 1:10 PM EDT Denny Vera RN No [facility] 06-16-2020 Do you have difficul ty dressing or bathing No 06/16/2020 1:10 PM EDT Denny Vera RN No [facility] 06-16-2020 Because of a physica l, mental, or emotional condition, do you have difficulty doing errands alone such as visiting a physician's office or shopping No 06/16/2020 1:10 PM EDT Denny Vera RN No [facility] Mental Status Date Assessment Result Facility 06-16-2020 Because of a physica l, mental, or emotional condition, do you have serious difficulty concentrating, remembering, or making decisions No 06/16/2020 1:10 PM EDT Denny Vera RN No [facility] Clinical Notes 05-28-2020 to 05-21-2025 Note Date [...] HLD (hyperlipidemia) chronic May 21, 2025 1:00pm [facility] Work Phone: 1(374) 982-426606-30-2025 Telephone encounter Note* Telephone Encounter - Baldomero Rosas LPN - 03/26/2025 7:18 PM EDT Isosorbide Mononitrate ER 60mg is rx'd by Cardiology. Per Pharm dispense report, a 90 day supply was most recently dispensed on 02/21/25. Pt needs to contact Cardiology ([facility]) for medication. Lisinopril 5mg was written 12/26/24 #90 with 1 refill. Pt is not due for refill. Request for Citalopram 40mg has been forwarded to provider for further review. Baldomero Rosas LPN [facility]06-30-2025 Miscellaneous Notes* Telephone Encounter - Baldomero Rosas LPN - 03/26/2025 7:18 PM EDT Isosorbide Mononitrate ER 60mg is rx'd by Cardiology. Per Pharm dispense report, a 90 day supply was most recently dispensed on 02/21/25. Pt needs to contact Cardiology ([facility]) for medication. Lisinopril 5mg was written 12/26/24 [...] 26, 2025 12:37 PM documented in this encounterMer[facility]06-30-2025 Telephone encounter Note * Telephone Encounter - [...] Garcia March 26, 2025 12:37 PM T [facility]04-15-2025 Telephone encounter Note* Telephone Encounter - Verónica [...] Fong January 09, 2025 10:18 AM T [facility]04-15-2025 Miscellaneous Notes* Telephone Encounter - Verónica Fong [...] 09, 2025 10:18 AM documented in this encounterMer[facility]03-31-2025 Telephone encounter Note * Telephone Encounter - [...] Rosas LPN December 25, 2024 5:14 PM [facility]03-31-2025 Miscellaneous Notes* Telephone Encounter - Baldomero Rosas [...] 25, 2024 5:14 PM documented in this encounterMercy Health [facility]03-21-2025 NoteHNO ID: [id number] Author: MOY PANIAGUA MD Service: ? Author [...] 28.18 kg/m? General Appearan (more content not included)...[facility] 12-15-2024 History of Present illness Narrative* Moy [...] Lymph 1.00 - 4.00 k/uL 1.93 1.95 Lanier% % 10.0 11.6 Abs Lanier <0.87 k/uL 0.58 0.73 Eosin% % 4.5 [...] one year 2. 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 6. Screening for colon cancer - ICD9: V76.51, ICD10: Z12.11 Referral to surgery for screening colonoscopy. - CONSULT TO GENERAL SURGERY 7. Major depressive disorder with current active episode, unspecified depression episode severity, unspecified whether recurrent - ICD9: 296.30, ICD10: F32.9 Improved with Celexa. Moy Paniagua MD documented in this encounterMer[facility]03-17-2025 Telephone encounter Note * Telephone Encounter - Moy Paniagua MD - 12/11/2024 10:33 AM EDT Overdue for annual physical and needs to schedule OV. Will send 30 day rx. [facility]03-17-2025 Miscellaneous Notes* Telephone Encounter - Moy Paniagua [...] 07, 2024 4:32 PM documented in this encounterMercy Health [facility]03-17-2025 Telephone encounter Note * Telephone Encounter - [...] Mera LPN December 11, 2024 10:17 AM [facility]03-17-2025 Miscellaneous Notes* Telephone Encounter - Dipika Mera [...] 11, 2024 10:17 AM documented in this encounterMercy [facility]03-13-2025 Telephone encounter Note * Telephone Encounter - [...] Verónica Fong December 07, 2024 4:32 PM [facility]02-11-2025 Telephone encounter Note* Telephone Encounter - Sherice [...] Sherice Garcia November 07, 2024 12:17 PM [facility]02-11-2025 Miscellaneous Notes* Telephone Encounter - Sherice Garcia [...] 07, 2024 12:17 PM documented in this encounterMercy Health – [facility]02-03-2025 Telephone encounter Note * Telephone Encounter - Mar Rubin MA - 10/30/2024 10:50 AM EST Pt notified of results via Sqeeqee. Mar Rubin Ma [facility]02-03-2025 Miscellaneous Notes* Telephone Encounter - Mar Rubin MA - 10/30/2024 10:50 AM EST Pt notified of results via [employer]. Mar Rubin Ma * Telephone Encounter - Mar Rubin MA - 10/30/2024 10:50 AM EST ----- Message from Sarai Shah APRN.CNP sent at 10/30/2024 7:13 AM EST ----- Blood work is in acceptable ranges. Continue medication, diet and exercise. Recommend rescheduling appointment since he canceled. Sarai Podlogar, PEANUT SEPARATOR.TECHNICAL ADMINISTRATIVE ASSISTANT documented in this encounterMercy Health – [facility]02-03-2025 Telephone encounter Note * Telephone Encounter - Mar Rubin MA - 10/30/2024 10:50 AM EST ----- Message from Sarai Shah APRN.TECHNICAL ADMINISTRATIVE ASSISTANT sent at 10/30/2024 7:13 AM EST ----- Blood work is in acceptable ranges. Continue medication, diet and exercise. Recommend rescheduling appointment since he canceled. Sarai Shah APRN.TECHNICAL ADMINISTRATIVE ASSISTANT [facility]01-24-2025 Telephone encounter Note* Telephone Encounter - Kayla Layne OCCA - 10/20/2024 9:42 AM EST TC to patient who verbalized understanding of providers message below. Patient will have lab work completed prior to appointment. CARLY Canales [facility]01-24-2025 Miscellaneous Notes* Telephone Encounter - Kayla Layne [...] problem getting his Lisinopril. States his contacted [facility] pharmacy and they told [...] of his heart meds are with the rail switch operator and some are from PCP office. He doesn't know which office to call when needs refills on his meds. He thought all of his BP, cholesterol and heart meds were started when he was in the hospital when he had a heart attack in 2019.It appears his rail switch operator was ordering his Lisinopril and his Atorvastatin but 06/2023 pt saw Sarai Shah and she sent in prescription renewals for both the Atorvastatin and Lisinopril. His Metoprolol and Isosorbide are still being prescribed by cardiology office. Pt would like all of his heart/BP meds to be prescribed by his rail switch operator so it is easier for him to remember who to call when he needs refills. He will call and confirm with their office that they will prescribe all of those meds. He states his Joana works for [facility] and will follow up. Called [facility] and pt has 69 Lisinopril tablets left from previous prescription. They will get those ready for pt to burr picker. Per last OV note with Dr. Paniagua in March, pt is due for annual exam. Pt booked with Sarai Irwinor 10/30/24. Pt due for labwork. Orders pended. Note added to fax results to [facility] as well. Pt will come and get fasting labs drawn next week. Pt is also going to speak with [facility] about seeing them in the fall of 2024 to monitorheart and BP meds as he would like to see PCP once a year in the spring and rail switch operator once a year in the fall to cover every 6 months. He usually sees Cardiology in the spring as well. documented in this encounterMercy [facility]01-24-2025 Telephone encounter Note * Telephone Encounter - Moy Paniagua MD - 10/20/2024 8:43 AM EST Agree with having same provider managed chronic meds. Appropriate labs ordered as requested to be completed prior to physical. [facility]01-23-2025 Telephone encounter Note* Telephone Encounter - Dipika Spence RN - 10/19/2024 2:40 PM EST Pt calling in and states he is having a problem getting his Lisinopril. States his contacted [facility] pharmacy and they told her he has no refills. He states his talked with his cardiology office [facility] and they said he should have a refill. Per med list, pt should have enough Lisinopril until November. Pt states he used to only get his Citalopram from Dr. Paniagua and Sarai Shah and then somehow now half of his heart meds are with the rail switch operator and some are from PCP office. He doesn't know which office to call when needs refills on his meds. He thought all of his BP, cholesterol and heart meds were started when he was in the hospital when he had a heart attack in 2019.It appears his rail switch operator was ordering his Lisinopril and his Atorvastatin but 06/2023 pt saw Sarai Shah and she sent in prescription renewals for both the Atorvastatin and Lisinopril. His Metoprolol and Isosorbide are still being prescribed by cardiology office. Pt would like all of his heart/BP meds to be prescribed by his rail switch operator so it is easier for him to remember who to call when he needs refills. He will call and confirm with their office that they will prescribe all of those meds. He states his Joana works for [employer] and will follow up. Called [facility] and pt has 69 Lisinopril tablets left from previous prescription. They will get those ready for pt to burr picker. Per last OV note with Dr. Paniagua in March, pt is due for annual exam. Pt booked with Sarai Irwinor 10/30/24. Pt due for labwork. Orders pended. Note added to fax results to [facility] as well. Pt will come and get fasting labs drawn next week. Pt is also going to speak with [facility] about seeing them in the fall of 2024 to monitorheart and BP meds as he would like to see PCP once a year in the spring and rail switch operator once a year in the fall to cover every 6 months. He usually sees Cardiology in the spring as well. [facility]09-23-2024 Telephone encounter Note* Telephone Encounter - Felicia Holguin MA - 06/19/2024 5:40 PM EDT The following approved medication requests have been transmitted electronically. Requested Prescriptions Signed Prescriptions Disp Refills lisinopril (ZESTRIL) 5 mg tablet 90 tablet 1 Sig: Take 1 tablet by mouth once daily. Authorizing Provider: MOY PANIAGUA MA [facility]09-23-2024 Miscellaneous Notes* Telephone Encounter - Felicia Holguin [...] 19, 2024 12:33 PM documented in this encounterMercy Health – The [facility] Hospital09-23-2024 Telephone encounter Note * Telephone Encounter - [...] tablet by mouth once daily. Malena Soler [facility] June 19, 2024 12:33 PM [facility]07-16-2024 History of Present illness Narrative* Moy Paniagua [...] away the itching today. Did travel to [place] and stayed in a hotel last week [...] Abs Lymph 1.00 - 4.00 k/uL 1.93 Lanier% % 10.0 Abs Lanier <0.87 k/uL 0.58 Eosin% % 4.5 Abs [...] aerobic exercise 4. 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 Managed by [facility] cardiology. Recent stress test negative. F/u cardiology recommendations. Moy Paniagua MD documented in this encounterMercy Health [facility]07-16-2024 NoteHNO ID: [id number] Author: MOY PANIAGUA MD Service: ? Author [...] away the itching today. Did travel to [place] and stayed in a hotel last week [...] Vaccine( season) due on (more content not included)...[facility]06-24-2024 Telephone encounter Note* Telephone Encounter - Kayla Layne OCCA - 03/20/2024 11:57 AM EDT TC to patient who is now scheduled. CARLY Canales [facility]06-24-2024 Miscellaneous Notes* Telephone Encounter - Kayla Layne [...] 20, 2024 9:15 AM documented in this encounterMercy Health – [facility] Hospital06-24-2024 Telephone encounter Note * Telephone Encounter - Moy Paniagua MD - 03/20/2024 11:54 AM EDT Due for 6 month follow up. Needs to schedule OV in next 1 month. T [facility]06-24-2024 Telephone encounter Note* Telephone Encounter - Malena [...] Malena Jauregui March 20, 2024 9:15 AM [facility] Work Phone: 1(377) 369-633506-03-2024 Telephone encounter Note* Telephone Encounter - Kayla [...] found Please advise. Thank you. CARLY Canales. [facility]06-03-2024 Miscellaneous Notes* Telephone Encounter - Kayla Layne [...] with cardiology as recommended. documented in this encounterMercy Health – The [facility] Hospital06-03-2024 Telephone encounter Note * Telephone Encounter - Kayla Layne OCCA - 02/28/2024 3:58 PM EDT ----- Message from Moy Paniagua MD sent at 02/28/2024 8:07 AM EDT ----- Stress test negative for signs of ischemia or blockage in his heart. F/u with cardiology as recommended. [facility]12-01-2023 History of Present illness Narrative* Sarai Shah APRN.TECHNICAL ADMINISTRATIVE ASSISTANT - 08/27/2023 7:10 AM EST 08/27/2023 Patient [...] Abs Lymph 1.00 - 4.00 k/uL 1.93 Lanier% % 10.0 Abs Lanier <0.87 k/uL 0.58 Eosin% % 4.5 Abs [...] really sure. 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 [...] which included preparing to see the patient, [id number] patient care, completing clinical documentation, obtaining and/or reviewing separately obtained history, performing a medically appropriate examination, and counseling and educating the patient/family/caregiver. documented in this encounterMercy Health [facility]09-15-2020 History of Past illness Narrative* Problem Noted [...] of this encounter (statuses as of 08/27/2023) [facility]09-01-2020 Evaluation note* Diagnosis Onset Date Resolution Status Atherosclerosis of coronary artery of unga heart without angina pectoris acute History of coronary artery bypass graft x May, acute History of percutaneous huggins sluminal coronary angioplasty May, acute Essential hypertension chron ic HLD (hyperlipidemia) [facility] Work Phone: 1(239) 101-391509-01-2020 Evaluation note* Diagnosis Onset Date Resolution Status Dyspnea on exertion acute Hypersomnolence acute Essential hypertension chron ic History of coronary artery bypass graft x 3 May, chronic HLD (hyperlipidemia) [facility] Work Phone: 1(916) 805-825009-01-2020 Evaluation note* Diagnosis Onset Date Resolution Status Admit Date Dyspnea on exertion acute Augus t 2024 1:00pm History of percutaneous transluminal coronary angioplasty May, acute May 21 1:00pm Essential hypertension chronic [place] 2024 1:00pm History of coronary artery bypass graft x May, chronic May 21 1:00pm HLD (hyperlipidemia) chronic Augu st 2024 1:00pm [facility] Work Phone: Evaluation note* Diagnosis Fatigue, unspecified type- Primary documented in this encounter [facility]* Diagnosis 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) documented in this encounter [facility]* Diagnosis Herpes zoster without complication- Primary Herpes zoster without mention of complication Major depressive disorder with current active episode, unspecified depression episode severity, unspecified whether recurrent Primary hypertension Unspecified essential hypertension 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) BEE on CPAP Obstructive sleep apnea (adult) (pediatric) documented in this encounter [facility]* Diagnosis 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) [facility] Diagnosis 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) documented in this encounter [facility]* Diagnosis Hyperlipidemia, unspecified hyperlipidemia type- Primary Primary hypertension Unspecified essential hypertension Routine physical examination Routine general medical examination at a health care facility Screening for prostate cancer Special screening for malignant neoplasm of prostate documented in this encounter [facility]* Diagnosis 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) documented in this encounter [facility]* Diagnosis 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) documented in this encounter [facility]* Diagnosis Annual physical exam- Primary Routine general medical examination at a health care facility 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) Primary hypertension Unspecified essential hypertension Hyperlipidemia, unspecified hyperlipidemia type BEE on CPAP Obstructive sleep apnea (adult) (pediatric) Screening for colon cancer Special screening for malignant neoplasms, colon Major depressive disorder with current active episode, unspecified depression episode severity, unspecified whether recurrent documented in this encounter [facility]* Diagnosis 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 documented in this encounter [facility]* Diagnosis 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 [facility] Work Phone: Chief Complaint and Reason for Visit Chief Complaint 6 M FU PCI CABG ABN STRESS TEST ABN STRESS TEST Reason for Visit Atherosclerosis of c oronary artery of unga heart without angina pectoris History of coronary [...] February 09, 2022 9 :55am Power of Act English Tutor No February 09, 2022 9:55am Advance Directive Response Recorded Date/ Time Advance Directives No February 09 8:55am Living Will No February 09, 2022 8 :55am Power of Act English Tutor No February 09, 2022 8:55am Advance Directive [...] Provider, Ref erring Provider Active Dejan Forrest RETAIL INVENTORY CONTROL CLERK, RETAIL INVENTORY CONTROL CLERK-C Attending Provider Active Team Status: Inactive Member Role Status Dates Dr. Mike Paniauga MD Primary Care Provider Acti ve Dejan Forrest RETAIL INVENTORY CONTROL CLERK, RETAIL INVENTORY CONTROL CLERK-C Attending Provider, Referring Pro vider Active Broke Worker Relationship Specialty Start Date End Date Moy Paniagua MD [address] [place] [address] PCP - General Family Medicine 1/17/23 No, Referral Referring Cardiology 07/26/20 Broke Worker Relationship Specialty Start Date End Date Moy Paniagua MD [address] [place] [address] PCP - General Family Medicine 10/13/22 No, Referral Referring Cardiology 07/26/20 Broke Worker Relationship Specialty Start Date End Date Moy Paniagua MD [address] [place] [address] PCP - General Family Medicine 10/13/22 No, Referral Referring Cardiology 07/26/20 Broke Worker Relationship Specialty Start Date End Date Moy Paniagua MD [address] [place] [address] PCP - General Family Medicine 10/13/22 No, Referral Referring Cardiology 07/26/20 Broke Worker Relationship Specialty Start Date End Date Moy Paniagua MD [address] [place] [address] PCP - General Family Medicine 10/13/22 No, Referral Referring Cardiology 07/26/20 Broke Worker Relationship Specialty Start Date End Date Moy Paniagua MD [address] [facility] [place] [address] PCP - General Family Medicine 10/13/22 No, Referral Referring Cardiology 07/26/20 PodlogSarai castro APRN.TECHNICAL ADMINISTRATIVE ASSISTANT [address] [place] [place] [address] Adult Remedial Education Instructor Family Medicine 09/02/24 Broke Worker Relationship Specialty Start Date End Date Moy Paniagua MD [address] [place] [place] [address] PCP - General Family Medicine 10/13/22 No, Referral Referring Cardiology 07/26/20 Podlogar, ANABELLA Mcfadden.TECHNICAL ADMINISTRATIVE ASSISTANT [address] [facility] [place] [address] [facility] 09/02/24 Broke Worker Relationship Specialty Start Date End Date Moy Paniagua MD [address] [facility] [place] [address] PCP - General Family Medicine 10/13/22 No, Referral Referring Cardiology 07/26/20 Podlogar, ANABELLA Mcfadden.TECHNICAL ADMINISTRATIVE ASSISTANT [address] [facility] [place] [address] [facility] 09/02/24 Broke Worker Relationship Specialty Start Date End Date Moy Paniagua MD [address] [facility] [place] [address] PCP - General Family Medicine 10/13/22 No, Referral Referring Cardiology 07/26/20 Podlogar, Sarai PEANUT SEPARATOR.TECHNICAL ADMINISTRATIVE ASSISTANT [address] [facility] [place] [address] [facility] 09/02/24 Broke Worker Relationship Specialty Start Date End Date Moy Paniagua MD [address] [facility] [place] [address] PCP - General Family Medicine 10/13/22 No, Referral Referring Cardiology 07/26/20 Podlogar, Sarai PEANUT SEPARATOR.TECHNICAL ADMINISTRATIVE ASSISTANT [address] [place] [address] [facility] 09/02/24 Anu Barr APRN.TECHNICAL ADMINISTRATIVE ASSISTANT [address] [place] [address] [facility] 12/08/24 Broke Worker Relationship Specialty Start Date End Date Moy Paniagua MD [address] [place] [address] PCP - General Family Medicine 10/13/22 No, Referral Referring Cardiology 07/26/20 Podlogar, Sarai, PEANUT SEPARATOR.TECHNICAL ADMINISTRATIVE ASSISTANT [address] [place] [address] [facility] 09/02/24 Anu Barr PEANUT SEPARATOR.TECHNICAL ADMINISTRATIVE ASSISTANT [address] [place] [address] [facility] 12/08/24 Broke Worker Relationship Specialty Start Date End Date Moy Paniagua MD [address] [place] [address] PCP - General Family Medicine 10/13/22 No, Referral Referring Cardiology 07/26/20 Podlogar, Sarai, PEANUT SEPARATOR.TECHNICAL ADMINISTRATIVE ASSISTANT [address] [place] [address] [facility] 09/02/24 Anu Barr PEANUT SEPARATOR.TECHNICAL ADMINISTRATIVE ASSISTANT [address] [facility], [place] [address] [facility] 12/08/24 Broke Worker Relationship Specialty Start Date End Date Moy Paniagua MD [address] [place] [address] PCP - General Family Medicine 10/13/22 No, Referral Referring Cardiology 07/26/20 Podlogar, Sarai, PEANUT SEPARATOR.TECHNICAL ADMINISTRATIVE ASSISTANT [address] [place], [place] [address] [facility] 09/02/24 Anu Barr PEANUT SEPARATOR.TECHNICAL ADMINISTRATIVE ASSISTANT [address] [place], [place] [id number] [facility] 12/18/24 Broke Worker Relationship Specialty Start Date End Date Moy Paniagua MD [address] [facility] [place], [place] [address] PCP - General Family Medicine 10/13/22 No, Referral Referring Cardiology 07/26/20 Podlogar, Sarai, PEANUT SEPARATOR.TECHNICAL ADMINISTRATIVE ASSISTANT [address] [place], [place] [address] [facility] 09/02/24 Anu Barr, PEANUT SEPARATOR.TECHNICAL ADMINISTRATIVE ASSISTANT [address] [place], [place] [id number] [facility] 03/08/25 Team Status: Active Member Role/Relationship Status [...] 2025 End: May 21, 2025 Sandhya García RETAIL INVENTORY CONTROL CLERK, RETAIL INVENTORY CONTROL CLERK-C Attending Provider Active Start: May 21, 2025 [...] or prosecute any alcohol or drug abuse patient.[facility] the event this information is protected by the Federal Confidentiality of Alcohol and Drug Abuse Patient Records regulations: The Federal rules restrict any use of the information to criminally investigate or prosecute any alcohol or drug abuse patient.[facility] the event this information is protected by the Federal Confidentiality of Alcohol and Drug Abuse Patient Records regulations: The Federal rules restrict any use of the information to criminally investigate or prosecute any alcohol or drug abuse patient.[facility] the event this information is protected by the Federal Confidentiality of Alcohol and Drug Abuse Patient Records regulations: The Federal rules restrict any use of the information to criminally investigate or prosecute any alcohol or drug abuse patient.[facility] the event this information is protected by the Federal Confidentiality of Alcohol and Drug Abuse Patient Records regulations: The Federal rules restrict any use of the information to criminally investigate or prosecute any alcohol or drug abuse patient.[facility] the event this information is protected by the Federal Confidentiality of Alcohol and Drug Abuse Patient Records regulations: The Federal rules restrict any use of the information to criminally investigate or prosecute any alcohol or drug abuse patient.[facility] the event this information is protected by the Federal Confidentiality of Alcohol and Drug Abuse Patient Records regulations: The Federal rules restrict any use of the information to criminally investigate or prosecute any alcohol or drug abuse patient.[facility] the event this information is protected by the Federal Confidentiality of Alcohol and Drug Abuse Patient Records regulations: The Federal rules restrict any use of the information to criminally investigate or prosecute any alcohol or drug abuse patient.[facility] the event this information is protected by the Federal Confidentiality of Alcohol and Drug Abuse Patient Records regulations: The Federal rules restrict any use of the information to criminally investigate or prosecute any alcohol or drug abuse patient.[facility] the event this information is protected by the Federal Confidentiality of Alcohol and Drug Abuse Patient Records regulations: The Federal rules restrict any use of the information to criminally investigate or prosecute any alcohol or drug abuse patient.[facility] the event this information is protected by the Federal Confidentiality of Alcohol and Drug Abuse Patient Records regulations: The Federal rules restrict any use of the information to criminally investigate or prosecute any alcohol or drug abuse patient.[facility] the event this information is protected by the Federal Confidentiality of Alcohol and Drug Abuse Patient Records regulations: The Federal rules restrict any use of the information to criminally investigate or prosecute any alcohol or drug abuse patient.[facility] the event this information is protected by the Federal Confidentiality of Alcohol and Drug Abuse Patient Records regulations: The Federal rules restrict any use of the information to criminally investigate or prosecute any alcohol or drug abuse patient.[facility] the event this information is protected by the Federal Confidentiality of Alcohol and Drug Abuse Patient Records regulations: The Federal rules restrict any use of the information to criminally investigate or prosecute any alcohol or drug abuse patient.[facility] the event this information is protected by the Federal Confidentiality of Alcohol and Drug Abuse Patient Records regulations: The Federal rules restrict any use of the information to criminally investigate or prosecute any alcohol or drug abuse patient.[facility] the event this information is protected by the Federal Confidentiality of Alcohol and Drug Abuse Patient Records regulations: The Federal rules restrict any use of the information to criminally investigate or prosecute any alcohol or drug abuse patient.[facility] Reason for Visit (unrecogniz ed section and [...] section and content) DATE CREATED AUTHOR 12/19/[address] [facility] DATE CREATED AUTHOR AUTHOR'S ORGANIZ ATION 06/21/2025 [facility] FOR RECORDS PERTAINING TO PATIENTS WHO ARE [...] BE BASED ON THE PRIMARY CLINICAL RECORDS. [employer] [facility] provides no warranty or guarantee of the accuracy or completeness of information in this document.
--- NOTE | 2025-06-22 12:54 | STRESSREP_ITS ---
Stress Test Report Exercise myocardial perfusion stress test. 60-year-old man with a history of chest pain. Stress protocol: Resting EKG demonstrates normal sinus rhythm with a rate of 73 bpm resting blood pressure is 122/78 mmHg. The patient exercised according to the regular Octaviano protocol for a total duration of 8 minutes attaining a maximum heart rate of 125 bpm which was 77% of maximum predicted heart rate; the maximum workload was 10.1 metabolic equivalents. At rest there were no ST or T wave changes noted to suggest ischemia and at peak exercise upsloping ST changes only were noted which did not meet the criteria for ischemia. No clinical angina was noted the test was terminated due to the target heart rate being achieved/fatigue. The peak bl ood pressure was 190/75 mmHg. Rate-pressure product was 23,007. Myocardial perfusion protocol. 13.7 mCi of technetium 99m sestamibi was injected at rest. The patient exercised according to regular Octaviano protocol for total duration of 8 minutes and at peak exercise 42.9 mCi of technetium 99m sestamibi was injected stress images were obtained stress and rest images were reconstructed in comparing the short axis vertical long and horizontal long axis. Gated images were also obtained. Perfusion SPECT analysis: Review of the stress images demonstrate normal uptake of tracer noted in all areas of the myocardium. The resting images similarly demonstrate normal uptake of tracer noted in all areas of the myocardium. No areas of reversibility are noted to suggest ischemia no previous infarct was noted. Gated SPECT analysis: The gated ejection fraction is 72%. Conclusion: Normal exercise myocardial perfusion stress test at a high workload.
== END | disposition home or self-care (01) ==
LOC: CVS 06:12
PROVIDERS: PCP Family Medicine; Referring Provider Nurse Practitioner Gerontology; Visit Provider Nurse Practitioner Gerontology
DX: R06.09 Other forms of dyspnea (principal); R07.89 Other chest pain; Z95.1 Presence of aortocoronary bypass graft
CPT/HCPCS: 78452; 93017; 93306; A9500; Q9957; A4216; C8929